=== PATIENT | female | born 1995 | race Caucasian/White ===

== ENCOUNTER 2018-06-02 07:20 | Emergency (ER) | payer MEDICAID, SELFPAY ==
[2018-06-02 07:22] VITALS: BP 124/69; PULSE 84; RESP 16; TEMP 36.5; O2SAT 98; BMI 26.4
--- NOTE | 2018-06-02 08:21 | ED.VISSUMM ---
- ER Visit Summary Date of Service: 06/02/18 Chief Complaint: Back pain History of Present Illness: The patient is a 22 F with lower back pain since yesterday. 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 Last night she began having bilateral lower back pain, keeping her from sleeping well. She did not take any medication at home for the pain. She has had similar symptoms in the past. She denies any numbness, tingling or weakness in the legs, abdominal pain, fever, bowel or bladder incontinence or retention. No other symptoms. Physical Examination: Vital signs: afebrile, hemodynamically stable, no hypoxia on room air General: well nourished, well developed, in no distress Skin: warm, dry, no rash, no pallor HEENT: normocephalic and atraumatic; PERRL, EOMI, moist mucous membranes Cardiovascular: regular rate and rhythm without murmurs, no peripheral edema, 2+ pulses all distal extremities Respiratory: No increased work of breathing, lungs are clear to auscultation bilaterally, no rales, rhonchi or wheezing Abdominal: Abdomen is soft, nontender with normoactive bowel sounds, no guarding or rebound, no masses Back: No midline thoracic or lumbar tenderness, deformities or step-offs. Tenderness to the paraspinal musculature bilaterally in the lower thoracic/upper lumbar region. Negative leg raise bilaterally. Strength, sensation and motor function and circulation are intact in the distal lower extremities, patellar reflexes 2+ and symmetric. MSK: Moves all extremities, no deformities, normal strength Neuro: Awake and alert, oriented ?4. No facial droop, sensation and motor function intact and symmetric Test Results: None indicated Emergency Department Course and Treatment: Patient's presentation is consistent with muscular strain of the lower back. Patient was given naproxen for pain. She was given a prescription for naproxen and Flexeril to use at bedtime to help her sleep. We discussed proper lifting techniques, as the trigger for her episodes of back pain today and historically have been lifting things at work. Patient has no red flag symptoms that would require further workup or imaging. Patient was discharged home. Treatment Plan: [] Disposition: [] Impression: Thoracolumbar strain with muscle spasm This note was generated with [employer] Selectation software. It may contain incorrect words, spelling, and punctuation that were not noted in review of the chart prior to signing ED Disposition - Plan for ED Patient: Disposition: Home or Assisted Living Chief Complaint: Back Instructions: ED Spasm Back No Trauma Prescriptions: Naproxen [Naprosyn] 500 mg PO BID PRN #20 tab Cyclobenzaprine [Flexeril] 5 mg PO TID PRN #20 tab PRN Reason: Muscle Spasm Referrals: Kendall Etienne MD [Primary Care Provider] - 1 Week if not improving Additional Instructions: Please make sure you are lifting properly at work, using your legs and not your back to lift heavy objects. You may use the naproxen as needed for pain. [place] the muscle relaxant for nighttime, as it will make you sleepy. If you have any worsening of your condition or any new concerning symptoms, please return immediately to the emergency department for another evaluation.
[2018-06-02] MEDS: Naproxen 500 MG Tablet PO (08:31)
[2018-06-02 08:32] VITALS: BP 122/61; PULSE 54; RESP 16; O2SAT 98
== END 2018-06-02 08:33 | disposition home or self-care (01) ==
PROVIDERS: Emergency Provider Emergency Medicine; Family Provider Family Medicine; PCP Family Medicine
DX: M62.830 Muscle spasm of back (principal); S29.012A Strain of muscle and tendon of back wall of thorax, initial encounter; S39.012A Strain of muscle, fascia and tendon of lower back, initial encounter; Z72.0 Tobacco use; X50.3XXA Overexertion from repetitive movements, initial encounter; Y93.89 Activity, other specified; Y92.89 Other specified places as the place of occurrence of the external cause; Y99.8 Other external cause status
CPT/HCPCS: 99283

== ENCOUNTER 2018-11-24 08:10 | Emergency (ER) | payer MEDICAID, SELFPAY ==
[2018-11-24 08:11] VITALS: BP 128/73; PULSE 69; RESP 16; TEMP 36.3; O2SAT 99; BMI 33.3
--- NOTE | 2018-11-24 08:22 | ED.VISSUMM ---
- ER Visit Summary Date of Service: 11/24/18 Chief Complaint: Sore throat History of Present Illness: The patient is a 23 F with a sore throat that started about a week ago. She noted some drainage in her throat as well as tonsil stones. Pain is bilateral. No trouble breathing, talking, or swallowing. She has had fevers. No cough. Physical Examination: Afebrile and vitals unremarkable. HEENT exam shows 1+ tonsils bilaterally with exudates. She has some posterior oropharynx cobblestoning. Anterior cervical lymphadenopathy. Good range of motion of her neck. No abscess. Airway intact. Skin appears normal. Test Results: None performed Emergency Department Course and Treatment: Patient has all the criteria for strep and we will treat. Prescription for Pen-Vee K. She received Decadron here. Follow-up with primary care. Return for new or worsening issues. Treatment Plan: As above Disposition: Discharge Impression: 1. Strep pharyngitis This note was generated with [employer] dictation software. It may contain incorrect words, spelling, and punctuation that were not noted in review of the chart prior to signing ED Disposition - Plan for ED Patient: Chief Complaint: Sore Throat Referrals: Kendall Etienne MD [Primary Care Provider] -
--- NOTE | 2018-11-24 08:25 | ED.DCSUM_ITS ---
- ER Visit Summary Date of Service: 11/24/18 Chief Complaint: Sore throat History of Present Illness: The patient is a 23 F with a sore throat that started about a week ago. She noted some drainage in her throat as well as tonsil stones. Pain is bilateral. No trouble breathing, talking, or swallowing. She has had fevers. No cough. Physical Examination: Afebrile and vitals unremarkable. HEENT exam shows 1+ tonsils bilaterally with exudates. She has some posterior oropharynx c obblestoning. Anterior cervical lymphadenopathy. Good range of motion of her neck. No abscess. Airway intact. Skin appears normal. Test Results: None performed Emergency Department Course and Treatment: Patient has all the criteria for strep and we will treat. Prescription for Pen-Vee K. She received Decadron here. Follow-up with primary care. Return for new or worsening issues. Treatment Plan: As above Disposition: Discharge Impression: 1. Strep pharyngitis This note was generated with [employer] dictation software. It may contain incorrect words, spelling, and punctuation that were not noted in review of the chart prior to signing ED Disposition - Plan for ED Patient: Chief Complaint: Sore Throat Referrals: Kendall Etienne MD [Primary Care Provider] -
--- NOTE | 2018-11-24 08:25 | ED.DEP ---
ED Disposition - Plan for ED Patient: Chief Complaint: Sore Throat Instructions: ED Strep Pharyngitis Poss Prescriptions: Penicillin Vk [Pen-Vee K 250MG] 500 mg PO BID 10 Days #20 tab Referrals: Kendall Etienne MD [Primary Care Provider] -
[2018-11-24] MEDS: Penicillin Vk 250 MG Tablet 500 MG PO (08:33)
[2018-11-24 08:35] VITALS: PULSE 72; O2SAT 99
== END 2018-11-24 08:37 | disposition home or self-care (01) ==
LOC: ED 08:34
PROVIDERS: Emergency Provider Emergency Medicine; Family Provider Family Medicine; PCP Family Medicine
DX: J02.0 Streptococcal pharyngitis (principal); Z79.899 Other long term (current) drug therapy
CPT/HCPCS: 99283

== ENCOUNTER 2019-12-08 07:51 | Observation (INO) | payer MEDICAID, SELFPAY ==
[2019-12-08 07:53] VITALS: BP 150/79; PULSE 70; RESP 18; TEMP 36.6; O2SAT 99; BMI 26.6
--- NOTE | 2019-12-08 08:09 | ED.VISSUMM ---
- ER Visit Summary Date of Service: 12/08/19 Chief Complaint: 5-month history of methamphetamine abuse trying to stop going through withdrawal symptoms History of Present Illness: 24-year-old female history of methamphetamine abuse since June. Primarily a daily user but recently that is accelerated in frequency. Primarily snorts the drug. She has not taken it since Friday and she started to have withdrawal symptoms such as nausea and vomiting and anxiety. She is requesting inpatient detox. She is never gone through detox before. She denies any IV drug abuse. Physical Examination: Young female no acute distress. Vital signs are stable and afebrile. H EENT exam unremarkable. Neck nontender. Lungs clear to auscultation bilaterally. Heart regular rhythm no murmur. Abdomen is soft and nontender. Normal bowel sounds no peritoneal signs. Patient moves all 4 extremities. Neurovascular intact. Calves are nontender. There is no edema. There is no track trimble in her arms. There is no cellulitis. Neurologically she is awake and alert with no focal motor deficits. Test Results: None Emergency Department Course and Treatment: Patient with a history of methamphetamine abuse for the last 5+ months. Has not used the last 36 to 48 hours is complaining of withdrawal symptoms. I have the hospitalist on page for admission. Treatment Plan: Hospitalist on page for admission Disposition: Admission Impression: Methamphetamine abuse Withdrawal requesting detox This note was generated with [employer] dictation software. It may contain incorrect words, spelling, and punctuation that were not noted in review of the chart prior to signing ED Disposition - Plan for ED Patient: Referrals: Kendall Etienne MD [Primary Care Provider] -
--- NOTE | 2019-12-08 08:28 | ED.RN ---
[place] [phone]
--- NOTE | 2019-12-08 08:33 | NURSING ---
DR JIMENEZ FOR DR BRIGGS
--- NOTE | 2019-12-08 08:38 | NURSING ---
MED SURG [facility] REQUESTING DETOX, METH ABUSE
--- NOTE | 2019-12-08 08:41 | NURSING ---
[id number] MED SURG
[2019-12-08 09:14] VITALS: BMI 27.8; BMI 27.9
[2019-12-08 09:50] LABS: Absolute Lymphocyte Count 2.86 X10^3/uL (0.83-4.51); Absolute Neutrophil Count 6.1 X10^3/uL (2.0-7.7); Basophil# 0.07 X10^3/uL; Basophil% 0.7 % (0-1); Eosinophil# 0.41 X10^3/uL; Hematocrit 39.1 % (37-47); Hemoglobin 12.9 g/dL (12.0-15.0); Lymphocyte # 2.86 X10^3/ul (4.0); Mean Corpuscular Hgb 29.5 pg (27.0-32.0); Mean Corpuscular Volume 89.5 fL (81-99); Mean Platelet Vol. 10.2 fl (6.2-12.0); Monocyte# 0.76 X10^3/uL; Monocyte% 7.5 % (0-10); NRBC Flagged by Analyzer 0 % (0-5); Neutrophil # 6.08 X10^3/uL (2.7-7.7); Neutrophil % 59.6 % (47-70); Platelet Count 212 K/mm3 (150-450); RBC Distribution Width CV 12.9 % (11.6-14.6); RBC Distribution Width SD 42.4 fl (35.1-43.9); Red Blood Count 4.37 M/mm3 (4.2-5.4); White Blood Count 10.2 K/mm3 (4.4-11.0)
[2019-12-08 10:04] LABS: ALB/GLOB Ratio 1.3 RATIO (0.9-2.4); AST(SGOT) 15 U/L (15-37); Alanine Aminotransfer ALT/SGPT 32 U/L (13-56); Albumin, Serum 3.8 g/dL (3.2-5.0); Alkaline Phosphatase 64 U/L (45-117); Anion Gap 3 (5-15); BUN 10 mg/dL (7-18); BUN/Creat Ratio 13.9 RATIO (10-20); Calcium,Total 8.9 mg/dL (8.5-10.1); Chloride 108 mmol/L (98-107); Creatinine, Serum 0.72 mg/dL (0.55-1.02); EST Glomerular Filtration Rate 103 mL/min (>60); Est Glom Filt Rate - Afr Amer 125 mL/min (>60); Estimated Creatinine Clearance 115.14 ml/min; Globulin 2.9 g/dL (2.2-4.2); Glucose 97 mg/dL (74-106); Potassium 3.9 mmol/L (3.5-5.1); Protein, Total 6.7 g/dL (6.4-8.2); Sodium Level 141 mmol/L (136-145)
[2019-12-08] MEDS: LORazepam 1 MG Tablet PO ×4 (10:09→22:17)
--- NOTE | 2019-12-08 10:10 | PCM.HP.STD ---
Problem List (1) Acute amphetamine withdrawal Status: Acute (2) Amphetamine abuse Status: Chronic (3) Anxiety Status: Chronic (4) Depression Status: Chronic History of Present Illness Date of Admission: 12/08/19 Chief Complaint: Requesting admission for amphetamine detox. The patient is a 24 year old F patient with past medical history as mentioned above presented to the emergency room requesting admission for medical stabilization for acute amphetamine withdrawal. The patient has been snorting methamphetamines every day over the last 5 months. Last use was this past Friday. Her symptoms started since yesterday with restlessness, and anxiety, not able to sleep as well as tremors, associated with weakness and intermittent nausea and without other associated symptoms. She complained of abdominal cramps as well without diarrhea. Denied fever or chills. Denied chest pain or shortness of breath. In the emergency department, her vital signs were stable, blood pressure was slight elevated. Routine blood work was unremarkable. LFT was unremarkable. Urine drug screen and serum are pending. She is being admitted for acute methamphetamine withdrawal for medical stabilization. Past Medical History Past Medical History (Chronic Problems): Chronic Problems Amphetamine abuse (Chronic) Anxiety (Chronic) Depression (Chronic) Allergies No Known Allergies Allergy (Verified 12/08/19 07:54) Home Medications: Ambulatory Orders Medication Instructions Recorded Escitalopram Oxalate [Lexapro] 10 mg PO DAILY 11/24/18 Bupropion HCl [Wellbutrin Xl] 150 mg PO DAILY 12/08/19 Etonogestrel [Nexplanon] 68 mg SQ DAILY 12/08/19 Psychiatric History: Anxiety, Depression [facility] History: No pertinent [facility] history Lives: With Family Smoking Status: Current every day smoker Tobacco Use: Cigarettes Alcohol: Occasional Drugs: - - Methamphetamines. - *Family History Maternal History Items: No pertinent history Paternal History Items: No pertinent history Review of Systems Constitutional: Reports: Weakness, Fatigue. Denies: Anorexia, Chills, Fever Eyes: Denies: Blurred vision, Double vision, Drainage, Redness HEENT: Denies: Difficulty Hearing, Ear Pain, Eye Pain, Nasal Congestion, Sore Throat Cardiovascular: Reports: Light Headedness. Denies: Chest Pain, Chest Pressure, Chest Tightness, Heaviness, Palpitations, Syncope Respiratory: Denies: Cough, Pleuritic Pain, Shortness of Breath, Sputum production, Wheezing Gastrointestinal: Reports: Nausea. Denies: Abdominal Pain, Constipation, Diarrhea, Vomiting Genitourinary: Denies: Dysuria, Frequency, Hematuria Musculoskeletal: Denies: Arm Pain, Back Pain, Foot Pain Skin: Denies: Dryness, Rash Neurological: Reports: Tremor. Denies: Balance problems, Double vision, Change in Speech, Slurred speech, Confusion, Headaches, Incoordination, Numbness, Tingling Psychiatric: Reports: Anxiety, Depression Endocrine: Denies: Change in Body Habitus, Polydipsia, Polyuria VTE Information - Inpt Only VTE Present on Admission: No VTE Mechan Device Prophylaxis: None VTE Pharm Prophylaxis ordered?: No Patient Problems: Active and Suspected Problems Acute amphetamine withdrawal (Acute) - Physical Exam Vitals/I&O's: Vital Signs Temp Pulse Resp BP Pulse Ox 97.8 F 70 18 150/79 H 99 12/08/19 07:53 12/08/19 07:53 12/08/19 07:53 12/08/19 07:53 12/08/19 07:53 Oxygen Delivery Method Room Air Weight: 178 lb Body Mass Index (BMI) 27.8 General: Alert, Oriented x3, Cooperative, No apparent distress HEENT: Atraumatic, PERRLA, EOMI, Normocephalic Oral: Moist Mucosa, No Gingival or Mucosal Lesions/ Ulcerations Neck: Supple, No JVD, Negative Carotid Bruits, Trachea Midline, Thyroid Normal Size and Texture Lungs: Clear to auscultation, Normal air movement, No rhonchi, No wheeze, No rales Cardiovascular: Regular rate, Regular Rhythm, Normal S1, Normal S2, PMI Normal Abdomen: Bowel Sounds Present, Soft, Non Tender, Non-Distended, No Hepato-splenomegaly Extremities: No clubbing, No cyanosis, No edema Skin: No rashes, No breakdown Lymphatic: No Cervical, Supraclavicular, or Inguinal Adenopathy Neurological: Cranial nerves II-XII grossly intact, Motor Exam 5/5 strength throughout Psych/Mental Status: Normal Affect, Anxious, Restless, Alert and oriented to time, place, person, mood and affect Laboratory Results 12/08/19 09:35: WBC 10.2, RBC 4.37, Hgb 12.9, Hct 39.1, MCV 89.5, MCH 29.5, MCHC 33.0, RDW Std Deviation 42.4, RDW Coeff of Victorino 12.9, Plt Count 212, MPV 10.2, Immature Gran % (Auto) 0.200, Neut % (Auto) 59.6, Lymph % (Auto) 28.0, [place] % (Auto) 7.5, Eos % (Auto) 4.0, Baso % (Auto) 0.7, Absolute Neuts (auto) 6.1, Absolute Lymphs (auto) 2.86, Nucleated RBC % 0 12/08/19 09:35: Sodium 141, Potassium 3.9, Chloride 108 H, Carbon Dioxide 30.0, Anion Gap 3 L, BUN 10, Creatinine 0.72, Estim Creat Clear Calc 115.14, Est GFR (MDRD) Af Amer 125, Est GFR (MDRD) Non-Af 103, BUN/Creatinine Ratio 13.9, Glucose 97, Calcium 8.9, Total Bilirubin 0.20, AST 15, ALT 32, Alkaline Phosphatase 64, Total Protein 6.7, Albumin 3.8, Globulin 2.9, Albumin/Globulin Ratio 1.3 12/08/19 09:35: Ethyl Alcohol Pending Current Medications Acetaminophen (Tylenol) 500 mg PO Q4H PRN PRN PRN Reason: Temp > 100.4 F Clonidine (Catapres) 0.1 mg PO Q2H PRN PRN PRN Reason: hot/cold sweats / gen. anxiety Dicyclomine HCl (Bentyl) 20 mg PO Q6H PRN PRN PRN Reason: Abdominal Discomfort Escitalopram Oxalate (Lexapro) 10 mg PO DAILY SHANELL Hydroxyzine Pamoate (Vistaril Pamoate Capsule) 50 mg PO Q6H PRN PRN PRN Reason: Mild anxiety (1-4) Loperamide HCl (Imodium) 2 - 4 mg PO UD PRN PRN Reason: LOOSE STOOLS Lorazepam (Ativan) 1 mg PO Q4H SHANELL; Taper Stop: 12/11/19 13:59 Methocarbamol (Methocarbamol) 750 mg PO Q6H PRN PRN PRN Reason: Muscle Aches Ondansetron HCl (Zofran Odt) 4 mg PO Q6H PRN PRN PRN Reason: NAUSEA Sodium Chloride () 10 - 40 ml IV UD PRN PRN Reason: SALINE FLUSH Trazodone HCl (Desyrel) 50 mg PO QHS [facility] Assessment/Plan All Active Problems Acute amphetamine withdrawal (Acute) This is a 24 years old female patient presented to the emergency room requesting admission for medical stabilization for acute methamphetamine withdrawal. #1 acute methamphetamine withdrawal: Patient has been using methamphetamine by snorting every day for the last 5 months. Last use was Friday morning. Her vital signs are stable except slightly elevated blood pressure. Routine blood work was unremarkable. LFT was unremarkable. Urine drug screen and blood alcohol level as well as test are pending. [facility], start Ativan taper, PRN Tylenol, Catapres, Bentyl, Vistaril, Imodium, methocarbamol, Zofran, trazodone nightly. #2 anxiety/depression: Continue Wellbutrin and Lexapro. #3 DVT prophylaxis: Low risk patient, no prophylaxis indicated. This note was generated with [employer] dictation software. It may contain incorrect words, spelling, and punctuation that were not noted in checking the note before signing. Code Visit Inpatient E&M: 29860 Init Hosp L2
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
[2019-12-08 11:10] LABS: Alcohol, Blood (Medical)-Serum < 3.0 mg/dL
[2019-12-08] MEDS: hydrOXYzine PAM 25 MG Capsule 50 MG PO ×2 (11:17→17:53)
[2019-12-08 13:46] LABS: Internal QC Validated? YES +Cl - CLEAR BKGD
[2019-12-08 13:47] LABS: Pregnancy, Urine Negative Negative
[2019-12-08 14:06] VITALS: BP 113/58; PULSE 65; RESP 16; TEMP 36.7; O2SAT 99
[2019-12-08 14:07] LABS: Amphetamine Urine VISTA NEGATIVE (<1000 ng/mL); Barbiturate Urine VISTA NEGATIVE (< 200 ng/mL); Benzodiazepine Urine VISTA NEGATIVE (< 200 ng/mL); Cocaine Urine VISTA NEGATIVE (< 300 ng/mL); Ecstacy Urine VISTA NEGATIVE (< 500 ng/mL); Methadone Urine VISTA NEGATIVE (< 300 ng/mL); PCP Urine VISTA NEGATIVE (< 25 ng/mL); THC Urine VISTA NEGATIVE (< 50 ng/mL); Vista UDS pH Range 6
--- NOTE | 2019-12-08 17:02 | NURSING ---
called report to charles PARKER ms3
[2019-12-08 17:47] VITALS: BP 153/93; PULSE 85; RESP 18; TEMP 37; O2SAT 100
[2019-12-08] MEDS: Methocarbamol 750 MG Tablet PO (17:54)
[2019-12-08 22:06] VITALS: BP 129/70; PULSE 67; RESP 18; TEMP 36.9; O2SAT 100
[2019-12-08] MEDS: Docusate Sodium 100 MG Capsule PO (22:17)
[2019-12-08] MEDS: traZODone 50 MG Tablet PO (22:17)
[2019-12-08] MEDS: Ondansetron ODT 4 MG Tablet PO (22:21)
[2019-12-09 02:02] VITALS: BP 119/62; PULSE 86; RESP 18; TEMP 36.8; O2SAT 97
[2019-12-09] MEDS: LORazepam 1 MG Tablet PO ×2 (02:07→06:26)
[2019-12-09 06:20] VITALS: BP 120/63; PULSE 89; RESP 18; TEMP 36.8; O2SAT 94
[2019-12-09] MEDS: Escitalopram Oxalate 10 MG Tablet PO (11:37)
[2019-12-09] MEDS: buPROPion (XL) 150 MG TABLET.XL PO (11:37)
[2019-12-09 11:40] VITALS: BP 117/63; PULSE 89; RESP 16; TEMP 37.1; O2SAT 97
--- NOTE | 2019-12-09 11:49 | PCM.DC ---
- Discharge Diagnoses Current Active Problems: Current Active and Chronic Problems Acute amphetamine withdrawal (Acute) Amphetamine abuse (Chronic) Anxiety (Chronic) Depression (Chronic) You will use the following diet at home:: No restrictions Your food should be the consistency of: Regular Your liquids should be the consistency of: Regular/Thin Discharge Activity: Return to Normal Activity Return to work on:: 12/13/19 Weight Bearing Status: Full weight bearing Allergies/Adverse Reactions: Allergies No Known Allergies Allergy (Verified 12/08/19 07:54) Medications to take at Discharge Escitalopram Oxalate [Lexapro] 10 mg PO DAILY 11/24/18 Bupropion HCl [Wellbutrin Xl] 150 mg PO DAILY 12/08/19 Etonogestrel [Nexplanon] 68 mg SQ DAILY 12/08/19 hydrOXYzine pamoate capsule [Vistaril pamoate capsule] 25 - 50 mg PO Q6H PRN PRN #20 cap 12/09/19 The following prescriptions were given: hydrOXYzine pamoate capsule [Vistaril pamoate capsule] 25 - 50 mg PO Q6H PRN PRN #20 cap PRN Reason: Mild anxiety (1-4) Transmission Status: Pending to [facility] Primary Care Physician: Kendall Etienne MD [Primary Care Provider] - Please follow up with your Primary Care Physician in: within 3 days Test Results: Test results from this visit will be discussed in further detail at your follow-up appointment, if applicable.
--- NOTE | 2019-12-12 09:24 | PCM.DC.SUM ---
Discharge Date and Diagnosis Date of Admission: 12/08/19 Date of Discharge: 12/09/19 - Primary Discharge Diagnosis #1 methamphetamine abuse #2 chronic depression #3 ADD per history - Secondary Discharge Diagnosis Chronic Problems Amphetamine abuse (Chronic) Anxiety (Chronic) Depression (Chronic) Hospital Course and Treatment Operations: None Procedures: None Summary of Care Provided: The patient is a 24 year old F was seen in the emergency room at [facility] with a chief complaint of requesting detox due to methamphetamine abuse. Patient last used methamphetamine approximately 3 days prior to being seen in the emergency room. Patient complained of nausea and vomiting and anxiety. Labs showed a normal CBC, chemistry panel was unremarkable, urine test was negative, and tox screen was negative. Patient was admitted to [place] [address], she was placed on medication protocol for opiate withdrawal, the following morning she was seen by this examiner-I notified her that there was no detox program at [facility] for methamphetamine usage. I recommended that she follow-up with 180 and had the social child and family services specialist see her concerning this, she refused assistance however. On 12/09/2019, patient was seen and examined: On examination she appeared in good health and spirits. Vital signs as documented. Skin warm and dry and without overt rashes. Neck without JVD. Lungs clear. Heart exam notable for regular rhythm, normal sounds and absence of murmurs, rubs or gallops. Abdomen unremarkable and without evidence of organomegaly, masses, or abdominal aortic enlargement. Extremities nonedematous. Neuro: Cranial nerves II through XII are grossly intact, no focal motor deficits were noted, sensation to light touch and pinprick is intact. Psych: Patient is alert and oriented x3, she does not appear anxious or depressed Patient was discharged in stable condition on 12/09/2019 - Physical Exam Vitals/I&O's: Vital Signs Temp Pulse Resp BP Pulse Ox 98.7 F 89 16 117/63 97 12/09/19 11:40 12/09/19 11:40 12/09/19 11:40 12/09/19 11:40 12/09/19 11:40 Oxygen Delivery Method Room Air Weight: 80.7 kg Body Mass Index (BMI) 27.8 Discharge Activity: Return to Normal Activity Return to work on:: 12/13/19 Weight Bearing Status: Full weight bearing Home Medications: Medications to take at Discharge Escitalopram Oxalate [Lexapro] 10 mg PO DAILY 11/24/18 Bupropion HCl [Wellbutrin Xl] 150 mg PO DAILY 12/08/19 Etonogestrel [Nexplanon] 68 mg SQ DAILY 12/08/19 hydrOXYzine pamoate capsule [Vistaril pamoate capsule] 25 - 50 mg PO Q6H PRN PRN #20 cap 12/09/19 Following Prescrptions Were Given to Patient: hydrOXYzine pamoate capsule [Vistaril pamoate capsule] 25 - 50 mg PO Q6H PRN PRN #20 cap PRN Reason: Mild anxiety (1-4) Transmission Status: Received by [facility] Primary Care Physician: Kendall Etienne MD [Primary Care Provider] - Please follow up with your Primary Care Physician in: within 3 days Disposition: Home Minutes spent on discharge:: 31 Patient Condition:: Stable Medical Necessity - Tobacco Use Smoking Status: Current every day smoker Tobacco Use: Cigarettes Meaningful Use Info Meaningful Use Diagnoses (Choose all that apply): None applicable Code Visit Inpatient E&M: 48203 Disch Hosp
== END 2019-12-09 14:57 | disposition home or self-care (01) | DRG 776 ==
LOC: ED 08:20 → ICU 08:47 → MS3 12-09 07:39 → ICU 02-24 10:27
PROVIDERS: Admitting Provider Hospitalist; Emergency Provider Emergency Medicine; Family Provider Family Medicine; PCP Family Medicine; Referring Provider Hospitalist; Visit Provider Internal Medicine
DX: F15.93 Other stimulant use, unspecified with withdrawal (principal); F17.210 Nicotine dependence, cigarettes, uncomplicated; F32.9 Major depressive disorder, single episode, unspecified; F41.9 Anxiety disorder, unspecified; F98.8 Other specified behavioral and emotional disorders with onset usually occurring in childhood and adolescence; Z79.899 Other long term (current) drug therapy
CPT/HCPCS: 80053; 80307; 80320; 81025; 85025; 99218; 99283; 99406; G0378; G0480

== ENCOUNTER 2021-07-30 13:47 | Emergency (ER) | payer MEDICAID, SELFPAY ==
[2021-07-30 13:48] VITALS: BP 142/79; PULSE 95; RESP 16; TEMP 36; BMI 34.1
--- NOTE | 2021-07-30 15:36 | US_ITS ---
STUDY: FIRST TRIMESTER OBSTETRICAL ULTRASOUND REASON FOR EXAM: Female, 25 years old. Bleeding. Left lower quadrant pain. LMP: 06/12/2021. TECHNIQUE: Transvaginal TECHNICAL QUALITY: Adequate. PRIOR ULTRASOUND: None. FINDINGS: There is visualization of a single gestational sac in a normal intrauterine position. The mean sac diameter (MSD) measures 1.2 cm, indicating an estimated gestational age (EGA) of 60 weeks, 0 days. The gestational sac shape is within normal limits. There is a visualized yolk sac. The yolk sac measures 0.35 cm. The placenta is non-visualized. There is no demonstrated embryo ( pole). The estimated gestation age (EGA) by LMP is 6 weeks, 6 days. The estimated date of delivery (ZAC) by LMP is 03/19/2022. The estimated gestation age (EGA) by US is 6 weeks, 0 days. The estimated date of delivery (ZAC) by US is 03/25/2022. The uterus measures 9.5 x 6.2 x 5.1 cm. There is no demonstrated uterine fibroid. The cervix is closed. There is a 3 mm echogenic focus in the cervix. The right ovary measures 3.3 x 1.6 x 2.0 cm. There is no right ovarian cyst. There is no visualized right adnexal mass or complex lesion. The left ovary measures 5.0 x 3.8 x 4.0 cm. There is a 3 x 3.5 x 3.5 cm cyst. There is no visualized left adnexal mass or complex lesion. There is minimal fluid in the cul de sac. US/Transvaginal w/Preg US IMPRESSION: 1. Intrauterine gestational sac with yolk sac but no pole. Mean gestational age is 6 weeks, 0 days. ZAC is 03/25/2022. 2. Left ovarian corpus luteum cyst. Electronically Signed: Neptali Garcia DO at 17:26 EDT Tel [phone], Service support ,
--- NOTE | 2021-07-30 15:37 | ED.VIS.FEGU ---
HPI HPI - Female History of Present Illness Chief Complaint: Vag Bld, Preg Informant: patient Associated Symptoms P: 2 Ab: 2 Narrative Narrative: 25-year-old female Ab2 at approximately 6 to 7 weeks gestation states that last night she began to notice some dark brown blood when she wiped after urination. This continued today. She states that she spoke with [facility] DOCUMENTATION BILLING CLERK who recommended waiting unless she developed some cramping. She then developed some cramping pain on the left side of her abdomen. PFSH PFSH no medical history Allergy/AdvReac Type Severity Reaction Status Date / Time No Known Allergies Allergy Verified 07/30/21 13:48 Social History (Updated 07/30/21 @ 15:[address] Filippo Borges, DO) Smoking Status: Current every day smoker tobacco type: cigarettes substance use type: does not use ROS ROS ED Constitutional Constitutional ED: Denies chills or weight loss Eyes Eyes: Denies change in vision or diplopia ENT ENT ED: Denies ear pain, rhinorrhea or sore throat Cardiovascular Cardiovascular: Denies chest pain, orthopnea, palpitations or racing heartbeat Respiratory/Chest Respiratory/Chest: Denies cough, dyspnea or orthopnea Gastrointestinal Gastrointestinal: Denies abdominal pain, diarrhea, nausea or vomiting Genitourinary Genitourinary ED: Reports other Details: See history of present illness ; Denies dysuria, hematuria or urinary frequency Musculoskeletal Musculoskeletal: Denies arthralgias or myalgias Integumentary Denies abscess or rash Neurologic Neurologic: Denies headache(s) or weakness Psychiatric Psychiatric: Denies anxiety, depression, suicidal ideation or suicidal thoughts Endocrine Endocrinology: Denies polydipsia, polyphagia or polyuria Allergic/Immunologic Allergic/Immunologic ED: Denies mouth swelling, tongue swelling or urticaria EXAM Physical Exam Const Vital Signs: 07/30/21 13:48 Temperature 96.8 F L Temperature Source Temporal Pulse Rate 95 Respiratory Rate 16 Blood Pressure 142/79 H Blood Pressure Mean 100 Positive well nourished and well developed General Appearance ED: well developed HEENT Reports normocephalic, head/scalp atraumatic and moist mucous membranes Eyes PERRL and EOMs intact bilaterally Neck no lymphadenopathy, supple and no JVD Resp normal respiratory effort and clear to auscultation bilaterally Cardio regular rate, regular rhythm and no murmurs GI normal to inspection, nondistended, normoactive bowel sounds and non-tender Palpation: soft Back/Spine no CVA tenderness and normal ROM Extremity normal to inspection General Extremety ED: Negative for edema General Extremity: Negative for edema Neuro oriented x3 and CN's II-XII intact bilaterally Sensorium / Orientation: alert Motor Exam: strength 5/5 throughout Psych mental status grossly normal Mood & Affect: Negative for depressed or tearful Skin no rashes or lesions noted and no wounds MDM MDM MDM Narrative Medical decision making narrative: Patient is Rh+. hCG level at 87.4. At the 24 July she was in the 900s. Hemoglobin 14.9. Obstruction ultrasound demonstrated intrauterine gestational sac with a yolk sac but no pole. Case was discussed with Dr. Fong. Patient will call the office tomorrow to arrange follow-up ultrasound. Lab Data Attestation: I reviewed the patient's lab results. Labs: Laboratory Results - last 24 hr 07/30/21 07/30/21 15:45 15:45 Hgb 14.9 Hct 44.4 HCG, Quant 8714 H Radiography Diagnostic Testing: Radiology Impression Obstetrics Ultrasound 07/30/21 15:36 IMPRESSION: 1. Intrauterine gestational sac with yolk sac but no pole. Mean gestational age is 6 weeks, 0 days. ZAC is 03/25/2022. 2. Left ovarian corpus luteum cyst. Electronically Signed: Neptali Garcia DO at 17:26 EDT Tel [phone], Service support , Discharge Plan Triage Chief Complaint: Vag Bld, Preg ED Provider: Filippo Borges Dx/Rx/DC Orders Clinical Impression: Threatened miscarriage Instructions: ED Possible Miscarriage ... Primary Care Provider: Kendall Etienne Referrals: Lexii Fong DO [STAFF PHYSICIAN] - (Call the office tomorrow discussed the follow-up ultrasound) Kendall Etienne MD [Primary Care Provider] - Disposition Disposition: Home, Self Care
[2021-07-30 15:53] LABS: Hematocrit 44.4 % (37-47); Hemoglobin 14.9 g/dL (12.0-15.0)
[2021-07-30 16:26] LABS: hCG Titer Quant., Serum 8714 mIU/mL (1-3)
== END 2021-07-30 18:01 | disposition home or self-care (01) ==
PROVIDERS: Emergency Provider Emergency Medicine; PCP Family Medicine
DX: O20.0 Threatened abortion (principal); O99.331 Smoking (tobacco) complicating pregnancy, first trimester; F17.210 Nicotine dependence, cigarettes, uncomplicated; Z3A.01 Less than 8 weeks gestation of pregnancy
CPT/HCPCS: 76817; 84702; 85014; 85018; 99283

== ENCOUNTER 2021-09-28 20:42 | Emergency (ER) | payer MEDICAID, SELFPAY ==
[2021-09-28 20:46] VITALS: BP 131/80; PULSE 113; RESP 20; TEMP 38.4; O2SAT 95; BMI 37.6
[2021-09-28 20:51] VITALS: O2SAT 96
[2021-09-28 21:21] VITALS: PULSE 101; RESP 20; O2SAT 99
--- NOTE | 2021-09-28 21:26 | EDS_ITS ---
HPI History of Present Illness Chief Complaint: Shortness of Breath Informant: patient Narrative Narrative: 26-year-old female about 14 weeks states that she tested positive at home for COVID-19. She states she got ill 2 days ago. The patient states that she has every symptom of Covid. She states that she talked to FARMWORKER MACHINE and they recommended her come to emergency surgical referral for monoclonal antibodies. Patient's been taking Tylenol last dose 2 hours ago. She notes shortness of breath. Pulse ox 99% in the room. She notes diarrhea nausea. Nonproductive cough PFSH PFS Medical History Anxiety Depression Substance abuse Home Medications PNV,calcium [id number] acid [ Vitamin Plus Low Iron] 1 tab PO DAILY 09/28/21 [History Last Taken Unknown] aspirin 81 mg PO DAILY 09/28/21 [History Last Taken Unknown] escitalopram oxalate 10 mg PO DAILY 09/28/21 [History Last Taken Unknown] Allergy/AdvReac Type Severity Reaction Status Date / Time No Known Allergies Allergy Verified 09/28/21 20:49 Social History Smoking Status: Current some day smoker tobacco type: e-cigarettes substance use type: does not use ROS ROS ED Constitutional Constitutional ED: Reports chills, fever(s) and sweats; Denies weight loss Eyes Eyes: Denies change in vision or diplopia ENT ENT ED: Reports rhinorrhea and sore throat; Denies ear pain Cardiovascular Cardiovascular: Reports chest pain; Denies orthopnea, palpitations or racing heartbeat Respiratory/Chest Respiratory/Chest: Reports cough and dyspnea on exertion; Denies dyspnea or orthopnea Gastrointestinal Gastrointestinal: Reports diarrhea, nausea and vomiting; Denies abdominal pain Genitourinary Genitourinary ED: Denies dysuria, hematuria or urinary frequency Musculoskeletal Musculoskeletal: Reports myalgias; Denies arthralgias Integumentary Denies abscess or rash Neurologic Neurologic: Reports headache(s); Denies weakness Psychiatric Psychiatric: Denies anxiety, depression, suicidal ideation or suicidal thoughts Endocrine Endocrinology: Denies polydipsia, polyphagia or polyuria Allergic/Immunologic Allergic/Immunologic ED: Denies mouth swelling, tongue swelling or urticaria EXAM Physical Exam Const Vital Signs: 09/28/21 20:46 09/28/21 20:51 09/28/21 21:21 Temperature 101.2 F H Temperature Source Temporal Pulse Rate 113 H 101 H Respiratory Rate 20 H 20 H Respiratory Effort Short of Breath Respiratory Pattern Tachypnea Blood Pressure 131/80 H Blood Pressure Mean 97 Pulse Ox 95 99 Oxygen Delivery Method Room Air Room Air Room Air Positive well nourished, well developed and obese General Appearance ED: well developed Nutritional Appearance: obese HEENT Reports normocephalic, head/scalp atraumatic, TM's clear and moist mucous membranes atraumatic Tympanic Membrane ED: Yes TM's clear Eyes PERRL and EOMs intact bilaterally Neck no lymphadenopathy, supple and no JVD Resp normal respiratory effort and clear to auscultation bilaterally Cardio regular rhythm and no murmurs Rate: tachycardic GI normal to inspection, nondistended, normoactive bowel sounds and non-tender Palpation: soft Back/Spine no CVA tenderness and normal ROM Extremity normal to inspection General Extremety ED: Negative for edema General Extremity: Negative for edema Neuro oriented x3 and CN's II-XII intact bilaterally Sensorium / Orientation: alert Motor Exam: strength 5/5 throughout Psych mental status grossly normal Mood & Affect: Negative for depressed or tearful Skin no rashes or lesions noted and no wounds MDM MDM MDM Narrative Medical decision making narrative: Patient is in no acute distress. She is eating and drinking well here in the department. CBC shows a white count of 7.4 and a hemoglobin of 13.9. Platelet count is 198. BMP showed a CO2 of 20 anion gap of 9 BUN of 9 creatinine 0.67. Glucose of 91. Patient has refused a chest x-ray citing . This after we clearly discussed getting a chest x-ray. The patient home Covid test. I am going to formally test her here should she require further treatment in her Covid course. She is inquiring about monoclonal antibodies. Lab Data Attestation: I reviewed the patient's lab results. Labs: Laboratory Results - last 24 hr 09/28/21 09/28/21 21:00 21:00 WBC 7.4 RBC 4.76 Hgb 13.9 Hct 41.2 MCV 86.6 MCH 29.2 MCHC 33.7 RDW Std Deviation 38.7 RDW Coeff of Victorino 12.3 Plt Count 198 MPV 10.1 Immature Gran % (Auto) 0.700 Neut % (Auto) 47.4 Lymph % (Auto) 31.2 Dillon % (Auto) 19.6 H Eos % (Auto) 0.7 Baso % (Auto) 0.4 Absolute Neuts (auto) 3.5 Absolute Lymphs (auto) 2.31 Nucleated RBC % 0 Sodium 137 Potassium 3.6 Chloride 108 H Carbon Dioxide 20.0 L Anion Gap 9 BUN 9 Creatinine 0.67 Estim Creat Clear Calc 121.57 Est GFR (MDRD) Af Amer 136 Est GFR (MDRD) Non-Af 112 BUN/Creatinine Ratio 13.5 Glucose 91 Calcium 8.9 Discharge Plan Triage Chief Complaint: Shortness of Breath ED Provider: Filippo Borges Dx/Rx/DC Orders Clinical Impression: COVID-19, Second trimester Instructions: Coronavirus Disease 2019 (COVID-19): Caring for Yourself or Others Prescriptions: No Action escitalopram oxalate 10 mg tablet 10 mg PO DAILY RF: 0 Vitamin Plus Low Iron 27 mg iron- 1 mg tablet 1 tab PO DAILY RF: 0 aspirin 81 mg Capsule 81 mg PO DAILY RF: 0 Other Ambulatory Orders: COVID Outpatient Monoclonal Antibody Referral (Routine) Timeframe: 1 Day Facility: [facility] - Location: [facility] Ordered By: Dr. Filippo Borges Primary Care Provider: Kendall Etienne Referrals: Kendall Etienne MD [Primary Care Provider] - As Needed Disposition Disposition: Home, Self Care
[2021-09-28 21:39] LABS: Absolute Lymphocyte Count 2.31 X10^3/uL (0.83-4.51); Absolute Neutrophil Count 3.5 X10^3/uL (2.0-7.7); Basophil# 0.03 X10^3/uL; Basophil% 0.4 % (0-1); Eosinophil# 0.05 X10^3/uL; Eosinophils% 0.7 % (0-5); Hematocrit 41.2 % (37-47); Hemoglobin 13.9 g/dL (12.0-15.0); Lymphocyte # 2.31 X10^3/ul (0.83-4.51); Lymphocyte % 31.2 % (19-41); Mean Corp Hgb Conc 33.7 g/dL (32-36); Mean Corpuscular Hgb 29.2 pg (27.0-32.0); Mean Corpuscular Volume 86.6 fL (81-99); Mean Platelet Vol. 10.1 fl (6.2-12.0); Monocyte# 1.45 X10^3/uL; Monocyte% 19.6 % (0-10); NRBC Flagged by Analyzer 0 % (0-5); Neutrophil # 3.52 X10^3/uL (2.7-7.7); Neutrophil % 47.4 % (47-70); Platelet Count 198 K/mm3 (150-450); RBC Distribution Width CV 12.3 % (11.6-14.6); RBC Distribution Width SD 38.7 fl (35.1-43.9); Red Blood Count 4.76 M/mm3 (4.2-5.4); White Blood Count 7.4 K/mm3 (4.4-11.0)
[2021-09-28 21:48] LABS: Anion Gap 9 (5-15); BUN 9 mg/dL (7-18); BUN/Creat Ratio 13.5 RATIO (10-20); Calcium,Total 8.9 mg/dL (8.5-10.1); Chloride 108 mmol/L (98-107); Creatinine, Serum 0.67 mg/dL (0.55-1.02); EST Glomerular Filtration Rate 112 mL/min (>60); Est Glom Filt Rate - Afr Amer 136 mL/min (>60); Estimated Creatinine Clearance 121.57 ml/min; Glucose 91 mg/dL (74-106); Potassium 3.6 mmol/L (3.5-5.1); Sodium Level 137 mmol/L (136-145)
[2021-09-28 22:26] VITALS: PULSE 99; RESP 22; TEMP 38.4; O2SAT 99
== END 2021-09-28 22:28 | disposition home or self-care (01) ==
PROVIDERS: Emergency Provider Emergency Medicine; PCP Family Medicine
DX: O98.512 Other viral diseases complicating pregnancy, second trimester (principal); O99.331 Smoking (tobacco) complicating pregnancy, first trimester; O99.342 Other mental disorders complicating pregnancy, second trimester; U07.1 COVID-19; F17.290 Nicotine dependence, other tobacco product, uncomplicated; F41.9 Anxiety disorder, unspecified; F32.9 Major depressive disorder, single episode, unspecified; Z3A.14 14 weeks gestation of pregnancy; Z79.82 Long term (current) use of aspirin; Z79.899 Other long term (current) drug therapy
CPT/HCPCS: 80048; 85025; 87426; 99283; J7040; A4216

== ENCOUNTER 2022-03-23 09:54 | Inpatient (IN) | payer MEDICAID, SELFPAY ==
[2022-03-23] VITALS (26 sets, daily range): BP systolic 115–146; BP diastolic 56–89; PULSE 77–113; TEMP 36.2–36.9; O2SAT 97–98; BMI 41.1
[2022-03-23] MEDS: Lactated Ringers 1,000 ML 50 ML IV (11:02)
[2022-03-23 11:13] LABS: Absolute Lymphocyte Count 2.34 X10^3/uL (0.83-4.51); Absolute Neutrophil Count 7.5 X10^3/uL (2.0-7.7); Basophil# 0.03 X10^3/uL; Basophil% 0.3 % (0-1); Eosinophil# 0.13 X10^3/uL; Eosinophils% 1.2 % (0-5); Hematocrit 38.5 % (37-47); Hemoglobin 13.2 g/dL (12.0-15.0); Lymphocyte # 2.34 X10^3/ul (0.83-4.51); Lymphocyte % 21.4 % (19-41); Mean Corp Hgb Conc 34.3 g/dL (32-36); Mean Corpuscular Hgb 29.6 pg (27.0-32.0); Mean Corpuscular Volume 86.3 fL (81-99); Mean Platelet Vol. 10.2 fl (6.2-12.0); Monocyte# 0.88 X10^3/uL; NRBC Flagged by Analyzer 0 % (0-5); Neutrophil # 7.49 X10^3/uL (2.7-7.7); Neutrophil % 68.5 % (47-70); Platelet Count 230 K/mm3 (150-450); RBC Distribution Width SD 40.3 fl (35.1-43.9); Red Blood Count 4.46 M/mm3 (4.2-5.4); White Blood Count 10.9 K/mm3 (4.4-11.0)
[2022-03-23 11:28] LABS: Amphetamine Urine VISTA NEGATIVE (<1000 ng/mL); Barbiturate Urine VISTA NEGATIVE (< 200 ng/mL); Benzodiazepine Urine VISTA NEGATIVE (< 200 ng/mL); Cocaine Urine VISTA NEGATIVE (< 300 ng/mL); Ecstacy Urine VISTA NEGATIVE (< 500 ng/mL); Methadone Urine VISTA NEGATIVE (< 300 ng/mL); PCP Urine VISTA NEGATIVE (< 25 ng/mL); THC Urine VISTA NEGATIVE (< 50 ng/mL); Vista UDS pH Range 5
[2022-03-23 12:05] LABS: Bedside Glucose 95 mg/dL (74-106)
[2022-03-23] MEDS: Oxytocin 30 units/NS 500 ml 30 UNITS/500 ML IV.SOLN IV (12:32)
[2022-03-23 13:26] LABS: Bedside Glucose 92 mg/dL (74-106)
--- NOTE | 2022-03-23 13:34 | PCM.HP.OB ---
HPI - General General Date of Admission: 03/23/22 HPI Narrative LEESA COLE, is a 26 F @ 39.1 weeks who presents for IOL due to GDMA1 and Obesity BMI >40 in . Maternal Data Information Final ZAC: 03/29/22 Final ZAC Source: US <20 weeks Gestational age: 39.1 [facility] Medical History (Updated 03/23/22 @ 13:[address] Daniela Miranda MD) Anxiety Chlamydia infection affecting Depression Gestational diabetes Gonorrhea affecting depression Substance abuse Home Medications PNV,calcium 74-[id number] acid [ Vitamin Plus Low Iron] 1 tab PO DAILY 09/28/21 [History Last Taken 03/23/22 05:15 1 tab] aspirin 81 mg PO DAILY 09/28/21 [History Last Taken 03/23/22 05:15 1 tab] Allergy/AdvReac Type Severity Reaction Status Date / Time No Known Allergies Allergy Verified 03/23/22 11:19 Surgical History (Updated 03/23/22 @ 10:35 by Roseann Ziegler) History of dilatation and curettage Social History Smoking Status: Current every day smoker tobacco type: e-cigarettes substance use type: does not use History Elective abortions Hx Para 2 Spontaneous abortions Hx # Term Pregnancies Ectopic pregnancies Hx # Pregnancies Multiple births # of living children NST FHR Rate Baby A Baseline: 140 Variability:: Moderate Accelerations:: 15 x 15 Decelerations:: None NST Reactive:: Yes FHR Category:: Category I Uterine Activity:: irregular Vital Signs Vital Signs Vital Signs: 03/23/22 10:43 03/23/22 11:11 03/23/22 11:58 Temperature 97.2 F L 97.5 F L Temperature Source Temporal Temporal Pulse Rate 104 H 103 H 95 Blood Pressure 143/79 H 136/82 H 131/79 H BP Systolic 143 136 131 BP Diastolic 79 82 79 Pulse Ox 97 03/23/22 13:16 Temperature 97.1 F L Temperature Source Temporal Pulse Rate 88 Blood Pressure 131/78 H BP Systolic 131 BP Diastolic 78 Pulse Ox 98 Weight Weight: 119.1 kg Body Mass Index (BMI) 41.1 Physical Exam Const alert and oriented x3 General Appearance: cooperative HEENT normocephalic GI GI Narrative: Gravid, non tender to palpation. OB / External & Speculum: external exam normal Extremity normal to inspection Skin no rashes or lesions noted Neuro oriented x3 and CN's II-XII intact bilaterally Psych Appearance: grossly normal Labs Labs Labs: Blood Type O POSITIVE Antibody Screen NEGATIVE Hct 38.5 % (37-47) Hgb 13.2 g/dL (12.0-15.0) Obstetrics US Rhogam given: No Assessment & Plan (1) Gestational diabetes: QUALIFIERS: Gestational diabetes mellitus control: diet-controlled Trimester: third trimester Qualified Code(s): O24.410 - Gestational diabetes mellitus in , diet controlled (2) Obesity affecting : QUALIFIERS: Trimester: third trimester Qualified Code(s): O99.213 - Obesity complicating , third trimester PLAN: Admit to L&D Montior FHR/TOCO Epidural if requested for pain Monitor VS Anticipate monitor BS AROM/PITOCIN GBS prophylaxis
[2022-03-23] MEDS: Ondansetron 4 MG/2 ML Vial IV (14:25)
[2022-03-23] MEDS: Penicillin G 3,000,000 Units 50 ML 100 UNITS IV (15:03)
[2022-03-23] MEDS: fentaNYL-bupivacaine (epidural) 100 ML BAG EPIDURAL (16:35)
[2022-03-23] MEDS: Acetaminophen 500 MG Tablet PO (17:42)
[2022-03-23] MEDS: Oxytocin 30 units/NS 500 ml 30 UNITS/500 ML IV.SOLN 334 UNITS IV (18:05)
--- NOTE | 2022-03-23 18:24 | EX.PCM.OBRPT ---
Assessment & Plan (1) Vaginal delivery: (2) Non-reassuring heart rate, delivered, current hospitalization: (3) Obesity affecting : QUALIFIERS: Trimester: third trimester Qualified Code(s): O99.213 - Obesity complicating , third trimester (4) Gestational diabetes: QUALIFIERS: Gestational diabetes mellitus control: diet-controlled Trimester: third trimester Qualified Code(s): O24.410 - Gestational diabetes mellitus in , diet controlled Maternal Data Information Final ZAC: 03/29/22 Gestational age: 39.1 Vaginal Delivery Maternal Presentation Maternal Presentation: Medically Indicated Induction Type of Induction: Pitocin and Amniotomy Medical Reason for Induction: - (GDMA1, BMI >40) Operative Information Date of Procedure: 03/23/22 Post-Operative Diagnosis: term gestation, GDMA1, BMI >40 in Surgery / Procedure Performed: Vacuum Assisted Vaginal Delivery Type of Anesthesia: Epidural Estimated Blood Loss: 200 Time of Delivery: 18:00 Findings Description of Procedure: Patient progressed to fully dilated. At this time heart rate decelerations present down into the 30s. Decision at this time for expedited delivery was to use the Kiwi vacuum. Bladder was attempted to be drained with a straight catheter however due to head position I was unable to pass the catheter. Epidural anesthesia was found to be adequate. Prior to delivery the patient with pushing was expelling urine. At this time then the Kiwi vacuum was placed on the flexion point. Pressure of 550 mmHg was obtained. With 1 pull and good maternal pushing efforts the head was delivered. The vacuum was then removed. The anterior followed by the posterior shoulder and the rest the infant's body was delivered. The was placed on the maternal chest. Terminal meconium was present. At this time upon inspection of the vagina a small first-degree vaginal laceration was appreciated. This was repaired with 2 [id number] sutures using 3-0 Rapide for hemostasis. Pitocin was started placenta was delivered without complication. The placenta was delivered intact. Presentation: Vertex Amniotic Membrane Rupture Type: Artificial Amniotic Fluid Description: Clear (at time of AROM) and Thick meconium (noted with delivery ) Placental Delivery Description: Spontaneous Placenta Disposition: [facility] Specimen(s) Removed: placenta Cord Vessel Description: 3 Vessels Cord Entanglement: None Infant A Gender: Male (1 minute): 8 (5 minute): 9 Delayed Cord Clamping: Yes Post Vaginal Delivery Medications Given After Delivery: IV Pitocin Episiotomy Description: None Laceration: Vaginal Extension/lac and 1st degree Complication Complications: None
[2022-03-23 18:31] LABS: Bedside Glucose 92 mg/dL (74-106)
[2022-03-23 18:41] LABS: Bedside Glucose 110 mg/dL (74-106)
[2022-03-23] MEDS: Ibuprofen 600 MG Tablet PO (21:36)
[2022-03-24 00:20] VITALS: BP 99/58; PULSE 85; RESP 18; TEMP 36.8
[2022-03-24] MEDS: Acetaminophen 500 MG Tablet 1000 MG PO ×3 (00:29→14:42)
[2022-03-24 03:33] VITALS: BP 141/84; PULSE 70; RESP 18; TEMP 36.9
[2022-03-24] MEDS: Ibuprofen 600 MG Tablet PO ×3 (03:37→18:19)
[2022-03-24 07:36] LABS: Bedside Glucose 90 mg/dL (74-106)
[2022-03-24 08:05] VITALS: BP 117/66; PULSE 80; RESP 18; TEMP 36.3
--- NOTE | 2022-03-24 14:07 | PCM.PROGNOTE ---
Subjective Subjective patient seen at bedside, doing well. Patient reports good pain control. lochia mild. Objective Data Objective Data Vital Signs: Vital Signs Temp Pulse Resp BP Pulse Ox 97.3 F L 80 18 117/66 98 03/24/22 08:05 03/24/22 08:05 03/24/22 08:05 03/24/22 08:05 03/23/22 13:16 Weight: 119.1 kg Body Mass Index (BMI) 41.1 Intake & Output: Intake and Output for Last 24 Hours 03/22/22 03/23/22 03/24/22 23:59 23:59 23:59 Intake Total 878.63 / 878.63 Output Total 500 / 500 Balance 378.63 / 378.63 Lab / Micro Data Result Diagrams: 03/23/22 10:50 Labs: Laboratory Results - last 24 hr 03/23/22 17:05: POC Glucose 92 03/23/22 18:32: POC Glucose 110 H 03/24/22 07:28: POC Glucose 90 Micro: Microbiology 03/23/22 10:45 Nasal Secretion SARS-CoV-2 Antigen (Rapid) - Final Physical Exam Const alert and oriented x3 General Appearance: cooperative HEENT normocephalic Neck General: normal visual inspection GI soft to palpation and non-distended GI Narrative: Fundus firm Extremity normal to inspection and no calf tenderness Skin no rashes or lesions noted Neuro oriented x3 and CN's II-XII intact bilaterally Psych mental status grossly normal Assessment & Plan Assessment/Plan (1) Vaginal delivery: PLAN: PPD#1Doing well Routine care pain mgmt ambulation dc home
--- NOTE | 2022-03-24 14:07 | PCM.DC ---
Discharge Instructions Diet Discharge Diet: No restrictions Activity May resume sexual activity in: 6-8 weeks Dressing / Incision Call your doctor if you observe: Fever of 101 or Higher, Inability to urinate, Using more than 1 pad per hour and Uncontrolled pain Follow Up Care Please Follow Up With: Daniela Miranda MD When: 1-2 weeks post and again at 6 weeks post . [phone] Test Results: Test results from this visit will be discussed in further detail at your follow-up appointment, if applicable. Discharge Plan Admission Admit Date/Time: 03/23/22 09:54 Attending Provider: Daniela Miranda Primary Care Provider: Kendall Etienne Discharge Orders/Prescriptions Prescriptions: New acetaminophen 500 mg Tablet 1,000 mg PO Q6H PRN PRN (Reason: Pain 1-10 Or Fever) Qty: 0 RF: 0 ibuprofen 600 mg Tablet 600 mg PO Q6H PRN PRN (Reason: Pain Score 1-3) Qty: 0 RF: 0 Continued Vitamin Plus Low Iron 27 mg iron- 1 mg tablet 1 tab PO DAILY RF: 0 Discontinued aspirin 81 mg Capsule 81 mg PO DAILY RF: 0 Referrals / Follow Up: Kendall Etienne MD [Primary Care Provider] - Disposition Disposition (needs filled in before D/C Order can be placed): Home, Self Care
[2022-03-24 14:20] VITALS: BP 126/67; PULSE 80; RESP 20; TEMP 36.3
--- NOTE | 2022-03-24 20:35 | NURSING ---
In caring for Owen today, I had a few areas of concerns and observations. This am, I voiced concerns with the charge nurse over the fact that this pt. had a hx. of amphetamine use , as well as a mention of suicide (but unsure of ideation or attempt). Noted that while I was in room with pt. on 03/23/22 before start of induction, I reviewed hx. that was in computer with the patient. 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 The charge nurse felt this statement was in relation to the THC she had used, and not in regards to the amphetamines. Tox. negative on admission. Pt. very impulsive for most of the shift, and very anxious. Owen has two other children, ages 7 & 9, I believe, but is very, very unsure of infant care. Circ care taught by ELENA Lopez, and she reported that the mother requested to wait for FOB to be back before looking at circ. When this nurse in room a bit later, the patient had this nurse show circ care again, and then once again opened up the diaper later to have this nurse check again to make sure A&D ointment was applied ok. Discussion later in the day went back to checking the diapers to see if wet, and the pt. reported that the strip is not turning blue, but obviously discolored. Reminded mother that the A&D can make diaper look wet, when it is just the ointment. That the yellow line should still turn blue, but that if she wasn't sure, she could pull the diaper apart a little to double-check it. This nurse in to pt's room around 1200 to check VS on mom and babe, mom was resting with eyes closed. Awakened her to ask if she had fed infant since 0645, as did not have another feed marked down. Pt. reports that she fed at nine-something. Allowed her to keep resting, and told FOB to have her call when she wakes up for VS. When back in to room, mother was sitting up at the edge of the bed, eating lunch. Has not attempted to feed at all. Discussed that infant eating at 0900 would make it 5 hours since last ate, and needs to eat q2-3 hrs. Closer to 5, I was trying to figure out when to chart the 0900 feed exactly, and pt. was unable to give a time on that feed, and was also not able to provide a time on that feed. Pt. very adamant about getting tucks into her room, but had no idea how to use them - educated on this. Owen was very concerned about her epidural site - had nursing wash her back after removing bandaid because she is very concerned about getting an infection. Reassured on this. Regarding further issues with the infant - this nurse in to complete 24 hr testing, and explained hearing screening to mother, and how I was going to do it with infant laying next to her in bed as he was sleeping peacefully and hearing screening works best when they are very asleep. I brought the screener in, and Owen asked me to move River to the crib so that she could eat. I explained again of needing to be sleeping and would move as soon as hearing screening is over. I put gel on , and went to place the beraphone on the , and Owen almost hit the nurses hand away stating You're going to hurt him! I paused to let the mother touch the beraphone and see how it worked, and that it would not hurt him. She was willing to let me proceed with the test. Owen asked a lot of questions about the tests, appropriate questions about what I was doing, what we needed with results, etc. The infant was due to eat again (4 hrs - had not attempted to feed in this time), and I discussed with patient doing [id number] and nursing while I collected the PKU and the bili. Owen was very concerned that this was not good for the infant and questioned me quite a bit on this. I told her that they loved to snuggle with mama, and that being close and getting to nurse actually helped them to control their pain better with procedures, vs. causing problems. Owen was visibly upset by this option, FOB tried to reassure her. Owen ended up doing this, and did very well at it. I offered several times over that if it was too uncomfortable for her to hold and feed, that I could do the test when he was done nursing in his crib, but that he needed to nurse again. A good bit of the time that I was collecting the PKU and the bili, Owen was very concerned over the gel in Jarocho's hair (from the hearing screen). (Concern over if it would harm him, and then that it bothered her that it was there). When I saw Owen with Jarocho, they were doing well. I did not see her do much infant care today, but she did spend some time holding him, touching him, and talking with dad about Jarocho being a mini version of him. The father was appropriate as well. She appeared caught off guard when asked about if they had changed diapers, and did not keep track of time well with feeds, but was very concerned over knowing if was getting enough to eat. Accepting of info, many, many questions. Concerns raised once again with charge nurse about pt. going home without seeing social work. Charge nurse discussed with floor SW, and Dr. Lara was involved in discussions of concern over mother and how she will do at home/with prior to follow-up, but feel is being cared for here. Dr. Lara discussed with pt. to stay to watch bili, work on feeds, and to see SW tomorrow - pt. anticipating these things.
[2022-03-24 21:00] VITALS: BP 119/58; PULSE 81; RESP 18; TEMP 36.5
[2022-03-25] MEDS: Ibuprofen 600 MG Tablet PO ×2 (00:36→07:48)
[2022-03-25 02:33] VITALS: BP 130/77; PULSE 89; RESP 18; TEMP 36.2; O2SAT 97
--- NOTE | 2022-03-25 05:23 | NURSING ---
Patient was planning on discharge home 03/24/22, but was kept overnight so that 's bili could be checked in the am, latch could be worked on, and social work could be consulted 03/25/22 before discharge. Pt has been appropriate for most of shift, but has requested that this RN do a lot of hands on care such as diaper changing and swaddling infant. During the shift, this RN was notified by [facility] RN that at the beginning of this shift, pt brought to [facility] door and was knocking on door waiting for a response. When [facility] RN answered the door, pt asked why no [facility] RN's were sitting in the well baby nursery. SCN RN explained that it is not standard for infant's to be in WBN, so nurse is not typically sitting in there - is on the floor involved in care of deliveries/care of all infants. Mom then told [facility] RN that she just needed to go outside for a few minutes, so she wanted the [facility] RN to watch . [facility] RN did watch . Pt did not attempt to reach this RN or any other [facility] staff member first. Throughout the shift, this RN reminded mom multiple times to use call chang or phone in room to get ahold of confidential secretary electrical integrator for any needs. Mom voiced understanding.
[2022-03-25 07:50] VITALS: BP 117/77; PULSE 84; RESP 16; TEMP 36.5; O2SAT 99
--- NOTE | 2022-03-25 07:50 | PCM.PN.OB ---
Subjective Subjective Patient seen at bedside. . Ambulating and voiding. Feeling like she doesn't have full control over bladder. When she stands up, she will leak urine. Denies any pain. Desires discharge home today. Objective Data Objective Data Vital Signs: Vital Signs Temp Pulse Resp BP Pulse Ox 97.7 F L 84 16 117/77 99 03/25/22 07:50 03/25/22 07:50 03/25/22 07:50 03/25/22 07:50 03/25/22 07:50 Oxygen Delivery Method Room Air Weight: 262 lb 9.129 oz Body Mass Index (BMI) 41.1 Intake & Output: Intake and Output for Last 24 Hours 03/23/22 03/24/22 03/25/22 23:59 23:59 23:59 Intake Total 878.63 / 878.63 Output Total 500 / 500 Balance 378.63 / 378.63 Lab / Micro Data Result Diagrams: 03/23/22 10:50 Micro: Microbiology 03/23/22 10:45 Nasal Secretion SARS-CoV-2 Antigen (Rapid) - Final ROS Eyes Eyes: Denies blurry vision, change in vision or spots in vision ENT HEENT: Denies dizziness or headache(s) Cardiovascular Cardiovascular: Denies abdominal pain, chest pain or dyspnea Respiratory/Chest Respiratory/Chest: Denies cough, dyspnea, shortness of breath at rest or shortness of breath with exertion Gastrointestinal Gastrointestinal: Denies abdominal pain, diarrhea or vomiting Genitourinary Genitourinary: Denies change in urinary stream, difficulty urinating or dysuria Musculoskeletal Musculoskeletal: Reports none Integumentary Integumentary: Denies rash Neurologic Neurologic: Denies dizziness, headache(s), memory loss or weakness Physical Exam Const alert and no apparent distress General Appearance: cooperative and comfortable Exam Limitations: no limitations HEENT normocephalic Eyes General Eye: normal appearance of both eyes Neck full ROM General: normal visual inspection Chest Chest: symmetrical chest wall rise Resp normal respiratory effort and normal air movement Effort and Inspection: symmetric chest movement Auscultation: clear to auscultation bilaterally Cardio regular rate and regular rhythm GI normal to inspection, nondistended, normoactive bowel sounds Back/Spine normal ROM Extremity full ROM and no calf tenderness General Extremity: normal exam except as noted Skin no rashes or lesions noted Neuro CN's II-XII intact bilaterally Psych mental status grossly normal Assessment & Plan (1) Vaginal delivery: (2) Obesity affecting : QUALIFIERS: Trimester: third trimester Qualified Code(s): O99.213 - Obesity complicating , third trimester (3) Non-reassuring heart rate, delivered, current hospitalization: PLAN: Routine care Pain control Ibuprofen 600 mg PO PRN for pain- Rx sent per patient's request D/C home with follow up in office
--- NOTE | 2022-03-25 08:05 | PCM.DC ---
Discharge Instructions Diet Discharge Diet: No restrictions Activity May resume sexual activity in: 6-8 weeks Weight Bearing Status: Weight bearing as tolerated Dressing / Incision Call your doctor if you observe: Fever of 101 or Higher, Inability to urinate, Using more than 1 pad per hour and Uncontrolled pain Follow Up Care Please Follow Up With: Daniela Miranda MD When: 2 weeks virtual visit/ 6 weeks in office Test Results: Test results from this visit will be discussed in further detail at your follow-up appointment, if applicable. Discharge Plan Admission Admit Date/Time: 03/23/22 09:54 Primary Reason for Your Visit: Labor and Delivery Attending Provider: Daniela Miranda Primary Care Provider: Kendall Etienne Instructions Patient Instructions: After a Vaginal , Depression Discharge Orders/Prescriptions Prescriptions: New acetaminophen 500 mg Tablet 1,000 mg PO Q6H PRN PRN (Reason: Pain 1-10 Or Fever) Qty: 0 RF: 0 ibuprofen 600 mg Tablet 600 mg PO Q6H PRN PRN (Reason: Pain Score 1-3) Qty: 0 RF: 0 ibuprofen 600 mg tablet 600 mg PO Q6H PRN PRN (Reason: pain) Qty: 60 RF: 1 Continued Vitamin Plus Low Iron 27 mg iron- 1 mg tablet 1 tab PO DAILY RF: 0 Discontinued aspirin 81 mg Capsule 81 mg PO DAILY RF: 0 Referrals / Follow Up: Kendall Etienne MD [Primary Care Provider] - Disposition Disposition (needs filled in before D/C Order can be placed): Home, Self Care
[2022-03-25 11:00] VITALS: RESP 16
--- NOTE | 2022-03-29 16:59 | NURSING ---
Doing well on follow up phone call. Baby nursing well and saw Xiomara and breast full.
== END 2022-03-25 11:30 | disposition home or self-care (01) | DRG 560 ==
PROVIDERS: Admitting Provider Obstetrics & Gynecology; PCP Family Medicine; Visit Provider Obstetrics & Gynecology
DX: O76 Abnormality in fetal heart rate and rhythm complicating labor and delivery (principal); Z37.0 Single live birth; E66.9 Obesity, unspecified; F17.210 Nicotine dependence, cigarettes, uncomplicated; O99.334 Smoking (tobacco) complicating childbirth; O70.0 First degree perineal laceration during delivery; O77.0 Labor and delivery complicated by meconium in amniotic fluid; O24.420 Gestational diabetes mellitus in childbirth, diet controlled; Z79.82 Long term (current) use of aspirin; Z3A.39 39 weeks gestation of pregnancy; O99.214 Obesity complicating childbirth
CPT/HCPCS: 59025; 59050; 80307; 82962; 85025; 86850; 86900; 86901; 87426; 99218; J7120; G0378; J2405

== ENCOUNTER 2022-06-13 13:27 | Day surgery (SDC) | payer MEDICAID, SELFPAY ==
[2022-06-13] VITALS (9 sets, daily range): BP systolic 106–132; BP diastolic 62–81; PULSE 56–80; RESP 16–18; TEMP 36.6–36.8; O2SAT 95–99; BMI 35.8
[2022-06-13 14:09] LABS: Internal QC Validated? YES +Cl - CLEAR BKGD; Pregnancy, Urine Negative Negative
[2022-06-13] MEDS: Lactated Ringers 1,000 ML 30 ML IV ×2 (14:29→16:06)
[2022-06-13 14:30] LABS: Hematocrit 41.1 % (37-47); Hemoglobin 13.5 g/dL (12.0-15.0); Mean Corp Hgb Conc 32.8 g/dL (32-36); Mean Corpuscular Volume 88.2 fL (81-99); Mean Platelet Vol. 10.3 fl (6.2-12.0); Platelet Count 256 K/mm3 (150-450); RBC Distribution Width CV 13.4 % (11.6-14.6); RBC Distribution Width SD 43.3 fl (35.1-43.9); Red Blood Count 4.66 M/mm3 (4.2-5.4); White Blood Count 9.3 K/mm3 (4.4-11.0)
--- NOTE | 2022-06-13 14:43 | DCINST_ITS ---
Discharge Instructions Diet Discharge Diet: No restrictions Activity Discharge Activity: May Not Drive (for 24 hours after surgery) and May Not Shower (for 24 hours after surgery) May resume sexual activity in: 1-2 weeks (May resume sexual activity once bleeding stops. No soaking in water for 1 week) Ice area for (Minutes): 15 Weight Bearing Status: Weight bearing as tolerated Lifting Restrictions: Nothing heavier than baby for 1 week Dressing / Incision Call your doctor if your incision/area has: Continuous Slow Oozing, Sudden Increased Bleeding, Increased Pain/ Swelling, Increased Redness, Foul Smelling Discharge and Swelling at the incision site Call your doctor if you observe: Fever of 101 or Higher, Coldness, Increased Pain, Numbness or Tingling, Change in Color, Inability to urinate, Inability to have a bowel movement, Using more than 1 pad per hour, Shortness of breath, Dizziness, Fainting spells, Swelling in the ankles, Chest pain, Increased palpitations (irregular heartbeat), Calf discomfort and Uncontrolled pain Remove Dressing in: leave until fall off (The glue will start to peel up. Ok to peel off or cut raised edges) Cleanse incision/area with: Soap & Water Follow Up Care Please Follow Up With: Lexii Fong DO When: 1-2 weeks Test Results: Test results from this visit will be discussed in further detail at your follow- up appointment, if applicable. Discharge Plan Admission Primary Reason for Your Visit: surgery Attending Provider: Lexii Fong Primary Care Provider: Kendall Etienne Instructions Patient Instructions: Discharge Instruction for ... Discharge Orders/Prescriptions Prescriptions: New oxycodone-acetaminophen [Percocet] 5-325 mg tablet 1 tab PO Q6H PRN (Reason: pain) 7 Days Qty: 10 0RF Continued Vitamin Plus Low Iron 27 mg iron- 1 mg tablet 1 tab PO DAILY acetaminophen 500 mg Tablet 1,000 mg PO Q6H PRN PRN (Reason: Pain 1-10 Or Fever) Qty: 0 0RF ibuprofen 600 mg tablet 600 mg PO Q6H PRN PRN (Reason: pain) Qty: 60 1RF paroxetine HCl 20 mg tablet 20 mg PO DAILY Label Comments: take 1 tablet by mouth once daily L.acid-L.rham-B.breve-S.therm 3 billion cell Tablet,Chewable 1 tab PO DAILY Discontinued levonorgestrel [Option-2] 1.5 mg tablet 1 tab PO DAILY Label Comments: take 1 tablet by mouth ONE TIME ONLY for 1 dose Referrals / Follow Up: Kendall Etienne MD [Primary Care Provider] - Disposition Disposition (needs filled in before D/C Order can be placed): Home, Self Care
--- NOTE | 2022-06-13 14:48 | PCM.OPRPT ---
Problems Associated Problem List Diagnoses (1) Sterilization: Report of Operation Date of Procedure: 06/13/22 Pre-Operative Diagnosis: Desires sterilization Post-Operative Diagnosis: Desires sterilization Surgery/Procedure Performed:: Laparoscopy bilateral salpingectomy Description of Surgical Findings:: Normal appearing pelvis. Normal appearing uterus, bilateral fallopian tubes, and bilateral ovaries Surgeon: Lexii Fong supervisor core drilling: Radha SWANSON Type of Anesthesia: General Special Medications: None Specimen's removed: Bilateral fallopian tubes Drains: None Estimated Blood Loss (mL): < 20 cc Fluids Replaced: 1000 mL Description of Procedure: The patient was taken to the operating room where general anesthesia was induced. She was prepped and draped in the dorsal lithotomy position using yellowfin stirrups. From below a weighted speculum was placed in the vagina to expose the cervix. The anterior lip of the cervix was grasped with a single-tooth tenaculum. A uterine manipulator was placed. The weighted speculum was removed. Gloves were changed and attention was turned to the abdominal portion of the procedure. Local was infiltrated at all port sites. An incision was made infraumbilically to accommodate a 5 mm port. This 5 mm port was placed under direct visualization with the laparoscope. Once confirmed intraperitoneal, CO2 insufflation was initiated. The patient was placed in Trendelenburg position. A left lateral 5 mm port was placed. A right lateral 5 mm port was placed. The pelvis was normal-appearing. Findings as noted above. The right fallopian tube was followed out to the fimbriated end. Using the LigaSure device the mesosalpinx was serially clamped, cauterized, and transected until reaching level of the cornua. Once at the level of the cornua the right fallopian tube was transected. The right fallopian tube was removed and sent to pathology for review. The left fallopian tube was elevated and followed to the fimbriated end. Using the LigaSure device the mesosalpinx was again serially clamped, cauterized, and transected until reaching the level of the cornua at which point the fallopian tube was transected. The left fallopian tube was removed and sent to pathology for review. Hemostasis was noted. The abdomen was exsufflated. The ports were removed. The skin was closed in a subcuticular fashion using 4 Monocryl. Skin glue was placed over the incisions. From below, all instruments were removed from the vagina. Hemostasis was noted. A vaginal sweep was performed. Instrument, sponge, sharp counts were correct and the patient was taken to the recovery room in stable condition. The product development assistant was present for entire case: prepping patient, removal of fallopian tubes, and closure. Grafts/Implants Used: None Procedure Start Time: 15:30 Procedure Stop Time: 15:43 Complications None Admit VTE Documentation VTE Present on Admission: No VTE Mechan Device Prophylaxis: SCD's
--- NOTE | 2022-06-13 14:55 | FALS_PTH ---
PATIENT: LEESA COLE LOC: [facility] [place] U#:[id number] AGE/SX: 26/F ROOM: RE06/13/[address]: Dr. Lexii oFng DO : 1995 BED: DIS: 06/13/2022 SPEC #: [id number] RECD: 06/14/22 08:12 STATUS: RONDA REToby #: [id number] JOAQUÍN: 06/13/22 14:[address]: Lexii Fong DEPT: SURGICAL PATHOLOGY RECD BY: Jaqueline Nelson ENTERED: 06/14/22 10:02 SP TYPE: FALL TUBES OTHR DR: Dr. Kendall Etienne MD Tissues: Fallopian tube Procedures: Surgery Specimen Level II HEADER OPERATION: Laparoscopic salpingectomy PRE-OP DIAGNOSIS: Sterilization TISSUE SUBMITTED: Bilateral fallopian tubes MICROSCOPIC DIAGNOSIS Bilateral fallopian tubes, salpingectomy: Bilateral fallopian tubes, no pathologic diagnosis. TEO:yu 06/17/2022 MICROSCOPIC DESCRIPTION Slides are reviewed. GROSS DESCRIPTION Received in fixative is one container labeled with the patient's name and designated bilateral fallopian tubes. The specimen consists of two fallopian tubes with an average length of 4 cm and has an average diameter of 0.4 cm. Both fallopian tubes have normal fimbriated ends. No mass lesions are identified. Certified Midwife sections are submitted in two cassettes as follows: 1 - one fallopian tube, 2 - the other fallopian tube. / AM:yu 06/14/2022 TC:4 CPT: 74685 x2
[2022-06-13] MEDS: Bupivacaine 0.25% 30 ML Vial (15:40)
== END 2022-06-13 17:39 | disposition home or self-care (01) ==
LOC: SDC 13:28 → AC 13:30
PROVIDERS: Anesthesiology; PCP Family Medicine; Referring Provider Obstetrics & Gynecology; Visit Provider Obstetrics & Gynecology
PROC: (CPT 58661; principal; 2022-06-13 14:40)
DX: Z30.2 Encounter for sterilization (principal); F12.90 Cannabis use, unspecified, uncomplicated; F41.9 Anxiety disorder, unspecified; F32.A Depression, unspecified; Z87.891 Personal history of nicotine dependence; Z79.899 Other long term (current) drug therapy
CPT/HCPCS: 58661; 00840; 81025; 85027; 86850; 86900; 86901; 88302; J7120; J2405

== ENCOUNTER 2022-10-31 10:31 | Emergency (ER) | payer MEDICAID, SELFPAY ==
[2022-10-31 10:32] VITALS: BP 104/75; PULSE 98; RESP 18; TEMP 36.3; O2SAT 95; BMI 31.3
--- NOTE | 2022-10-31 12:11 | EX.ED.DYSGE1 ---
HPI History of Present Illness Chief Complaint: General Illness Narrative Narrative: 27-year-old female presenting with cough, congestion, body aches, fevers, chills. She has one child that has tested positive for influenza A and she has another child who tested positive for RSV. Patient states that she is not sure which one she has. She states that she has a little bit of nausea but is able to eat and drink normally. She making normal urine and stool. No chest pain or shortness of breath. PFSH PFSH Medical History Acute amphetamine withdrawal Alcohol use Anxiety Chlamydia infection affecting Depression Gastric reflux Gestational diabetes Gonorrhea affecting Hx of vaginal delivery depression Restless legs Smoker Substance abuse Wears glasses Home Medications vitamin with calcium no.72-iron 27 mg-folic acid 1 mg tablet ( Vitamins Plus Low Iron) 1 tab PO DAILY 09/28/21 [History Last Taken 03/23/22 05:15 1 tab] acetaminophen 500 mg tablet 1,000 mg PO Q6H PRN PRN Pain 1-10 Or Fever #0 tabs 03/24/22 [Rx Last Taken Unknown] ibuprofen 600 mg tablet 600 mg PO Q6H PRN PRN pain #60 TABLETS 03/25/22 [Rx Last Taken Unknown] L.acidophilus,rhamnosus-B.breve-S.thermophilus 3 billion cell chew tab 1 tab PO DAILY 06/06/22 [History Last Taken Unknown] paroxetine HCl 20 mg tablet 20 mg PO DAILY 06/06/22 [History Last Taken Unknown] oxycodone-acetaminophen 5 mg-325 mg tablet (Percocet) 1 tab PO Q6H PRN pain 7 days #10 tabs 06/13/22 [Rx Last Taken Unknown] Allergy/AdvReac Type Severity Reaction Status Date / Time No Known Allergies Allergy Verified 10/31/22 10:33 Surgical History History of dilatation and curettage Social History Smoking Status: Current every day smoker tobacco type: e-cigarettes substance use type: does not use ROS ROS ED Constitutional Constitutional ED: Reports chills and fever(s) Eyes Eyes: Denies change in vision or diplopia ENT ENT ED: Reports rhinorrhea Cardiovascular Cardiovascular: Denies chest pain or palpitations Respiratory/Chest Respiratory/Chest: Reports cough Gastrointestinal Gastrointestinal: Reports nausea; Denies abdominal pain or vomiting Genitourinary Genitourinary ED: Denies dysuria or hematuria Musculoskeletal Musculoskeletal: Reports myalgias Integumentary Denies abscess or Abrasions Neurologic Neurologic: Denies headache(s) or paresthesias Psychiatric Psychiatric: Denies anxiety or depression EXAM Physical Exam Const Vital Signs: 10/31/22 10:32 10/31/22 11:01 Temperature 97.4 F L Temperature Source Temporal Pulse Rate 98 Respiratory Rate 18 Respiratory Effort Normal Non-Labored Respiratory Pattern Normal Blood Pressure 104/75 Blood Pressure Mean 84 Pulse Ox 95 Oxygen Delivery Method Room Air Positive well nourished General Appearance ED: NAD; Negative for pallor HEENT Reports moist mucous membranes HEENT Narrative: Nasal congestion Eyes PERRL and EOMs intact bilaterally Resp normal respiratory effort Cardio regular rate and regular rhythm Neuro oriented x3 and CN's II-XII intact bilaterally Sensorium / Orientation: alert Psych mental status grossly normal Skin no rashes or lesions noted General Skin Exam: Negative for jaundice or pallor MDM MDM MDM Narrative Medical decision making narrative: 27-year-old female presenting for fevers, chills, body aches. She has 2 sick contacts in her home. One has RSV and 1 has influenza. She was tested for COVID and influenza today and was negative. Patient is not ill-appearing and she has normal vital signs. She request some Zofran for home. She states since her symptoms started 2 days ago she would like some Tamiflu. This will be provided for her. Impression: 1. Influenza A Lab Data Attestation: I reviewed the patient's lab results. Discharge Plan Triage Chief Complaint: General Illness ED Provider: Nicolas German Dx/Rx/DC Orders Prescriptions: No Action Vitamin Plus Low Iron 27 mg iron- 1 mg tablet 1 tab PO DAILY acetaminophen 500 mg Tablet 1,000 mg PO Q6H PRN PRN (Reason: Pain 1-10 Or Fever) Qty: 0 0RF ibuprofen 600 mg tablet 600 mg PO Q6H PRN PRN (Reason: pain) Qty: 60 1RF paroxetine HCl 20 mg tablet 20 mg PO DAILY Label Comments: take 1 tablet by mouth once daily L.acid-L.rham-B.breve-S.therm 3 billion cell Tablet,Chewable 1 tab PO DAILY oxycodone-acetaminophen [Percocet] 5-325 mg tablet 1 tab PO Q6H PRN (Reason: pain) 7 Days Qty: 10 0RF Primary Care Provider: Kendall Etienne Referrals: Kendall Etienne MD [Primary Care Provider] -
== END 2022-10-31 12:23 | disposition home or self-care (01) ==
PROVIDERS: Emergency Provider Student in an Organized Health Care Education/Training Program; PCP Family Medicine; Visit Provider Student in an Organized Health Care Education/Training Program
DX: J10.1 Influenza due to other identified influenza virus with other respiratory manifestations (principal); F17.290 Nicotine dependence, other tobacco product, uncomplicated; Z20.822 Contact with and (suspected) exposure to COVID-19
CPT/HCPCS: 87428; 99282

== ENCOUNTER 2023-02-26 08:25 | Emergency (ER) | payer MEDICAID, SELFPAY ==
[2023-02-26 08:25] VITALS: RESP 16
[2023-02-26 08:26] VITALS: BP 119/84; PULSE 130; RESP 18; TEMP 35.5; O2SAT 95; BMI 38.7
--- NOTE | 2023-02-26 08:46 | EX.ED.VIS.UR ---
HPI HPI - URI History of Present Illness Chief Complaint: Sore Throat Informant: patient Narrative Narrative: Patient started with URI symptoms last evening. She states she has felt warm but never had a fever. She has mostly a sore throat. She has a occasional cough but is not short of breath and or having sputum production. No earache. No nausea or vomiting. No muscle aches. She has not been eating and drinking much just because her throat is sore but she is able to swallow without difficulty. Her 1-year-old has essentially the same symptoms and started about the same time. She has no chronic medical conditions other than depression Meds include paroxetine No known drug allergies No recent surgeries ROS ROS ED Constitutional Constitutional ED: Reports subjective Eyes Eyes: Denies change in vision ENT ENT ED: Reports sore throat; Denies ear pain or rhinorrhea Cardiovascular Cardiovascular: Denies chest pain, palpitations or paroxysmal nocturnal dyspnea Respiratory/Chest Respiratory/Chest: Reports cough; Denies dyspnea, paroxysmal nocturnal dyspnea or sputum Gastrointestinal Gastrointestinal: Denies nausea or vomiting Genitourinary Genitourinary ED: Denies dysuria Musculoskeletal Musculoskeletal: Denies myalgias Integumentary Denies rash Neurologic Neurologic: Denies headache(s) Psychiatric Psychiatric: Reports depression Endocrine Endocrinology: Denies polydipsia or polyuria Hematologic/Lymphatic Hematologic/Lymphatic: Denies lymphadenopathy PFSH PFSH Medical History Acute amphetamine withdrawal Alcohol use Anxiety Chlamydia infection affecting Depression Gastric reflux Gestational diabetes Gonorrhea affecting Hx of vaginal delivery depression Restless legs Smoker Substance abuse Wears glasses Home Medications paroxetine HCl 20 mg tablet 20 mg PO DAILY 06/06/22 [History Last Taken Unknown] penicillin V potassium 250 mg tablet 500 mg PO 4X/DAY #40 tabs 02/26/23 [Rx Last Taken Unknown] Allergy/AdvReac Type Severity Reaction Status Date / Time No Known Allergies Allergy Verified 02/26/23 08:28 Surgical History History of dilatation and curettage Social History Smoking Status: Current every day smoker tobacco type: e-cigarettes substance use type: does not use EXAM Physical Exam Narrative Exam Narrative: Patient is awake alert and no acute distress. Nontoxic in appearance. HEENT shows no external swelling. Mildly dry mucous membranes. She does have erythematous throat. There is almost a hint of exudate more on the left but no asymmetry of size. Tonsils are not notably swollen. Eyes show no icterus Neck does show some shotty lymphadenopathy on both sides. No stridor. Lungs are clear bilaterally. Heart is regular. She has a rate of about 100 at this time. May be from some mild dehydration. Abdomen is soft completely nontender. shows no CVA tenderness Extremities show no rash or tenderness or swelling. Const Vital Signs: 02/26/23 08:26 02/26/23 08:25 02/26/23 09:00 Temperature 96 F L Temperature Source Temporal Pulse Rate 130 H Respiratory Rate 18 16 Respiratory Pattern Normal Blood Pressure 119/84 H Blood Pressure Mean 95 Pulse Ox 95 Oxygen Delivery Method Room Air MDM MDM MDM Narrative Medical decision making narrative: Patient does have fever history, erythematous tonsils, slight exudate, 6 lymph nodes and positive strep. We will treat her for this. COVID and flu are negative. We discussed reasons to return. Discharge Plan Triage Chief Complaint: Sore Throat ED Provider: José Luis Goldsmith Dx/Rx/DC Orders Clinical Impression: Strep pharyngitis Instructions: ED Pharyngitis, Strep (Confirmed) Prescriptions: New penicillin V potassium 250 mg tablet 500 mg PO 4X/DAY Qty: 40 0RF No Action paroxetine HCl 20 mg tablet 20 mg PO DAILY Label Comments: take 1 tablet by mouth once daily Stand Alone Forms: ED Work / School Excuse Primary Care Provider: Kendall Etienne Referrals: Kendall Etienne MD [Primary Care Provider] - 3-5 Days if not improving Disposition Disposition: Home, Self Care
[2023-02-26] MEDS: dexAMETHasone 4 MG Tablet 10 MG PO (09:53)
[2023-02-26 09:55] VITALS: RESP 16
== END 2023-02-26 09:56 | disposition home or self-care (01) ==
PROVIDERS: Emergency Provider Emergency Medicine; PCP Family Medicine; Visit Provider Emergency Medicine
DX: J02.0 Streptococcal pharyngitis (principal); F17.290 Nicotine dependence, other tobacco product, uncomplicated; Z79.899 Other long term (current) drug therapy
CPT/HCPCS: 87428; 87880; 99283

== ENCOUNTER 2023-04-22 17:02 | Emergency (ER) | payer MEDICAID, SELFPAY ==
[2023-04-22 17:02] VITALS: BP 107/71; PULSE 116; RESP 18; TEMP 37.1; O2SAT 95; BMI 34.4
== END 2023-04-22 18:51 | disposition left against medical advice (07) ==
PROVIDERS: Emergency Provider Student in an Organized Health Care Education/Training Program; PCP Family Medicine; Visit Provider Student in an Organized Health Care Education/Training Program
DX: R53.1 Weakness (principal)
CPT/HCPCS: 87811; 87880; 99281

== ENCOUNTER 2025-07-31 07:18 | Emergency (ER) | payer MEDICAID, SELFPAY ==
[2025-07-31 07:18] VITALS: BP 136/87; PULSE 89; RESP 18; TEMP 37; O2SAT 98; BMI 31.4
--- NOTE | 2025-07-31 07:44 | EX.ED.DYSGE1 ---
HPI History of Present Illness Chief Complaint: Cold Sx Informant: patient Narrative Narrative: 30-year-old female presenting with URI symptoms and cough. She has a coworker there is a bronchitis but denies any other sick contacts. States 2 days ago she developed nasal congestion and sinus pressure. Started having postnasal drip and cough. Symptoms have worsened. She went to [employer] yesterday and bought Sudafed (the behind the counter, and) did not have a lot of relief. She states it feels like it is more in her chest. She does have associated cough with some sputum production. Notes that she is blowing her nose a lot. Denies any ear pain, fevers, vomiting, abdominal pain or diarrhea. Has had some mild upset stomach but not so bad that she feels that she is going to throw up. Notes decreased taste. Used her boyfriend's nasal spray this morning but is not sure which one. Came in for further evaluation. [facility] Medical History Wears glasses Alcohol use Restless legs Gastric reflux Smoker Hx of vaginal delivery Gonorrhea affecting Chlamydia infection affecting depression Gestational diabetes Substance abuse Depression Anxiety Acute amphetamine withdrawal Home Medications ?Medication ?Instructions ?Recorded ?Last Taken ?Type paroxetine HCl 20 mg tablet 20 mg PO DAILY 06/06/22 Unknown History penicillin V potassium 250 mg 500 mg (2 x 250 mg) PO 4X/DAY #40 02/26/23 Unknown Rx tablet tabs albuterol sulfate 90 mcg/actuation 1 - 2 puff inhalation Q4H PRN PRN 07/31/25 Unknown Rx aerosol inhaler (Ventolin HFA) Wheezing #1 inh pseudoephedrine-guaifenesin ER 60 1 tab PO BID PRN cold symptoms #20 07/31/25 Unknown Rx mg-600 mg tablet,extend release tabs 12hr (Mucus D) Allergy/AdvReac Type Severity Reaction Status Date / Time No Known Allergies Allergy Verified 07/31/25 07:18 Surgical History History of dilatation and curettage Social History housing: house Smoking Status: Current every day smoker tobacco type: e-cigarettes substance use type: does not use ROS ROS ED Constitutional Constitutional ED: Denies chills or fever(s) ENT ENT ED: Reports sore throat and other Details: nasal congestion ; Denies ear pain Cardiovascular Cardiovascular: Denies chest pain or palpitations Respiratory/Chest Respiratory/Chest: Reports cough and sputum; Denies dyspnea Gastrointestinal Gastrointestinal: Reports nausea; Denies abdominal pain, diarrhea or vomiting Musculoskeletal Musculoskeletal: Denies arthralgias or myalgias Neurologic Neurologic: Denies paresthesias or weakness EXAM Physical Exam Const Vital Signs: 07/31/25 07:18 Temperature 98.6 F Temperature Source Oral Pulse Rate 89 Respiratory Rate 18 Blood Pressure 136/87 H Blood Pressure Mean 103 Pulse Ox 98 Oxygen Delivery Method Room Air Positive well nourished and well developed General Appearance ED: well developed and NAD HEENT Reports TM's clear and moist mucous membranes HEENT Narrative: Mild nasal congestion present. Normal oropharynx Negative for trauma Tympanic Membrane ED: Yes TM's clear Neck supple Neck Narrative: No lymphadenopathy Chest Wall inspection of chest normal and palpation of chest normal Resp normal respiratory effort Resp Narrative: Mildly coarse breath sounds. No wheezing appreciated. No increased work of breathing Auscultation: Negative for rales, rhonchi, wheezes or diminished lung sounds Cardio regular rate and regular rhythm GI non-distended Extremity normal to inspection Neuro oriented x3 Sensorium / Orientation: alert Motor Exam: Negative for general weakness Psych mental status grossly normal Skin no rashes or lesions noted MDM MDM MDM Narrative Medical decision making narrative: Patient evaluated with URI symptoms and cough. Differential includes viral syndrome, sinusitis, bronchitis, otitis media and pneumonia. She overall is well-appearing. She has equal breath sounds are mildly coarse. She is afebrile and has only had symptoms for 2 days so low suspicion of pneumonia. I do not think she requires a chest x-ray at this time. Will be treated symptomatically. Suspect this is viral and I do not think she requires antibiotics. Physical exam not consistent with bacterial infection. Given return precautions. Discharged home in stable condition. Is given a prescription for albuterol as she is a smoker reporting cough and does have some coarse breath sounds. Does Mei prescription for Mucinex D and given first dose in the emergency room. Discharge Plan Triage Chief Complaint: Cold Sx ED Provider: Godman,Pamella Dx/Rx/DC Orders Clinical Impression: URI, acute, Cough Instructions: ED URI, Viral, No Abx (Adult) Prescriptions: New pseudoephedrine-guaifenesin [Mucus D] 60-600 mg tablet extended release 12 hr 1 tab PO BID PRN (Reason: cold symptoms) Qty: 20 0RF albuterol sulfate [Ventolin HFA] 90 mcg/actuation HFA aerosol inhaler 1 - 2 puff inhalation Q4H PRN PRN (Reason: Wheezing) Qty: 1 0RF Rx Instructions: Dispense with spacer No Action paroxetine HCl 20 mg tablet 20 mg PO DAILY Patient Comments: take 1 tablet by mouth once daily penicillin V potassium 250 mg tablet 500 mg PO 4X/DAY Qty: 40 0RF Primary Care Provider: THOMAS LUCIO Referrals: THOMAS LUCIO NP-C [Primary Care Provider] - Activity Restrictions/Additional Instructions: Make sure drinking plenty of fluids. You have a suspected viral syndrome. This could progress into bronchitis. You may also alternate ibuprofen and Tylenol for discomfort. If you have worsening symptoms or further concerns please return the emergency room. Print Language: Danish Disposition Disposition: Home, Self Care
--- OUTSIDE RECORDS SUMMARY | 2025-07-31 07:45 | XMS RPT_ITS | CCD ---
Author Organization [facility] Care Team Providers Care Medicaid Eligibility Specialist Name Role Phone Kendall Oakley Unavailable Unavailable ALEX AGUILERA Unavailable Unavailable Kendall Oakley MD Primary Care Provider Dr. Kendall Oakley Primary Care Provider Dr. Kendall Oakley Referring Provider [phone] Min PUBLIC HEALTH ENGINEER, SOLOMON Solano Attending Provider Kendall Oakley MD Primary Care Provider Kendall Oakley MD Primary Care Provider KENDALL OAKLEY Primary Care Unavailable José Luis Goldsmith Attending Unavailable Kendall Oakley Primary Care Unavailable Kendall Oakley Primary Care Unavailable Nicolas German Attending Unavailable Kendall Oakley Primary Care Unavailable Nicolas German Attending Unavailable Lexii Fong Attending Unavailable Kendall Oakley Primary Care Unavailable Lexii Fong Referring Unavailable Kendall Oakley MD Primary Care Provider THOMAS LUCIO Attending Unavailable THOMAS LUCIO Primary Care Unavailable Haedson SAFETY CONSULTANT.Ana Laura MALDONADO Unavailable Sanchez SAFETY CONSULTANT.Gina MALDONADO A Unavailable KENDALL OAKLEY Primary Care Unavailable ROSEANN PAUL Referring Unavailable KENDALL OAKLEY Primary Care Unavailable KENDALL OAKLEY Primary Care Unavailable GINA AGUILAR Attending Unavailable KENDALL OAKLEY Primary Care Unavailable GINA AGUILAR A Attending Unavailable KENDALL OAKLEY Primary Care Unavailable DANIELA ARORA Attending Unavail able KENDALL OAKLEY Primary Care Unavailable GINA AGUILAR Attending Unavailable KENDALL OAKLEY Primary Care Unavailable Medications Current Medications Medication Drug Class(es) Dates Sig (Normalized) Sig (Original) acetaminophen 500 mg oral tablet (3 sources) Start: 03-24-2022 take 1000 mg by mouth every six hours as needed Acetaminophen Active 1000 MG PO EVERY 6 HOURS NEEDED March 23, 2022 11:00pm acetaminophen 325 mg / oxyCODONE hydrochloride 5 mg oral tablet (2 sources) Opioid Agonist Start: 06-13-2022 take 1 tablet by mouth every six hours Oxycodone-Acetami nophen (Percocet) 5-325 mg tablet Active 1 TABLET PO EVERY 6 HOURS 10 June 13, 2022 24 hr amphetamine aspartate 5 mg / amphetamine sulfate 5 mg / dextroamphetamine saccharate 5 mg / dextroamphetamine sulfate 5 mg extended release oral capsule (3 sources) Central Nervous System Stimulant Start: 07-30-2024 amphetamine-dextr oamphetamine XR (ADDERALL XR) 20 mg capsule 07/30/2024 Active betamethasone 0.5 mg/ml / clotrimazole 10 mg/ml topical cream (9 sources) Azole Antifungal, Corticosteroid Start: 10-09-2023 clotrimazole-beta methasone (LOTRISONE) cream Indications: Vulvar itching Apply 1 application to affected area two times a day. 15 g 2 10/09/2023 Active Comment on above: Apply 1 application to affected area two times a day. 24 hr buPROPion hydrochloride 300 mg extended release oral tablet (14 sources) Aminoketone Start: 02-24-2024 End: 08-15-2024 take 1 tablet by mouth once daily buPROPion XL (WELLBUTRIN XL) 300 mg 24 hr tablet Indications: Anxiety , Depression, unspecified depression type Take 1 tablet by mouth once daily. 30 tablet 05/17/2024 Active Start: 09-26-2023 End: 02-24-2024 take 1 tablet by mouth once daily buPROPion XL (WELLBUTRIN XL) 150 mg 24 hr tablet Indications: Anxiety , Depression, unspecified depression type Take 1 tablet by mouth once daily. 30 tablet 5 09/26/2023 02/24/2024 Discontinued (Clinical Decision) Comment on above: Take 1 tablet by marilyn th once daily. escitalopram 20 mg oral tablet (20 sources) Serotonin Reuptake Inhibitor Start: End: take 1 tablet by mouth once daily escitalopram oxalate (LEXAPRO) 20 mg tablet Indications: Anxiety Take 1 tablet by mouth once daily. 30 tablet 5 02/03/2024 Active Start: 02-13-2023 End: 07-20-2024 take 1 tablet by mouth once daily escitalopram oxalate (LEXAPRO) 10 mg tablet Indications: Anxiety Take 1 tablet by mouth once daily. 30 tablet 11 07/21/2023 02/03/2024 Discontinued (Dosage adjustment) Comment on above: Take 1 tablet by marilyn th once daily. gabapentin 600 mg oral tablet (1 source) Anti-epileptic Agent Start: take 1 tablet by mouth once daily at bedtime gabapentin (NEURONTIN) 600 mg tablet Take 600 mg by mouth daily at bedtime. 12/20/2024 Active ibuprofen 600 mg oral tablet (4 sources) Nonsteroidal Anti-inflammatory Drug Start: 2 take 600 mg by mouth every six hours as needed Ibuprofen Active 600 MG PO EVERY 6 HOURS NEEDED 60 March 24, 2022 11:00pm L.Acid-L.Rham-B.Brev e-S.Therm (2 sources) Start: 2 take 1 tablet by mouth once daily L.Acid-L.Rham-B.Yoanna ve-S.Therm Active 1 TABLET PO DAILY June 05, 2022 11:00pm Start: 06-06-2022 take 1 tablet by marilyn th once daily L.Acid-L.Rham-B.Breve-S.Therm Active 1 T ABLET PO DAILY June 06, 2022 12:00am nirmatrelvir tablet 300 mg ( 150 mg x 2) and ritonavir tablet 100 mg in a dose pack (PAXLOVID) (3 sources) Start: 08-04-2024 End: 08-09-2024 nirmatrelvir tablet 300 mg ( 150 mg x 2) and ritonavir tablet 100 mg in a dose pack (PAXLOVID) Administer TWO pink nirmatrelvir 150 mg tablets and ONE white ritonavir 100 mg tablet for a total of three tablets twice daily. 30 tablet 08/04/2024 08/09/2024 Active Start: 07-26-2022 End: 2022 nirmatrelvir tablet 300 mg ( 150 mg x 2) and ritonavir tablet 100 mg in a dose pack (PAXLOVID) Administer TWO pink nirmatrelvir 150 mg tablets and ONE white ritonavir 100 mg tablet for a total of three tablets twice daily. 30 tablet 0 07/26/2022 2022 Active Comment on above: Administer TWO pink nirmatrelvir 150 mg tablets and ONE white ritonavir 100 mg tablet for a total of three tablets twice daily. ondansetron 4 mg disintegrating oral tablet (15 sources) Serotonin-3 Receptor Antagonist Start: take 4 mg by mouth every eight hours Ondansetron Active 4 MG PO Q8H October 31, 2022 12:00am Start: 10-08-2021 take 1 tablet by marilyn th every eight hours as needed for nausea ondansetron orally disintegrating (ZOFRAN ODT) 4 mg disintegrating tablet Indications: Nausea and vomiting in Take 1 tablet by mouth every 8 hours as needed for nausea/vomiting. DISSOLVE ON TONGUE 30 tablet 0 10/08/2021 Active Comment on above: Take 1 tablet by marilyn th every 8 hours as needed for nausea/vomiting. DISSOLVE ON TONGUE orlistat 120 mg oral capsule (3 sources) Intestinal Lipase Inhibitor Start: End: take 39-39.9 capsules by mouth three times daily at mealtime orlistat (XENICAL) 120 mg capsule Indications: Class 2 severe obesity due to excess calories with serious comorbidity and body mass index (BMI) of 39.0 to 39.9 in adult (HCC) Take 1 capsule by mouth three times a day with meals. 90 capsule 2 05/24/2024 08/04/2024 Discontinued (Course of therapy completed) oseltamivir 75 mg oral capsule (1 source) Neuraminidase Inhibitor Start: take 1 capsule by mouth twice daily Oseltamivir (Tamiflu) 75 mg capsule Active 75 MG PO TWICE A DAY 08 28October 31, 2022 12:00am PARoxetine hydrochloride 20 mg oral tablet (16 sources) Serotonin Reuptake Inhibitor Start: End: take 20 mg by mouth once daily Paroxetine Hcl Active 20 MG PO DAILY June 06, 2022 12:00am Comment on above: Take 1 tablet by marilyn th once daily. penicillin v potassium 250 mg oral tablet (7 sources) Start: 023 take 500 mg by mouth four times daily Penicillin V Potassium Active 500 MG PO 4 TIMES DAILY February 26, 2023 12:00am Start: 11-24-2018 End: 12-04-2018 take 500 mg by mouth twice daily Penicillin V Potassium Discontinued 500 MG PO TWICE A DAY 12 09November 24, 2018 1:00am December 04, 2018 1:11am Pnv,Calcium 87-Bkef-Htqbj Acid ( Vitamin Plus Low Iron) 27 mg iron- 1 mg tablet (3 sources) Start: 09-28-2021 take 1 tablet by mouth once daily Pnv,Calcium 59-Jpbt-Abfrw Acid ( Vitamin Plus Low Iron) 27 mg iron- 1 mg tablet Active 1 TABLET PO DAILY September 28, 2021 8:50pm Start: 09-28-2021 take 1 tablet by marilyn th once daily Pnv,Calcium 52-Llou-Vvedg Acid ( Vitamin Plus Low Iron) 27 mg iron- 1 mg tablet Active 1 TABLET PO DAILY September 27, 2021 11:00pm Start: 09-28-2021 take 1 tablet by marilyn th once daily Pnv,Calcium 37-Ktpn-Qwgxb Acid ( Vitamin Plus Low Iron) 27 mg iron- 1 mg tablet Active 1 TABLET PO DAILY September 28, 2021 12:00am polymyxin b [id number] unt/ml / trimethoprim 1 mg/ml ophthalmic solution (1 source) Dihydrofolate Reductase Inhibitor Antibacterial, Polymyxin-class Antibacterial Start: 01-07-2025 End: 01-14-2025 take 1 drop(s) into the eye(s) every four hours polymyxin B-trimethoprim (POLYTRIM) 10,000 unit- 1 mg/mL ophthalmic solution Indications: Bacterial conjunctivitis Use 1 Drop in both eyes every 4 hours for 7 days. 10 mL 01/07/2025 01/14/2025 Active 0.25 mg, 0.5 mg dose 1.5 ml semaglutide 1.34 mg/ml pen injector (3 sources) Start: 06-01-2024 semaglutide (OZEMPIC) 0.25 mg or 0.5 mg(2 mg/1.5 mL) pen INJECT 20 UNITS SUBCUTANEOUSLY ONCE WEEKLY 06/01/2024 Active sulfamethoxazole 800 mg / trimethoprim 160 mg oral tablet (1 source) Dihydrofolate Reductase Inhibitor Antibacterial, Sulfonamide Antimicrobial Start: 01-29-2024 End: 02-01-2024 sulfamethoxazole-t rimethoprim (BACTRIM DS) 800-160 mg per tablet Indications: Dysuria Take 1 tablet by mouth two times a day for 3 days. FOR 3 DAYS. 6 tablet 0 01/29/2024 02/01/2024 Active Comment on above: Take 1 tablet by marilyn th two times a day for 3 days. FOR 3 DAYS. traZODone hydrochloride 50 mg oral tablet (4 sources) Serotonin Reuptake Inhibitor Start: 09-16-2024 take 1 tablet by mouth once daily at bedtime traZODone (DESYREL) 50 mg tablet Take 50 mg by mouth daily at bedtime. 09/16/2024 Active Start: 05-24-2024 End: 08-22-2024 take 1 tablet by mouth at bedtime as needed traZODone (DESYREL) 50 mg tablet Indications: Chronic insomnia Take 1 tablet by mouth at bedtime as needed. 30 tablet 2 05/24/2024 08/22/2024 Active Completed/Discontinued Medications Medication Drug Class(es) Dates Sig (Normalized) Sig (Original) Ascorbic Acid (14 sources) Vitamin C ascorbic acid (VITAMIN C ORAL) Take by mouth. 0 Active Comment on above: Take by mouth. aspirin 81 mg oral tablet (19 sources) Platelet Aggregation Inhibitor, Nonsteroidal Anti-inflammatory Drug Start: 09-28-2021 End: 03-24-2022 take 81 mg by mouth once daily Aspirin Discontinued 81 MG PO DAILY September 28, 2021 12:00am March 24, 2022 2:08pm take 1 tablet by mouth once axel y aspirin, enteric coated (ASPIRIN LOW DOSE) 81 mg EC tablet Take 81 mg by mouth once daily. 0 Active Comment on above: Take 81 mg by mouth once daily. biotin 1 mg oral tablet (14 sources) Start: 01-16-2022 Biotin 1 mg tab Take 1 tablet by mouth. 0 01/16/2022 Active Comment on above: Take 1 tablet by marilyn th. drospirenone, contraceptive, (SLYND) 4 mg (28) tabet (5 sources) Start: 05-06-2022 End: 07-26-2022 take 1 tablet by mouth once daily drospirenone, contraceptive, (SLYND) 4 mg (28) tabet Take 1 tablet by mouth once daily. 30 tablet 3 05/06/2022 07/26/2022 Discontinued Start: 05-06-2022 take 1 tablet by marilyn th once daily drospirenone, contraceptive, (SLYND) 4 mg (28) tabet Take 1 tablet by mouth once daily. 30 tablet 3 05/06/2022 Active Comment on above: Take 1 tablet by marilyn th once daily. ergocalciferol, vitamin D2, (VITAMIN D2 ORAL) (14 sources) ergocalciferol, vitamin D2, (VITAMIN D2 ORAL) Take by mouth. 0 Active Comment on above: Take by mouth. L. gasseri-B. bifidum-B longum (PROBIOTIC COLON SUPPORT) 1.5 billion cell cap (14 sources) Start: 01-16-2022 L. gasseri-B. bifidum-B longum (PROBIOTIC COLON SUPPORT) 1.5 billion cell cap Take by mouth. 0 01/16/2022 Active Comment on above: Take by mouth. levonorgestrel 1.5 mg oral tablet (6 sources) Progestin, Progestin-containing Intrauterine Device Start: 06-06-2022 End: 06-13-2022 Levonorgestrel (Option-2) 1.5 mg tablet Discontinued 1 TABLET PO DAILY June 06, 2022 12:00am June 13, 2022 2:41pm Start: 04-08-2022 End: 05-06-2022 take 1 tablet by mouth once levonorgestrel (PLAN B ONE -STEP) 1.5 mg tab Take 1 tablet by mouth one time only for 1 dose. 1 tablet 0 04/08/2022 05/06/2022 Discontinued (Course of therapy completed) Comment on above: Take 1 tablet by marilyn th one time only for 1 dose. lidocaine 0.04 mg/mg medicated patch (7 sources) Antiarrhythmic, Amide Local Anesthetic Start: 3 End: 3 apply 1 dose transdermal route once daily lidocaine (SALONPAS) 4 % patch Indications: Acute midline low back pain without sciatica Apply 1 Patch as directed once daily. 5 Patch 0 06/18/2023 09/26/2023 Discontinued Start: 06-10-2022 End: 07-26-2022 apply 1 dose transdermal route once daily lidocaine (SALONPAS) 4 % patch Indications: Bilateral low back pain without sciatica, unspecified chronicity Apply 1 Patch as directed once daily. 5 Patch 0 06/10/2022 07/26/2022 Discontinued Comment on above: Apply 1 Patch as dir ected once daily. Jzrvmkqe-Sr-Kuk-Fe- FA tab (20 sources) Start: 12-03-2021 take 1 tablet by mouth once daily Hmsbciht-Uo-Wne-Fe- FA tab Take 1 tablet by mouth once daily. With folic acid and dha as covered by insurance 30 tablet 11 12/03/2021 Active Comment on above: Take 1 tablet by marilyn th once daily. With folic acid and dha as covered by insurance Zinc (4 sources) take 1 tablet by mouth once daily Zinc 50 mg tab Take 50 mg by mouth once daily. 0 Active Comment on above: Take 50 mg by mouth once daily. Problems Active Problems Problem Classification Problem Date Documented Date Episodic/Chronic Anxiety disorders (14 sources) Anxiety disorder, unspecified; Translations: [Anxiety] Onset: 03-28-2018 Chronic Cardiac dysrhythmias (1 source) Tachycardia; Translations: [Tachycardia, unspecified] Episodic Genitourinary symptoms and ill-defined conditions (2 sources) Increased frequency of urination; Translations: [Frequency of micturition] 10-08-2023 Episodic Inflammation; infection of eye (except that caused by tuberculosis or sexually transmitteddisease) (1 source) Bacterial conjunctivitis; Translations: [Unspecified conjunctivitis] 01-07-2025 Episodic Malaise and fatigue (1 source) Weakness; Translations: [Weakness] Onset: 05-12-2023 Episodic Menstrual disorders (20 sources) Irregular periods; Translations: [Irregular menstruation, unspecified] Onset: 08-06-2021 08-06-2021 Chronic Miscellaneous mental health disorders (2 sources) Chronic insomnia; Translations: [Psychophysiologic insomnia] Onset: 05-24-2024 05-24-2024 Chronic Miscellaneous mental health disorders (2 sources) depression; Translations: [ depression] Episodic Mood disorders (20 sources) Depressive disorder; Translations: [Depression] Onset: 09-26-2023 Chronic Other complications of ; puerperium affecting management of mother (5 sources) Finding of heart rate; Translations: [Abnormality in heart rate and rhythm complicating labor and delivery] 04-02-2022 Episodic Other complications of ; puerperium affecting management of mother (2 sources) Abnormality in heart rate and rhythm complicating labor and delivery; Translations: [Abnormality in heart rate or rhythm, delivered, with or without mention of antepartum condition] Episodic Other complications of ; puerperium affecting management of mother (1 source) Other disorders of ; Translations: [Engorgement of breasts associated with childbirth, condition or complication] Episodic Other complications of (2 sources) Obesity complicating , unspecified trimester; Translations: [Obesity complicating , childbirth, or the puerperium, unspecified as to episode of care or not applicable] Chronic Other female genital disorders (1 source) Vaginal odor; Translations: [Other specified noninflammatory disorders of vagina] 10-08-2023 Episodic Other female genital disorders (1 source) Vaginal discharge; Translations: [Other specified noninflammatory disorders of vagina] 01-29-2024 Episodic Other inflammatory condition of skin (1 source) Pruritus of vulva; Translations: [Pruritus vulvae] 10-08-2023 Episodic Other nervous system disorders (4 sources) Postoperative pain ; Translations: [Other acute postprocedural pain] 06-13-2022 Episodic Other nutritional; endocrine; and metabolic disorders (2 sources) Severe obesity; Translations: [Morbid (severe) obesity due to excess calories] 05-24-2024 Chronic Other nutritional; endocrine; and metabolic disorders (1 source) Morbid (severe) obesity due to excess calories; Translations: [Class 2 severe obesity due to excess calories with serious comorbidity and body mass index (BMI) of 39.0 to 39.9 in adult ([facility])] Onset: 05-24-2024 Chronic Other nutritional; endocrine; and metabolic disorders (1 source) Body mass index (BMI) 39.0-39.9, adult; Translations: [Class 2 severe obesity due to excess calories with serious comorbidity and body mass index (BMI) of 39.0 to 39.9 in adult ([facility])] Onset: 05-24-2024 Chronic Residual codes; unclassified (1 source) Gestation period, 34 weeks; Translations: [34 weeks gestation of ] Episodic Residual codes; unclassified (2 sources) Gestation period, 35 weeks; Translations: [35 weeks gestation of ] Episodic Residual codes; unclassified (1 source) Gestation period, 36 weeks; Translations: [36 weeks gestation of ] Episodic Residual codes; unclassified (1 source) Gestation period, 37 weeks; Translations: [37 weeks gestation of ] Episodic Residual codes; unclassified (2 sources) Gestation period, 38 weeks; Translations: [38 weeks gestation of ] Episodic Residual codes; unclassified (1 source) Unprotected sexual intercourse; Translations: [High risk heterosexual behavior] Episodic Spondylosis; intervertebral disc disorders; other back problems (1 source) Acute low back pain; Translations: [Acute midline low back pain without sciatica] 06-18-2023 Episodic Substance-related disorders (20 sources) Amphetamine abuse; Translations: [Other stimulant abuse, uncomplicated] Onset: 12-09-2019 Resolved: 02-28-2021 12-31-2021 Chronic Superficial injury; contusion (1 source) Abrasion, vulva; Translations: [Abrasion of vagina and vulva, initial encounter] 01-29-2024 Episodic Unclassified (1 source) Unknown / UNK(Unknown) Onset: 03-28-2018 Unclassified (1 source) NO SHOW Past or Other Problems Problem Classification Problem Date Documented Date Episodic/Chronic Bacterial infection; unspecified site (15 sources) Bacteria present; Translations: [Streptococcus, group B, as the cause of diseases classified elsewhere] Onset: 02-28-2022 Resolved: 05-13-2022 02-28-2022 Episodic Contraceptive and procreative management (7 sources) Patient encounter status; Translations: [Encounter for initial prescription of contraceptive pills] Onset: 06-18-2022 Episodic Diabetes or abnormal glucose tolerance complicating ; childbirth; or the puerperium (20 sources) Gestational diabetes mellitus, class A>1<; Translations: [Gestational diabetes mellitus in , diet controlled] Onset: 01-01-2022 Resolved: 05-13-2022 Episodic Hemorrhage during ; abruptio placenta; placenta previa (20 sources) Threatened miscarriage; Translations: [Threatened ] Onset: 08-03-2013 Resolved: 09-01-2013 07-30-2021 Episodic Immunizations and screening for infectious disease (9 sources) Disorder excluded; Translations: [Encounter for observation for suspected exposure to other biological agents ruled out] Onset: 10-01-2024 Episodic Influenza (1 source) Influenza due to other identified influenza virus with other respiratory manifestations; Translations: [Influenza due to other identified influenza virus with other respiratory manifestations] Onset: 11-13-2022 Episodic Other circulatory disease (20 sources) Elevated blood-pressure reading without diagnosis of hypertension; Translations: [Elevated blood-pressure reading, without diagnosis of hypertension] Onset: 08-06-2021 08-06-2021 Episodic Other complications of ; puerperium affecting management of mother (12 sources) dysrhythmia; Translations: [Abnormality in heart rate and rhythm complicating labor and delivery] Onset: 03-25-2022 09-26-2023 Episodic Other complications of ; puerperium affecting management of mother (12 sources) Engorgement of breasts associated with childbirth; Translations: [Other disorders of ] Onset: 09-26-2023 09-26-2023 Episodic Other complications of (20 sources) Maternal obesity complicating , childbirth and the puerperium, antepartum; Translations: [Obesity complicating , third trimester] Onset: 08-06-2021 Resolved: 05-13-2022 01-28-2022 Chronic Other complications of (20 sources) Patient noncompliance - general; Translations: [Supervision of other high risk pregnancies, third trimester] Onset: 02-12-2022 Resolved: 05-13-2022 Episodic Other complications of (18 sources) Spotting per vagina in ; Translations: [Spotting complicating , unspecified trimester] Onset: 08-02-2021 Resolved: 05-13-2022 08-02-2021 Episodic Other complications of (20 sources) High risk ; Translations: [Supervision of high risk due to social problems, first trimester] Onset: 08-06-2021 Resolved: 05-13-2022 08-06-2021 Episodic Other complications of (18 sources) Uterine size for dates discrepancy; Translations: [Uterine size-date discrepancy, first trimester] Onset: 08-13-2021 Resolved: 05-13-2022 08-13-2021 Episodic Other complications of (15 sources) Nausea and vomiting; Translations: [Vomiting of , unspecified] Onset: 08-13-2021 Resolved: 05-13-2022 08-13-2021 Episodic Other complications of (6 sources) Tobacco smoking in mother complicating ; Translations: [Smoking (tobacco) complicating , unspecified trimester] Onset: 03-04-2012 Resolved: 06-02-2014 11-19-2021 Episodic Other complications of (6 sources) Supervision of other high risk pregnancies, unspecified trimester; Translations: [Supervision of other high-risk ] Onset: 09-01-2013 Resolved: 06-02-2014 11-19-2021 Episodic Other complications of (3 sources) Vomiting of , unspecified; Translations: [Unspecified vomiting of , unspecified as to episode of care or not applicable] Onset: 08-13-2021 Resolved: 05-13-2022 05-13-2022 Episodic Other and delivery including normal (20 sources) Vaginal delivery; Translations: [Encounter for full-term uncomplicated delivery] Onset: 03-04-2012 Resolved: 06-19-2012 Episodic Other upper respiratory infections (15 sources) Streptococcal sore throat; Translations: [Streptococcal pharyngitis] Onset: 03-05-2023 02-26-2023 Episodic Polyhydramnios and other problems of amniotic cavity (18 sources) Subchorionic hematoma; Translations: [Other specified disorders of amniotic fluid and membranes, first trimester, not applicable or unspecified] Onset: 08-13-2021 Resolved: 05-13-2022 08-13-2021 Episodic Residual codes; unclassified (20 sources) Other problems related to lifestyle; Translations: [Other problems related to lifestyle] Onset: 08-02-2021 08-06-2021 Episodic Residual codes; unclassified (18 sources) History of drug abuse; Translations: [Personal history of other specified conditions] Onset: 08-02-2021 12-31-2021 Episodic Residual codes; unclassified (20 sources) Family history of neurofibromatosis; Translations: [Family history of other congenital malformations, deformations and chromosomal abnormalities] Onset: 08-02-2021 08-02-2021 Episodic Residual codes; unclassified (20 sources) H/O: previous delivery by vacuum extraction; Translations: [Personal history of other complications of , childbirth and the puerperium] Onset: 08-06-2021 08-06-2021 Episodic Residual codes; unclassified (18 sources) Gestation period, 33 weeks; Translations: [33 weeks gestation of ] Onset: 02-12-2022 Resolved: 05-13-2022 02-12-2022 Episodic Residual codes; unclassified (6 sources) Family history of intellectual disability; Translations: [Family history of intellectual disabilities] Onset: 08-03-2013 Resolved: 01-02-2017 12-04-2021 Episodic Screening and history of mental health and substance abuse codes (20 sources) H/O: depression; Translations: [Personal history of other mental and behavioral disorders] Onset: 08-03-2013 08-06-2021 Episodic Skin and subcutaneous tissue infections (6 sources) Disorder of nail; Translations: [Cellulitis of unspecified toe] Onset: 04-28-2006 Resolved: 03-04-2012 03-04-2012 Episodic Unclassified (5 sources) Acute amphetamine withdrawal 08-30-2022 Viral infection (20 sources) COVID-19; Translations: [Other specified viral infection] Onset: 09-27-2021 09-27-2021 Episodic Results Test Name Value Interpretation Reference Range Facil niko Mejias 01-07-2025 CNOV Office Visit (WSTR ) -------- MOBLEYDUANE ABDULIDALIA Gomez ([id number]) 1995 F T Date Time Provider Department 01/07/25 7:30 AM MOISÉS BOURNE [facility] During your visit today, we recorded the following information about you: Temperature Pulse Respiration Blood pressure 97.5 degrees 85/minute 18/minute 112/77 Weight 96.6 kg Moisés Bourne APRN.CNP 01/07/2025 7:58 AM Signed This note was created using NoteWriter. Subjective Leesa Mobley is a 29 year old female. HPI Pt wears eye glue on eye lash extensions. Yesterday she noticed some irritation to her eye and she took the eyelashes off. She once again applied them and then she noticed worsening irritation of the eye with redness and drainage. She denies any trauma to the eye. She denies any vision changes other than some mild blurring with the matting. Does not wear contacts. Review of Systems As above Objective BP 112/77 Pulse 85 Temp 36.4 ?C (97.5 ?F) Resp 18 Wt 96.6 kg (212 lb 15.4 oz) LMP 01/03/2024 SpO2 100% BMI 33.35 kg/m? Physical Exam Vitals and nursing note reviewed. Constitutional: General: She is not in acute distress. Appearance: Normal appearance. She is not ill-appearing. HENT: Head: Normocephalic. Mouth/Throat: Mouth: Mucous membranes are moist. Eyes: Comments: Mild injection of the bilateral conjunctiva. Cardiovascular: Rate and Rhythm: Normal rate and regular rhythm. Pulmonary: Effort: Pulmonary effort is normal. Breath sounds: Normal breath sounds. Musculoskeletal: General: Normal range of motion. Cervical back: Normal range of motion. Skin: General: Skin is warm and dry. Neurological: General: No focal deficit present. Mental Status: She is alert. Psychiatric: Mood and Affect: Mood normal. Behavior: Behavior normal. Assessment and Plan ASSESSMENT/PLAN: 1. Bacterial conjunctivitis - ICD9: 372.39, 041.9, ICD10: H10.9 - see medication orders - course and contagiousness issues discussed, including hand washing. - Instructed to call if high fever, development of periorbital redness or swelling, eye pain, visual changes, concerns or if symptoms persist. 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 - POLYMYXIN B SULFATE 10,000 UNIT-TRIMETHOPRIM 1 MG/ML EYE DROPS Moisés Bourne APRN.CNP Allergies As of Date: 01/07/2025 (No Known Allergies) Date Reviewed: 01/07/2025 Reviewed by: Moisés Bourne APRN.CNP - Fully Assessed Reason for Visit: Conjunctivitis [24] Cmt: Bilateral x1 day Primary Visit Diagnosis:Bacterial conjunctivitis [H10.9] Order(s):polymyxin B-trimethoprim (POLYTRIM) 10,000 unit- 1 mg/mL ophthalmic solutionUse 1 Drop in both eyes every 4 hours for 7 days.Disp: 10 mLRfl: 0 Prescriptions as of 01/07/2025 - gabapentin (NEURONTIN) 600 mg tablet Take 600 mg by mouth daily at bedtime. - traZODone (DESYREL) 50 mg tablet Take 50 mg by mouth daily at bedtime. - polymyxin B-trimethoprim (POLYTRIM) 10,000 unit- 1 mg/mL ophthalmic solution Use 1 Drop in both eyes every 4 hours for 7 days. - semaglutide (OZEMPIC) 0.25 mg or 0.5 mg(2 mg/1.5 mL) pen INJECT 20 UNITS SUBCUTANEOUSLY ONCE WEEKLY - amphetamine-dextroamphet amine XR (ADDERALL XR) 20 mg capsule - buPROPion XL (WELLBUTRIN XL) 300 mg 24 hr tablet Take 1 tablet by mouth once daily. - escitalopram oxalate (LEXAPRO) 20 mg tablet Take 1 tablet by mouth once daily. - clotrimazole-betamethaso ne (LOTRISONE) cream Apply 1 application to affected area two times a day. Problem List As Of Date 01/07/2025 Noted Resolved Onychia and paronychia of toe [L03.039] 04/28/2006 03/04/2012 Supervision of other normal [Z34.80] 03/04/2012 06/19/2012 Tobacco smoking complicating [O99.330]03/04/2012 06/02/2014 First trimester bleeding [O20.9] 08/03/2013 09/01/2013 History of depression [Z86.59] 08/03/2013 Patient request for diagnostic testing [Z01.89] 08/03/2013 05/13/2022 Family history of mental retardation [Z81.0] 08/03/2013 01/02/2017 Supervision of other high-risk (V23.89* 013 06/02/2014 Substance abuse (HCC) [F19.10] 12/09/2019 02/28/2021 Spotting in [O26.859] 08/02/2021 05/13/2022 Engages in vaping [Z72.89] 08/02/2021 History of drug use [F19.91] 08/02/2021 Family history of neurofibromatosis [Z82.79] 08/02/2021 Elevated BP without diagnosis of hypertension [*08/06/2021 History of vacuum extraction assisted delivery *08/06/2021 Obesity complicating , third trimester*08/06/2021 05/13/2022 Supervision of high risk due to socia*08/06/2021 05/13/2022 Irregular menses [N92.6] 08/06/2021 Uterine size-date discrepancy, first trimester *08/13/2021 05/13/2022 Nausea and vomiting in [O21.9] 08/13/2021 05/13/2022 Subchorionic hemorrhage of placenta in first tr*08/13/2021 05/13/2022 Lab test positive for detection of COVID-19 vir*09/27/2021 Abnor (more content not included)... Normal [facility] HBV surface Ag Ser Qlon HBV surface Ag Ql (S) Negative Normal Negative [facility] Comment on above: Order Comment: Speci men Type: BLOOD SPECIMENOrdering Facility: [facility] Address: [address] [place] [address] Performed By: #### 7 3752-8, 5195-3, 04289-6 ####[facility] LABIA [id number] [place] [address] [place] HCV Ab Ser Qlon 10-01-2024 HCV Ab Ql (S) Negative Normal Negative [facility] Comment on above: Order Comment: Speci men Type: BLOOD SPECIMENOrdering Facility: [facility] Address: [address] [place] [address] Result Comment: The result suggests no evidence of active infection with Hepatitis C virus. Should recent infection be suspected, repeat testing may be considered 4-6 weeks after this draw. Performed By: #### 1 6128-1 ####[facility] [id number] [place] [address] [place] HIV 1+2 Ab IA Qlon HIV 1 and 2 Ab IA.rapid Nom (S/P/Bld) Normal [facility] Comment on above: Order Comment: Speci men Type: BLOOD SPECIMENOrdering Facility: [facility] Address: [address] [place] [address] Result Comment: Test not indicated. Performed By: #### 7 3752-8, 5195-3, ####[facility] [id number] [place] [address] [place] HIV 1+2 Ab+HIV1 p24 Ag IA Ql Non-Reactive Normal Nonreactive [facility] Comment on above: Order Comment: Speci men Type: BLOOD SPECIMENOrdering Facility: [facility] Address: [address] [place] [address] Performed By: #### 7 3752-8, 5195-3, ####[facility] [id number] [place] [address] [place] HIV immunoassay testing algorithm interpretation (S/P/Bld) [Interp] Normal [facility] Comment on above: Order Comment: Speci men Type: BLOOD SPECIMENOrdering Facility: [facility] Address: [address] [place] [address] Result Comment: No e vidence of HIV-1 or HIV-2 infection. Should recent infection be suspected, repeat testing may be considered 2-3 weeks after this draw. [place] Rev. Code 3701.243(E): This information has been disclosed to you from confidential records protected from disclosure by state law. ???You shall make no further disclosure of this information without the specific, written, and informed release of the individual to whom it pertains or as otherwise permitted by state law. A general authorization for the release of medical or other information is not sufficient for the purpose of the release of HIV test results or diagnoses. Performed By: #### 7 3752-8, 5195-3, ####[facility] [id number] [place] [address] [place] Reagin and Treponema pallidu m IgG and IgM [Interp]on 10-01-2024 T. pallidum IgG+IgM IA Ql (S) Non-Reactive Normal Nonreactive [facility] Comment on above: Order Comment: Speci men Type: BLOOD SPECIMENOrdering Facility: [facility] Address: [address] [place] [address] [place] [address] Performed By: #### 7 3752-8, 5195-3, 56723-1 ####[facility] LABCLIA [id number] [place] [address] [place] Reagin+T pallidum IgG+IgM Se rPl-Impon 10-01-2024 Reagin and Treponema pallidum IgG and IgM [Interp] Cannot exclude recent Treponemal infection if specimen collected within 7-10 days after appearance of suspect lesions or 2-3 weeks after an exposure. Clinical correlation is required. Normal [facility] Comment on above: Order Comment: Speci men Type: BLOOD SPECIMENOrdering Facility: [facility] Address: [address] [place] [address] [place] [address] Performed By: #### 7 3752-8, 5195-3, 84609-1 ####[facility] LABCLIA [id number] [place] [id number] [place] CNOVon 08-04-2024 CNOV Office Visit (WSTR ) -------- LEESA MOBLEY ([id number]) 1995 F T Date Time Provider Department 08/04/24 7:45 AM CHEYENNE MANNING [facility] During your visit today, we recorded the following information about you: Temperature Pulse Respiration Blood pressure 98.4 degrees 100/minute 18/minute 128/78 Weight 108.3 kg Cheyenne Manning, SAFETY CONSULTANT.PAVER LAYER 08/04/2024 8:00 AM Signed CARE ADVICE FOR COUGH: Drink warm fluids. Inhale warm mist. (Reason: both relax the airway and loosen up the phlegm) Suck on cough drops or hard candy to coat the irritated throat. OTC COUGH DROPS: Cough drops can help a lot, especially for mild coughs. They reduce coughing by soothing your irritated throat and removing that tickle sensation in the back of the throat. Cough drops also have the advantage of portability - you can carry them with you. HOME REMEDY - HARD CANDY: Hard candy works just as well as medicine-flavored OTC cough drops. People who have diabetes should use sugar-free candy. HOME REMEDY - HONEY: This old home remedy has been shown to help decrease coughing at night. The adult dosage is 2 teaspoons (10 ml) at bedtime. Honey should not be given to infants under one year of age. HUMIDIFIER: If the air is dry, use a humidifier in the bedroom. (Reason: dry air makes coughs worse) AVOID TOBACCO SMOKE: Smoking or being exposed to smoke makes coughs much worse. SORE THROAT For relief of sore throat: Sip warm chicken broth or apple juice Suck on hard candy or a throat lozenge (OTC) Gargle with warm salt water four times a day To make salt water, put 1/2 teaspoon of salt in 8 oz (240 ml) of warm water. Avoid cigarette smoke CALL BACK IF: Difficulty breathing occurs You develop any new or worsening symptoms You have any questions or concerns Cheyenne Manning APRN.PAVER LAYER 08/04/2024 8:04 AM Signed Patient presents with: Nasal Congestion: drainage, sore throat x last night SUBJECTIVE: Leesa Mobley is a 29 year old year old female who presents for the past 1 day with symptoms that are:gradually worsening. ST, congestion, GLOVER x 1-2 days Home covid test + - brought with her Requesting paxlovid, has taken previously and tolerated well Risk factors: none Social History Tobacco Use Smoking status: Former Current packs/day: 0.00 Average packs/day: 0.5 packs/day for 4.0 years (2.0 ttl pk-yrs) Types: Cigarettes Start date: 12/24/2015 Quit date: 12/24/2019 Years since quittin.6 Smokeless tobacco: Former Quit date: 08/01/2016 Vaping Use Vaping status: Some Days Substances: Nicotine, CBD, Flavoring Devices: Refillable tank Substance Use Topics Alcohol use: Not Currently Comment: Occasionally Drug use: Yes Types: Marijuana, Amphetamines Comment: denies any amphetamine use since 2019. Still using Marijuana PAST MEDICAL HISTORY No date: Abnormal Pap smear of cervix Comment: AGE 13 No date: Asthma Comment: NO MEDICATIONS SINCE AGE 1 2004: Attention deficit disorder with hyperactivity(314.01) No date: Chlamydia No date: Dysthymic disorder Comment: Depression (non-psychotic) 09/26/2023: Engorgement of breasts associated with childbirth, delivered 02/06/2022: Gestational diabetes mellitus, class A1 No date: Gonorrhea 06/19/2011: HPV in female September 2010: Miscarriage No date: depression 08/04/24 0750 BP: 128/78 Pulse: 100 Resp: 18 Temp: 36.9 ?C (98.4 ?F) SpO2: 96% Weight: 108.3 kg (238 lb 12.1 oz) ALLERGIES No Known Allergies Medications: semaglutide (OZEMPIC) 0.25 mg or 0.5 mg(2 mg/1.5 mL) pen INJECT 20 UNITS SUBCUTANEOUSLY ONCE WEEKLY amphetamine-dextroamphet amine XR (ADDERALL XR) 20 mg capsule traZODone (DESYREL) 50 mg tablet Take 1 tablet by mouth at bedtime as needed. buPROPion XL (WELLBUTRIN XL) 300 mg 24 hr tablet Take 1 tablet by mouth once daily. escitalopram oxalate (LEXAPRO) 20 mg tablet Take 1 tablet by mouth once daily. nirmatrelvir tablet 300 mg (150 mg x 2) and ritonavir tablet 100 mg in a dose pack (PAXLOVID) Administer TWO pink nirmatrelvir 150 mg tablets and ONE white ritonavir 100 mg tablet for a total of three tablets twice daily. clotrimazole-betamethaso ne (LOTRISONE) cream Apply 1 application to affected area two times a day. (Patient not taking: Reported on 08/04/2024) Review of Systems Constitutional: Positive for malaise/fatigue. Negative for chills, diaphoresis and fever. HENT: Positive for congestion and sore throat. Negative for sinus pain. Eyes: Negative for discharge and redness. Respiratory: Positive for cough. Negative for sputum production, shortness of breath, wheezing and stridor. Gastrointestinal: Negative for diarrhea, nausea and vomiting. Musculoskeletal: Positive for myalgias. Neurological: Positive for headaches. Negative for dizziness. Physical Exam Constitutional: General: She is not in acute distress. (more content not included)... Normal [facility] COVID AND INFLUENZA A/B AND RSV PCR, ROUTINEon 08-04-2024 SARS-CoV-2 (COVID-19) RNA DAMIEN+probe Ql (Unsp spec) SARS-COV-2 (AGENT OF COVID-19) RNA: Detected INFLUENZA A RNA: Not detected INFLUENZA B RNA: Not detected RESPIRATORY SYNCYTIAL VIRUS (RSV) RNA: Not detected Abnormal [facility] Comment on above: Performed By: #### C VFLRS ####[facility] LABCL[facility] [id number] [place] [address] [place] .GFRon 06-24-2024 GFR 89 ml/min/1.73sqm Normal [facility] [place] Comment on above: Result Comment: GFR Population mean for , Non- Americans Ages 20-29 = 116 mL/min/1.73 sq.m. Ages 30-39 = 107 mL/min/1.73 sq.m. Ages 40-49 = 99 mL/min/1.73 sq.m. Ages 50-59 = 93 mL/min/1.73 sq.m. Ages 60-69 = 85 mL/min/1.73 sq.m. Ages 70+ = 75 mL/min/1.73 sq.m. Chronic Kidney Disease: Less than 60 mL/min/1.73 square meters End Stage Renal Disease: Less than 15 mL/min/1.73 square meters Performed By: #### C MP, TSHR, GFR, LIPID #### [address] [address] GFR Non- 74 ml/min/1.73sqm Normal [facility] ([place]) Comment on above: Result Comment: GFR Population mean for , Non- Americans Ages 20-29 = 116 mL/min/1.73 sq.m. Ages 30-39 = 107 mL/min/1.73 sq.m. Ages 40-49 = 99 mL/min/1.73 sq.m. Ages 50-59 = 93 mL/min/1.73 sq.m. Ages 60-69 = 85 mL/min/1.73 sq.m. Ages 70+ = 75 mL/min/1.73 sq.m. Chronic Kidney Disease: Less than 60 mL/min/1.73 square meters End Stage Renal Disease: Less than 15 mL/min/1.73 square meters Performed By: #### C MP, TSHR, GFR, LIPID #### [address] [address] CMPon 06-24-2024 Albumin Level 4.0 G/dL Normal 3.5-5.0 [facility] [place] Comment on above: Performed By: #### C MP, TSHR, GFR, LIPID #### [address] [address] Albumin/Globulin [Mass ratio] 1.3 {ratio} Normal 1.1-2.5 [facility] [place] Comment on above: Performed By: #### C MP, TSHR, GFR, LIPID #### [address] [address] ALP [Catalytic activity/Vol] 92 U/L Normal 40-135 [facility] ([place] Comment on above: Performed By: #### C MP, TSHR, GFR, LIPID #### [address] [address] ALT [Catalytic activity/Vol] 26 U/L Normal 14-59 [facility] [place] Comment on above: Performed By: #### C MP, TSHR, GFR, LIPID #### [address] [address] AST [Catalytic activity/Vol] 12 U/L Normal 10-40 [facility] ([place] Comment on above: Performed By: #### C MP, TSHR, GFR, LIPID #### [address] [address] Bili Total 0.4 mg/dL Normal 0.2-1.0 [facility] ([place] Comment on above: Result Comment: Use of this assay is not recommended for patients undergoing treatment with eltrombopag due to the potential for falsely elevated results. Performed By: #### C MP, TSHR, GFR, LIPID #### [place] [id number] BUN/Creatinine Ratio 11 ratio Normal 7-27 [facility] ([place] Comment on above: Performed By: #### C MP, TSHR, GFR, LIPID #### [place] [id number] Calcium [Mass/Vol] 9.2 mg/dL Normal 8.4-10.2 [facility] ([place]) Comment on above: Performed By: #### C MP, TSHR, GFR, LIPID #### [place] [id number] Chloride [Moles/Vol] 106 mmol/L Normal 98-107 [facility] ([place] Comment on above: Performed By: #### C MP, TSHR, GFR, LIPID #### [place] [address] CO2 [Moles/Vol] 27 mmol/L Normal 22-29 [facility] ([place] Comment on above: Performed By: #### C MP, TSHR, GFR, LIPID #### [place] [id number] Creatinine [Mass/Vol] 0.90 mg/dL Normal 0.55-1.02 [facility] ([place] Comment on above: Performed By: #### C MP, TSHR, GFR, LIPID #### [place] [id number] Electrolyte Balance 10.0 mEq/L Normal 4.0-15.0 [facility] ([place] Comment on above: Performed By: #### C MP, TSHR, GFR, LIPID #### [place] [id number] Globulin 3.1 G/dL Normal [facility] ([place] Comment on above: Performed By: #### C MP, TSHR, GFR, LIPID #### [place] [id number] Glucose [Mass/Vol] 90 mg/dL Normal 70-105 [facility] [place] Comment on above: Performed By: #### C MP, TSHR, GFR, LIPID #### [address] [address] Potassium [Moles/Vol] 4.2 mmol/L Normal 3.5-5.1 [facility] [place] Comment on above: Performed By: #### C MP, TSHR, GFR, LIPID #### [address] [address] Sodium [Moles/Vol] 143 mmol/L Normal 136-145 [facility] ([place] Comment on above: Performed By: #### C MP, TSHR, GFR, LIPID #### [address] [address] Total Protein 7.1 G/dL Normal 6.4-8.2 [facility] ([place] Comment on above: Performed By: #### C MP, TSHR, GFR, LIPID #### [address] [address] Urea nitrogen [Mass/Vol] 10 mg/dL Normal 7-18 [facility] ([place] Comment on above: Performed By: #### C MP, TSHR, GFR, LIPID #### [address] [address] LIPIDon 06-24-2024 Cholesterol [Mass/Vol] 128 mg/dL Normal 0-200 [facility] [place] Comment on above: Result Comment: Chol esterol Reference Interval: Less than 200 Desirable 200-239 Borderline high risk 240 and above High risk Performed By: #### C MP, TSHR, GFR, LIPID #### [address] [address] Cholesterol in HDL [Mass/Vol] 38 mg/dL Low 40-60 [facility] ([place] Comment on above: Performed By: #### C MP, TSHR, GFR, LIPID #### [address] [address] Cholesterol in LDL [Mass/Vol] 76 mg/dL Normal 0-130 [facility] ([place] Comment on above: Performed By: #### C MP, TSHR, GFR, LIPID #### [place] [address] [place], [place] [address] Triglyceride [Mass/Vol] 71 mg/dL Normal 0-150 [facility] [place] Comment on above: Result Comment: Trig lyceride Reference Interval: Less than 150 Normal 150-199 Borderline high risk 200-499 High risk 500 or higher Very high risk Performed By: #### C MP, TSHR, GFR, LIPID #### [place] [address] [place], [place] [address] TSHRon 06-24-2024 TSH Qn 0.68 m[IU]/L Normal 0.36-3.74 [facility] ([place]) Comment on above: Performed By: #### C MP, TSHR, GFR, LIPID #### [place] [address] [place], [place] [address] [facility]Non [facility] LEESA MOBLEY ([id number]) 1995 F [facility] Date Time Provider Department 05/25/24 KENDALL OAKLEY [facility] During your visit today, we recorded the following information about you: Tere Chi MA 05/25/2024 9:31 AM Signed [place] [facility] [place] and did PA stating [facility] number not covered. Weight loss medication is not covered by medicaid plan MAVIS Luque Krystle, ELENA 05/25/2024 10:07 AM Signed Patient calls to report that she spoke with pharmacist at and the Orlistat out of pocket was going to cost over $700 a month. Pharmacist recommended patient request a prescription for Adipex (phentermine) that would cost between $14-$15. Patient asking if provider would please consider sending a prescription to [facility] for this. ELENA Jalloh Jacqueline A, APRN.BUSTER 05/25/2024 10:43 AM Signed As we discussed. Adipex is a stimulant. It invokes anxiety and insomnia. We discussed this yesterday. Dr. Oakley does not feel that it is safe. I cannot prescribe it to you in light of this. I will refer you to our valver. Gina Aguilar APRN.BUSTER 05/25/2024 10:43 AM Signed Addended by: GINA AGUILAR on: 05/25/2024 10:43 AM Modules accepted: Rhea Saavedra MA 05/25/2024 11:34 AM Signed Left message for patient to return call. Mavis Cazares Lori, LPN 05/25/2024 12:26 PM Signed Pt given message from Eddie Aguilar, she didn't realize that was the same medication that was discussed yesterday. She was not interested in superannuation clerk appt. Kai Driver LPN Allergies As of Date: 05/25/2024 (No Known Allergies) Date Reviewed: 05/24/2024 Reviewed by: Gina Aguilar APRN.BUSTER - Fully Assessed Reason for Visit: Insurance Authorization [[id number]] Cmt: Orlistat Primary Visit Diagnosis:Class 2 severe obesity due to excess calories with serious comorbidity and body mass index (BMI) of 39.0 to 39.9 in adult ([facility]) [E66.01, Z68.39] Order(s):CONSULT TO NUTRITION THERAPY [2466] Order #: [id number]: 4 FUTURE Prescriptions as of 05/25/2024 - traZODone (DESYREL) 50 mg tablet Take 1 tablet by mouth at bedtime as needed. - orlistat (XENICAL) 120 mg capsule Take 1 capsule by mouth three times a day with meals. - buPROPion XL (WELLBUTRIN XL) 300 mg 24 hr tablet Take 1 tablet by mouth once daily. - escitalopram oxalate (LEXAPRO) 20 mg tablet Take 1 tablet by mouth once daily. - clotrimazole-betamethaso ne (LOTRISONE) cream Apply 1 application to affected area two times a day. Problem List As Of Date 05/25/2024 Noted Resolved Onychia and paronychia of toe [L03.039] 04/28/2006 03/04/2012 Supervision of other normal [Z34.80] 03/04/2012 06/19/2012 Tobacco smoking complicating [O99.330]03/04/2012 06/02/2014 First trimester bleeding [O20.9] 08/03/2013 09/01/2013 History of depression [Z86.59] 08/03/2013 Patient request for diagnostic testing [Z01.89] 08/03/2013 05/13/2022 Family history of mental retardation [Z81.0] 08/03/2013 01/02/2017 Supervision of other high-risk (V23.89* 013 06/02/2014 Substance abuse (HCC) [F19.10] 12/09/2019 02/28/2021 Spotting in [O26.859] 08/02/2021 05/13/2022 Engages in vaping [Z72.89] 08/02/2021 History of drug use [F19.91] 08/02/2021 Family history of neurofibromatosis [Z82.79] 08/02/2021 Elevated BP without diagnosis of hypertension [*08/06/2021 History of vacuum extraction assisted delivery *08/06/2021 Obesity complicating , third trimester*08/06/2021 05/13/2022 Supervision of high risk due to socia*08/06/2021 05/13/2022 Irregular menses [N92.6] 08/06/2021 Uterine size-date discrepancy, first trimester *08/13/2021 05/13/2022 Nausea and vomiting in [O21.9] 08/13/2021 05/13/2022 Subchorionic hemorrhage of placenta in first tr*08/13/2021 05/13/2022 Lab test positive for detection of COVID-19 vir*09/27/2021 Abnormal glucose complicating [O99.81*01/01/2022 05/13/2022 Gestational diabetes mellitus, class A1 [O24.41*02/06/2022 05/13/2022 Noncompliant patient in third trimeste*02/12/2022 05/13/2022 33 weeks gestation of [Z3A.33] 02/12/2022 05/13/2022 Positive GBS test [B95.1] 02/28/2022 05/13/2022 History of gestational diabetes mellitus (GDM) *05/13/2022 Abnormality in heart rate and rhythm comp*03/25/2022 Depressive disorder [F32.A] 09/26/2023 Engorgement of breasts associated with childbir*09/26/2023 Pharyngitis due to Streptococcus species [J02.0]03/05/2023 Threatened [O20.0] 09/26/2023 Vaginal delivery [O80] 03/25/2022 Encounter Status:Closed by TERE CHI on 05/25/24 [facility] CNOVon 05-24-2024 [facility] -------- MOBLEYDUANE ABDULIDALIA Gomez ([id number]) 1995 F [facility] Date Time Provider Department 05/24/24 12:40 PM GINA AGUILAR [facility] During your visit today, we recorded the following information about you: Pulse Respiration Blood pressure Weight 104/minute 16/minute 120/76 115.2 kg Gina Aguilar APRN.GROUP MANAGING DIRECTOR 05/24/2024 1:08 PM Signed This is a 28 year old female who presents today with: Patient presents with: Follow Up: Anxiety/Depression follow up, medication change HISTORY OF PRESENT ILLNESS: Leesa Mobley is a 28 year old female. Patient presents with: Follow Up: Anxiety/Depression follow up, medication change Stress level is doing better. Having trouble sleeping. Trouble falling asleep more than staying asleep. Tosses and turns. Usual night 6 hours or less. PAST MEDICAL HISTORY: PAST MEDICAL HISTORY Diagnosis Date Abnormal Pap smear of cervix AGE 13 Asthma NO MEDICATIONS SINCE AGE 1 Attention deficit disorder with hyperactivity(314.01) 2004 Chlamydia Dysthymic disorder Depression (non-psychotic) Engorgement of breasts associated with childbirth, delivered 09/26/2023 Gestational diabetes mellitus, class A1 02/06/2022 Gonorrhea 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 Miscarriage September 2010 depression PAST SURGICAL HISTORY Procedure Laterality Date DILATION AND CURETTAGE DXAND/THER NONOBSTETRIC 09/24/2010 SALPINGECTOMY Bilateral 06/13/2022 ALLERGIES Patient has no known allergies. MEDICATIONS Current Outpatient Medications Medication Sig buPROPion XL (WELLBUTRIN XL) 300 mg 24 hr tablet Take 1 tablet by mouth once daily. escitalopram oxalate (LEXAPRO) 20 mg tablet Take 1 tablet by mouth once daily. clotrimazole-betamethaso ne (LOTRISONE) cream Apply 1 application to affected area two times a day. No current facility-administered medications for this visit. FAMILY HISTORY Problem Relation Age of Onset Heart Mother Asthma Mother Mom's side of family other (tumors) Mother neurofibromytosis Heart Father Neurofibromatosis Sister Neurofibromatosis Sister Neurofibromatosis Brother Heart Maternal Grandmother No Known Problems Maternal Grandfather No Known Problems Paternal Grandmother No Known Problems Paternal Grandfather No Known Problems Son No Known Problems Daughter Social History Tobacco Use Smoking status: Former Packs/day: 0.50 Years: 4.00 Additional pack years: 0.00 Total pack years: 2.00 Types: Cigarettes Quit date: 12/24/2019 Years since quittin.4 Smokeless tobacco: Former Quit date: 08/01/2016 Vaping Use Vaping Use: Some days Substances: Nicotine, CBD, Flavoring Devices: Phonetime tank Substance Use Topics Alcohol use: Not Currently Comment: Occasionally Drug use: Yes Types: Marijuana, Amphetamines Comment: denies any amphetamine use since 2019. Still using Marijuana REVIEW OF SYSTEMS GENERAL: No weight loss- worried about obesity, no malaise, no fevers/chills HEENT: Negative for frequent or significant headaches except with menses, No changes in hearing or vision. NECK: Negative for lumps, goiter, pain and significant neck swelling RESPIRATORY: Negative for cough, hemoptysis, wheezing, dyspnea or shortness of breath CARDIOVASCULAR: Negative for chest pain, leg swelling, orthopnea, or palpitations GI: No nausea, vomiting, or diarrhea/constipation. No hematochezia/melena. No heartburn or reflux symptoms. : No history of dysuria, frequency or incontinence MUSCULOSKELETAL: Negative for joint pain or swelling. SKIN: Negative for lesions, rash, and itching ENDOCRINE: Negative for cold or heat intolerance, polyuria, polydipsia and goiter NEURO: No history of headaches, syncope, paralysis, seizures or tremors MOOD: Negative for depression, anxiety, or suicidal ideation. EXAM: BP 120/76 Pulse 104 Resp 16 Wt 115.2 kg (254 lb) LMP 01/03/2024 SpO2 97% BMI 39.78 kg/m? PHYSICAL EXAM: Physical Exam Vitals reviewed. Constitutional: Appearance: Normal appearance. HENT: Head: Normocephalic. Cardiovascular: Rate and Rhythm: Normal rate and regular rhythm. Heart sounds: Normal heart sounds. Pulmonary: Effort: Pulmonary effort is normal. Breath sounds: Normal breath sounds. Abdominal: Palpations: Abdomen is soft. Musculoskeletal: General: Normal range of motion. Cervical back: Normal range of motion. Skin: General: Skin is warm and dry. Neurological: Mental Status: She is alert. Psychiatric: Mood and Affect: Mood normal. Behavior: Behavior normal. LABS: pending ASSESSMENT/PLAN: 1. Chronic insomnia - ICD9: 780.52, ICD10: F51.04 (primary diagnosis) Ongoing - TRAZODONE 50 MG TABLET qhs prn 2. Class 2 severe obesity due to excess calories with serious comorbidity and body mass index (BMI) of 39.0 to 39.9 in adult (HCC) - ICD9: 278.01, V85.39, ICD10: E6 (more content not included)... Normal [facility] BACTERIAL VAGINOSIS NAATon 0 01-29-2024 Lactobacillus crispatus+gasseri+ jensenii + Gardnerella vaginalis + Atopobium vaginae rRNA DAMIEN+probe Ql (Vag fld) Negative Normal Negative for bacterial vaginosis [facility] Comment on above: Order Comment: Speci men Type: SWABOrdering Facility: [facility] Address: [address] [place] [address] Performed By: #### 3 6902-5, BVAMP ####[facility] [id number] [place] [address] [place] Bacteria Ur Culton Bacteria identified Cx Nom (U) ORGANISM ID: 1 >=100,000 CFU/ml Normal urogenital araceli Normal [facility] Comment on above: Performed By: #### 6 30-4 ####[facility] [id number] [place] [address] [place] C. trachomatis+N. gonorrhoea e DNA DAMIEN+probe Ql (Unsp spec)on 01-29-2024 C. trachomatis rRNA DAMIEN+probe Ql (Unsp spec) Negative Normal Negative for Chlamydia trachomatis by amplificaton [facility] Comment on above: Order Comment: Speci men Type: SWABOrdering Facility: [facility] Address: [address] [place] [address] Performed By: #### 3 6902-5, BVAMP ####[facility] [id number] [address] N. gonorrhoeae rRNA DAMIEN+probe Ql (Unsp spec) Negative Normal Negative for Neisseria gonorrhoeae by amplification [facility] Comment on above: Order Comment: Speci men Type: SWABOrdering Facility: [facility] Address: [address] [place] [address] Performed By: #### 3 6902-5, BVAMP ####[facility] [id number] [place] [address] [place] BOB/TRICHOMONAS NAATon 0 01-29-2024 C. glabrata RNA DAMIEN+probe Ql (Vag fld) Negative Normal Negative for Bob glabrata [facility] Comment on above: Order Comment: Speci men Type: SWAB [facility] Address: [address] [place] [address] Performed By: #### C VTV #### [facility] CLIA [id number] [address] [place] [address] [place] Bob sp DNA DAMIEN+probe Ql (Vag fld) Positive Abnormal Negative for Bob species [facility] Comment on above: Order Comment: Speci men Type: SWAB [facility] Address: [address] [place] [address] Performed By: #### C VTV #### [facility] CLIA [id number] [address] [place] [address] [place] T. vaginalis DNA DAMIEN+probe Ql (Unsp spec) Negative Normal Negative for Trichomonas vaginalis by amplification [facility] Comment on above: Order Comment: Speci men Type: SWAB [facility] Address: [address] [place] [address] Performed By: #### C VTV #### [facility] CLIA [id number] [address] [place] [address] [place] CNOVon 01-29-2024 CNOV Office Visit (OBGYWM ) -------- LEESA MOBLEY ([id number]) 1995 F T Date Time Provider Department 01/29/24 9:00 AM DANIELA ARORA OBGYWM During your visit today, we recorded the following information about you: Blood pressure Weight Last Period 116/68 107 kg 01/03/24 Daniela Arora MD 01/29/2024 9:30 AM Signed Flight Attendant Ramp offered: Patient declines. Leesa Mobley is a 28 year old female who presents for STD screening and complaints of Dysuria. Pt reports BF cheated. Pt reports no urinary frequency, pt reports no pelvic pressure but has some cramping sensation. Pt reports uses slapingectomy for BC. Pt states no vaginal odor or discharge that is significant. Has h/o chlamydia in past. Has not noticed blood in urine. Is more sensitive in clitoris area. Pt reports was masturbating a lot the last few days and wonders if that is impacting how she is feeling. Pt reports no fevers. No other concerns today. OB History T3 L3 SAB2 IAB0 Ectopic0 Multiple0 Live Births3 Project Inspector History LMP: 09/26/2023, Unknown Age at Menarche: Age at First : Age at Menopause: Project Inspector History Comments: Sexual Activity: Yes; Male Contraception: Implant PAST MEDICAL HISTORY Diagnosis Date Abnormal Pap smear of cervix AGE 13 Asthma NO MEDICATIONS SINCE AGE 1 Attention deficit disorder with hyperactivity(314.01) 2004 Chlamydia Dysthymic disorder Depression (non-psychotic) Engorgement of breasts associated with childbirth, delivered 09/26/2023 Gestational diabetes mellitus, class A1 02/06/2022 Gonorrhea 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 Miscarriage September 2010 depression PAST SURGICAL HISTORY Procedure Laterality Date DILATION AND CURETTAGE DXAND/THER NONOBSTETRIC 09/24/2010 SALPINGECTOMY Bilateral 06/13/2022 FAMILY HISTORY Problem Relation Age of Onset Heart Mother Asthma Mother Mom's side of family other (tumors) Mother neurofibromytosis Heart Father Neurofibromatosis Sister Neurofibromatosis Sister Neurofibromatosis Brother Heart Maternal Grandmother No Known Problems Maternal Grandfather No Known Problems Paternal Grandmother No Known Problems Paternal Grandfather No Known Problems Son No Known Problems Daughter Social History Tobacco Use Smoking status: Former Packs/day: 0.50 Years: 4.00 Additional pack years: 0.00 Total pack years: 2.00 Types: Cigarettes Quit date: 12/24/2019 Years since quittin.1 Smokeless tobacco: Former Quit date: 08/01/2016 Vaping Use Vaping Use: Some days Substances: Nicotine, CBD, Flavoring Devices: Phonetime tank Substance Use Topics Alcohol use: Not Currently Comment: Occasionally Drug use: Yes Types: Marijuana, Amphetamines Comment: denies any amphetamine use since 2019. Still using Marijuana Current Outpatient Medications Medication Sig clotrimazole-betamethaso ne (LOTRISONE) cream Apply 1 application to affected area two times a day. buPROPion XL (WELLBUTRIN XL) 150 mg 24 hr tablet Take 1 tablet by mouth once daily. escitalopram oxalate (LEXAPRO) 10 mg tablet Take 1 tablet by mouth once daily. No current facility-administered medications for this visit. Allergies As of Date: 01/29/2024 (No Known Allergies) Fully Assessed 10/08/2023 REVIEW OF SYSTEMS Abdomen: cramping. Bladder: dysuria but no frequency.. Expanded ROS: GENERAL: Negative for fever Allergies and current medication updated:Yes EXAM: BP 116/68 Wt 236 lb (107.0kg) LMP 01/03/2024 GENERAL: pleasant, female in no apparent distress HEENT: Normocephalic and atraumatic NECK: full range of motion DERMATOLOGY: Normal, without lesions, non-icteric, and non-hirsute PELVIC: external genitalia normal, normal Bartholin's glands, urethra, Aspen's glands, no vulvar lesions, no cervical lesions, good vaginal support, normal appearing perineal body and perianal region, moderate amount of clear discharge - tiny abrasion near clitoral cruz NEURO: alert and oriented x3,exam grossly non-focal EXTREMITIES: normal ASSESSMENT AND PLAN: Encounter Diagnosis ICD-10-CM 1. Dysuria R30.0 URINE CULTURE sulfamethoxazole-trimeth oprim (BACTRIM DS) 800-160 mg per tablet 2. Vaginal discharge N89.8 BACTERIAL VAGINOSIS NAAT 3. Abrasion of vulva, initial encounter S30.814A 4. Screen for STD (sexually transmitted disease) Z11.3 BOB/TRICHOMONAS NAAT GONORRHEA/CHLAMYDIA NAAT 5. Bactrim given for possible UTI based on symptoms and blood on urine dip with LE. 6. Reviewed findings of small abrasion near clitoris- likely from masturbation- reviewed topical steroid for healing. Medical Decision Making: Problems: Low: Acute, uncomplicated illness or injury Data: Unique test(s) ordered: 3+ Risk: Moderate: Drug management Medical Decision Making Level: 4 - Moderate Daniela Miranda MD Allergies As o (more content not included)... Normal [facility] UA DIP, URINE (POC)on 2023 BILIRUBIN UA (POCT) Negative Negative [facility] CLARITY UA (POCT) Clear [facility] COLOR UA (POCT) Yellow [facility] GLUCOSE UA (POCT) Negative Negative mg/dL [facility] Hemoglobin Ql (U) Small Abnormal Negative [facility] KETONE UA (POCT) Negative Negative mg/dL [facility] LEUKOCYTES UA (POCT) Trace Abnormal Negative [facility] NITRITE UA (POCT) Negative Negative [facility] PH UA (POCT) 6.5 4.5 - 8.0 [facility] Protein Ql (U) Negative Negative mg/dL [facility] SPECIFIC GRAVITY UA (POCT) 1.025 1.005 - 1.030 [facility] UROBILINOGEN UA (POCT) 0.2 E.U./dL Normal E.U./dL [facility] UA DIP, URINE (POC)on 2022 BILIRUBIN UA (POCT) Negative Negative [facility] CLARITY UA (POCT) Clear [facility] COLOR UA (POCT) Yellow [facility] GLUCOSE UA (POCT) Negative Negative mg/dL [facility] Hemoglobin Ql (U) Small Abnormal Negative [facility] KETONE UA (POCT) Negative Negative mg/dL [facility] LEUKOCYTES UA (POCT) Negative Negative [facility] NITRITE UA (POCT) Negative Negative [facility] PH UA (POCT) 5.5 4.5 - 8.0 [facility] Protein Ql (U) Negative Negative mg/dL [facility] SPECIFIC GRAVITY UA (POCT) >=1.030 1.005 - 1.030 [facility] UROBILINOGEN UA (POCT) 0.2 E.U./dL Normal E.U./dL [facility] MUMPS IGG ABon 09-26-2023 MuV IgG Ql (S) Positive Positive [facility] RUBELLA IGG ABon 09-26-2023 Rubella IgG, Qual Positive Positive [facility] RUBEOLA (MEASLES)IGGon 09-26 Measles Antibody, IGG Qualitative Positive Positive [facility] Strep A (Throat Rapid ZENAIDA)on 04-25-2023 S. pyogenes Ag IA Ql (Unsp spec) A Disk (Conf. Cult) Negative for Strep Group A Rapid Strep A Screen NEGATIVE Normal [facility] Comment on above: Performed By: #### M 100.676 #### [facility] [address] [place], [place], [id number] ED NOTEon 04-23-2023 ED NOTE HNO ID: [id number] Author: Caty Flores RN Service: Emergency Medicine Author Type: Registered Nurse Type: ED Notes Filed: 04/24/2023 12:51 PM Note Text: Patient Call Back Information How are you doing ? better Did we appropriately manage your pain? Yes Did you understand your discharge instructions? Yes Did you get your prescriptions filled? Were you able to make a follow-up appointment with your physician? No Were you comfortable during your stay here? Yes Did a member of the ER nursing team round on you during your visit? Yes You will receive a patient satisfaction survey in the mail in the nest 2 weeks, please take the time to fill out the survey as your input from your ER visit is very important to us. Yes Can we do anything else to help you? No Normal [facility] ED NOTE HNO ID: [id number] Author: Bonifacio Dennis RN Service: Emergency Medicine Author Type: Registered Nurse Type: ED Notes Filed: 04/23/2023 5:33 PM Note Text: Pt c/o sore throat with enlarged tonsils for about week. Notes generalized weakness/fatigue. [place], warm, dry. No apparent distress. Alert and oriented. Normal [facility] ED PROV NOTEon 04-23-2023 ED PROV NOTE HNO ID: [id number] Author: Florencio Tejeda MD Service: Emergency Medicine Author Type: Physician Type: ED Provider Notes Filed: 04/23/2023 11:58 PM Note Text: ED Provider Note Patient Name: Leesa Mobley : 1995 SERVICE DATE: 04/23/23 History Patient presents with: Sore Throat 27-year-old female presenting with sore throat. She states her symptoms started this past Friday with generalized fatigue, sore throat, cough, subjective fevers and chills, headache and diarrhea. She states that most of the symptoms have improved but the sore throat has persisted and she noticed white exudates on her tonsils and so she thought she had strep throat. She said some children have had school exposures of strep throat. She states that yesterday she went to [facility] and waited for hours in the waiting room, she says that they took strep COVID and flu testing but she left prior to seeing a physician and so was unsure of the results. She states she tried to call and get them over the phone but was told originally that she could not get the results over the phone. She states that when she complained and was transferred to a patient advocate someone told her that her strep and COVID tests were negative but I do not know if they were just telling me that to get me off the phone. She also notes that she has had slight increase in vaginal discharge but is unsure if this is related. No recent antibiotics. She denies dysuria dyspareunia or pelvic pain. Unknown LMP, patient states that she has had her tubes removed and so she cannot get and does not keep track of her periods any longer. But she thinks she has had a period within the last month or so. No rash. No vomiting or diarrhea. No shortness of breath. PAST MEDICAL HISTORY Diagnosis Date Abnormal Pap smear of cervix AGE 13 Asthma NO MEDICATIONS SINCE AGE 1 Attention deficit disorder with hyperactivity(314.01) 2004 Chlamydia Dysthymic disorder Depression (non-psychotic) Gestational diabetes mellitus, class A1 02/06/2022 Gonorrhea 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 Miscarriage September 2010 depression PAST SURGICAL HISTORY Procedure Laterality Date DILATION AND CURETTAGE DXAND/THER NONOBSTETRIC 09/24/2010 SALPINGECTOMY Bilateral 06/13/2022 FAMILY HISTORY Problem Relation Age of Onset Heart Mother Asthma Mother Mom's side of family other (tumors) Mother neurofibromytosis Heart Father Neurofibromatosis Sister Neurofibromatosis Sister Neurofibromatosis Brother Heart Maternal Grandmother No Known Problems Maternal Grandfather No Known Problems Paternal Grandmother No Known Problems Paternal Grandfather No Known Problems Son No Known Problems Daughter Social History Tobacco Use Smoking status: Former Packs/day: 0.50 Years: 4.00 Pack years: 2.00 Types: Cigarettes Quit date: 12/24/2019 Years since quittin.3 Smokeless tobacco: Former Quit date: 08/01/2016 Vaping Use Vaping Use: Some days Substances: Nicotine, CBD, Flavoring Devices: Refillable tank Substance and Sexual Activity Alcohol use: Not Currently Comment: Occasionally Drug use: Yes Types: Marijuana, Amphetamines Comment: denies any amphetamine use since 2019. Still using Marijuana Sexual activity: Yes Partners: Male control/protection: Implant ALLERGIES No Known Allergies Review of Systems All other systems reviewed and are negative. Physical Exam Vitals [04/23/23 1730] BP Pulse Temp Temp src Resp SpO2 Weight Height 115/98 (!) 114 36.9 ?C (98.5 ?F) Temporal 16 96 % 99.8 kg (220 lb) 1.702 m (5' 7) Physical Exam Vitals and nursing note reviewed. Constitutional: Appearance: She is well-developed. She is not toxic-appearing or diaphoretic. HENT: Head: Normocephalic and atraumatic. Right Ear: Tympanic membrane, ear canal and external ear normal. Left Ear: Tympanic membrane, ear canal and external ear normal. Mouth/Throat: Mouth: Mucous membranes are moist. Mucous membranes are not dry. No oral lesions. Pharynx: Uvula midline. No pharyngeal swelling, oropharyngeal exudate, posterior oropharyngeal erythema or uvula swelling. Tonsils: Tonsillar exudate present. 2+ on the right. 2+ on the left. Eyes: General: No scleral icterus. Extraocular Movements: Extraocular movements intact. Conjunctiva/sclera: Conjunctivae normal. Right eye: Right conjunctiva is not injected. Left eye: Left conjunctiva is not injected. Pupils: Pupils are equal, round, and reactive to light. Neck: Vascular: No JVD. Cardiovascular: Rate and Rhythm: Normal rate and regular rhythm. Pulses: Normal pulses. Heart sounds: Normal heart sounds. No murmur heard. No friction rub. No gallop. Pulmonary: Effort: Pulmonary effort is normal. No respiratory distress. Breath sounds: Normal breath sounds. No stridor. No wheezing, rhonchi or rales. Abdominal: General: B (more content not included)... Normal [facility] S pyo DNA Throat Ql DAMIEN+prob jeni 04-23-2023 S. pyogenes DNA DAMIEN+probe Ql (Throat) Not detected Normal Not detected [facility] Comment on above: Order Comment: Speci men Type: SWAB [facility] Address: [address] [place] [id number] Performed By: #### 6 0489-2 #### [facility] CLIA [id number] [address] [place] [id number] [place] COVID 19 AG RAPID (ELENA Hall)on 04-22-2023 SARS-CoV-2 (COVID-19) RNA DAMIEN+probe Ql (Unsp spec) *Negative results from patients with symptom onset beyond five days should be treated as presumptive and confirmed by a molecular assay if clinically necessary. Negative results should not be used as the sole basis for treatment or for patient management. SARS-CoV-2 Ag Resp Ql IA.rapid *Positive results do not differentiate between SARS-CoV and SARS-CoV-2. If differentiation of the specific SARS virus is desired an additional sample and an additional order is required. SARS-CoV-2 Ag Resp Ql IA.rapid * This test has not been FDA cleared or approved; the test has been authorized by FDA under an Emergency Use Authorization (EAU) for use by laboratories certified under CLIA that meet the requirements to perform moderate, high, or waived complexity tests. SARS-CoV-2 Ag Resp Ql IA.rapid Normal Reference Range: Negative SARS-CoV-2 (COVID 19) Negative RAPID METHOD [employer] COVID19 Ag Card Normal [facility] Comment on above: Performed By: #### M 100.505 #### [facility] [address] [facility] [place], [address] COVID-19 virus antigen assay Ordered By: Dr. German on 04-22-2023 SARS-CoV-2 (COVID-19) Ag IA.rapid Ql (Resp) [facility] Emergency Department Summary on 02-26-2023 Emergency Department Summary [facility] Medical Records Department [address] [place] [address] Emergency Department Summary 02/26/23 MR#: [id number] Acct: [id number] Name: LEESA MOBLEY Rep #: [id number] : 1995 27 From: José Luis Goldsmith MD PCP: Dr. Kendall Oakley MD Status:REG ER Location: ED HPI HPI - URI History of Present Illness Chief Complaint: Sore Throat Informant: patient Narrative Narrative: Patient started with URI symptoms last evening. She states she has felt warm but never had a fever. She has mostly a sore throat. She has a occasional cough but is not short of breath and or having sputum production. No earache. No nausea or vomiting. No muscle aches. She has not been eating and drinking much just because her throat is sore but she is able to swallow without difficulty. Her 1-year-old has essentially the same symptoms and started about the same time. She has no chronic medical conditions other than depression Meds include paroxetine No known drug allergies No recent surgeries ROS ROS ED Constitutional Constitutional ED: Reports subjective Eyes Eyes: Denies change in vision ENT ENT ED: Reports sore throat; Denies ear pain or rhinorrhea Cardiovascular Cardiovascular: Denies chest pain, palpitations or paroxysmal nocturnal dyspnea Respiratory/Chest Respiratory/Chest: Reports cough; Denies dyspnea, paroxysmal nocturnal dyspnea or sputum Gastrointestinal Gastrointestinal: Denies nausea or vomiting Genitourinary Genitourinary ED: Denies dysuria Musculoskeletal Musculoskeletal: Denies myalgias Integumentary Denies rash Neurologic Neurologic: Denies headache(s) Psychiatric Psychiatric: Reports depression Endocrine Endocrinology: Denies polydipsia or polyuria Hematologic/Lymphatic Hematologic/Lymphatic: Denies lymphadenopathy PFSH PFSH Medical History Acute amphetamine withdrawal Alcohol use Anxiety Chlamydia infection affecting Depression Gastric reflux Gestational diabetes Gonorrhea affecting Hx of vaginal delivery depression Restless legs Smoker Substance abuse Wears glasses Home Medications paroxetine HCl 20 mg tablet 20 mg PO DAILY 06/06/22 [History Last Taken Unknown] penicillin V potassium 250 mg tablet 500 mg PO 4X/DAY #40 tabs 02/26/23 [Rx Last Taken Unknown] Allergy/AdvReac Type Severity Reaction Status Date / Time No Known Allergies Allergy Verified 02/26/23 08:28 Surgical History History of dilatation and curettage Social History Smoking Status: Current every day smoker tobacco type: e-cigarettes substance use type: does not use EXAM Physical Exam Narrative Exam Narrative: Patient is awake alert and no acute distress. Nontoxic in appearance. HEENT shows no external swelling. Mildly dry mucous membranes. She does have erythematous throat. There is almost a hint of exudate more on the left but no asymmetry of size. Tonsils are not notably swollen. Eyes show no icterus Neck does show some shotty lymphadenopathy on both sides. No stridor. Lungs are clear bilaterally. Heart is regular. She has a rate of about 100 at this time. May be from some mild dehydration. Abdomen is soft completely nontender. shows no CVA tenderness Extremities show no rash or tenderness or swelling. Const Vital Signs: 02/26/23 08:26 02/26/23 08:25 02/26/23 09:00 Temperature 96 F L Temperature Source Temporal Pulse Rate 130 H Respiratory Rate 18 16 Respiratory Pattern Normal Blood Pressure 119/84 H Blood Pressure Mean 95 Pulse Ox 95 Oxygen Delivery Method Room Air MDM MDM MDM Narrative Medical decision making narrative: Patient does have fever history, erythematous tonsils, slight exudate, 6 lymph nodes and positive strep. We will treat her for this. COVID and flu are negative. We discussed reasons to return. Discharge Plan Triage Chief Complaint: Sore Throat ED Provider: José Luis Goldsmith Dx/Rx/DC Orders Clinical Impression: Strep pharyngitis Instructions: ED Pharyngitis, Strep (Confirmed) Prescriptions: New penicillin V potassium 250 mg tablet 500 mg PO 4X/DAY Qty: 40 0RF No Action paroxetine HCl 20 mg tablet 20 mg PO DAILY Label Comments: take 1 tablet by mouth once daily Stand Alone Forms: ED Work / School Excuse Primary Care Provider: Kendall Oakley Referrals: Kendall Oakley MD [Primary Care Provider] - 3-5 Days if not improving Disposition Disposition: Home, Self Care What to do if you have Problems For any increased pain, shortness of breath, bleeding, nausea or vomiting, chest pain, or any unexpected pr (more content not included)... Normal [facility] Influenza virus A and B and SARS-CoV-2 (COVID-19) Ag panel - Upper respiratory specimOrdered By: Dr. Goldsmith on 02-26-2023 SARS-CoV-2 (COVID-19) RNA DAMIEN+probe Ql (Resp) [facility] M101.0111on 02-26-2023 M101.0111 *Negative results fr om patients with symptom onset beyond five days should be treated as presumptive and confirmed by a molecular assay if clinically necessary. Negative results should not be used as the sole basis for treatment or for patient management. FLUABV+SARS-CoV2 Ag Pnl Up resp IA.rapid *Positive results do not differentiate between SARS-CoV and SARS-CoV-2. FLUABV+SARS-CoV2 Ag Pnl Up resp IA.rapid Negative Influenza results should be confirmed with FLU PANEL MOLECULAR if indicated. FLUABV+SARS-CoV2 Ag Pnl Up resp IA.rapid * This test has not been FDA cleared or approved; the test has been authorized by FDA under an Emergency Use Authorization (EAU) for use by laboratories certified under CLIA that meet the requirements to perform moderate, high, or waived complexity tests. FLUABV+SARS-CoV2 Ag Pnl Up resp IA.rapid Normal Reference Range: Negative Kiana, ZENAIDA method SARS-CoV-2 (COVID 19) Negative Influenza Ag, Direct Presumptive NEGATIVE for Influenza A/B Antigen (See Note) Normal [facility] Comment on above: Performed By: #### M 101.0111 #### [facility] [address] [place], [place], [id number] S. pyogenes Ag IF Ql (Throat )Ordered By: Dr. Goldsmith on 02-26-2023 S. pyogenes Ag IA Ql (Unsp spec) Streptococcus Group A [facility] Strep A (Throat Rapid ZENAIDA)on 02-26-2023 S. pyogenes Ag IA Ql (Unsp spec) A Disk (Conf. Cult) Test Not Required Rapid Strep A Screen A POSITIVE A Streptococcus Group A Normal [facility] Comment on above: Performed By: #### M 100.676 #### [facility] [address] [place], [place], [address] Emergency Department Summary on 10-31-2022 Emergency Department Summary [facility] Medical Records Department [address] [place] [id number] Emergency Department Summary 10/31/22 MR#: [id number] Acct: [id number] Name: LEESA MOBLEY Rep #: [id number] : 1995 27 From: Nicolas German DO PCP: Dr. Kendall Oakley MD Status:REG ER Location: ED HPI History of Present Illness Chief Complaint: General Illness Narrative Narrative: 27-year-old female presenting with cough, congestion, body aches, fevers, chills. She has one child that has tested positive for influenza A and she has another child who tested positive for RSV. Patient states that she is not sure which one she has. She states that she has a little bit of nausea but is able to eat and drink normally. She making normal urine and stool. No chest pain or shortness of breath. [facility] Medical History Acute amphetamine withdrawal Alcohol use Anxiety Chlamydia infection affecting Depression Gastric reflux Gestational diabetes Gonorrhea affecting Hx of vaginal delivery depression Restless legs Smoker Substance abuse Wears glasses Home Medications vitamin with calcium no.72-iron 27 mg-folic acid 1 mg tablet ( Vitamins Plus Low Iron) 1 tab PO DAILY 09/28/21 [History Last Taken 03/23/22 05:15 1 tab] acetaminophen 500 mg tablet 1,000 mg PO Q6H PRN PRN Pain 1-10 Or Fever #0 tabs 03/24/22 [Rx Last Taken Unknown] ibuprofen 600 mg tablet 600 mg PO Q6H PRN PRN pain #60 TABLETS 03/25/22 [Rx Last Taken Unknown] L.acidophilus,rhamnosus- B.breve-S.thermophilus 3 billion cell chew tab 1 tab PO DAILY 06/06/22 [History Last Taken Unknown] paroxetine HCl 20 mg tablet 20 mg PO DAILY 06/06/22 [History Last Taken Unknown] oxycodone-acetaminophen 5 mg-325 mg tablet (Percocet) 1 tab PO Q6H PRN pain 7 days #10 tabs 06/13/22 [Rx Last Taken Unknown] Allergy/AdvReac Type Severity Reaction Status Date / Time No Known Allergies Allergy Verified 10/31/22 10:33 Surgical History History of dilatation and curettage Social History Smoking Status: Current every day smoker tobacco type: e-cigarettes substance use type: does not use ROS ROS ED Constitutional Constitutional ED: Reports chills and fever(s) Eyes Eyes: Denies change in vision or diplopia ENT ENT ED: Reports rhinorrhea Cardiovascular Cardiovascular: Denies chest pain or palpitations Respiratory/Chest Respiratory/Chest: Reports cough Gastrointestinal Gastrointestinal: Reports nausea; Denies abdominal pain or vomiting Genitourinary Genitourinary ED: Denies dysuria or hematuria Musculoskeletal Musculoskeletal: Reports myalgias Integumentary Denies abscess or Abrasions Neurologic Neurologic: Denies headache(s) or paresthesias Psychiatric Psychiatric: Denies anxiety or depression EXAM Physical Exam Const Vital Signs: 10/31/22 10:32 10/31/22 11:01 Temperature 97.4 F L Temperature Source Temporal Pulse Rate 98 Respiratory Rate 18 Respiratory Effort Normal Non-Labored Respiratory Pattern Normal Blood Pressure 104/75 Blood Pressure Mean 84 Pulse Ox 95 Oxygen Delivery Method Room Air Positive well nourished General Appearance ED: NAD; Negative for pallor HEENT Reports moist mucous membranes HEENT Narrative: Nasal congestion Eyes PERRL and EOMs intact bilaterally Resp normal respiratory effort Cardio regular rate and regular rhythm Neuro oriented x3 and CN's II-XII intact bilaterally Sensorium / Orientation: alert Psych mental status grossly normal Skin no rashes or lesions noted General Skin Exam: Negative for jaundice or pallor MDM MDM MDM Narrative Medical decision making narrative: 27-year-old female presenting for fevers, chills, body aches. She has 2 sick contacts in her home. One has RSV and 1 has influenza. She was tested for COVID and influenza today and was negative. Patient is not ill-appearing and she has normal vital signs. She request some Zofran for home. She states since her symptoms started 2 days ago she would like some Tamiflu. This will be provided for her. Impression: 1. Influenza A Lab Data Attestation: I reviewed the patient's lab results. Discharge Plan Triage Chief Complaint: General Illness ED Provider: Nicolas German Dx/Rx/DC Orders Prescriptions: No Action Vitamin Plus Low Iron 27 mg iron- 1 mg tablet 1 tab PO DAILY acetaminophen 500 mg Tablet 1,000 mg PO Q6H PRN PRN (Reason: Pain 1-10 Or Fever) Qty: 0 0RF ibuprofen 600 mg tablet 600 mg PO Q6H PRN PRN (Reason: pain) Qty: 60 1RF paroxetine HCl 20 mg tablet 20 mg PO DAILY Label Comments: (more content not included)... Normal [facility] Influenza virus A and B and SARS-CoV-2 (COVID-19) Ag panel - Upper respiratory specimOrdered By: Dr. German on 10-31-2022 SARS-CoV-2 (COVID-19) RNA DAMIEN+probe Ql (Resp) [facility] M101.0111on 10-31-2022 M101.0111 *Negative results fr om patients with symptom onset beyond five days should be treated as presumptive and confirmed by a molecular assay if clinically necessary. Negative results should not be used as the sole basis for treatment or for patient management. FLUABV+SARS-CoV2 Ag Pnl Up resp IA.rapid *Positive results do not differentiate between SARS-CoV and SARS-CoV-2. FLUABV+SARS-CoV2 Ag Pnl Up resp IA.rapid Negative Influenza results should be confirmed with FLU PANEL MOLECULAR if indicated. FLUABV+SARS-CoV2 Ag Pnl Up resp IA.rapid * This test has not been FDA cleared or approved; the test has been authorized by FDA under an Emergency Use Authorization (EAU) for use by laboratories certified under CLIA that meet the requirements to perform moderate, high, or waived complexity tests. FLUABV+SARS-CoV2 Ag Pnl Up resp IA.rapid Normal Reference Range: Negative Kiana, ZENAIDA method SARS-CoV-2 (COVID 19) Negative Influenza Ag, Direct Presumptive NEGATIVE for Influenza A/B Antigen (See Note) Normal [facility] Comment on above: Performed By: #### M 101.0111 #### [facility] [address] [place], [place], [id number] Basophil percentageon 2021 WBC (Bld) [#/Vol] 9.3 10*3/uL 4.4-11.0 [facility] Work Phone: Blood erythrocytes count (nu mber/volume)on 06-13-2022 RBC (Bld) [#/Vol] 4.66 10*6/uL 4.2-5.4 [facility] Work Phone: Blood hemoglobin measurement (mass/volume)on 06-13-2022 Hemoglobin (Bld) [Mass/Vol] 13.5 g/dL 12.0-15.0 [facility] Work Phone: Blood platelet mean volumeon 06-13-2022 Platelet mean volume (Bld) [Entitic vol] 10.3 fL 6.2-12.0 [facility] Work Phone: CBC-Complete Blood Cnt No Di ffon 06-13-2022 Erythrocyte distribution width (RBC) [Ratio] 13.4 % Normal 11.6-14.6 [facility] Comment on above: Performed By: #### B TSPAT, L100.0500 #### [facility] [address] [place], [address] Hematocrit (Bld) [Volume fraction] 41.1 % Normal 37-47 [facility] Comment on above: Performed By: #### B TSPAT, L100.0500 #### [facility] [address] [place], [address] Hemoglobin (Bld) [Mass/Vol] 13.5 g/dL Normal 12.0-15.0 [facility] Comment on above: Performed By: #### Franchesca TSPAT, L100.0500 #### [facility] [address] [place], [address] MCH (RBC) [Entitic mass] 29.0 pg Normal 27.0-32.0 [facility] Comment on above: Performed By: #### Franchesca TSPAT, L100.0500 #### [facility] [address] [place], [address] MCHC (RBC) [Mass/Vol] 32.8 g/dL Normal 32-36 [facility] Comment on above: Performed By: #### B TSPAT, L100.0500 #### [facility] [address] [place], [address] MCV (RBC) [Entitic vol] 88.2 fL Normal 81-99 [facility] Comment on above: Performed By: #### B TSPAT, L100.0500 #### [facility] [address] [place], [address] Platelet mean volume (Bld) [Entitic vol] 10.3 fL Normal 6.2-12.0 [facility] Comment on above: Performed By: #### B TSPAT, L100.0500 #### [facility] [address] [place], [address] Platelets (Bld) [#/Vol] 256 10*3/uL Normal 150-450 [facility] Comment on above: Performed By: #### B TSPAT, L100.0500 #### [facility] [address] [place], [address] RBC (Bld) [#/Vol] 4.66 10*6/uL Normal 4.2-5.4 [facility] Comment on above: Performed By: #### B TSPAT, L100.0500 #### [facility] [address] [place], [address] RDW SD 43.3 fl Normal 35.1-43.9 [facility] Comment on above: Performed By: #### B TSPAT, L100.0500 #### [facility] [address] [place], [address] WBC (Bld) [#/Vol] 9.3 10*3/uL Normal 4.4-11.0 [facility] Comment on above: Performed By: #### B TSPAT, L100.0500 #### [facility] [address] [place], [address] Determination of erythrocyte mean corpuscular volume (MCV)on 06-13-2022 MCV (RBC) [Entitic vol] 88.2 fL 81-99 [facility] Work Phone: Discharge Instructionon 05-25 Discharge Instruction [facility] Medical Records Department [address] [place] [address] Instructions for Home/Discharge Instructions 06/13/22 1443 MR#: [id number] Acct: [id number] Name: LEESA MOBLEY Rep #: [id number] : 1995 26 From: Lexii Fong DO PCP: Dr. Kendall Oakley MD Status:REG [facility] Discharge Instructions Diet Discharge Diet: No restrictions Activity Discharge Activity: May Not Drive (for 24 hours after surgery) and May Not Shower (for 24 hours after surgery) May resume sexual activity in: 1-2 weeks (May resume sexual activity once bleeding stops. No soaking in water for 1 week) Ice area for (Minutes): 15 Weight Bearing Status: Weight bearing as tolerated Lifting Restrictions: Nothing heavier than baby for 1 week Dressing / Incision Call your doctor if your incision/area has: Continuous Slow Oozing, Sudden Increased Bleeding, Increased Pain/ Swelling, Increased Redness, Foul Smelling Discharge and Swelling at the incision site Call your doctor if you observe: Fever of 101 or Higher, Coldness, Increased Pain, Numbness or Tingling, Change in Color, Inability to urinate, Inability to have a bowel movement, Using more than 1 pad per hour, Shortness of breath, Dizziness, Fainting spells, Swelling in the ankles, Chest pain, Increased palpitations (irregular heartbeat), Calf discomfort and Uncontrolled pain Remove Dressing in: leave until fall off (The glue will start to peel up. Ok to peel off or cut raised edges) Cleanse incision/area with: Soap Water Follow Up Care Please Follow Up With: Lexii Fong DO When: 1-2 weeks Test Results: Test results from this visit will be discussed in further detail at your follow-up appointment, if applicable. Discharge Plan Admission Primary Reason for Your Visit: surgery Attending Provider: Lexii Fong Primary Care Provider: Kendall Oakley Instructions Patient Instructions: Discharge Instruction for ... Discharge Orders/Prescriptions Prescriptions: New oxycodone-acetaminophen [Percocet] 5-325 mg tablet 1 tab PO Q6H PRN (Reason: pain) 7 Days Qty: 10 0RF Continued Vitamin Plus Low Iron 27 mg iron- 1 mg tablet 1 tab PO DAILY acetaminophen 500 mg Tablet 1,000 mg PO Q6H PRN PRN (Reason: Pain 1-10 Or Fever) Qty: 0 0RF ibuprofen 600 mg tablet 600 mg PO Q6H PRN PRN (Reason: pain) Qty: 60 1RF paroxetine HCl 20 mg tablet 20 mg PO DAILY Label Comments: take 1 tablet by mouth once daily L.acid-L.rham-B.breve-S. therm 3 billion cell Tablet,Chewable 1 tab PO DAILY Discontinued levonorgestrel [Option-2] 1.5 mg tablet 1 tab PO DAILY Label Comments: take 1 tablet by mouth ONE TIME ONLY for 1 dose Referrals / Follow Up: Kendall Oakley MD [Primary Care Provider] - Disposition Disposition (needs filled in before D/C Order can be placed): Home, Self Care 06/13/22 1445 Lexii Ajit [place] CC: Dr. Kendall Oakley MD Signed Normal [facility] Hematocrit Auto (Bld) [Volum e fraction]on 06-13-2022 Hematocrit (Bld) [Volume fraction] 41.1 % 37-47 [facility] Work Phone: Laboratory - Chemistry and C hemistry - challengeon 06-13-2022 HCG ( test) Ql (U) Negative [facility] Work Phone: Comment on above: Very dilute urine sp ecimens, as indicated by a low specificgravity, may not contain career representative levels of hCG. If is still suspected, a first morning urinespecimen should be collected 48 hours later and tested. Laboratory - Hematology and Cell countson 06-13-2022 Erythrocyte distribution width (RBC) [Entitic vol] 43.3 fL 35.1-43.9 [facility] Work Phone: Erythrocyte distribution width (RBC) [Ratio] 13.4 % 11.6-14.6 [facility] Work Phone: MCH (RBC) [Entitic mass] 29.0 pg 27.0-32.0 [facility] Work Phone: MCHC Auto (RBC) [Mass/Vol]on 06-13-2022 MCHC (RBC) [Mass/Vol] 32.8 g/dL 32-36 [facility] Work Phone: Operative Reporton 2 Operative Report [facility] Medical Records Department [address] [place] [address] Operative Report 06/13/22 1448 MR#: [id number] Acct: [id number] Name: LEESA MOBLEY Rep #: [id number] : 1995 26 From: Lexii Fong DO PCP: Dr. Kendall Oakley MD Status:[facility] Location: [place] [address] Problems Associated Problem List Diagnoses (1) Sterilization: Report of Operation Date of Procedure: 06/13/22 Pre-Operative Diagnosis: Desires sterilization Post-Operative Diagnosis: Desires sterilization Surgery/Procedure Performed:: Laparoscopy bilateral salpingectomy Description of Surgical Findings:: Normal appearing pelvis. Normal appearing uterus, bilateral fallopian tubes, and bilateral ovaries Surgeon: Lexii Fong miller first: Radha SWANSON Type of Anesthesia: General Special Medications: None Specimen's removed: Bilateral fallopian tubes Drains: None Estimated Blood Loss (mL): < 20 cc Fluids Replaced: 1000 mL Description of Procedure: The patient was taken to the operating room where general anesthesia was induced. She was prepped and draped in the dorsal lithotomy position using yellowfin stirrups. From below a weighted specul um was placed in the vagina to expose the cervix. The anterior lip of the cervix was grasped with a single-tooth tenaculum. A uterine manipulator was placed. The weighted speculum was removed. Gloves were changed and attention was turned to the abdominal portion of the procedure. Local was infiltrated at all port sites. An incision was made infraumbilically to accommodate a 5 mm port. This 5 mm port was placed under direct visualization with the laparoscope. Once confirmed intraperitoneal, CO2 insufflation was initiated. The patient was placed in Trendelenburg position. A left lateral 5 mm port was placed. A right lateral 5 mm port was placed. The pelvis was normal- appearing. Findings as noted above. The right fallopian tube was followed out to the fimbriated end. Using the LigaSure device the mesosalpinx was serially clamped, cauterized, and transected until reaching level of the cornua. Once at the level of the cornua the right fallopian tube was transected. The right fallopian tube was removed and sent to pathology for review. The left fallopian tube was elevated and followed to the fimbriated end. Using the LigaSure device the mesosalpinx was again serially clamped, cauterized, and transected until reaching the level of the cornua at which point the fallopian tube was transected. The left fallopian tube was removed and sent to pathology for review. Hemostasis was noted. The abdomen was exsufflated. The ports were removed. The skin was closed in a subcuticular fashion using 4 Monocryl. Skin glue was placed over the incisions. From below, all instruments were removed from the vagina. Hemostasis was noted. A vaginal sweep was performed. Instrument, sponge, sharp counts were correct and the patient was taken to the recovery room in stable condition. The assistant real estate manager was present for entire case: prepping patient, removal of fallopian tubes, and closure. Grafts/Implants Used: None Procedure Start Time: 15:30 Procedure Stop Time: 15:43 Complications None Admit VTE Documentation VTE Present on Admission: No VTE Mechan Device Prophylaxis: SCD's 06/13/22 1545 Cosigner Signature (if applicable): CC: Dr. Lexii Fong, DO; Dr. Kendall Oakley MD Signed Normal [facility] Platelets bldon 06-13-2022 Platelets (Bld) [#/Vol] 256 10*3/uL 150-450 [facility] Work Phone: ,Urineon 06-13-2022 Beta HCG ( test) Ql (U) Negative Normal [facility] Comment on above: Result Comment: Very dilute urine specimens, as indicated by a low specific gravity, may not contain career representative levels of hCG. If is still suspected, a first morning urine specimen should be collected 48 hours later and tested. Performed By: #### L 400.7600 #### [facility] [address] [place], [place], [id number] Surgery Specimen Level IIon 06-13-2022 Surgery Specimen Level II OPERATION: Laparoscopic salpingectomy PRE-OP DIAGNOSIS: Sterilization TISSUE SUBMITTED: Bilateral fallopian tubes Bilateral fallopian tubes, salpingectomy: Bilateral fallopian tubes, no pathologic diagnosis. SJ:yu 06/17/2022 Slides are reviewed. Received in fixative is one container labeled with the patient's name and designated bilateral fallopian tubes. The specimen consists of two fallopian tubes with an average length of 4 cm and has an average diameter of 0.4 cm. Both fallopian tubes have normal fimbriated ends. No mass lesions are identified. Ruffling Machine Operator sections are submitted in two cassettes as follows: 1 - one fallopian tube, 2 - the other fallopian tube. / AM:yu 06/14/2022 TC:4 CPT: 43696 x2 Signed (signature on file) Dr. Cezar Pro MD 06/17/22 1214 Normal [facility] Comment on above: Performed By: #### P SUII ####[facility] [id number] [facility]. [place], [place], [id number] Type AND Screen - PAT ONLYon 06-13-2022 Ab SCREEN GEL Negative Normal [facility] Comment on above: Order Comment: Surge ry Date: 06/13/22 Reason for Laboratory Test PREOP 20220613 No N N S LAP SALPINGECTOMY Performed By: #### B TSPAT, L100.0500 #### [facility] [address] [facility]. [place], [place], [address] ABO and Rh group Nom (Bld) Blood group O Rh(D) positive Normal [facility] Comment on above: Order Comment: Surge ry Date: 06/13/22 Reason for Laboratory Test PREOP 20220613 No N N S LAP SALPINGECTOMY Performed By: #### B TSPAT, L100.0500 #### [facility] [address] [place], [address] HCG QUAL UR B/Oon 05-06-2022 status Negative neg - pos [facility] Quality Check Yes [facility] Glucose Glucometer (dC) [M ass/Vol]on 03-24-2022 Glucose [Mass/Vol] 90 mg/dL 74-106 [facility] Work Phone: Comment on above: MANAGEMENT OF PATIEN T CARE PER NURSING PROTOCOL Absolute lymphocyte counton 03-23-2022 Lymphocytes Auto (Unsp spec) [#/Vol] 2.34 10*3/uL 0.83-4.51 [facility] Work Phone: Basophil percentageon 2021 Basophils/100 WBC (Bld) 0.3 % 0-1 [facility] Work Phone: Eosinophils/100 WBC (Bld) 1.2 % 0-5 [facility] Work Phone: Neutrophils (Bld) [#/Vol] 7.5 10*3/uL 2.0-7.7 [facility] Work Phone: Neutrophils/100 WBC (Bld) 68.5 % 47-70 [facility] Work Phone: WBC (Bld) [#/Vol] 10.9 10*3/uL 4.4-11.0 [facility] Work Phone: Blood erythrocytes count (nu mber/volume)on 03-23-2022 RBC (Bld) [#/Vol] 4.46 10*6/uL 4.2-5.4 [facility] Work Phone: Blood hemoglobin measurement (mass/volume)on 03-23-2022 Hemoglobin (Bld) [Mass/Vol] 13.2 g/dL 12.0-15.0 [facility] Work Phone: Blood lymphocytes/100 leukoc yteson 03-23-2022 Lymphocytes/100 WBC (Bld) 21.4 % 19-41 [facility] Work Phone: [phone] Blood monocytes/100 leukocyt eson 03-23-2022 Monocytes/100 WBC (Bld) 8.0 % 0-10 [facility] Work Phone: [phone] Blood platelet mean volumeon 03-23-2022 Platelet mean volume (Bld) [Entitic vol] 10.2 fL 6.2-12.0 [facility] Work Phone: [phone] Determination of erythrocyte mean corpuscular volume (MCV)on 03-23-2022 MCV (RBC) [Entitic vol] 86.3 fL 81-99 [facility] Work Phone: [phone] Hematocrit Auto (Bld) [Volum e fraction]on 03-23-2022 Hematocrit (Bld) [Volume fraction] 38.5 % 37-47 [facility] Work Phone: [phone] Laboratory - Drug toxicology on 03-23-2022 Benzodiazepines Ql (U) Negative < 200 ng/mL [facility] Work Phone: [phone] Cannabinoids Screen Ql (U) Negative < 50 ng/mL [facility] Work Phone: [phone] Cocaine Ql (U) Negative < 300 ng/mL [facility] Work Phone: [phone] Opiates Ql (U) Negative < 300 ng/mL [facility] Work Phone: [phone] Laboratory - Hematology and Cell countson 03-23-2022 Erythrocyte distribution width (RBC) [Entitic vol] 40.3 fL 35.1-43.9 [facility] Work Phone: [phone] Erythrocyte distribution width (RBC) [Ratio] 13.0 % 11.6-14.6 [facility] Work Phone: [phone] Immature granulocytes/100 WBC (Bld) 0.600 % 0.0-0.9 [facility] Work Phone: Comment on above: IG% - Immature Granu locytes (promyelocytes, myelocytes and metamyelocytes) > 1% indicates that a LEFT SHIFT is Present. MCH (RBC) [Entitic mass] 29.6 pg 27.0-32.0 [facility] Work Phone: [phone] Nucleated RBC/100 WBC (Bld) [Ratio] 0 % 0-5 [facility] Work Phone: [phone] MCHC Auto (RBC) [Mass/Vol]on 03-23-2022 MCHC (RBC) [Mass/Vol] 34.3 g/dL 32-36 [facility] Work Phone: [phone] No Panel Informationon 03-23 MDMA (Ecstasy) Screen Negative < 500 ng/mL [facility] Work Phone: [phone] Urine Barbiturates Screen Negative < 200 ng/mL [facility] Work Phone: [phone] Urine Drug Screen Comment [facility] Work Phone: [phone] Comment on above: CONFIRMATORY TESTING FOR ALL POSITIVE URINE DRUG SCREENRESULTS WILL ONLY BE SENT OUT UPON PHYSICIAN ORDER. VISTA Urine Drug Screen methods provide only preliminaryanalytical test results. A more specific alternate chemicalmethod must be used in order to obtain a confirmedanalytical result. Gas chromatography/mass spectrometery(GC/MS) is the preferred confirmatory method. Clinicalconsideration and professional judgement should be appliedto any drug of abuse test result, particularly whenpreliminary positive results are used. URINE TCA TESTING MUST BE ORDERED SEPARATELY. USE TESTMNEMONIC: [facility] Urine Methadone Screen Negative < 300 ng/mL [facility] Work Phone: [phone] Platelets bldon 03-23-2022 Platelets (Bld) [#/Vol] 230 10*3/uL 150-450 [facility] Work Phone: [phone] Urine amphetamine measuremen t (moles/volume)on 03-23-2022 Amphetamine (U) [Moles/Vol] Negative <1000 ng/mL [facility] Work Phone: Urine phencyclidine (PCP) de tectionon 03-23-2022 Phencyclidine Ql (U) Negative < 25 ng/mL [facility] Work Phone: OBSTETRIC ULTRASOUND WHIon 0 03-18-2022 [facility] URINE OB DIP B/Oon 2 Glucose Ql (U) Negative Neg mg/dL [facility] Protein.monoclonal (U) [Mass/Vol] Negative Neg mg/dL [facility] URINE OB DIP B/Oon 2 Glucose Ql (U) Negative Neg mg/dL [facility] Protein.monoclonal (U) [Mass/Vol] Negative Neg mg/dL [facility] URINE OB DIP B/Oon 2 Glucose Ql (U) Negative Neg mg/dL [facility] Protein.monoclonal (U) [Mass/Vol] Negative Neg mg/dL [facility] URINE OB DIP B/Oon 2 Glucose Ql (U) Negative Neg mg/dL [facility] Protein.monoclonal (U) [Mass/Vol] Negative Neg mg/dL [facility] URINE OB DIP B/Oon 2 Glucose Ql (U) Negative Neg mg/dL [facility] Protein.monoclonal (U) [Mass/Vol] Negative Neg mg/dL [facility] Urinalysis Routineon 018 Ep Cells Urine 1.8 /hpf Normal 0.0-5.0 [facility] Comment on above: Performed By: #### U RIN2 ####[address] [address] Hyaline Cast 0.8 /lpf Normal 0.0-1.0 [facility] Comment on above: Performed By: #### U RIN2 ####[facility] [place], [place] [address] Urine, bacteria in sediment NONE Normal None [facility] Comment on above: Performed By: #### U RIN2 ####[facility] [place], [place] [address] Urine, erythrocytes in sediment by area 7.4 /[HPF] High 0.0-5.0 [facility] Comment on above: Performed By: #### U RIN2 ####[address] [place], [place] [address] Urine, leukocytes in sedmiment 0.5 /[HPF] Normal 0.0-5.0 [facility] Comment on above: Performed By: #### U RIN2 ####[facility] [place], [place] [address] Bilirubin Urine Negative Normal Negative [facility] Comment on above: Performed By: #### U RIN2 ####[address] [address] Hemoglobin,Urine Negative Normal Negative [facility] Comment on above: Performed By: #### U RIN2 ####[address] [address] Ketone Urine Negative Normal Negative [facility] Comment on above: Performed By: #### U RIN2 ####[address] [address] Nitrites Urine Negative Normal Negative [facility] Comment on above: Performed By: #### U RIN2 ####[address] [address] Protein Urine Negative Normal Negative [facility] Comment on above: Performed By: #### U RIN2 ####[address] [address] Specific [place], Ur 1.021 Normal 1.005-1.030 [facility] Comment on above: Performed By: #### U RIN2 ####[address] [address] Urine, appearance CLOUDY Normal [facility] Comment on above: Performed By: #### U RIN2 ####[address] [address] Urine, color YELLOW Normal [facility] Comment on above: Performed By: #### U RIN2 ####[address] [address] Urine, glucose presence Negative Normal Negative [facility] Comment on above: Performed By: #### U RIN2 ####[address] [address] Urine, pH 7.0 [pH] Normal 5.0-8.0 [facility] Comment on above: Performed By: #### U RIN2 ####[address] [address] Urobilinogen,Ur 1.0 EU/dL Normal 0.0-1.0 [facility] Comment on above: Performed By: #### U RIN2 ####[place] [address] WBC (Leukocytes) Negative Normal Negative [facility] Comment on above: Performed By: #### U RIN2 ####[place] [address] Urine Drug Screenon 03-28-20 18 Urine Amphetamine see below Normal Non-Detected [facility] Comment on above: Result Comment: Dete cted (unconfirmed) Performed By: #### U DRG2 ####[place] [address] Urine Barbiturates Non-detected Normal Non-Detected [facility] Comment on above: Performed By: #### U DRG2 ####[place] [address] Urine Benzodiazepine Non-detected Normal Non-Detected [facility] Comment on above: Performed By: #### U DRG2 ####[place] [address] Urine Cocaine Metab Non-detected Normal Non-Detected [facility] Comment on above: Performed By: #### U DRG2 ####[place] [address] Urine Opiate Non-detected Normal Non-Detected [facility] Comment on above: Performed By: #### U DRG2 ####[address] [address] Urine PCP Non-detected Normal Non-Detected [facility] Comment on above: Performed By: #### U DRG2 ####[place] [address] Urine THC Non-detected Normal Non-Detected [facility] Comment on above: Result Comment: Urin e Drug Cutoff LevelsUrine Amphetamine 500 ng/mLUrine Barbiturate 200 ng/mLUrine Benzodiazepines 200 ng/mLUrine Cocaine 150 ng/mLUrine Phencyclidine (PCP) 25 ng/mLUrine Opiates 300 ng/mLUrine THC 50 ng/mLThe results of these analytes are unconfirmed and reportedqualitatively as detected or non-detected relative to the cutoffvalue. Detected results indicate the sample is likely to containthe analyte. Non-detected results indicate that either the sampledoes not contain the analyte or it is present in concentrations belowthe cutoff level. This drug screen should be used for medical diagnosticpurposes only. Performed By: #### U DRG2 ####[address] [address] Urine HCG, Qual.on 8 HCG.beta subunit ( test) Ql (U) Negative Normal Negative [facility] Comment on above: Performed By: #### H CGUR ####[address] [address] Specific [place], Ur 1.021 Normal 1.005-1.030 [facility] Comment on above: Performed By: #### H CGUR ####[address] [address] Influenza virus A and B and SARS-CoV-2 (COVID-19) Ag panel - Upper respiratory specim SARS-CoV-2 (COVID-19) RNA DAMIEN+probe Ql (Resp) [facility] Work Phone: Vital Signs Date Time Vital Sign Value Performing Clinician Stevan armando 01-07-2025 07:48-0500 Body mass index (BMI) [Ratio] 33.35 kg/m2 Moisés Sonia CUMMINGSN.[employer]ER Work Phone: [facility] 01-07-2025 07:48-0500 Body temperature 97.5 [degF] Moisés Sonia SAFETY CONSULTANT.[employer] Work Phone: [facility] 01-07-2025 07:48-0500 Body weight 96.6 kg Moisés Sonia CUMMINGSN.[employer] Work Phone: [facility] 01-07-2025 07:48-0500 Diastolic blood pressure 77 mm[Hg] Moisés Sonia SAFETY CONSULTANT.[employer] Work Phone: [facility] 01-07-2025 07:48-0500 Heart rate 85 /min Moisés Moomaw SAFETY CONSULTANT.[employer] Work Phone: [facility] 01-07-2025 07:48-0500 Respiratory rate 18 /min Moisés Moomaw SAFETY CONSULTANT.[employer] Work Phone: [facility] 01-07-2025 07:48-0500 SaO2% (BldA) [Mass fraction] 100 % Moisés Moomaw SAFETY CONSULTANT.[employer] Work Phone: [facility] 01-07-2025 07:48-0500 Systolic blood pressure 112 mm[Hg] Moisés Moomaw SAFETY CONSULTANT.[employer] Work Phone: [facility] 08-04-2024 07:50-0400 Body mass index (BMI) [Ratio] 37.39 kg/m2 Cheyenne Indorf SAFETY CONSULTANT.[employer] Work Phone: [facility] 08-04-2024 07:50-0400 Body temperature 98.4 [degF] Cheyenne Indorf SAFETY CONSULTANT.[employer] Work Phone: [facility] 08-04-2024 07:50-0400 Body weight 108.3 kg Cheyenne Indorf SAFETY CONSULTANT.[employer] Work Phone: [facility] 08-04-2024 07:50-0400 Diastolic blood pressure 78 mm[Hg] Cheyenne Indorf SAFETY CONSULTANT.[employer] Work Phone: [facility] 08-04-2024 07:50-0400 Heart rate 100 /min Cheyenne Indorf SAFETY CONSULTANT.[employer] Work Phone: [facility] 08-04-2024 07:50-0400 Respiratory rate 18 /min Cheyenne Indorf SAFETY CONSULTANT.[employer] Work Phone: [facility] 08-04-2024 07:50-0400 SaO2% (BldA) [Mass fraction] 96 % Cheyenne Indorf SAFETY CONSULTANT.[employer] Work Phone: [facility] 08-04-2024 07:50-0400 Systolic blood pressure 128 mm[Hg] Cheyenne Indorf SAFETY CONSULTANT.[employer] Work Phone: [facility] 05-24-2024 12:38-0400 Body mass index (BMI) [Ratio] 39.78 kg/m2 Gina Suppan SAFETY CONSULTANT.GROUP MANAGING DIRECTOR Work Phone: [facility] 05-24-2024 12:38-0400 Body weight 115.21 kg Gina Suppan SAFETY CONSULTANT.GROUP MANAGING DIRECTOR Work Phone: [facility] 05-24-2024 12:38-0400 Diastolic blood pressure 76 mm[Hg] Gina Suppan SAFETY CONSULTANT.GROUP MANAGING DIRECTOR Work Phone: [facility] 05-24-2024 12:38-0400 Heart rate 104 /min Gina Suppan SAFETY CONSULTANT.GROUP MANAGING DIRECTOR Work Phone: [facility] 05-24-2024 12:38-0400 Respiratory rate 16 /min Gina Suppan SAFETY CONSULTANT.GROUP MANAGING DIRECTOR Work Phone: [facility] 05-24-2024 12:38-0400 SaO2% (BldA) [Mass fraction] 97 % Gina Suppan SAFETY CONSULTANT.GROUP MANAGING DIRECTOR Work Phone: [facility] 05-24-2024 12:38-0400 Systolic blood pressure 120 mm[Hg] Gina Suppan SAFETY CONSULTANT.GROUP MANAGING DIRECTOR Work Phone: [facility] 01-29-2024 09:04-0500 Body weight 107.05 kg Daniela Alicea MD Work Phone: [facility] 01-29-2024 09:04-0500 Diastolic blood pressure 68 mm[Hg] Daniela Alicea MD Work Phone: [facility] 01-29-2024 09:04-0500 Systolic blood pressure 116 mm[Hg] Daniela Alicea MD Work Phone: [facility] 10-08-2023 12:56-0500 Body weight 115.67 kg Silvia Austin SAFETY CONSULTANT.[employer] Work Phone: [facility] 10-08-2023 12:56-0500 Diastolic blood pressure 76 mm[Hg] Silvia Austin APRN.[employer] Work Phone: [facility] 10-08-2023 12:56-0500 Systolic blood pressure 122 mm[Hg] Silvia Austin APRN.[employer] Work Phone: [facility] 09-26-2023 14:20-0400 Body height 170.2 cm Kendall Oakley MD Work Phone: [facility] 09-26-2023 14:20-0400 Body weight 116.03 kg Kendall Oakley MD Work Phone: [facility] 09-26-2023 14:20-0400 Diastolic blood pressure 72 mm[Hg] Kendall Oakley MD Work Phone: [facility] 09-26-2023 14:20-0400 Heart rate 81 /min Kendall Oakley MD Work Phone: [facility] 09-26-2023 14:20-0400 Systolic blood pressure 110 mm[Hg] Kendall Oakley MD Work Phone: [facility] 06-18-2023 13:22-0400 Body temperature 97.5 [degF] Chaim Dial MD Work Phone: [facility] 06-18-2023 13:22-0400 Body weight 110.68 kg Chaim Dial MD Work Phone: [facility] 06-18-2023 13:22-0400 Diastolic blood pressure 70 mm[Hg] Chaim Dial MD Work Phone: [facility] 06-18-2023 13:22-0400 Heart rate 86 /min Chaim Dial MD Work Phone: [facility] 06-18-2023 13:22-0400 Respiratory rate 16 /min Chaim Dial MD Work Phone: [facility] 06-18-2023 13:22-0400 SaO2% (BldA) [Mass fraction] 98 % Chaim Dial MD Work Phone: [facility] 06-18-2023 13:22-0400 Systolic blood pressure 122 mm[Hg] Chaim Dial MD Work Phone: [facility] 04-22-2023 17:02-0400 Body height 170.18 cm [facility] 04-22-2023 17:02-0400 Body mass index (BMI) [Ratio] 34.4 kg/m2 [facility] 04-22-2023 17:02-0400 Body temperature 98.8 [degF] [facility] 04-22-2023 17:02-0400 Body weight 99.79 kg [facility] 04-22-2023 17:02-0400 Diastolic blood pressure 71 mm[Hg] [facility] 04-22-2023 17:02-0400 Heart rate 116 /min [facility] 04-22-2023 17:02-0400 Respiratory rate 18 /min [facility] 04-22-2023 17:02-0400 SaO2% (BldA) [Mass fraction] 95 % [facility] 04-22-2023 17:02-0400 Systolic blood pressure 107 mm[Hg] [facility] 02-26-2023 09:55-0400 Respiratory rate 16 /min [facility] 02-26-2023 08:26-0400 Body height 170.18 cm [facility] 02-26-2023 08:26-0400 Body mass index (BMI) [Ratio] 38.7 kg/m2 [facility] 02-26-2023 08:26-0400 Body temperature 96 [degF] [facility] 02-26-2023 08:26-0400 Body weight 112.03 kg [facility] 02-26-2023 08:26-0400 Diastolic blood pressure 84 mm[Hg] [facility] 02-26-2023 08:26-0400 Heart rate 130 /min [facility] 02-26-2023 08:26-0400 SaO2% (BldA) [Mass fraction] 95 % [facility] 02-26-2023 08:26-0400 Systolic blood pressure 119 mm[Hg] [facility] 10-31-2022 10:32-0500 Body height 170.18 cm [facility] Work Phone: 10-31-2022 10:32-0500 Body mass index (BMI) [Ratio] 31.3 kg/m2 [facility] 10-31-2022 10:32-0500 Body temperature 97.4 [degF] [facility] 10-31-2022 10:32-0500 Body weight 90.71 kg [facility] 10-31-2022 10:32-0500 Diastolic blood pressure 75 mm[Hg] [facility] 10-31-2022 10:32-0500 Heart rate 98 /min [facility] 10-31-2022 10:32-0500 Respiratory rate 18 /min [facility] 10-31-2022 10:32-0500 SaO2% (BldA) [Mass fraction] 95 % [facility] 10-31-2022 10:32-0500 Systolic blood pressure 104 mm[Hg] [facility] 07-25-2022 12:11-0400 Body temperature 98.4 [degF] Ge Pendlebury SAFETY CONSULTANT.[employer]ER Work Phone: [facility] 07-25-2022 12:11-0400 Diastolic blood pressure 80 mm[Hg] Ge Pendlebury SAFETY CONSULTANT.[employer] Work Phone: [facility] 07-25-2022 12:11-0400 Heart rate 151 /min Ge Pendlebury SAFETY CONSULTANT.PAVER L[employer]ER Work Phone: [facility] 07-25-2022 12:11-0400 Respiratory rate 20 /min Ge Pendlebury SAFETY CONSULTANT.[employer]ER Work Phone: [facility] 07-25-2022 12:11-0400 SaO2% (BldA) [Mass fraction] 97 % Ge Pendlebury SAFETY CONSULTANT.[employer]ER Work Phone: [facility] 07-25-2022 12:11-0400 Systolic blood pressure 128 mm[Hg] Ge Pendlebury SAFETY CONSULTANT.PAVER L[employer]ER Work Phone: [facility] 06-13-2022 17:37-0400 Body temperature 98.3 [degF] Dr. Kendall Oakley Work Phone: [facility] Work Phone: 06-13-2022 17:37-0400 Diastolic blood pressure 76 mm[Hg] Dr. Kendall Oakley Work Phone: [facility] Work Phone: 06-13-2022 17:37-0400 Heart rate 60 /min Dr. Kendall Oakley Work Phone: [facility] Work Phone: 06-13-2022 17:37-0400 Respiratory rate 16 /min Dr. Kendall Oakley Work Phone: [facility] Work Phone: 06-13-2022 17:37-0400 SaO2% (BldA) [Mass fraction] 96 % Dr. Kendall Oakley Work Phone: [facility] Work Phone: 06-13-2022 17:37-0400 Systolic blood pressure 108 mm[Hg] Dr. Kendall Oakley Work Phone: [facility] Work Phone: 06-13-2022 14:05-0400 Body height 170.[address] Kendall Oakley Work Phone: [facility] Work Phone: 06-13-2022 14:05-0400 Body mass index (BMI) [Ratio] 35.8 kg/m2 Dr. Kendall Oakley Work Phone: [facility] Work Phone: 06-13-2022 14:05-0400 Body weight 103.[address] Kendall Oakley Work Phone: [facility] Work Phone: 05-06-2022 13:39-0400 Body weight 103.42 kg Roseann Paul APRN.CN Work Phone: [facility] 05-06-2022 13:39-0400 Diastolic blood pressure 72 mm[Hg] Roseann Paul SAFETY CONSULTANT.CNM Work Phone: [facility] 05-06-2022 13:39-0400 Systolic blood pressure 120 mm[Hg] Roseann Paul SAFETY CONSULTANT.CNM Work Phone: [facility] 04-08-2022 15:40-0400 Body weight 105.23 kg Roseann Paul SAFETY CONSULTANT.CNM Work Phone: [facility] 04-08-2022 15:40-0400 Diastolic blood pressure 70 mm[Hg] Roseann Paul SAFETY CONSULTANT.CNM Work Phone: [facility] 04-08-2022 15:40-0400 Systolic blood pressure 102 mm[Hg] Roseann Paul SAFETY CONSULTANT.CNM Work Phone: [facility] 04-01-2022 18:02-0400 Body weight 107.96 kg Kendall Oakley MD Work Phone: [facility] 04-01-2022 18:02-0400 Diastolic blood pressure 72 mm[Hg] Kendall Oakley MD Work Phone: [facility] 04-01-2022 18:02-0400 Heart rate 96 /min Kendall Oakley MD Work Phone: [facility] 04-01-2022 18:02-0400 Systolic blood pressure 110 mm[Hg] Kendall Oakley MD Work Phone: [facility] 03-25-2022 11:00-0400 Respiratory rate 16 /min [facility] Work Phone: 03-25-2022 07:50-0400 Body temperature 97.7 [degF] [facility] Work Phone: 03-25-2022 07:50-0400 Diastolic blood pressure 77 mm[Hg] [facility] Work Phone: 03-25-2022 07:50-0400 Heart rate 84 /min [facility] Work Phone: 03-25-2022 07:50-0400 SaO2% (BldA) [Mass fraction] 99 % [facility] Work Phone: 03-25-2022 07:50-0400 Systolic blood pressure 117 mm[Hg] [facility] Work Phone: 03-23-2022 10:30-0400 Body height 170.18 cm [facility] Work Phone: 03-23-2022 10:30-0400 Body mass index (BMI) [Ratio] 41.1 kg/m2 [facility] Work Phone: 03-23-2022 10:30-0400 Body weight 119.1 kg [facility] Work Phone: 03-18-2022 09:12-0400 Body weight 118.39 kg Lexii Fong MD Work Phone: [facility] 03-18-2022 09:12-0400 Diastolic blood pressure 70 mm[Hg] Lexii Fong MD Work Phone: [facility] 03-18-2022 09:12-0400 Systolic blood pressure 120 mm[Hg] Lexii Fong MD Work Phone: [facility] 03-11-2022 09:06-0400 Body weight 118.75 kg Roseann Paul APRN.CNM Work Phone: [facility] 03-11-2022 09:06-0400 Diastolic blood pressure 72 mm[Hg] Roseann Paul APRN.CNM Work Phone: [facility] 03-11-2022 09:06-0400 Systolic blood pressure 128 mm[Hg] Roseann Paul APRN.CNM Work Phone: [facility] 03-04-2022 10:39-0400 Body weight 117.21 kg Lexii Fong MD Work Phone: [facility] 03-04-2022 10:39-0400 Diastolic blood pressure 76 mm[Hg] Lexii Fong MD Work Phone: [facility] 03-04-2022 10:39-0400 Systolic blood pressure 110 mm[Hg] Lexii Fong MD Work Phone: [facility] 02-28-2022 14:33-0400 Body weight 117.48 kg Daniela Alicea MD Work Phone: [facility] 02-28-2022 14:33-0400 Diastolic blood pressure 80 mm[Hg] Daniela Alicea MD Work Phone: [facility] 02-28-2022 14:33-0400 Systolic blood pressure 138 mm[Hg] Daniela Alicea MD Work Phone: [facility] 02-25-2022 09:04-0400 Body weight 117.03 kg Jackie Ary SAFETY CONSULTANT.[employer] Work Phone: [facility] 02-25-2022 09:04-0400 Diastolic blood pressure 72 mm[Hg] Jackie Ary SAFETY CONSULTANT.[employer]ER Work Phone: [facility] 02-25-2022 09:04-0400 Systolic blood pressure 118 mm[Hg] Jackie [place] SAFETY CONSULTANT.[employer] L[employer]ER Work Phone: [facility] 02-20-2022 16:21-0400 Body weight 117.03 kg Lexii Fong MD Work Phone: [facility] 02-20-2022 16:21-0400 Diastolic blood pressure 72 mm[Hg] Lexii Fong MD Work Phone: [facility] 02-20-2022 16:21-0400 Systolic blood pressure 120 mm[Hg] Lexii Fong MD Work Phone: [facility] Encounters Encounter Date Encounter Type Care Provider Facility Start: 01-07-2025 End: 01-07-2025 ambulatory KENDALL OAKLEY Facility:[facility] Start: 01-07-2025 End: 01-07-2025 Patient encounter procedure Moisés Moomaw SAFETY CONSULTANT.PAVER LAYER Work Phone: [facility] Comment on above: Bacterial conjunctiv itis (Primary Dx) Start: 10-01-2024 End: 10-01-2024 ambulatory Roseannjewel Paul APRN.CNM Work Phone: OB/Gynecology Comment on above: Bloodwork Start: 08-04-2024 End: 08-04-2024 ambulatory [facility] Facility:[facility] Start: 08-04-2024 End: 08-04-2024 Office outpatient visit 15 minutes Cheyenne Manning APRN.PAVER LAYER Work Phone: [facility] Comment on above: COVID-19 (Primary Dx ) Start: 06-24-2024 End: 06-24-2024 ambulatory THOMAS LUCIO Facility:[facility] Start: 05-25-2024 Telephone encounter Kendall Oakley MD Work Phone: [facility] [place] Comment on above: Insurance Authorizat ion (Orlistat) Start: 05-24-2024 End: 05-24-2024 Patient encounter status Gina Aguilar APRN.GROUP MANAGING DIRECTOR Work Phone: [facility] Start: 05-24-2024 End: 05-24-2024 Periodic preventive med est patient 18-39 yrs Gina Aguilar APRN.GROUP MANAGING DIRECTOR Work Phone: [facility] [place] Comment on above: Chronic insomnia (Pr imary Dx); Class 2 severe obesity due to excess calories with serious comorbidity and body mass index (BMI) of 39.0 to 39.9 in adult (HCC); Wellness examination Start: 05-24-2024 End: 05-24-2024 ambulatory [facility] Facility:[facility] Start: 05-24-2024 Encounter for genera l adult medical examination without abnormal findings GINA AGUILAR [facility] Start: 05-17-2024 Refill Kendall Oakley MD Work Phone: [facility] [place] Comment on above: Refill Request Start: 02-24-2024 End: 02-24-2024 [facility] Start: 02-24-2024 End: 02-24-2024 Office outpatient visit 15 minutes Gina Aguilar APRN.GROUP MANAGING DIRECTOR Work Phone: [facility] [place] Comment on above: Anxiety; Depression, unspecified depression type Start: 02-03-2024 End: 02-03-2024 ambulatory [facility] Facility:[facility] Start: 02-03-2024 End: 02-03-2024 Office outpatient visit 15 minutes Gina Aguilar APRN.GROUP MANAGING DIRECTOR Work Phone: [facility] Comment on above: Anxiety and depressi on (Primary Dx); Anxiety Start: 01-29-2024 End: 01-29-2024 ambulatory [facility] Facility:[facility] Start: 01-29-2024 End: 01-29-2024 Patient encounter procedure Daniela Alicea MD Work Phone: OB/Gynecology Comment on above: Dysuria (Primary Dx) ; Vaginal discharge; Abrasion of vulva, initial encounter; Screen for STD (sexually transmitted disease) Start: 10-08-2023 End: 10-08-2023 Patient encounter procedure Silvia Austin APRN.PAVER LAYER Work Phone: OB/Gynecology Comment on above: Vaginal odor (Primar y Dx); Vulvar itching; Urinary frequency; Screen for STD (sexually transmitted disease) Start: 10-06-2023 ambulatory Roseann Paul APRN.CNM Work Phone: OB/Gynecology Comment on above: Dr Dela Cruz Start: 09-26-2023 End: 09-26-2023 Patient encounter procedure Kendall Oakley MD Work Phone: [facility] Comment on above: Encounter for immuni zation (Primary Dx); Well adolescent visit; Anxiety; Depression, unspecified depression type Start: 09-26-2023 End: 09-26-2023 Patient encounter status Kendall Oakley MD Work Phone: [facility] Work Phone: Start: 09-23-2023 ambulatory Kendall Oakley MD Work Phone: [facility] [place] Comment on above: Physical. Start: 07-19-2023 Refill Kendall Okaley MD Work Phone: [facility] [place] Comment on above: Refill Request Start: 06-18-2023 End: 06-18-2023 Patient encounter procedure Chaim Dial MD [facility] Phone: [facility] Comment on above: Acute midline low ba ck pain without sciatica (Primary Dx) Start: 05-08-2023 ambulatory Kendall Oakley MD Work Phone: [facility] [place] Comment on above: Pharmacy Switch Start: 04-23-2023 Emergency department patient visit [facility] Facility:[facility] Start: 04-23-2023 ambulatory Kendall Oakley MD Work Phone: [facility] [place] Comment on above: Sick Start: 04-22-2023 End: 04-22-2023 Emergency department patient visit [facility] Facility:[facility] Start: 04-22-2023 End: 04-22-2023 Emergency department patient visit [facility] Start: 03-07-2023 ambulatory Kendlal Oakley MD Work Phone: [facility] [place] Comment on above: Heart Start: 02-26-2023 End: 02-26-2023 Emergency department patient visit [facility] Facility:[facility] Start: 02-26-2023 End: 02-26-2023 Emergency department patient visit [facility] Start: 02-13-2023 ambulatory Kendall Oakley MD Work Phone: [facility] [place] Comment on above: Medication change Start: 10-31-2022 End: 10-31-2022 Emergency department patient visit [facility] Facility:[facility] Start: 10-31-2022 End: 10-31-2022 Emergency department patient visit [facility] Start: 10-24-2022 Refill Kendall Oakley MD Work Phone: [facility] [place] Comment on above: Refill Request Start: 10-16-2022 End: 10-16-2022 ambulatory Kendall Oakley MD Work Phone: [facility] [place] Comment on above: NO SHOW (Primary Dx) Start: 10-16-2022 End: 10-16-2022 Telemedicine consultation with patient Kendall Oakley MD Work Phone: [facility] Start: 07-26-2022 End: 07-26-2022 ambulatory Kendall Oakley MD Work Phone: [facility] Comment on above: info COVID-19 (Primary Dx ) Start: 07-26-2022 E-mail encounter fro m caregiver Kendall Oakley MD Work Phone: [facility] Start: 07-26-2022 End: 07-26-2022 Telemedicine consultation with patient Kendall Oakley MD Work Phone: [facility] Start: 07-25-2022 Telephone encounter Kendall Oakley MD Work Phone: [facility] Comment on above: Patient Update Start: 07-25-2022 End: 07-25-2022 Patient encounter procedure Ge Williamson APRN.CNP Work Phone: [facility] Comment on above: Suspected COVID-19 v irus infection (Primary Dx); Tachycardia Start: 06-13-2022 End: 06-13-2022 ambulatory Lexii Fong Facility:[facility] Start: 06-13-2022 End: 06-13-2022 Admission to same day surgery center Dr. Kendall Oakley Work Phone: [facility] Start: 05-28-2022 Telephone encounter Lexii wilson MD Work Phone: OB/Gynecology Comment on above: Schedule Surgery Start: 05-06-2022 End: 05-06-2022 Patient encounter procedure Roseann Paul APRN.CNM Work Phone: OB/Gynecology Comment on above: care and examination (Primary Dx); Gestational diabetes mellitus, class A1; Abnormal menses; Encounter for initial prescription of contraceptive pills Start: 04-08-2022 End: 04-08-2022 Patient encounter procedure Roseann Paul APRN.CNM Work Phone: OB/Gynecology Comment on above: Vaginal delivery (Pr imary Dx); Unprotected sexual intercourse; Encounter for screening for maternal depression Start: 04-01-2022 End: 04-01-2022 Patient encounter procedure Kendall Oakley MD Work Phone: [facility] Comment on above: Post depressi on (Primary Dx) Start: 03-28-2022 End: 03-28-[address] Kendall Oakley Work Phone: [facility] Start: 03-28-2022 Refill Kendall Oakley MD Work Phone: [facility] Comment on above: Refill Request Start: 03-26-2022 ambulatory Daniela Alicea MD Work Phone: OB/Gynecology Comment on above: Ob Delivery Note Start: 03-23-2022 End: 03-25-2022 [facility] Start: 03-18-2022 End: 03-18-2022 Patient encounter procedure Lexii Fong MD Work Phone: OB/Gynecology Comment on above: 38 weeks gestation o f (Primary Dx); Gestational diabetes mellitus, class A1; Supervision of high risk in third trimester; Encntr for obs for susp expsr to oth biolg agents ruled out Gestational diabetes mellitus, class A1 (Primary Dx); Obesity complicating , third trimester; 38 weeks gestation of Start: 03-11-2022 End: 03-11-2022 Patient encounter procedure Roseann Paul APRN.CNM Work Phone: OB/Gynecology Comment on above: 37 weeks gestation o f (Primary Dx); Gestational diabetes mellitus, class A1; Obesity complicating , third trimester Start: 03-04-2022 End: 03-04-2022 Patient encounter procedure Lexii Fong MD Work Phone: OB/Gynecology Comment on above: 36 weeks gestation o f (Primary Dx); Gestational diabetes mellitus, class A1; Obesity complicating , third trimester; Supervision of high risk in third trimester Start: 02-28-2022 End: 02-28-2022 Patient encounter procedure Daniela Alicea MD Work Phone: OB/Gynecology Comment on above: Gestational diabetes mellitus, class A1 (Primary Dx); 35 weeks gestation of Start: 02-25-2022 End: 02-25-2022 Patient encounter procedure Jackie Mcallister APRN.PAVER LAYER Work Phone: OB/Gynecology Comment on above: 35 weeks gestation o f (Primary Dx); Noncompliant patient in third trimester; Gestational diabetes mellitus, class A1 Gestational diabetes mellitus, class A1; Obesity complicating , third trimester Start: 02-20-2022 End: 02-20-2022 Patient encounter procedure Lexii Fong MD Work Phone: OB/Gynecology Comment on above: 34 weeks gestation o f (Primary Dx); Noncompliant patient in third trimester; Gestational diabetes mellitus, class A1 Start: 08-06-2021 Patient requested procedure Lexii Fong MD Work Phone: [facility] Work Phone: Start: 03-28-2018 End: 03-28-2018 Emergency department patient visit Kendall Oakley Facility:[facility] Start: 08-03-2013 End: 05-13-2022 Patient requested procedure Kendall Oakley MD Work Phone: [facility] Procedures Date Procedure Procedure Detail Performing Clinician Start: 01-29-2024 Urnls dip stick/tabl et rgnt auto w/o microscopy Daniela Alicea MD Work Phone: Start: 10-08-2023 Urnls dip stick/tabl et rgnt auto w/o microscopy Silvia Austin APRN.PAVER LAYER Work Phone: Start: 09-26-2023 Antibody jeremy Oakley MD Work Phone: Start: 06-13-[address] Kendall Oakley Work Phone: Start: 05-06-2022 Urine test visual color cmprsn methgary Paul APRN.CNM Work Phone: Start: 03-23-2022 End: 03-23-2022 Viral antigen assay Start: 03-18-2022 Us preg uterus after 1st trimest 11/24 gestation Roseann Paul SAFETY CONSULTANT.CNM Work Phone: Start: 03-18-2022 URINE OB DIP B/O Lexii helm MD Work Phone: Start: 03-11-2022 URINE OB DIP B/O Ara Paul SAFETY CONSULTANT.CNM Work Phone: Start: 03-04-2022 URINE OB DIP B/O Lexii helm MD Work Phone: Start: 02-28-2022 URINE OB DIP B/O Daniela Alicea MD Work Phone: Start: 02-25-2022 URINE OB DIP B/O Lexii helm MD Work Phone: Start: 02-25-2022 Us preg uterus after 1st trimest / gestation Elsie Plotoumar SAFETY CONSULTANT.CNM Work Phone: Start: 06-21-2020 Adult depression scr eening assessment Lexii Fong MD Work Phone: SARS-CoV-2 & FLU Ant igen (Rapid) SARS-CoV-2 & FLU Ant igen (Rapid) SARS-CoV-2 & FLU Ant igen (Rapid) Streptococcus pyogen es antigen assay Viral antigen assay Dr. Gerald Oakley Work Phone: Viral antigen assay Plan of Treatment Date Care Activity Detail Author Start: 09-26-2033 Urine microalbumin profile DTaP,Tdap,Td Vaccine (3 - Td or Tdap) [facility] Start: 01-30-2026 Pap Testing Pap Testing [facility] Start: 01-30-2026 Screening for malign ant neoplasm of cervix Pap Testing [facility] Start: 10-01-2024 End: 10-01-2025 Hepatitis B virus surface Ag [Presence] in Serum [facility] Comment on above: Expected: 10/01/2024 (Approximate), Expires: 10/01/2025 Start: 10-01-2024 End: 12-31-2024 Hepatitis C virus Ab [Presence] in Serum [facility] Comment on above: Expected: 10/01/2024 (Approximate), Expires: 12/31/2024 Start: 10-01-2024 End: 10-01-2025 HIV 1+2 Ab [Presence] in Serum or Plasma by Immunoassay [facility] Comment on above: Expected: 10/01/2024 (Approximate), Expires: 10/01/2025 Start: 10-01-2024 End: 10-01-2025 SYPHILIS TREPONEMAL W/REFLEX [facility] Comment on above: Expected: 10/01/2024 (Approximate), Expires: 10/01/2025 Start: 08-26-2024 End: 08-26-2024 ambulatory [facility] [place] Comment on above: 3 month f/u Start: 07-25-2024 Covid-19 Vaccine () Covid-19 Vaccine () [facility] Start: 07-25-2024 Covid-19 Vaccine () Covid-19 Vaccine () [facility] Start: 07-25-2024 Influenza vaccination [facility] Start: 05-24-2024 End: 08-23-2024 CBC W Auto Differential panel - Blood COMPLETE BLOOD COUNT AND DIFFERENTIAL Lab Routine Wellness examination Expected: 05/24/2024, Expires: 08/23/2024 [facility] Comment on above: Expected: 05/24/2024 , Expires: 08/23/2024 Start: 05-24-2024 End: 08-23-2024 Cobalamin (Vitamin B12) [Mass/volume] in Serum or Plasma VITAMIN B12 Lab Routine Wellness examination Expected: 05/24/2024, Expires: 08/23/2024 [facility] Comment on above: Expected: 05/24/2024 , Expires: 08/23/2024 Start: 05-24-2024 End: 08-23-2024 Comprehensive metabolic 2000 panel - Serum or Plasma COMPREHENSIVE METABOLIC PANEL Lab Routine Wellness examination Expected: 05/24/2024, Expires: 08/23/2024 [facility] Work Phone: Comment on above: Expected: 05/24/2024 , Expires: 08/23/2024 Start: 05-24-2024 End: 08-23-2024 Hemoglobin A1c in Blood HEMOGLOBIN A1C Lab Routine Wellness examination Expected: 05/24/2024, Expires: 08/23/2024 [facility] Comment on above: Expected: 05/24/2024 , Expires: 08/23/2024 Start: 05-24-2024 End: 08-23-2024 LIPID PANEL, NONFASTING LIPID PANEL, NONFASTING Lab Routine Wellness examination Expected: 05/24/2024, Expires: 08/23/2024 [facility] Comment on above: Expected: 05/24/2024 , Expires: 08/23/2024 Start: 05-24-2024 End: 08-23-2024 Magnesium [Mass/volume] in Serum or Plasma MAGNESIUM Lab Routine Wellness examination Expected: 05/24/2024, Expires: 08/23/2024 [facility] Comment on above: Expected: 05/24/2024 , Expires: 08/23/2024 Start: 05-24-2024 End: 08-23-2024 Thyrotropin [Units/volume] in Serum or Plasma THYROID STIMULATING HORMONE Lab Routine Wellness examination Expected: 05/24/2024, Expires: 08/23/2024 [facility] Comment on above: Expected: 05/24/2024 , Expires: 08/23/2024 Start: 05-24-2024 End: 05-24-2024 Patient encounter procedure 05/24/2024 12:40 PM EDT Office Visit Family [facility] [address] [place] [address] Gina Aguilar APRN.GROUP MANAGING DIRECTOR [address] [place], [place] [id number] 1 month follow up [facility] Comment on above: 1 month follow up Start: 01-31-2024 PAP TESTING PAP TESTING [facility] Start: 01-31-2024 Screening for malign ant neoplasm of cervix Cervical Cancer Screening [facility] Start: 2023 HPV Testing HPV Testing [facility] Start: 2023 Screening for malign ant neoplasm of cervix HPV Testing [facility] Start: 07-25-2023 Covid-19 Vaccine () Covid-19 Vaccine () [facility] Start: 07-25-2023 Influenza vaccination [facility] Start: 11-24-2022 DEPRESSION ASSESSMENT DEPRESSION ASS ESSMENT [facility] Start: 07-25-2022 Influenza vaccination C [facility] Start: 06-13-2022 Procedure discontinued [facility] Work Phone: Start: 06-13-2022 End: 06-13-2022 [facility] Work Phone: Start: 06-13-2022 Ambulation without limitation [facility] Work Phone: Start: 06-13-2022 Medical regimen orde rs management [facility] Work Phone: Start: 06-13-2022 Medication education [facility] Work Phone: Start: 06-13-2022 Taking patient vital signs [facility] Work Phone: Start: 06-13-2022 Vital signs measurements [facility] Work Phone: Start: 06-13-2022 End: 06-13-2022 Patient discharge [facility] Work Phone: Start: 05-23-2022 Influenza vaccination INFLUENZA (#1) [facility] Comment on above: Postponed from 07/25 (Declined at this time) Start: 05-06-2022 End: 07-06-2022 GLUC VIANEY, 2-HR NON-GEST, 75 GM, FASTING GLUC VIANEY, 2-HR NON-GEST, 75 GM, FASTING Lab Routine care and examination Gestational diabetes mellitus, class A1 Expected: 05/06/2022, Expires: 07/06/2022 [facility] Work Phone: Comment on above: Expected: 05/06/2022 , Expires: 07/06/2022 Start: 03-25-2022 Patient discharge [facility] Work Phone: Start: 03-23-2022 Administration of medication [facility] Work Phone: Start: 03-23-2022 Application of ice collar, cap or bag [facility] Work Phone: Start: 03-23-2022 Catheterization of vein [facility] Work Phone: Start: 03-23-2022 Introduction of urin apple catheter [facility] Work Phone: Start: 03-23-2022 Measuring intake and output [facility] Work Phone: Start: 03-23-2022 Notification of physician [facility] Work Phone: Start: 03-23-2022 Procedure discontinued [facility] Work Phone: Start: 03-23-2022 Provision of activit y privileges [facility] Work Phone: Start: 03-23-2022 Vital signs measurements [facility] Work Phone: Start: 03-23-2022 [facility] Work Phone: Start: 03-23-2022 Admission procedure [facility] Work Phone: Start: 03-18-2022 End: 03-18-2023 SARS-CoV-2 (COVID-19) RNA [Presence] in Respiratory specimen by DAMIEN with probe detection PRE-PROCEDURE & PRE-OPERATIVE COVID Microbiology Routine 38 weeks gestation of Encntr for obs for susp expsr to oth biolg agents ruled out Expected: 03/18/2022, Expires: 03/18/2023 [facility] Work Phone: Comment on above: Expected: 03/18/2022 , Expires: 03/18/2023 Start: 11-24-2021 DEPRESSION ASSESSMENT DEPRESSION ASS ESSMENT [facility] Start: 06-21-2021 Adult depression screening assessment DEPRESSION SCREENING [facility] Start: 01-01-2021 Urine microalbumin profile [facility] Start: 08-10-2012 HPV VACCINE (2 - 3-d ose series) HPV VACCINE (2 - 3-dose series) [facility] Start: 2012 Hepatitis B Vaccine (1 of 3 - 19+ 3-dose series) Hepatitis B Vaccine (1 of 3 - 19+ 3-dose series) [facility] Start: 2012 ONE PNEUMOVAX PRIOR TO AGE 65 ONE PNEUMOVAX PRIOR TO AGE 65 [facility] Start: 2011 Anxiety Screening Anxiety Screening [facility] Start: 1998 COVID-19 VACCINE (#1) COVID-19 VACCI NE (#1) [facility] Start: 1998 COVID-19 VACCINE (1) COVID-19 VACCIN E (1) [facility] Start: 01-28-1994 COVID-19 VACCINE (#1) COVID-19 VACCI NE (#1) [facility] Start: 1993 HEPATITIS B (1 of 3 - 3-dose series) HEPATITIS B (1 of 3 - 3-dose series) [facility] Start: 1993 Hepatitis B Vaccine (1 of 3 - 3-dose series) Hepatitis B Vaccine (1 of 3 - 3-dose series) [facility] Bacteria identified in Urine by Culture URINE CULTURE Microbiology Routine Dysuria 01/29/2024 9:18 AM [facility] Work Phone: BACTERIAL VAGINOSIS NAAT BACTERI AL VAGINOSIS NAAT Lab Routine Vaginal odor Vulvar itching Screen for STD (sexually transmitted disease) 10/08/2023 1:52 PM [facility] Work Phone: BACTERIAL VAGINOSIS NAAT BACTERI AL VAGINOSIS NAAT Lab Routine Vaginal discharge 01/29/2024 9:18 AM [facility] Work Phone: BOB/TRICHOMONAS NAAT BOB /TRICHOMONAS NAAT Lab Routine Vaginal odor Vulvar itching 10/08/2023 1:52 PM [facility] Work Phone: BOB/TRICHOMONAS NAAT BOB /TRICHOMONAS NAAT Lab Routine Screen for STD (sexually transmitted disease) 01/29/2024 9:18 AM [facility] Work Phone: Chlamydia trachomatis+Neisseria gonorrhoeae DNA [Presence] in Unspecified specimen by DAMIEN with probe detection GONORRHEA/CHLAMYDIA NAAT Lab Routine Vaginal odor Vulvar itching Screen for STD (sexually transmitted disease) 10/08/2023 1:52 PM [facility] Work Phone: Chlamydia trachomatis+Neisseria gonorrhoeae DNA [Presence] in Unspecified specimen by DAMIEN with probe detection GONORRHEA/CHLAMYDIA NAAT Lab Routine Screen for STD (sexually transmitted disease) 01/29/2024 9:18 AM EST [facility] Work Phone: Chlamydia trachomatis+Neisseria gonorrhoeae DNA [Presence] in Unspecified specimen by DAMIEN with probe detection GONORRHEA/CHLAMYDIA NAAT Lab Routine Screening for STD (sexually transmitted disease) Contact with and (suspected) exposure to viral hepatitis Ordered: 10/01/2024 [facility] Work Phone: Comment on above: Ordered: 10/01/2024 COVID & INFLUENZA A/ B & RSV PCR, ROUTINE COVID & INFLUENZA A/B & RSV PCR, ROUTINE Microbiology Routine COVID-19 Ordered: 08/04/2024 [facility] Work Phone: Comment on above: Ordered: 08/04/2024 OBSTETRIC ULTRASOUND WHI OBSTETR IC ULTRASOUND WHI Anc Imaging Routine 37 weeks gestation of Gestational diabetes mellitus, class A1 Obesity complicating , third trimester Ordered: 03/11/2022 [facility] Work Phone: Comment on above: Ordered: 03/11/2022 Patient Education [facility] Work Phone: Patient referral [facility] Work Phone: ROUTINE, GR OUP B STREP PCR ROUTINE, GROUP B STREP PCR Microbiology Routine 35 weeks gestation of Noncompliant patient in third trimester Gestational diabetes mellitus, class A1 02/25/2022 9:26 AM EDT [facility] Work Phone: SARS-CoV-2 (COVID-19 ) RNA [Presence] in Respiratory specimen by DAMIEN with probe detection 2019 CORONAVIRUS Microbiology Routine Suspected COVID-19 virus infection Ordered: 07/25/2022 [facility] Work Phone: Comment on above: Ordered: 07/25/2022 Streptococcus pyogen es antigen assay Group A Streptococcus Rapid Screen [facility] URINE OB DIP B/O URINE OB DIP B/ O Lab Routine 34 weeks gestation of Noncompliant patient in third trimester Gestational diabetes mellitus, class A1 Ordered: 02/20/2022 [facility] Work Phone: Comment on above: Ordered: 02/20/2022 [facility] Immunizations Immunization Date Immunization Notes Care Provider Fa see 09-26-2023 tetanus toxoid, redu asha diphtheria toxoid, and acellular pertussis vaccine, adsorbed Kendall Oakley MD Work Phone: [facility] 09-20-2020 influenza virus vacc ine, unspecified formulation Kendall Oakley MD Work Phone: [facility] 10-01-2018 influenza virus vacc ine, unspecified formulation Kendall Oakley MD Work Phone: [facility] 07-13-2012 human papilloma viru s vaccine, quadrivalent Lexii Fong MD Work Phone: [facility] Payers Date Payer Category Payer Self-pay [id number] 2020 Medicaid [employer] [facility] MEDICAID [id number] 2020-Present [phone] [address] [place] [address] Medicaid [id number] 2020 Medicaid [id number] 2011 Medicaid [id number] 2011 Unknown [id number] 1993 Unknown [id number] Unknown [id number] Unknown [id number] Unknown [id number] Unknown [id number] Unknown [id number] Social History Date Type Detail Facility Start: 12-30-2019 End: 08-04-2024 Tobacco smoking status NHIS Ex-smoker [facility] Start: 12-24-2015 End: 12-24-2019 History of tobacco use Current smoker [facility] Start: 12-30-2019 End: 04-24-2023 Cigarettes smoked current (pack per day) - Reported 0.5 [facility] Start: 12-30-2019 End: 08-04-2024 Tobacco use and exposure Former smokeless tobacco user [facility] End: 08-01-2016 History of tobacco use User of smokeless tobacco [facility] Start: 02-20-2022 End: 01-07-2025 Alcohol intake Ex-drinker (finding) [facility] Start: 11-18-2018 History SDOH Alcohol Comment Occasionally [facility] Start: 08-02-2021 Education 14 [facility] Start: 07-06-2021 [facility] Start: 1995 Sex Assigned At Female C [facility] Start: 02-02-2022 End: 07-25-2022 Exposure to SARS-CoV-2 (event) Not sure [facility] Start: 03-23-2022 End: 04-22-2023 Tobacco smoking status [facility] Unknown if ever smoked [facility] Start: 12-08-2019 Occasional [place] [facility] Start: 12-08-2019 - [place] [facility] Start: 12-08-2019 With Family [place] [facility] Start: 12-09-2019 Cigarettes [facility] Start: 12-24-2015 End: 12-24-2019 History of tobacco use Cigarette Smoker [facility] Work Phone: Start: 07-26-2022 History SDOH Alcohol Frequency 98 [facility] Start: 07-26-2022 End: 02-13-2023 History SDOH Housing Unable to Pay 3 [facility] Start: 02-13-2023 History SDOH Social Connections Get Together 2 [facility] Start: 02-13-2023 History SDOH Social Connections Anabaptism 1 [facility] Start: 02-13-2023 History SDOH Social Connections Living 8 [facility] Start: 02-13-2023 History SDOH Physica l Activity DPW 0 [facility] Start: 02-13-2023 History SDOH Stress 5 [facility] Start: 02-13-2023 End: 04-24-2023 Social connection and isolation panel [facility] Do you belong to any clubs or organizations such as catholic groups, unions, fraternal or athletic groups, or school groups? No [facility] Are you now , , , , never or living with a partner? Living with partner [facility] How often to you hav e a drink containing alcohol? Patient refused [facility] How hard is it for y ou to pay for the very basics like food, housing, medical care, and heating Somewhat hard [facility] Do you feel stress - tense, restless, nervous, or anxious, or unable to sleep at night because your mind is troubled all the time - these days [OSQ] Very much [facility] (I/We) worried wheth er (my/our) food would run out before (I/we) got money to buy more. Never true [facility] The thought of sandra mijares myself has occurred to me Never [facility] Start: 06-20-2020 Gender identity Identifies as female gender (finding) [facility] Start: 10-25-2021 Sexual orientation Heterosexual (fam guthrie) [facility] NEGATED: Highlighted row [facility] Medical Equipment Procedure Code Equipment Code Equipment Original Text Equipment Identifier Dates Start: 01-02-2022 Comment on above: 1 Strip four times d aily. Use as instructed 1 Each four times da blanche. Use as instructed Goals Date Patient Goal Desired Activity /State Functional Status Date Assessment Result Facility 09-02-2014 Are you deaf, or do you have serious difficulty hearing No 09/02/2014 11:29 AM Kathy Bruner MA No [facility] 09-02-2014 Are you blind, or do you have serious difficulty seeing, even when wearing glasses No 09/02/2014 11:29 AM EDT Kathy Medina MA No [facility] 09-02-2014 Do you have serious difficulty walking or climbing stairs No 09/02/2014 11:29 AM EDT Kathy Medina MA No [facility] 09-02-2014 Do you have difficul ty dressing or bathing No 09/02/2014 11:29 AM EDT Kathy Medina MA No [facility] 09-02-2014 Because of a physica l, mental, or emotional condition, do you have difficulty doing errands alone such as visiting a physician's office or shopping No 09/02/2014 11:29 AM EDT Kathy Medina MA [facility] Mental Status Date Assessment Result Facility 04-22-2023 Cognitive function Level Of Cons ciousness Awake;Alert;Appropriate [facility] Work Phone: 02-26-2023 Cognitive function Level Of Cons ciousness Awake;Alert;Appropriate [facility] Work Phone: 10-31-2022 Cognitive function Level Of Cons ciousness Awake;Alert;Appropriate;Fol lows Commands [facility] Work Phone: 06-13-2022 Cognitive function Voice/Name [facility] Work Phone: 09-02-2014 Because of a physica l, mental, or emotional condition, do you have serious difficulty concentrating, remembering, or making decisions No 09/02/2014 11:29 AM EDT Kathy Medina MA [facility] Clinical Notes 12-09-2019 to 01-07-2025 Moisés Bourne APRN.PAVER LAYER - 01/07/2025 7:51 AM ESTTelephone Encounter - Roseann Paul APRN.DOMINIK - 10/01/2024 2:42 PM ESTTelephone Encounter - Roseann Paul APRN.CNM - 10/01/2024 2:42 PM EST Note Date & Type Note Facility 01-07-2025 History of Present illness Narrative This note was created using NoteWriter. Subjective Leesa Mobley is a 29 year old female. HPI Pt wears eye glue on eye lash extensions. Yesterday she noticed some irritation to her eye and she took the eyelashes off. She once again applied them and then she noticed worsening irritation of the eye with redness and drainage. She denies any trauma to the eye. She denies any vision changes other than some mild blurring with the matting. Does not wear contacts. Review of Systems As above Objective BP 112/77 Pulse 85 Temp 36.4 C (97.5 F) Resp 18 Wt 96.6 kg (212 lb 15.4 oz) LMP 01/03/2024 SpO2 100% BMI 33.35 kg/m Physical Exam Vitals and nursing note reviewed. Constitutional: General: She is not in acute distress. Appearance: Normal appearance. She is not ill-appearing. HENT: Head: Normocephalic. Mouth/Throat: Mouth: Mucous membranes are moist. Eyes: Comments: Mild injection of the bilateral conjunctiva. Cardiovascular: Rate and Rhythm: Normal rate and regular rhythm. Pulmonary: Effort: Pulmonary effort is normal. Breath sounds: Normal breath sounds. Musculoskeletal: General: Normal range of motion. Cervical back: Normal range of motion. Skin: General: Skin is warm and dry. Neurological: General: No focal deficit present. Mental Status: She is alert. Psychiatric: Mood and Affect: Mood normal. Behavior: Behavior normal. Assessment and Plan ASSESSMENT/PLAN: 1. Bacterial conjunctivitis - ICD9: 372.39, 041.9, ICD10: H10.9 - see medication orders - course and contagiousness issues discussed, including hand washing. - Instructed to call if high fever, development of periorbital redness or swelling, eye pain, visual changes, concerns or if symptoms persist. 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 - POLYMYXIN B SULFATE 10,000 UNIT-TRIMETHOPRIM 1 MG/ML EYE DROPS Moisés Bourne APRN.CNP documented in this encounter [facility] 01-07-2025 Note HNO ID: [id number] Author: MOISÉS BOURNE APRN.CNP Service: ? Author Type: Nurse Practitioner Type: Progress Notes Filed: 01/07/2025 07:58 Note Text: This note was created using NoteWriter. Subjective Leesa Mobley is a 29 year old female. HPI Pt wears eye glue on eye lash extensions. Yesterday she noticed some irritation to her eye and she took the eyelashes off. She once again applied them and then she noticed worsening irritation of the eye with redness and drainage. She denies any trauma to the eye. She denies any vision changes other than some mild blurring with the matting. Does not wear contacts. Review of Systems As above Objective BP 112/77 Pulse 85 Temp 36.4 ?C (97.5 ?F) Resp 18 Wt 96.6 kg (212 lb 15.4 oz) LMP 01/03/2024 SpO2 100% BMI 33.35 kg/m? Physical Exam Vitals and nursing note reviewed. Constitutional: General: She is not in acute distress. Appearance: Normal appearance. She is not ill-appearing. HENT: Head: Normocephalic. Mouth/Throat: Mouth: Mucous membranes are moist. Eyes: Comments: Mild injection of the bilateral conjunctiva. Cardiovascular: Rate and Rhythm: Normal rate and regular rhythm. Pulmonary: Effort: Pulmonary effort is normal. Breath sounds: Normal breath sounds. Musculoskeletal: General: Normal range of motion. Cervical back: Normal range of motion. Skin: General: Skin is warm and dry. Neurological: General: No focal deficit present. Mental Status: She is alert. Psychiatric: Mood and Affect: Mood normal. Behavior: Behavior normal. Assessment and Plan ASSESSMENT/PLAN: 1. Bacterial conjunctivitis - ICD9: 372.39, 041.9, ICD10: H10.9 - see medication orders - course and contagiousness issues discussed, including hand washing. - Instructed to call if high fever, development of periorbital redness or swelling, eye pain, visual changes, concerns or if symptoms persist. 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 - POLYMYXIN B SULFATE 10,000 UNIT-TRIMETHOPRIM 1 MG/ML EYE DROPS Moisés Bourne APRN.[facility] 10-01-2024 Telephone encounter Note Patient GreenWizardhart message sent today requesting STD testing. Orders signed for blood work and urine testing. I spent 8 minutes in the visit, with more of the visit in counseling / coordination of care. Roseann Paul APRN.CNM [facility] 10-01-2024 Miscellaneous Notes Patient mychart message sent today requesting STD testing. Orders signed for blood work and urine testing. I spent 8 minutes in the visit, with more of the visit in counseling / coordination of care. Roseann Paul APRN.CNM documented in this encounter [facility] 08-04-2024 Note Addended by: CHEYENNE MANNING on: 08/04/2024 08:39 AM Modules accepted: Orders [facility] 08-04-2024 Miscellaneous Notes Addended by: CHEYENNE MANNING on: 08/04/2024 08:39 AM Modules accepted: Orders documented in this encounter [facility] 08-04-2024 Note HNO ID: [id number] Author: CHEYENNE MANNING APRN.CNP Service: ? Author Type: Nurse Practitioner Type: Progress Notes Filed: 08/04/2024 08:04 Note Text: Patient presents with: Nasal Congestion: drainage, sore throat x last night SUBJECTIVE: Leesa Mobley is a 29 year old year old female who presents for the past 1 day with symptoms that are:gradually worsening. ST, congestion, GLOVER x 1-2 days Home covid test + - brought with her Requesting paxlovid, has taken previously and tolerated well Risk factors: none Social History Tobacco Use Smoking status: Former Current packs/day: 0.00 Average packs/day: 0.5 packs/day for 4.0 years (2.0 ttl pk-yrs) Types: Cigarettes Start date: 12/24/2015 Quit date: 12/24/2019 Years since quittin.6 Smokeless tobacco: Former Quit date: 08/01/2016 Vaping Use Vaping status: Some Days Substances: Nicotine, CBD, Flavoring Devices: SMS GupShup Substance Use Topics Alcohol use: Not Currently Comment: Occasionally Drug use: Yes Types: Marijuana, Amphetamines Comment: denies any amphetamine use since 2019. 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 buPROPion XL (WELLBUTRIN XL) 300 mg 24 hr tablet Take 1 tablet by mouth once daily. escitalopram oxalate (LEXAPRO) 20 mg tablet Take 1 tablet by mouth once daily. nirmatrelvir tablet 300 mg (150 mg x 2) and ritonavir tablet 100 mg in a dose pack (PAXLOVID) Administer TWO pink nirmatrelvir 150 mg tablets and ONE white ritonavir 100 mg tablet for a total of three tablets twice daily. clotrimazole-betamethasone (LOTRISONE) cream Apply 1 application to affected area two times a day. (Patient not taking: Reported on 08/04/2024) Review of Systems Constitutional: Positive for malaise/fatigue. Negative for chills, diaphoresis and fever. HENT: Positive for congestion and sore throat. Negative for sinus pain. Eyes: Negative for discharge and redness. Respiratory: Positive for cough. Negative for sputum production, shortness of breath, wheezing and stridor. Gastrointestinal: Negative for diarrhea, nausea and vomiting. Musculoskeletal: Positive for myalgias. Neurological: Positive for headaches. Negative for dizziness. Physical Exam Constitutional: General: She is not in acute distress. HENT: Head: Normocephalic. Right Ear: Tympanic membrane, ear canal and external ear normal. Left Ear: Tympanic membrane, ear canal and external ear normal. Nose: Nose normal. Mouth/Throat: Mouth: Oropharynx is clear and moist. Pharynx: No oropharyngeal exudate. Eyes: General: Right eye: No discharge. Left eye: No discharge. Conjunctiva/sclera: Conjunctivae normal. Cardiovascular: Rate and Rhythm: Normal rate and regular rhythm. Heart sounds: Normal heart sounds. Pulmonary: Effort: Pulmonary effort is normal. No respiratory distress. Breath sounds: Normal breath sounds. No wheezing or rales. Musculoskeletal: Cervical back: Neck supple. Lymphadenopathy: Cervical: No cervical adenopathy. Skin: General: Skin is warm and dry. Findings: No rash. Neurological: Mental Status: She is alert and oriented to person, place, and time. ASSESSMENT/PLAN: 1. COVID-19 - ICD9: 079.89, ICD10: U07.1 Paxlovid as prescribed See AVS for pt education which includes supportive care and follow up instruction. These were provided in print form and reviewed verbally with pt. Cheyenne Manning APRN.[facility] 08-04-2024 History of Present illness Narrative Patient presents with: Nasal Congestion: drainage, sore throat x last night SUBJECTIVE: Leesa Mobley is a 29 year old year old female who presents for the past 1 day with symptoms that are:gradually worsening. ST, congestion, [place]OVER x 1-2 days Home covid test + - brought with her Requesting paxlovid, has taken previously and tolerated well Risk factors: none Social History Tobacco Use Smoking status: Former Current packs/day: 0.00 Average packs/day: 0.5 packs/day for 4.0 years (2.0 ttl pk-yrs) Types: Cigarettes Start date: 12/24/2015 Quit date: 12/24/2019 Years since quittin.6 Smokeless tobacco: Former Quit date: 08/01/2016 Vaping Use Vaping status: Some Days Substances: Nicotine, CBD, Flavoring Devices: Phonetime tank Substance Use Topics Alcohol use: Not Currently Comment: Occasionally Drug use: Yes Types: Marijuana, Amphetamines Comment: denies any amphetamine use since 2019. Still using Marijuana PAST MEDICAL HISTORY No date: Abnormal Pap smear of cervix Comment: AGE 13 No date: Asthma Comment: NO MEDICATIONS SINCE AGE 1 2004: Attention deficit disorder with hyperactivity(314.01) No date: Chlamydia No date: Dysthymic disorder Comment: Depression (non-psychotic) 09/26/2023: Engorgement of breasts associated with childbirth, delivered 02/06/2022: Gestational diabetes mellitus, class A1 No date: Gonorrhea 06/19/2011: HPV in female September 2010: Miscarriage No date: depression 08/04/24 0750 BP: 128/78 Pulse: 100 Resp: 18 Temp: 36.9 C (98.4 F) SpO2: 96% Weight: 108.3 kg (238 lb 12.1 oz) ALLERGIES No Known Allergies Medications: semaglutide (OZEMPIC) 0.25 mg or 0.5 mg(2 mg/1.5 mL) pen INJECT 20 UNITS SUBCUTANEOUSLY ONCE WEEKLY amphetamine-dextroamphetamine XR (ADDERALL XR) 20 mg capsule traZODone (DESYREL) 50 mg tablet Take 1 tablet by mouth at bedtime as needed. buPROPion XL (WELLBUTRIN XL) 300 mg 24 hr tablet Take 1 tablet by mouth once daily. escitalopram oxalate (LEXAPRO) 20 mg tablet Take 1 tablet by mouth once daily. nirmatrelvir tablet 300 mg (150 mg x 2) and ritonavir tablet 100 mg in a dose pack (PAXLOVID) Administer TWO pink nirmatrelvir 150 mg tablets and ONE white ritonavir 100 mg tablet for a total of three tablets twice daily. clotrimazole-betamethasone (LOTRISONE) cream Apply 1 application to affected area two times a day. (Patient not taking: Reported on 08/04/2024) Review of Systems Constitutional: Positive for malaise/fatigue. Negative for chills, diaphoresis and fever. HENT: Positive for congestion and sore throat. Negative for sinus pain. Eyes: Negative for discharge and redness. Respiratory: Positive for cough. Negative for sputum production, shortness of breath, wheezing and stridor. Gastrointestinal: Negative for diarrhea, nausea and vomiting. Musculoskeletal: Positive for myalgias. Neurological: Positive for headaches. Negative for dizziness. Physical Exam Constitutional: General: She is not in acute distress. HENT: Head: Normocephalic. Right Ear: Tympanic membrane, ear canal and external ear normal. Left Ear: Tympanic membrane, ear canal and external ear normal. Nose: Nose normal. Mouth/Throat: Mouth: Oropharynx is clear and moist. Pharynx: No oropharyngeal exudate. Eyes: General: Right eye: No discharge. Left eye: No discharge. Conjunctiva/sclera: Conjunctivae normal. Cardiovascular: Rate and Rhythm: Normal rate and regular rhythm. Heart sounds: Normal heart sounds. Pulmonary: Effort: Pulmonary effort is normal. No respiratory distress. Breath sounds: Normal breath sounds. No wheezing or rales. Musculoskeletal: Cervical back: Neck supple. Lymphadenopathy: Cervical: No cervical adenopathy. Skin: General: Skin is warm and dry. Findings: No rash. Neurological: Mental Status: She is alert and oriented to person, place, and time. ASSESSMENT/PLAN: 1. COVID-19 - ICD9: 079.89, ICD10: U07.1 Paxlovid as prescribed See AVS for pt education which includes supportive care and follow up instruction. These were provided in print form and reviewed verbally with pt. Cheyenne Manning APRN.ERICA documented in this encounter [facility] 08-04-2024 Instructions Cheyenne Manning APRN.CNP - 08/04/2024 8:00 AM EDT CARE ADVICE FOR COUGH: Drink warm fluids. Inhale warm mist. (Reason: both relax the airway and loosen up the phlegm) Suck on cough drops or hard candy to coat the irritated throat. OTC COUGH DROPS: Cough drops can help a lot, especially for mild coughs. They reduce coughing by soothing your irritated throat and removing that tickle sensation in the back of the throat. Cough drops also have the advantage of portability - you can carry them with you. HOME REMEDY - HARD CANDY: Hard candy works just as well as medicine-flavored OTC cough drops. People who have diabetes should use sugar-free candy. HOME REMEDY - HONEY: This old home remedy has been shown to help decrease coughing at night. The adult dosage is 2 teaspoons (10 ml) at bedtime. Honey should not be given to infants under one year of age. HUMIDIFIER: If the air is dry, use a humidifier in the bedroom. (Reason: dry air makes coughs worse) AVOID TOBACCO SMOKE: Smoking or being exposed to smoke makes coughs much worse. SORE THROAT For relief of sore throat: Sip warm chicken broth or apple juice Suck on hard candy or a throat lozenge (OTC) Gargle with warm salt water four times a day To make salt water, put 1/2 teaspoon of salt in 8 oz (240 ml) of warm water. Avoid cigarette smoke CALL BACK IF: Difficulty breathing occurs You develop any new or worsening symptoms You have any questions or concerns documented in this encounter [facility] 05-25-2024 Telephone encounter Note Pt given message from Eddie Aguilar, she didn't realize that was the same medication that was discussed yesterday. She was not interested in superannuation clerk appt. Kia Driver LPN [facility] 05-25-2024 Miscellaneous Notes Pt given message from Eddie Aguilar, she didn't realize that was the same medication that was discussed yesterday. She was not interested in superannuation clerk appt. Kia Driver LPN Left message for patient to return call. Rhea Jerome Ma Addended by: GINA AGUILAR on: 05/25/2024 10:43 AM Modules accepted: Orders As we discussed. Adipex is a stimulant. It invokes anxiety and insomnia. We discussed this yesterday. Dr. Oakley does not feel that it is safe. I cannot prescribe it to you in light of this. I will refer you to our valver. Patient calls to report that she spoke with pharmacist at and the Orlistat out of pocket was going to cost over $700 a month. Pharmacist recommended patient request a prescription for Adipex (phentermine) that would cost between $14-$15. Patient asking if provider would please consider sending a prescription to [facility] for this. Karina Figueroa RN Received [place] request from [facility] [place] Orlistat and did PA stating [facility] number not covered. Weight loss medication is not covered by medicaid plan Tere Chi MA documented [facility] [facility] [place] [facility]24 Telephone encounter Note Left message for patient to return call. Rhea Jerome Ma [facility] [place] 05-25-2024 Note Addended by: GINA AGUILAR on: 05/25/2024 10:43 AM Modules accepted: Orders [facility] [place] 05-25-2024 Telephone encounter Note As we discussed. Adipex is a stimulant. It invokes anxiety and insomnia. We discussed this yesterday. Dr. Oakley does not feel that it is safe. I cannot prescribe it to you in light of this. I will refer you to our valver. [facility] [place] 05-25-2024 Telephone encounter Note Patient calls to report that she spoke with pharmacist at and the Orlistat out of pocket was going to cost over $700 a month. Pharmacist recommended patient request a prescription for Adipex (phentermine) that would cost between $14-$15. Patient asking if provider would please consider sending a prescription to [facility] for this. Karina Figueroa RN [facility] [place] 05-25-2024 Telephone encounter Note Received PA request from [facility] for Orlistat and did PA stating [facility] number not covered. Weight loss medication is not covered by medicaid plan Tere Chi MA [facility] [place] 05-24-2024 Instructions Gina Aguilar APRN.CNS - 05/24/2024 1:07 PM EDT 1) Get labs done 2) Orlistat 120 mg 3 x day for weight loss- follow a diet low in saturated fats 3) Trazodone 25 or 50 mg at bedtime for sleep 4) Follow up in 12 months documented in this encounter [facility] [place] 05-24-2024 Note HNO ID: [id number] Author: GINA AGUILAR APRN.CNS Service: ? Author Type: Clinical Nurse Specialist Type: Progress Notes Filed: 05/24/2024 13:08 Note Text: This is a 28 year old female who presents today with: Patient presents with: Follow Up: Anxiety/Depression follow up, medication change HISTORY OF PRESENT ILLNESS: Leesa Mobley is a 28 year old female. Patient presents with: Follow Up: Anxiety/Depression follow up, medication change Stress level is doing better. Having trouble sleeping. Trouble falling asleep more than staying asleep. Tosses and turns. Usual night 6 hours or less. PAST MEDICAL HISTORY: PAST MEDICAL HISTORY Diagnosis Date Abnormal Pap smear of cervix AGE 13 Asthma NO MEDICATIONS SINCE AGE 1 Attention deficit disorder with hyperactivity(314.01) 2004 Chlamydia Dysthymic disorder Depression (non-psychotic) Engorgement of breasts associated with childbirth, delivered 09/26/2023 Gestational diabetes mellitus, class A1 02/06/2022 Gonorrhea 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 Miscarriage September 2010 depression PAST SURGICAL HISTORY Procedure Laterality Date DILATION AND CURETTAGE DXAND/THER NONOBSTETRIC 09/24/2010 SALPINGECTOMY Bilateral 06/13/2022 ALLERGIES Patient has no known allergies. MEDICATIONS Current Outpatient Medications Medication Sig buPROPion XL (WELLBUTRIN XL) 300 mg 24 hr tablet Take 1 tablet by mouth once daily. escitalopram oxalate (LEXAPRO) 20 mg tablet Take 1 tablet by mouth once daily. clotrimazole-betamethasone (LOTRISONE) cream Apply 1 application to affected area two times a day. No current facility-administered medications for this visit. FAMILY HISTORY Problem Relation Age of Onset Heart Mother Asthma Mother Mom's side of family other (tumors) Mother neurofibromytosis Heart Father Neurofibromatosis Sister Neurofibromatosis Sister Neurofibromatosis Brother Heart Maternal Grandmother No Known Problems Maternal Grandfather No Known Problems Paternal Grandmother No Known Problems Paternal Grandfather No Known Problems Son No Known Problems Daughter Social History Tobacco Use Smoking status: Former Packs/day: 0.50 Years: 4.00 Additional pack years: 0.00 Total pack years: 2.00 Types: Cigarettes Quit date: 12/24/2019 Years since quittin.4 Smokeless tobacco: Former Quit date: 08/01/2016 Vaping Use Vaping Use: Some days Substances: Nicotine, CBD, Flavoring Devices: Refillable tank Substance Use Topics Alcohol use: Not Currently Comment: Occasionally Drug use: Yes Types: Marijuana, Amphetamines Comment: denies any amphetamine use since 2019. Still using Marijuana REVIEW OF SYSTEMS GENERAL: No weight loss- worried about obesity, no malaise, no fevers/chills HEENT: Negative for frequent or significant headaches except with menses, No changes in hearing or vision. NECK: Negative for lumps, goiter, pain and significant neck swelling RESPIRATORY: Negative for cough, hemoptysis, wheezing, dyspnea or shortness of breath CARDIOVASCULAR: Negative for chest pain, leg swelling, orthopnea, or palpitations GI: No nausea, vomiting, or diarrhea/constipation. No hematochezia/melena. No heartburn or reflux symptoms. : No history of dysuria, frequency or incontinence MUSCULOSKELETAL: Negative for joint pain or swelling. SKIN: Negative for lesions, rash, and itching ENDOCRINE: Negative for cold or heat intolerance, polyuria, polydipsia and goiter NEURO: No history of headaches, syncope, paralysis, seizures or tremors MOOD: Negative for depression, anxiety, or suicidal ideation. EXAM: BP 120/76 Pulse 104 Resp 16 Wt 115.2 kg (254 lb) LMP 01/03/2024 SpO2 97% BMI 39.78 kg/m? PHYSICAL EXAM: Physical Exam Vitals reviewed. Constitutional: Appearance: Normal appearance. HENT: Head: Normocephalic. Cardiovascular: Rate and Rhythm: Normal rate and regular rhythm. Heart sounds: Normal heart sounds. Pulmonary: Effort: Pulmonary effort is normal. Breath sounds: Normal breath sounds. Abdominal: Palpations: Abdomen is soft. Musculoskeletal: General: Normal range of motion. Cervical back: Normal range of motion. Skin: General: Skin is warm and dry. Neurological: Mental Status: She is alert. Psychiatric: Mood and Affect: Mood normal. Behavior: Behavior normal. LABS: pending ASSESSMENT/PLAN: 1. Chronic insomnia - ICD9: 780.52, ICD10: F51.04 (primary diagnosis) Ongoing - TRAZODONE 50 MG TABLET qhs prn 2. Class 2 severe obesity due to excess calories with serious comorbidity and body mass index (BMI) of 39.0 to 39.9 in adult (HCC) - ICD9: 278.01, V85.39, ICD10: E66.01, Z68.39 Weight increasing - Add Orlistat 3. Wellness examination - ICD9: V70.0, ICD10: Z00.00 - Counseled on healthy diet and regular exercise - COMPREHENSIVE METABOLIC PANEL - COMPLETE BLOOD COUNT AND DIFFERENTIAL - MAGNESIUM - THYROID STIMULAT (more content not included)... [facility] 05-24-2024 History of Present illness Narrative This is a 28 year old female who presents today with: Patient presents with: Follow Up: Anxiety/Depression follow up, medication change HISTORY OF PRESENT ILLNESS: Leesa Mobley is a 28 year old female. Patient presents with: Follow Up: Anxiety/Depression follow up, medication change Stress level is doing better. Having trouble sleeping. Trouble falling asleep more than staying asleep. Tosses and turns. Usual night 6 hours or less. 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 MEDICATIONS Current Outpatient Medications Medication Sig buPROPion XL (WELLBUTRIN XL) 300 mg 24 hr tablet Take 1 tablet by mouth once daily. escitalopram oxalate (LEXAPRO) 20 mg tablet Take 1 tablet by mouth once daily. clotrimazole-betamethasone (LOTRISONE) cream Apply 1 application to affected area two times a day. No current facility-administered medications for this visit. FAMILY HISTORY Problem Relation Age of Onset Heart Mother Asthma Mother Mom's side of family other (tumors) Mother neurofibromytosis Heart Father Neurofibromatosis Sister Neurofibromatosis Sister Neurofibromatosis Brother Heart Maternal Grandmother No Known Problems Maternal Grandfather No Known Problems Paternal Grandmother No Known Problems Paternal Grandfather No Known Problems Son No Known Problems Daughter Social History Tobacco Use Smoking status: Former Packs/day: 0.50 Years: 4.00 Additional pack years: 0.00 Total pack years: 2.00 Types: Cigarettes Quit date: 12/24/2019 Years since quittin.4 Smokeless tobacco: Former Quit date: 08/01/2016 Vaping Use Vaping Use: Some days Substances: Nicotine, CBD, Flavoring Devices: Refillable tank Substance Use Topics Alcohol use: Not Currently Comment: Occasionally Drug use: Yes Types: Marijuana, Amphetamines Comment: denies any amphetamine use since 2019. Still using Marijuana REVIEW OF SYSTEMS GENERAL: No weight loss- worried about obesity, no malaise, no fevers/chills HEENT: Negative for frequent or significant headaches except with menses, No changes in hearing or vision. NECK: Negative for lumps, goiter, pain and significant neck swelling RESPIRATORY: Negative for cough, hemoptysis, wheezing, dyspnea or shortness of breath CARDIOVASCULAR: Negative for chest pain, leg swelling, orthopnea, or palpitations GI: No nausea, vomiting, or diarrhea/constipation. No hematochezia/melena. No heartburn or reflux symptoms. : No history of dysuria, frequency or incontinence MUSCULOSKELETAL: Negative for joint pain or swelling. SKIN: Negative for lesions, rash, and itching ENDOCRINE: Negative for cold or heat intolerance, polyuria, polydipsia and goiter NEURO: No history of headaches, syncope, paralysis, seizures or tremors MOOD: Negative for depression, anxiety, or suicidal ideation. EXAM: BP 120/76 Pulse 104 Resp 16 Wt 115.2 kg (254 lb) LMP 01/03/2024 SpO2 97% BMI 39.78 kg/m PHYSICAL EXAM: Physical Exam Vitals reviewed. Constitutional: Appearance: Normal appearance. HENT: Head: Normocephalic. Cardiovascular: Rate and Rhythm: Normal rate and regular rhythm. Heart sounds: Normal heart sounds. Pulmonary: Effort: Pulmonary effort is normal. Breath sounds: Normal breath sounds. Abdominal: Palpations: Abdomen is soft. Musculoskeletal: General: Normal range of motion. Cervical back: Normal range of motion. Skin: General: Skin is warm and dry. Neurological: Mental Status: She is alert. Psychiatric: Mood and Affect: Mood normal. Behavior: Behavior normal. LABS: pending ASSESSMENT/PLAN: 1. Chronic insomnia - ICD9: 780.52, ICD10: F51.04 (primary diagnosis) Ongoing - TRAZODONE 50 MG TABLET qhs prn 2. Class 2 severe obesity due to excess calories with serious comorbidity and body mass index (BMI) of 39.0 to 39.9 in adult (HCC) - ICD9: 278.01, V85.39, ICD10: E66.01, Z68.39 Weight increasing - Add Orlistat 3. Wellness examination - ICD9: V70.0, ICD10: Z00.00 - Counseled on healthy diet and regular exercise - COMPREHENSIVE METABOLIC PANEL - COMPLETE BLOOD COUNT AND DIFFERENTIAL - MAGNESIUM - THYROID STIMULATING HORMONE - LIPID PANEL, NONFASTING - VITAMIN B12 - HEMOGLOBIN A1C Discussed treatment plan and patient voices understanding. Patient's questions answered appropriately. Medications and potential side effects were discussed and patient voices understanding. Return to the office as scheduled or as needed for worsening/no improvement. Gina Aguilar APRN.GROUP MANAGING DIRECTOR documented in this encounter [facility] [place] 05-18-2024 Telephone encounter Note Patient calls and notified of below. Patient scheduled appointment with Litzy on 05/24. Lenora Snell RN [facility] [place] 05-18-2024 Miscellaneous Notes Patient calls and notified of below. Patient scheduled appointment with [facility]zy on 05/24. Lenora Snell RN TC no answer. Left VM to return call. GREG Olivera Script sent. Pt due for folllow-up. Saw Litzy in February and recommended 1 month follow-up. Prescription Refill Information The patient has been identified by name and date of : No Caregiver verified no other encounters exist for this prescription request: Yes Caregiver confirmed with patient/requestor that no other refills are due, in the near future, with this provider at this time: Yes The last office visit in the department: 09/26/23 Does the patient have a future office visit with this provider/department: No Requested Prescriptions Pending Prescriptions Disp Refills buPROPion XL (WELLBUTRIN XL) 300 mg 24 hr tablet 30 tablet 2 Sig: Take 1 tablet by mouth once daily. Kathleen Dasilva LPN May 17, 2024 9:54 AM documented in this encounter [facility] [place] 05-18-2024 Telephone encounter Note TC no answer. Left VM to return call. GREG Olivera [facility] [place] 05-17-2024 Telephone encounter Note Script sent. Pt due for folllow-up. Saw Litzy in February and recommended 1 month follow-up. [facility] [place] Work Phone: 05-17-2024 Telephone encounter Note Prescription Refill Information The patient has been identified by name and date of : No Caregiver verified no other encounters exist for this prescription request: Yes Caregiver confirmed with patient/requestor that no other refills are due, in the near future, with this provider at this time: Yes The last office visit in the department: 09/26/23 Does the patient have a future office visit with this provider/department: No Requested Prescriptions Pending Prescriptions Disp Refills buPROPion XL (WELLBUTRIN XL) 300 mg 24 hr tablet 30 tablet 2 Sig: Take 1 tablet by mouth once daily. Kathleen Dasilva LPN May 17, 2024 9:54 AM [facility] [place] 02-24-2024 Note HNO ID: [id number] Author: GINA AGUILAR APRN.GROUP MANAGING DIRECTOR Service: ? Author Type: Clinical Nurse Specialist Type: Progress Notes Filed: 02/24/2024 11:10 Note Text: VIRTUAL VISIT PROGRESS NOTE This is a virtual visit using Scratch [employer] Video Visit. It required patient-provider interaction for the medical decision making as documented below. I have communicated my name and active licensure. The patient's identity and physical location were verified at the time of this visit. Either the patient or their legal career representative has been informed of the risks and benefits of -- and alternatives to -- treatment through a remote evaluation and consents to proceed with the evaluation remotely. Leesa Mobley is a 28 year old female seen for Depression and anxiety. No improvement in mood Not sleeping well. Always a tendency toward not sleeping. A lot of stress. She is crying lot. Sad. Trying to find out what went wrong. Feeling blame and guilt. Significant other is Cheating and drinking heavily. 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 Miscarriage September 2010 depression PAST SURGICAL HISTORY Procedure Laterality Date DILATION AND CURETTAGE DXAND/THER NONOBSTETRIC 09/24/2010 SALPINGECTOMY Bilateral 06/13/2022 FAMILY HISTORY Problem Relation Age of Onset Heart Mother Asthma Mother Mom's side of family other (tumors) Mother neurofibromytosis Heart Father Neurofibromatosis Sister Neurofibromatosis Sister Neurofibromatosis Brother Heart Maternal Grandmother No Known Problems Maternal Grandfather No Known Problems Paternal Grandmother No Known Problems Paternal Grandfather No Known Problems Son No Known Problems Daughter Social History Tobacco Use Smoking status: Former Packs/day: 0.50 Years: 4.00 Additional pack years: 0.00 Total pack years: 2.00 Types: Cigarettes Quit date: 12/24/2019 Years since quittin.1 Smokeless tobacco: Former Quit date: 08/01/2016 Vaping Use Vaping Use: Some days Substances: Nicotine, CBD, Flavoring Devices: Ref[employer] Technologiesble tank Substance Use Topics Alcohol use: Not Currently Comment: Occasionally Drug use: Yes Types: Marijuana, Amphetamines Comment: denies any amphetamine use since 2019. Still using Marijuana Current Outpatient Medications Medication Sig escitalopram oxalate (LEXAPRO) 20 mg tablet Take 1 tablet by mouth once daily. clotrimazole-betamethasone (LOTRISONE) cream Apply 1 application to affected area two times a day. buPROPion XL (WELLBUTRIN XL) 150 mg 24 hr tablet Take 1 tablet by mouth once daily. No current facility-administered medications for this visit. ALLERGIES No Known Allergies REVIEW OF SYSTEMS: GENERAL: Lying down talking on Zoom. 1 year old child with her. PSYCH: sad, despair from relationship, 3 children at home 2- 11. Significant other aggressive with her ad drinking excessively. PHYSICAL EXAMINATION: VIDEO EXAM: (if completed, performed via video enabled technology) GENERAL: alert and appropriate, in no distress, well-hydrated, well nourished, and happy, smiling, interactive At the end of our discussion ASSESSMENT/PLAN: 1. Anxiety - ICD9: 300.00, ICD10: F41.9 Increase medication. Discussed faily activities with her children, focus on fruits and vegetables, exercise - BUPROPION XL 300 MG 24 HR TAB 2. Depression, unspecified depression type - ICD9: 311, ICD10: F32.A Grief with relationship problems. - Offered focus on children and herself - BUPROPION XL 300 MG 24 HR TAB - Will need follow up in 1 month I spent a total of 30 minutes on the date of the service which included preparing to see the patient, [id number] patient care, and completing clinical documentation Gina Aguilar APRN.[facility] 02-24-2024 History of Present illness Narrative VIRTUAL VISIT PROGRESS NOTE This is a virtual visit using Sc[employer] Video Visit. It required patient-provider interaction for the medical decision making as documented below. I have communicated my name and active licensure. The patient's identity and physical location were verified at the time of this visit. Either the patient or their legal career representative has been informed of the risks and benefits of -- and alternatives to -- treatment through a remote evaluation and consents to proceed with the evaluation remotely. Leesa Mobley is a 28 year old female seen for Depression and anxiety. No improvement in mood Not sleeping well. Always a tendency toward not sleeping. A lot of stress. She is crying lot. Sad. Trying to find out what went wrong. Feeling blame and guilt. Significant other is Cheating and drinking heavily. 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 Miscarriage September 2010 depression PAST SURGICAL HISTORY Procedure Laterality Date DILATION & CURETTAGE DX&/THER NONOBSTETRIC 09/24/2010 SALPINGECTOMY Bilateral 06/13/2022 FAMILY HISTORY Problem Relation Age of Onset Heart Mother Asthma Mother Mom's side of family other (tumors) Mother neurofibromytosis Heart Father Neurofibromatosis Sister Neurofibromatosis Sister Neurofibromatosis Brother Heart Maternal Grandmother No Known Problems Maternal Grandfather No Known Problems Paternal Grandmother No Known Problems Paternal Grandfather No Known Problems Son No Known Problems Daughter Social History Tobacco Use Smoking status: Former Packs/day: 0.50 Years: 4.00 Additional pack years: 0.00 Total pack years: 2.00 Types: Cigarettes Quit date: 12/24/2019 Years since quittin.1 Smokeless tobacco: Former Quit date: 08/01/2016 Vaping Use Vaping Use: Some days Substances: Nicotine, CBD, Flavoring Devices: SMS [employer]up Substance Use Topics Alcohol use: Not Currently Comment: Occasionally Drug use: Yes Types: Marijuana, Amphetamines Comment: denies any amphetamine use since 2019. Still using Marijuana Current Outpatient Medications Medication Sig escitalopram oxalate (LEXAPRO) 20 mg tablet Take 1 tablet by mouth once daily. clotrimazole-betamethasone (LOTRISONE) cream Apply 1 application to affected area two times a day. buPROPion XL (WELLBUTRIN XL) 150 mg 24 hr tablet Take 1 tablet by mouth once daily. No current facility-administered medications for this visit. ALLERGIES No Known Allergies REVIEW OF SYSTEMS: GENERAL: Lying down talking on Zoom. 1 year old child with her. PSYCH: sad, despair from relationship, 3 children at home 2- 11. Significant other aggressive with her ad drinking excessively. PHYSICAL EXAMINATION: VIDEO EXAM: (if completed, performed via video enabled technology) GENERAL: alert and appropriate, in no distress, well-hydrated, well nourished, and happy, smiling, interactive At the end of our discussion ASSESSMENT/PLAN: 1. Anxiety - ICD9: 300.00, ICD10: F41.9 Increase medication. Discussed faily activities with her children, focus on fruits and vegetables, exercise - BUPROPION XL 300 MG 24 HR TAB 2. Depression, unspecified depression type - ICD9: 311, ICD10: F32.A Grief with relationship problems. - Offered focus on children and herself - BUPROPION XL 300 MG 24 HR TAB - Will need follow up in 1 month I spent a total of 30 minutes on the date of the service which included preparing to see the patient, [id number] patient care, and completing clinical documentation Gina Aguilar APRN.GROUP MANAGING DIRECTOR documented in this encounter [facility] [place] 02-24-2024 Nurse Note Attempted to document pt was ready for vv. No answer, left message. Rhea Jerome MA documented in this encounter [facility] 02-03-2024 Note HNO ID: [id number] Author: GINA AGUILAR APRN.GROUP MANAGING DIRECTOR Service: ? Author Type: Clinical Nurse Specialist Type: Progress Notes Filed: 02/03/2024 13:44 Note Text: VIRTUAL VISIT PROGRESS NOTE This is a virtual visit using [employer] Zoom Video Visit. It required patient-provider interaction for the medical decision making as documented below. I have communicated my name and active licensure. The patient's identity and physical location were verified at the time of this visit. Either the patient or their legal career representative has been informed of the risks and benefits of -- and alternatives to -- treatment through a remote evaluation and consents to proceed with the evaluation remotely. Leesa Mobley is a 28 year old female seen for anxiety. She is at home, this provider is at the [facility]. Not sleeping well. Boyfriend cheated on her. Laid hands on her the other day. REVIEW OF SYSTEMS GENERAL: +weight loss, + malaise, no fevers/chills HEENT: Negative for frequent or significant headaches NECK: Negative for lumps, goiter, pain and significant neck swelling RESPIRATORY: Negative for cough or wheezing, dyspnea or shortness of breath CARDIOVASCULAR: Negative for chest pain- sharp with anxiety and palpitations MOOD: Both positive for depression and anxiety, denies suicidal ideation. . 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 Miscarriage September 2010 depression PAST SURGICAL HISTORY Procedure Laterality Date DILATION AND CURETTAGE DXAND/THER NONOBSTETRIC 09/24/2010 SALPINGECTOMY Bilateral 06/13/2022 FAMILY HISTORY Problem Relation Age of Onset Heart Mother Asthma Mother Mom's side of family other (tumors) Mother neurofibromytosis Heart Father Neurofibromatosis Sister Neurofibromatosis Sister Neurofibromatosis Brother Heart Maternal Grandmother No Known Problems Maternal Grandfather No Known Problems Paternal Grandmother No Known Problems Paternal Grandfather No Known Problems Son No Known Problems Daughter Social History Tobacco Use Smoking status: Former Packs/day: 0.50 Years: 4.00 Additional pack years: 0.00 Total pack years: 2.00 Types: Cigarettes Quit date: 12/24/2019 Years since quittin.1 Smokeless tobacco: Former Quit date: 08/01/2016 Vaping Use Vaping Use: Some days Substances: Nicotine, CBD, Flavoring Devices: Phonetime tank Substance Use Topics Alcohol use: Not Currently Comment: Occasionally Drug use: Yes Types: Marijuana, Amphetamines Comment: denies any amphetamine use since 2019. Still using Marijuana Current Outpatient Medications Medication Sig clotrimazole-betamethasone (LOTRISONE) cream Apply 1 application to affected area two times a day. buPROPion XL (WELLBUTRIN XL) 150 mg 24 hr tablet Take 1 tablet by mouth once daily. escitalopram oxalate (LEXAPRO) 10 mg tablet Take 1 tablet by mouth once daily. No current facility-administered medications for this visit. ALLERGIES No Known Allergies PHYSICAL EXAMINATION: VIDEO EXAM: (if completed, performed via video enabled technology) GENERAL: alert and appropriate, in no distress, well-hydrated, well nourished, and happy, smiling, interactive MOOD: toddler with her. Interactive. Feeling stressed. ASSESSMENT/PLAN: 1. Anxiety and depression - ICD9: 300.00, 311, ICD10: F41.9, F32.A (primary diagnosis) Increase Lexapro to 20mg daily Continue wellbutrin at current dose 2. Anxiety - ICD9: 300.00, ICD10: F41.9 As above - ESCITALOPRAM 20 MG TABLET increased dose Follow up in 3 weeks There are no Patient Instructions on file for this visit. I spent a total of 39 minutes on the date of the service which included preparing to see the patient, [id number] patient care, and completing clinical documentation Gina Aguilar APRN.[facility] 02-03-2024 History of Present illness Narrative VIRTUAL VISIT PROGRESS NOTE This is a virtual visit using [employer] Video Visit. It required patient-provider interaction for the medical decision making as documented below. I have communicated my name and active licensure. The patient's identity and physical location were verified at the time of this visit. Either the patient or their legal career representative has been informed of the risks and benefits of -- and alternatives to -- treatment through a remote evaluation and consents to proceed with the evaluation remotely. Leesa Mobley is a 28 year old female seen for anxiety. She is at home, this provider is at the [facility]. Not sleeping well. Boyfriend cheated on her. Laid hands on her the other day. REVIEW OF SYSTEMS GENERAL: +weight loss, + malaise, no fevers/chills HEENT: Negative for frequent or significant headaches NECK: Negative for lumps, goiter, pain and significant neck swelling RESPIRATORY: Negative for cough or wheezing, dyspnea or shortness of breath CARDIOVASCULAR: Negative for chest pain- sharp with anxiety and palpitations MOOD: Both positive for depression and anxiety, denies suicidal ideation. . 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 Miscarriage September 2010 depression PAST SURGICAL HISTORY Procedure Laterality Date DILATION & CURETTAGE DX&/THER NONOBSTETRIC 09/24/2010 SALPINGECTOMY Bilateral 06/13/2022 FAMILY HISTORY Problem Relation Age of Onset Heart Mother Asthma Mother Mom's side of family other (tumors) Mother neurofibromytosis Heart Father Neurofibromatosis Sister Neurofibromatosis Sister Neurofibromatosis Brother Heart Maternal Grandmother No Known Problems Maternal Grandfather No Known Problems Paternal Grandmother No Known Problems Paternal Grandfather No Known Problems Son No Known Problems Daughter Social History Tobacco Use Smoking status: Former Packs/day: 0.50 Years: 4.00 Additional pack years: 0.00 Total pack years: 2.00 Types: Cigarettes Quit date: 12/24/2019 Years since quittin.1 Smokeless tobacco: Former Quit date: 08/01/2016 Vaping Use Vaping Use: Some days Substances: Nicotine, CBD, Flavoring Devices: SMS GupShup Substance Use Topics Alcohol use: Not Currently Comment: Occasionally Drug use: Yes Types: Marijuana, Amphetamines Comment: denies any amphetamine use since 2018. Still using Marijuana Current Outpatient Medications Medication Sig clotrimazole-betamethasone (LOTRISONE) cream Apply 1 application to affected area two times a day. buPROPion XL (WELLBUTRIN XL) 150 mg 24 hr tablet Take 1 tablet by mouth once daily. escitalopram oxalate (LEXAPRO) 10 mg tablet Take 1 tablet by mouth once daily. No current facility-administered medications for this visit. ALLERGIES No Known Allergies PHYSICAL EXAMINATION: VIDEO EXAM: (if completed, performed via video enabled technology) GENERAL: alert and appropriate, in no distress, well-hydrated, well nourished, and happy, smiling, interactive MOOD: toddler with her. Interactive. Feeling stressed. ASSESSMENT/PLAN: 1. Anxiety and depression - ICD9: 300.00, 311, ICD10: F41.9, F32.A (primary diagnosis) Increase Lexapro to 20mg daily Continue wellbutrin at current dose 2. Anxiety - ICD9: 300.00, ICD10: F41.9 As above - ESCITALOPRAM 20 MG TABLET increased dose Follow up in 3 weeks There are no Patient Instructions on file for this visit. I spent a total of 39 minutes on the date of the service which included preparing to see the patient, [id number]-[id number] patient care, and completing clinical documentation Gina Aguilar APRN.GROUP MANAGING DIRECTOR documented in this encounter [facility] 01-29-2024 Note HNO ID: [id number] Author: DANIELA ARORA MD Service: ? Author Type: Physician Type: Progress Notes Filed: 01/29/2024 09:30 Note Text: Flight Attendant Ramp offered: Patient declines. Leesa Mobley is a 28 year old female who presents for STD screening and complaints of Dysuria. Pt reports BF cheated. Pt reports no urinary frequency, pt reports no pelvic pressure but has some cramping sensation. Pt reports uses slapingectomy for BC. Pt states no vaginal odor or discharge that is significant. Has h/o chlamydia in past. Has not noticed blood in urine. Is more sensitive in clitoris area. Pt reports was masturbating a lot the last few days and wonders if that is impacting how she is feeling. Pt reports no fevers. No other concerns today. OB History T3 L3 SAB2 IAB0 Ectopic0 Multiple0 Live Births3 Project Inspector History LMP: 09/26/2023, Unknown Age at Menarche: Age at First : Age at Menopause: Project Inspector History Comments: Sexual Activity: Yes; Male Contraception: Implant PAST MEDICAL HISTORY Diagnosis Date Abnormal Pap smear of cervix AGE 13 Asthma NO MEDICATIONS SINCE AGE 1 Attention deficit disorder with hyperactivity(314.01) 2004 Chlamydia Dysthymic disorder Depression (non-psychotic) Engorgement of breasts associated with childbirth, delivered 09/26/2023 Gestational diabetes mellitus, class A1 02/06/2022 Gonorrhea 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 Miscarriage September 2010 depression PAST SURGICAL HISTORY Procedure Laterality Date DILATION AND CURETTAGE DXAND/THER NONOBSTETRIC 09/24/2010 SALPINGECTOMY Bilateral 06/13/2022 FAMILY HISTORY Problem Relation Age of Onset Heart Mother Asthma Mother Mom's side of family other (tumors) Mother neurofibromytosis Heart Father Neurofibromatosis Sister Neurofibromatosis Sister Neurofibromatosis Brother Heart Maternal Grandmother No Known Problems Maternal Grandfather No Known Problems Paternal Grandmother No Known Problems Paternal Grandfather No Known Problems Son No Known Problems Daughter Social History Tobacco Use Smoking status: Former Packs/day: 0.50 Years: 4.00 Additional pack years: 0.00 Total pack years: 2.00 Types: Cigarettes Quit date: 12/24/2019 Years since quittin.1 Smokeless tobacco: Former Quit date: 08/01/2016 Vaping Use Vaping Use: Some days Substances: Nicotine, CBD, Flavoring Devices: Ref[employer]ordent Technologiesble tank Substance Use Topics Alcohol use: Not Currently Comment: Occasionally Drug use: Yes Types: Marijuana, Amphetamines Comment: denies any amphetamine use since 2019. Still using Marijuana Current Outpatient Medications Medication Sig clotrimazole-betamethasone (LOTRISONE) cream Apply 1 application to affected area two times a day. buPROPion XL (WELLBUTRIN XL) 150 mg 24 hr tablet Take 1 tablet by mouth once daily. escitalopram oxalate (LEXAPRO) 10 mg tablet Take 1 tablet by mouth once daily. No current facility-administered medications for this visit. Allergies As of Date: 01/29/2024 (No Known Allergies) Fully Assessed 10/08/2023 REVIEW OF SYSTEMS Abdomen: cramping. Bladder: dysuria but no frequency.. Expanded ROS: GENERAL: Negative for fever Allergies and current medication updated:Yes EXAM: BP 116/68 Wt 236 lb (107.0kg) LMP 01/03/2024 GENERAL: pleasant, female in no apparent distress HEENT: Normocephalic and atraumatic NECK: full range of motion DERMATOLOGY: Normal, without lesions, non-icteric, and non-hirsute PELVIC: external genitalia normal, normal Bartholin's glands, urethra, Aspen's glands, no vulvar lesions, no cervical lesions, good vaginal support, normal appearing perineal body and perianal region, moderate amount of clear discharge - tiny abrasion near clitoral cruz NEURO: alert and oriented x3,exam grossly non-focal EXTREMITIES: normal ASSESSMENT AND PLAN: Encounter Diagnosis ICD-10-CM 1. Dysuria R30.0 URINE CULTURE sulfamethoxazole-trimethoprim (BACTRIM DS) 800-160 mg per tablet 2. Vaginal discharge N89.8 BACTERIAL VAGINOSIS NAAT 3. Abrasion of vulva, initial encounter S30.814A 4. Screen for STD (sexually transmitted disease) Z11.3 BOB/TRICHOMONAS NAAT GONORRHEA/CHLAMYDIA NAAT 5. Bactrim given for possible UTI based on symptoms and blood on urine dip with LE. 6. Reviewed findings of small abrasion near clitoris- likely from masturbation- reviewed topical steroid for healing. Medical Decision Making: Problems: Low: Acute, uncomplicated illness or injury Data: Unique test(s) ordered: 3+ Risk: Moderate: Drug management Medical Decision Making Level: 4 - Moderate Daniela Miranda MD [facility] 01-29-2024 History of Present illness Narrative Flight Attendant Ramp offered: Patient declines. Leesa Mobley is a 28 year old female who presents for STD screening and complaints of Dysuria. Pt reports BF cheated. Pt reports no urinary frequency, pt reports no pelvic pressure but has some cramping sensation. Pt reports uses slapingectomy for BC. Pt states no vaginal odor or discharge that is significant. Has h/o chlamydia in past. Has not noticed blood in urine. Is more sensitive in clitoris area. Pt reports was masturbating a lot the last few days and wonders if that is impacting how she is feeling. Pt reports no fevers. No other concerns today. OB History T3 L3 SAB2 IAB0 Ectopic0 Multiple0 Live Births3 Project Inspector History LMP: 09/26/2023, Unknown Age at Menarche: Age at First : Age at Menopause: Project Inspector History Comments: Sexual Activity: Yes; Male Contraception: Implant PAST MEDICAL HISTORY Diagnosis Date Abnormal Pap smear of cervix AGE 13 Asthma NO MEDICATIONS SINCE AGE 1 Attention deficit disorder with hyperactivity(314.01) 2004 Chlamydia Dysthymic disorder Depression (non-psychotic) Engorgement of breasts associated with childbirth, delivered 09/26/2023 Gestational diabetes mellitus, class A1 02/06/2022 Gonorrhea 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 Miscarriage September 2010 depression PAST SURGICAL HISTORY Procedure Laterality Date DILATION & CURETTAGE DX&/THER NONOBSTETRIC 09/24/2010 SALPINGECTOMY Bilateral 06/13/2022 FAMILY HISTORY Problem Relation Age of Onset Heart Mother Asthma Mother Mom's side of family other (tumors) Mother neurofibromytosis Heart Father Neurofibromatosis Sister Neurofibromatosis Sister Neurofibromatosis Brother Heart Maternal Grandmother No Known Problems Maternal Grandfather No Known Problems Paternal Grandmother No Known Problems Paternal Grandfather No Known Problems Son No Known Problems Daughter Social History Tobacco Use Smoking status: Former Packs/day: 0.50 Years: 4.00 Additional pack years: 0.00 Total pack years: 2.00 Types: Cigarettes Quit date: 12/24/2019 Years since quittin.1 Smokeless tobacco: Former Quit date: 08/01/2016 Vaping Use Vaping Use: Some days Substances: Nicotine, CBD, Flavoring Devices: Phonetime tank Substance Use Topics Alcohol use: Not Currently Comment: Occasionally Drug use: Yes Types: Marijuana, Amphetamines Comment: denies any amphetamine use since 2019. Still using Marijuana Current Outpatient Medications Medication Sig clotrimazole-betamethasone (LOTRISONE) cream Apply 1 application to affected area two times a day. buPROPion XL (WELLBUTRIN XL) 150 mg 24 hr tablet Take 1 tablet by mouth once daily. escitalopram oxalate (LEXAPRO) 10 mg tablet Take 1 tablet by mouth once daily. No current facility-administered medications for this visit. Allergies As of Date: 01/29/2024 (No Known Allergies) Fully Assessed 10/08/2023 REVIEW OF SYSTEMS Abdomen: cramping. Bladder: dysuria but no frequency.. Expanded ROS: GENERAL: Negative for fever Allergies and current medication updated:Yes EXAM: BP 116/68 Wt 236 lb (107.0kg) LMP 01/03/2024 GENERAL: pleasant, female in no apparent distress HEENT: Normocephalic and atraumatic NECK: full range of motion DERMATOLOGY: Normal, without lesions, non-icteric, and non-hirsute PELVIC: external genitalia normal, normal Bartholin's glands, urethra, Aspen's glands, no vulvar lesions, no cervical lesions, good vaginal support, normal appearing perineal body and perianal region, moderate amount of clear discharge - tiny abrasion near clitoral cruz NEURO: alert and oriented x3,exam grossly non-focal EXTREMITIES: normal ASSESSMENT AND PLAN: Encounter Diagnosis ICD-10-CM 1. Dysuria R30.0 URINE CULTURE sulfamethoxazole-trimethoprim (BACTRIM DS) 800-160 mg per tablet 2. Vaginal discharge N89.8 BACTERIAL VAGINOSIS NAAT 3. Abrasion of vulva, initial encounter S30.814A 4. Screen for STD (sexually transmitted disease) Z11.3 BOB/TRICHOMONAS NAAT GONORRHEA/CHLAMYDIA NAAT 5. Bactrim given for possible UTI based on symptoms and blood on urine dip with LE. 6. Reviewed findings of small abrasion near clitoris- likely from masturbation- reviewed topical steroid for healing. Medical Decision Making: Problems: Low: Acute, uncomplicated illness or injury Data: Unique test(s) ordered: 3+ Risk: Moderate: Drug management Medical Decision Making Level: 4 - Moderate Daniela Miranda MD documented in this encounter [facility] 10-08-2023 Instructions Silvia Austin APRN.ERICA - 10/08/2023 1:36 PM EST Minimizing irritation of the vulva (area around the vagina) Wear white cotton underwear. Avoid synthetic fabrics and tight clothing. Sleep wearing shorts or pajama bottoms without underwear. Shower as soon as possible after exercise. Avoid clothing detergents and soaps with perfumes or dyes. Use warm (not hot) water to wash the vulva and if you use soap use a product designed for sensitive skin (like Dove or Cetaphil). Do not douche or use creams/powders in the vulvar area unless instructed by your physician. If you must douche, use only plain warm water. Make sure the vulva is dry before dressing by patting dry with a towel. Avoid vigorous rubbing with the towel. You may want to use the blow dryer (on the cool setting only!) on the vulva. The most important way to let your body heal is by avoiding scratching. Many patients find it difficult to avoid scratching at night when they are most aware of the itchiness. You can try taking Benadryl just before bedtime. Some women find it helpful to wear cotton gloves to bed to avoid scratching at night. documented in this encounter [facility] 10-08-2023 History of Present illness Narrative Leesa Mobley is a 28 year old female who presents for vaginal pelvic pain, somewhat fishy odor, itching for 2 week(s). Vaginal discharge: none. Itching: intermittent Dyspareunia: No - uncomfortable the last couple of weeks Fever/chills: No Abdominal pain: No Bladder: Negative for dysuria or frequency Bowel: No blood in stool, pain with BM, tarry stool, persistent diarrhea or constipation Any new sexual partners or concern for STD exposure: only because of symptoms Any history of STDs: chlamydia and GC,HPV Does your partner have any new complaints: No Are you currently taking any medications to treat vaginitis: No Do you use feminine sprays, douches or deodorants: No Menstrual cycle: cycles every 28-30 days and 6 days of flow Contraception: tubal sterilization Past medical, surgical, social history, medications and allergies reviewed and updated. OBJECTIVE: BP 122/76 Wt 255 lb (115.7kg) LMP 09/26/2023 GENERAL: Well developed, well nourished in no apparent distress ABDOMEN: soft, non-tender, and no masses PELVIC: external genitalia normal, normal Bartholin's glands, urethra, Aspen's glands, no vulvar lesions, no cervical lesions, scant yellowish discharge present, normal appearing perineal body and perianal region BIMANUAL: uterus normal size, shape and consistency, no adnexal masses, and non-tender. ASSESSMENT/PLAN: 1. Vaginal odor - ICD9: 625.8, ICD10: N89.8 (primary diagnosis) - GONORRHEA/CHLAMYDIA NAAT - BOB/TRICHOMONAS NAAT - BACTERIAL VAGINOSIS NAAT 2. Vulvar itching - ICD9: 698.1, ICD10: L29.2 - GONORRHEA/CHLAMYDIA NAAT - BOB/TRICHOMONAS NAAT - BACTERIAL VAGINOSIS NAAT - Vulvar hygiene instructions 3. Urinary frequency - ICD9: 788.41, ICD10: R35.0 UAC POC negative with small blood 4. Screen for STD (sexually transmitted disease) - ICD9: V74.5, ICD10: Z11.3 - GONORRHEA/CHLAMYDIA NAAT - BACTERIAL VAGINOSIS NAAT - Discussed condom use for safe sex. Will notify of results. Follow- up as needed. Silvia Austin APRN.[employer]ER Medical Decision Making: Problems: Low: Acute, uncomplicated illness or injury Data: Unique test(s) ordered: 3+ Medical Decision Making Level: 3 - Low documented in this encounter [facility] 09-26-2023 History of Present illness Narrative Computers are down. See down time scanned in documents. Attention: During the [employer] system downtime some charting was done on paper. See paper medical record or scanned documents tab for patient documentation. documented in this encounter [facility] 07-21-2023 Miscellaneous Notes Patient phones requesting refills as follows: Requested Prescriptions Pending Prescriptions Disp Refills escitalopram oxalate (LEXAPRO) 10 mg tablet 30 tablet 11 Sig: Take 1 tablet by mouth once daily. *Pt changing pharmacy's, requesting Lexapro to go to [facility]. Please review and advise. Fran Rainey LPN documented in this encounter [facility] 06-18-2023 History of Present illness Narrative Patient presents with: Low Back Pain: chronic episode x 1 day HPI: Back pain: Duration: flared since yesterday, intermittent recurrent issue Character: sharp and shooting Location: midline lower back Radiation: No. Aggravating: lifting children Relieving: Pain relievers: Motrin, biofreeze Associated: Pertinent negatives: Denies numbness or weakness, fever, loss of bladder or bowel control. Imaging: prior xrays reported to be OK Physical Therapy: none. MEDICATIONS: escitalopram oxalate (LEXAPRO) 10 mg tablet Take 1 tablet by mouth once daily. ALLERGIES: ALLERGIES No Known Allergies VITALS: BP 122/70 Pulse 86 Temp 36.4 C (97.5 F) Resp 16 Wt 110.7 kg (244 lb) LMP 06/12/2021 SpO2 98% BMI 38.22 kg/m PHYSICAL EXAM: GEN: pleasant, no acute distress, alert HEART: regular rate, regular rhythm, no murmurs LUNGS: clear to auscultation, no wheezes or crackles, no increased WOB EXT: no clubbing, no cyanosis, no edema BACK: Normal curvature of spine. No midline tenderness. No paraspinal tenderness. Straight leg test negative. Deep tendon reflexes 2+/4 at patellas. Normal lower extremity strength. ASSESSMENT/PLAN: 1. Acute midline low back pain without sciatica - ICD9: 724.2, ICD10: M54.50 Continue ibuprofen. - LIDOCAINE 4 % TOPICAL PATCH Rx which has been helpful in the past. Provided back exercise handout. Chaim Dial MD documented in this encounter [facility] 02-13-2023 Miscellaneous Notes Spoke to patient and shceduled Tere Chi Ma documented in this encounter [facility] 10-24-2022 Miscellaneous Notes Patient last visit with PCP 10/16/22 Follow up appointment scheduled none Tere Chi Ma documented in this encounter [facility] 10-16-2022 History of Present illness Narrative Did not check in on line. Called and no answer. Left message to reschedule. documented in this encounter [facility] 07-26-2022 Instructions Kendall Oakley MD - 07/26/2022 2:03 PM EDT FACT SHEET FOR PATIENTS, PARENTS, AND CAREGIVERS EMERGENCY USE AUTHORIZATION (EUA) OF PAXLOVID FOR CORONAVIRUS DISEASE 2019 (COVID-19) You are being given this Fact Sheet because your healthcare provider believes it is necessary to provide you with PAXLOVID for the treatment of wtix-ng-xumkpvjk coronavirus disease (COVID-19) caused by the SARS-CoV-2 virus. This Fact Sheet contains information to help you understand the risks and benefits of taking the PAXLOVID you have received or may receive. The U.S. Food and Drug Administration (FDA) has issued an Emergency Use Authorization (EUA) to make PAXLOVID available during the COVID-19 pandemic (for more details about an EUA please see What is an Emergency Use Authorization? at the end of this document). PAXLOVID is not an FDA-approved medicine in the [place]. Read this Fact Sheet for information about PAXLOVID. Talk to your healthcare provider about your options or if you have any questions. It is your choice to take PAXLOVID. What is COVID-19? COVID-19 is caused by a virus called a coronavirus. You can get COVID-19 through close contact with another person who has the virus. COVID-19 illnesses have ranged from very ympi-bi-ahnqxt, including illness resulting in . While information so far suggests that most COVID-19 illness is mild, serious illness can happen and may cause some of your other medical conditions to become worse. Older people and people of all ages with severe, long lasting (chronic) medical conditions like heart disease, lung disease, and diabetes, for example seem to be at higher risk of being hospitalized for COVID-19. What is PAXLOVID? PAXLOVID is an investigational medicine used to treat wpow-eq-dzptrgbi COVID-19 in adults and children [12 years of age and older weighing at least 88 pounds (40 kg)] with positive results of direct SARS-CoV-2 viral testing, and who are at high risk for progression to severe COVID-19, including hospitalization or . PAXLOVID is investigational because it is still being studied. There is limited information about the safety and effectiveness of using PAXLOVID to treat people with ehmd-mi-oldflkvz COVID-19. The FDA has authorized the emergency use of PAXLOVID for the treatment of kyqr-zz-zzuctbpc COVID-19 in adults and children [12 years of age and older weighing at least 88 pounds (40 kg)] with a positive test for the virus that causes COVID-19, and who are at high risk for progression to severe COVID-19, including hospitalization or , under an EUA. 1 Revised: 08 February 2022 What should I tell my healthcare provider before I take PAXLOVID? Tell your healthcare provider if you: Have any allergies Have liver or kidney disease Are or plan to become Are a child Have any serious illnesses Tell your healthcare provider about all the medicines you take, including prescription and jnsb-gai-xvdkmhv medicines, vitamins, and herbal supplements. Some medicines may interact with PAXLOVID and may cause serious side effects. Keep a list of your medicines to show your healthcare provider and pharmacist when you get a new medicine. You can ask your healthcare provider or pharmacist for a list of medicines that interact with PAXLOVID. Do not start taking a new medicine without telling your healthcare provider. Your healthcare provider can tell you if it is safe to take PAXLOVID with other medicines. Tell your healthcare provider if you are taking combined hormonal contraceptive. PAXLOVID may affect how your control pills work. Females who are able to become should use another effective alternative form of contraception or an additional barrier method of contraception. Talk to your healthcare provider if you have any questions about contraceptive methods that might be right for you. How do I take PAXLOVID? PAXLOVID consists of 2 medicines: nirmatrelvir and ritonavir. Take 2 pink tablets of nirmatrelvir with 1 white tablet of ritonavir by mouth 2 times each day (in the morning and in the evening) for 5 days. For each dose, take all 3 tablets at the same time. If you have kidney disease, talk to your healthcare provider. You may need a different dose. Swallow the tablets whole. Do not chew, break, or crush the tablets. Take PAXLOVID with or without food. Do not stop taking PAXLOVID without talking to your healthcare provider, even if you feel better. If you miss a dose of PAXLOVID within 8 hours of the time it is usually taken, take it as soon as you remember. If you miss a dose by more than 8 hours, skip the missed dose and take the next dose at your regular time. Do not take 2 doses of PAXLOVID at the same time. If you take too much PAXLOVID, call your healthcare provider or go to the nearest hospital emergency room right away. If you are taking a ritonavir-or cobicistat-containing medicine to treat hepatitis C or Human Immunodeficiency Virus (HIV), you should continue to take your medicine as prescribed by your healthcare provider. Talk to your healthcare provider if you do not feel better or if you feel worse after 5 days. Who should generally not take PAXLOVID? Do not take PAXLOVID if: You are allergic to nirmatrelvir, ritonavir, or any of the ingredients in PAXLOVID You are taking any of the following medicines: Alfuzosin Pethidine, propoxyphene Ranolazine Amiodarone, dronedarone, flecainide, propafenone, quinidine Colchicine Lurasidone, pimozide, clozapine Dihydroergotamine, ergotamine, methylergonovine Lovastatin, simvastatin Sildenafil (Revatio ) for pulmonary arterial hypertension (PAH) Triazolam, oral midazolam Apalutamide Carbamazepine, phenobarbital, phenytoin Rifampin Hillrose s Wort (hypericum perforatum) Taking PAXLOVID with these medicines may cause serious or life-threatening side effects or affect how PAXLOVID works. These are not the only medicines that may cause serious side effects if taken with PAXLOVID. PAXLOVID may increase or decrease the levels of multiple other medicines. It is very important to tell your healthcare provider about all of the medicines you are taking because additional laboratory tests or changes in the dose of your other medicines may be necessary while you are taking PAXLOVID. Your healthcare provider may also tell you about specific symptoms to watch out for that may indicate that you need to stop or decrease the dose of some of your other medicines. What are the important possible side effects of PAXLOVID? Possible side effects of PAXLOVID are: Allergic Reactions. Allergic reactions can happen in people taking PAXLOVID, even after only 1 dose. Stop taking PAXLOVID and call your healthcare provider right away if you get any of the following symptoms of an allergic reaction: hives trouble swallowing or breathing swelling of the mouth, lips, or face throat tightness hoarseness skin rash Liver Problems. Tell your healthcare provider right away if you have any of these signs and symptoms of liver problems: loss of appetite, yellowing of your skin and the whites of eyes (jaundice), dark-colored urine, pale colored stools and itchy skin, stomach area (abdominal) pain. Resistance to HIV Medicines. If you have untreated HIV infection, PAXLOVID may lead to some HIV medicines not working as well in the future. Other possible side effects include: altered sense of taste diarrhea high blood pressure muscle aches These are not all the possible side effects of PAXLOVID. Not many people have taken PAXLOVID. Serious and unexpected side effects may happen. PAXLOVID is still being studied, so it is possible that all of the risks are not known at this time. What other treatment choices are there? Veklury (remdesivir) is FDA-approved for the treatment of gpgx-ip-tiuaecsp COVID-19 in certain adults and children. Talk with your doctor to see if Veklury is appropriate for you. Like PAXLOVID, FDA may also allow for the emergency use of other medicines to treat people with COVID-19. Go to https://www.fda.gov/emergency-pre paredness-andresponse/mcm-legal-r zfodorjby-ddx-vxiqpe-framework/em bnlvwml-ivi-trwidpatzrmdm for information on the emergency use of other medicines that are authorized by FDA to treat people with COVID-19. Your healthcare provider may talk with you about clinical trials for which you may be eligible. It is your choice to be treated or not to be treated with PAXLOVID. Should you decide not to receive it or for your child not to receive it, it will not change your standard medical care. What if I am or ? There is ct scan technologist treating women or mothers with PAXLOVID. For a mother and unborn baby, the benefit of taking PAXLOVID may be greater than the risk from the treatment. If you are , discuss your options and specific situation with your healthcare provider. It is recommended that you use effective barrier contraception or do not have sexual activity while taking PAXLOVID. If you are , discuss your options and specific situation with your healthcare provider. How do I report side effects with PAXLOVID? Contact your healthcare provider if you have any side effects that bother you or do not go away. Report side effects to FDA MedWatch at www.fda.gov/medwatch or call 6-244-PQV9396 or you can report side effects to [facility]. at the contact information provided below. Website Fax number Telephone number wwwVidder How should I store PAXLOVID? Store PAXLOVID tablets at room temperature, between 68?F to 77?F (20?C to 25?C). How can I learn more about COVID-19? Ask your healthcare provider. Visit https://www.cdc.gov/COVID19. Contact your local or state public health department. What is an Emergency Use Authorization (EUA)? The [place] FDA has made PAXLOVID available under an emergency access mechanism called an Emergency Use Authorization (EUA). The EUA is supported by a Red Level of Health and Human Service ([facility]) declaration that circumstances exist to justify the emergency use of drugs and biological products during the COVID-19 pandemic. PAXLOVID for the treatment of yurh-kg-kspmvlna COVID-19 in adults and children [12 years of age and older weighing at least 88 pounds (40 kg)] with positive results of direct SARS-CoV-2 viral testing, and who are at high risk for progression to severe COVID-19, including hospitalization or , has not undergone the same type of review as an FDA-approved product. In issuing an EUA under the COVID-19 public health emergency, the FDA has determined, among other things, that based on the total amount of scientific evidence available including data from adequate and well-controlled clinical trials, if available, it is reasonable to believe that the product may be effective for diagnosing, treating, or preventing COVID-19, or a serious or life-threatening disease or condition caused by COVID-19; that the known and potential benefits of the product, when used to diagnose, treat, or prevent such disease or condition, outweigh the known and potential risks of such product; and that there are no adequate, approved, and available alternatives. All of these criteria must be met to allow for the product to be used in the treatment of patients during the COVID-19 pandemic. The EUA for PAXLOVID is in effect for the duration of the COVID-19 declaration justifying emergency use of this product, unless terminated or revoked (after which the products may no longer be used under the EUA). Additional Information For general questions, visit the website or call the telephone number provided below. Website Telephone number [email or web address] (1-877-c19-PACK) You can also go to www.Bill.Forward.[employer] or call for more information. Pfizer Distributed by [employer] [place] [address] [id number] Revised: 08 February 2022 documented in this encounter [facility] 07-26-2022 History of Present illness Narrative Patient presents with: Covid Follow Up HPI:This Team Access Model visit is a virtual encounter. It required patient-provider interaction for the medical decision making as documented below. Patient was offered a virtual/telemedicine appointment in lieu of an office visit due to recommendations to reduce patient exposure to COVID-19. Patient is aware of limitations of performing the visit without a face to face visit in the office setting and agrees. Seen recently at urgent care with temp of 103.8. Had positive covid test at home on 07/25. Started with symptoms on 07/24. Had fever, sore throat, headache. Congestion. Has some cough. Has vomiting with phlegm. Achy and tired. No shortness of breath. Cannot taste or smell. No vaccines. Did have covid in September. She is breast feeding. Is pumping and dumping. Is not taking her paxil or prenates MEDICATIONS: Current Outpatient Medications Medication Sig lidocaine (SALONPAS) 4 % patch Apply 1 Patch as directed once daily. (Patient not taking: Reported on 07/25/2022) drospirenone, contraceptive, (SLYND) 4 mg (28) tabet Take 1 tablet by mouth once daily. (Patient not taking: Reported on 07/25/2022) PARoxetine (PAXIL) 20 mg tablet Take 1 tablet by mouth once daily. Yvfuruvl-Ru-Kqh-Fe-FA tab Take 1 tablet by mouth once daily. With folic acid and dha as covered by insurance No current facility-administered medications for this visit. 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 Miscarriage September 2010 depression PAST SURGICAL HISTORY Procedure Laterality Date DILATION & CURETTAGE DX&/THER NONOBSTETRIC 09/24/2010 SALPINGECTOMY Bilateral 06/13/2022 FAMILY HISTORY Problem Relation Age of Onset Heart Mother Asthma Mother Mom's side of family other (tumors) Mother neurofibromytosis Heart Father Neurofibromatosis Sister Neurofibromatosis Sister Neurofibromatosis Brother Heart Maternal Grandmother No Known Problems Maternal Grandfather No Known Problems Paternal Grandmother No Known Problems Paternal Grandfather No Known Problems Son No Known Problems Daughter Social History Tobacco Use Smoking status: Former Packs/day: 0.50 Years: 4.00 Pack years: 2.00 Types: Cigarettes Quit date: 12/24/2019 Years since quittin.5 Smokeless tobacco: Former Quit date: 08/01/2016 Vaping Use Vaping Use: Some days Substances: Nicotine, CBD, Flavoring Devices: Phonetime tank Substance Use Topics Alcohol use: Not Currently Comment: Occasionally Drug use: Yes Types: Marijuana, Amphetamines Comment: denies any amphetamine use since 2018. Still using Marijuana Reviewed current medications, allergies, past medical history, surgical history, family history and social history today. REVIEW OF SYSTEMS All other reviewed and negative other than HPI. VITALS: LMP 06/12/2021 Last 4 Encounter Wt Readings: Date: Wt: 07/25/2022 0 kg () 06/10/2022 104.1 kg (229 lb 6.4 oz) 05/06/2022 103.4 kg (228 lb) 04/08/2022 105.2 kg (232 lb) PHYSICAL EXAMINATION: Patient is alert and oriented during visit. Answers appropriately. ASSESSMENT/PLAN: 1. COVID-19 - ICD9: 079.89, ICD10: U07.1 - given paxlovid. Discussed risks and benefits of new medication with the patient. Advised them to call if any side effects or questions. Red flags for re-assessment reviewed with patient in detail. Call if symptoms worsen at all or if not better in one to two weeks Reviewed diagnosis and treatment options in detail. Questions were answered. Patient expressed understanding of treatment plan. Kendall Oakley MD Nirmatrelvir/Ritonavir (Paxlovid) Eligibility and Patient Discussion [facility] Formulary Restriction Criteria: Adult outpatients 18 years and older with ALL of the following: [x] Patient has positive SARS-COV-2 viral test (PCR or antigen test) during current illness [x] Patient has symptoms for 5 days or less [x] Not requiring hospitalization at any time for management of COVID-19 [x] Not requiring supplemental oxygen or a change in baseline supplemental oxygen [x] Not utilized for pre-exposure or post-exposure prophylaxis for prevention of COVID-19 [x] Patient does not have severe renal impairment (eGFR < 30 mL/min) or severe hepatic impairment (Child-Sanders Class C) [x] Meeting at least one of the criteria for high risk of progression to severe COVID-19: [] Age over 65 years [] Cancer [] Chronic kidney disease [] Chronic liver disease [] Chronic lung diseases, including cystic fibrosis [] Dementia or other neurological conditions [] Diabetes (type 1 or type 2) [] Disabilities, including Down syndrome and neurodevelopmental disorders [] Heart conditions [] HIV infection [] Immunocompromised state [] Mental health conditions [] Medical related technological dependence (tracheostomy, gastrostomy, or positive pressure ventilation (not related to COVID) [x] Overweight and obesity (BMI greater or equal to 25 for adults) [] Physical inactivity [] [] Sickle cell disease or thalassemia [] Smoking, current or former [] Solid organ or blood stem cell transplant [] Stroke or cerebrovascular disease [] Substance use disorders [] Tuberculosis [] People from racial and ethnic minority groups Criteria above are met: Yes Date of Positive Test:07/25 Date of Symptom Onset:8.31 Patient received COVID vaccine: No Drug-Drug interactions reviewed: Yes. Drug interactions were identified and the following actions were taken -we discussed risks of in detail. She understands risks vs benefits. Per literature review. Suggested she avoid breast feeding while using and for 7 days after last dose. She understands.. . I have discussed the use of the investigational therapeutic, nirmatrelvir/ritonavir, for the treatment of mild to moderate COVID-19 and its use under Emergency Use Authorization with the patient. The patient was informed that nirmatrelvir/ritonavir is not an FDA approved drug and that it is authorized for use under this Emergency Use Authorization. The patient was also informed of the significant known benefits and potential risks of nirmatrelvir/ritonavir, and the extent to which such potential risks and benefits are unknown. The patient was informed that there is mandatory reporting of all medication errors and serious adverse events potentially related to nirmatrelvir/ritonavir treatment within 7 calendar days from the onset of the event and that events up to 28 days after completion of therapy need to be reported. The discussion included alternatives to receiving nirmatrelvir/ritonavir, including clinical trials, and potential the risks and benefits of those alternatives. The patient was provided electronically with the Fact Sheet for Patients, Parents and Caregivers. The patient was also instructed that in addition to the treatment with nirmatrelvir/ritonavir, he/she should continue to self-isolate and use infection control measures (e.g., wear mask, isolate, social distance, avoid sharing personal items, clean and disinfect high touch surfaces, and frequent handwashing) according to CDC guidelines. The patient stated understanding and gave verbal consent to proceeding with nirmatrelvir/ritonavir treatment. Kendall Oakley MD July 26, 2022 2:08 PM documented in this encounter [facility] 07-26-2022 Miscellaneous Notes Patient scheduled for today. Explained that not everyone qualifies so she is aware. Requests to have visit scheduled. Only patients with high risk conditions qualify to be treated with Paxlovid; she does not have a known high risk condition. Needs seen by one of us to see if she even qualifies and to go over all the details and to do paperwork since it is an experimental treatment-that's not giving her the run around. Not everyone qualifies to even get it and we are legally not just allowed to prescribe it since primary care has not personally evaluated them at least virtually. Since last evaluation was that she be evaluated in ER, needs seen and may still be referred to ER since was recommended that twice(once in person and once over the phone.) if she is ill enough to to to ER, that would preclude being legally allowed to give her the drug. It is not that simple. Needs vv with one of us or express care on line today to see if needs to be referred to er or if even qualifies for treatment. Patient calls in to check on request for Paxlovid. Reviewed previous TE and OV note. Patient reports that she is still feeling the same with tachycardia and difficulty keeping fluids down. Notified patient that the recommendation would still be to be evaluated in ED based on symptoms. Patient reports that she is not going to the ED and never said she was. She has three children at home that she is trying to take care of and doesn't have time to wait at the ED. Patient reports that we are just giving her the run around and she just wants the anti-viral medication to get better. Forwarding to PCP and EC as she was evaluated yesterday in EC. Karina Figueroa RN Patient calling said she was in the express care earlier and now wanting to have the paxlovid rx. Read visit notes and said she has tachycardia and having problems keeping fluids down, was recommended to go to ER. Patient said I did not tell the provider I was going to go. Advised patient if vomiting and with heart rate being elevated to go to ER for evaluation and ask if she could have Paxlovid rx. Patient said she would go to ER, her and her baby are both ill. documented in this encounter [facility] 07-25-2022 History of Present illness Narrative Subjective HPI Nontoxic-appearing female presents urgent care chief complaint COVID-19 concerns. Patient states she was feeling poorly yesterday. When she woke up this morning she did take a positive COVID-19 home test. States that she has been vomiting quite a few times this morning. States she is having a hard time keeping food and water down. Additionally she has had a 103.8 temperature today. Did take Motrin this did help with fever management. States feels better since fever has dissipated. Additionally patient does have nasal congestion body aches chills sore throat and cough. States son is also displaying symptoms of COVID-19. She is currently breast-feeding her 4-month-old son. Denies any known sick contacts. She is not vaccinated gets COVID-19. Has not had COVID-19 the last 90 days. Denies any chest pain shortness of breath pleuritic pain hemoptysis. Past medical history prescription medication use allergies reviewed. .Patient presents with: Cough: +home Covid AM, fever, congestion, throat. PAST MEDICAL HISTORY Diagnosis Date Abnormal Pap smear of cervix AGE 13 Asthma NO MEDICATIONS SINCE AGE 1 Attention deficit disorder with hyperactivity(314.01) 2004 Chlamydia Dysthymic disorder Depression (non-psychotic) Gestational diabetes mellitus, class A1 02/06/2022 Gonorrhea 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 Miscarriage September 2010 depression PAST SURGICAL HISTORY Procedure Laterality Date DILATION & CURETTAGE DX&/THER NONOBSTETRIC 09/24/2010 SALPINGECTOMY Bilateral 06/13/2022 ALLERGIES Patient has no known allergies. MEDICATIONS PARoxetine (PAXIL) 20 mg tablet Take 1 tablet by mouth once daily. Seqgbmkz-Np-Hxs-Fe-FA tab Take 1 tablet by mouth once daily. With folic acid and dha as covered by insurance lidocaine (SALONPAS) 4 % patch Apply 1 Patch as directed once daily. (Patient not taking: Reported on 07/25/2022) drospirenone, contraceptive, (SLYND) 4 mg (28) tabet Take 1 tablet by mouth once daily. (Patient not taking: Reported on 07/25/2022) FAMILY HISTORY Problem Relation Age of Onset Heart Mother Asthma Mother Mom's side of family other (tumors) Mother neurofibromytosis Heart Father Neurofibromatosis Sister Neurofibromatosis Sister Neurofibromatosis Brother Heart Maternal Grandmother No Known Problems Maternal Grandfather No Known Problems Paternal Grandmother No Known Problems Paternal Grandfather No Known Problems Son No Known Problems Daughter Social History Tobacco Use Smoking status: Former Packs/day: 0.50 Years: 4.00 Pack years: 2.00 Types: Cigarettes Quit date: 12/24/2019 Years since quittin.5 Smokeless tobacco: Former Quit date: 08/01/2016 Vaping Use Vaping Use: Some days Substances: Nicotine, CBD, Flavoring Devices: Refillable tank Substance Use Topics Alcohol use: Not Currently Comment: Occasionally Drug use: Yes Types: Marijuana, Amphetamines Comment: denies any amphetamine use since 2019. Still using Marijuana BP 128/80 Pulse (!) 151 Temp 36.9 C (98.4 F) Resp 20 LMP 06/12/2021 SpO2 97% Yes Hr 138 Review of Systems Constitutional: Positive for chills, fever and malaise/fatigue. HENT: Positive for congestion and sore throat. Negative for ear discharge, ear pain and sinus pain. Eyes: Negative for blurred vision, pain, discharge and redness. Respiratory: Positive for cough. Negative for hemoptysis, sputum production, shortness of breath, wheezing and stridor. Cardiovascular: Negative for chest pain. Gastrointestinal: Positive for abdominal pain, nausea and vomiting. Negative for diarrhea. Musculoskeletal: Positive for myalgias. Skin: Negative for itching and rash. Neurological: Positive for headaches. Negative for dizziness. Objective Physical Exam Constitutional: General: She is not in acute distress. Appearance: She is not diaphoretic. HENT: Head: Normocephalic. Mouth/Throat: Mouth: Mucous membranes are moist. Pharynx: Oropharynx is clear. No oropharyngeal exudate or posterior oropharyngeal erythema. Eyes: Conjunctiva/sclera: Conjunctivae normal. Pupils: Pupils are equal, round, and reactive to light. Cardiovascular: Rate and Rhythm: Regular rhythm. Tachycardia present. Heart sounds: Normal heart sounds. Pulmonary: Effort: Pulmonary effort is normal. No tachypnea, accessory muscle usage or respiratory distress. Breath sounds: Normal breath sounds. No stridor. No wheezing, rhonchi or rales. Abdominal: Palpations: Abdomen is soft. Tenderness: There is no abdominal tenderness. Musculoskeletal: Cervical back: Normal range of motion and neck supple. No rigidity or tenderness. Lymphadenopathy: Cervical: No cervical adenopathy. Skin: General: Skin is warm and dry. Neurological: Mental Status: She is alert and oriented to person, place, and time. ASSESSMENT/PLAN: 1. Suspected COVID-19 virus infection - ICD9: V01.79, ICD10: Z20.822 (primary diagnosis) - 2019 CORONAVIRUS 2. Tachycardia - ICD9: 785.0, ICD10: R00.0 Patient diagnosed with suspected COVID-19. Additionally patient diagnosed with tachycardia. Reevaluation of heart rate of 138. Patient is having a hard time tolerating p.o. fluids. With tachycardia and inability to tolerate oral fluids I recommended patient be seen in ED for further evaluation care. Patient verbalized understand agrees with plan will be seen at [facility]. Ge Williamson APRN.ERICA documented in this encounter [facility] 05-28-2022 Miscellaneous Notes Patient notified and voiced understanding of appointment times and surgery date. Pre op appointment scheduled. Ness Ivy RN Left message to call office, Surgery is scheduled at [facility] on 06/13. Phone pat 06/06/22 at 8am. Patient needs to schedule a pre-operative appointment w/ Dr. Fong. documented in this encounter [facility] 05-06-2022 Instructions Roseann Paul APRN.CNM - 05/06/2022 1:54 PM EDT [facility] control is a way for men and women to prevent . There are many different methods of control. By learning more about them, you can decide which method is right for you and your partner. If you are sexually active and don't want a baby, don't wait to use control. An unwanted can happen anytime you have unprotected sex. The following list describes a number of control methods. Before you choose a method, you should discuss control with you partner and health care provider. control methods are only effective is used properly. Make sure that you understand how to correctly use the method you choose. MALE CONDOM - The male condom, or rubber, is a thin covering made of latex, plastic or animal membrane that is rolled over an erect penis. The covering prevents semen, the fluid that contains sperm, from entering a woman's vagina. Latex condoms are best for most people. Use plastic (Graciela) condoms if you or your partner is allergic to latex. Condoms made from animal skins may not provide good protection from sexually transmitted diseases. The condom is rolled over the erect penis before sexual activity begins. If the condom does not have a built-in nipple, leave a 1/4 inch of the condom free at the tip of the penis so that semen has a place to collect. A new condom must be used each time you have sex. For the best protection, condoms should be used with a spermicidal foam or jelly. The condom must be in place before the penis gets near the vagina. Condoms can be purchased at most drug stores. Condoms are also sold in vending machines in restrooms. Condoms are about 85% effective. With careful use, they are even more effective. Latex condoms provide protection from sexually transmitted diseases by preventing the infected area from coming into contact with the partner. Use only water-based lubricants, such as K-Y Jelly. Oil-based lubricants (Vaseline) can cause condoms to leak or break. FEMALE CONDOM - The female condom is a lubricated polyurethane (plastic) tube that has a flexible ring at each end. One end of the tube is closed. Before sexual activity begins, the woman inserts the condom into her vagina so that the closed end of the tube covers the cervix and the other end slightly covers the labia (lips on the outside of the vagina.) The condom blocks sperm from entering the womb. Like the male condom, the female condom is available at drugstores without a prescription. The female condom is about 75% effective. Female condoms provide some protection against sexually transmitted diseases, but the male condom provides the best protection. SPERMICIDE - Spermicides are foams, jellies, tablets, or suppositories that a woman places in her vagina and up next to the cervix (the opening leading from the vagina to the womb) before sex. Spermicides block the cervix and paralyze the sperm, making them unable to travel into the womb. To use a spermicide, the woman places the spermicide inside the vagina within an hour before intercourse. More spermicide must be used each time you have sex. Follow the directions on the package carefully. can be purchased at most drugstores. Be careful not to confuse them with feminine hygiene products such as douche or lubricants. are 70-80 percent effective. have a high failure rate because they are often used incorrectly. Used correctly and together, spermicides and condoms are about 97 percent effective. Do not douche for at least eight hours after sex when using a spermicide. You can wear a feminine pad to absorb spermicide that comes out. DIAPHRAGM - The diaphragm is a round piece of flexible rubber with a rigid rim. The woman places the diaphragm in her vagina and against her cervix. The diaphragm prevents semen from entering the womb. Spermicide must be used with the diaphragm. Spermicide is put in and around the rim of the diaphragm no more than two hours before intercourse. The diaphragm is then inserted into the vagina. More spermicide should be inserted into the vagina each time you have sex. You must visit your health care provider to get a diaphragm. You will get a pelvic exam so that you can be fitted for a diaphragm that is right for you. The diaphragm is 82 to 94 percent effective. Remember, do not remove the diaphragm for at least eight hours after intercourse. CERVICAL CAP - The cervical cap is a thimble-shaped cup made out of plastic and fits snugly over the uterus. It is used the same way as the diaphragm. The woman coats the cup with spermicide and inserts the cap into her vagina and up to her cervix before sex. The cap blocks the cervix and paralyzes the sperm. More spermicide must be inserted into the vagina each time you have sex.(Do not remove the cap each time you have sex.) To get a cervical cap you must visit your healthcare provider and get a pelvic exam so that you can be fitted for a cervical cap. The cervical cap is 82 to 94 percent effective. Do not remove the cervical cap for at least eight hours after intercourse. The cap can be kept in place for up to 48 hours, but spermicide must be applied inside the vagina no more than two hours before sex. IUD - An IUD, or intrauterine device, is a small, plastic, flexible, T-shaped device that is placed into the uterus (womb). There are several types of IUDs. One type, ParaGard T380A, can be kept in place for ten years. Another type, Progestasert, contains a hormone that is released into the womb over a one-year period and must be replaced each year. Once the IUD has been inserted, the woman does not need to take any further steps to prevent . To get an IUD, you must get a pelvic exam. The IUD is placed into the uterus through the cervix by a trained healthcare provider. The IUD is 99.9 percent effective. IUDs rarely cause serious side effects when used in a monogamous relationship (having only one sex partner). Side effects include PID (pelvic inflammatory disease), painful and heavy periods, backaches, and headaches. Discuss these side effects with your healthcare provider. CONTROL PILLS - The Pill is a medication that women take to prevent . The Pill comes in the form of a pill pack that contains enough pills for one month of protection. A pill is taken at the same time every day for 21 to 28 days in a row, depending on the type of pill that is ordered for you. Most pill packs begin on the first Friday of your period, whether or not you are still menstruating. Follow your health care provider's instructions for how to take the pill. To get the Pill, your healthcare provider must order/prescribe it for you. The Pill is 99 percent effective. You should use an additional form of control for the first month you are on the pill. The Pill can cause minor and/or serious side effects. You should discuss these side effects with your healthcare provider. The Pill is not recommended for women who are over 35 years of age and smoke, but it can be used until menopause if you don't smoke cigarettes. NORPLANT - Norplant is six match-sized rubber capsules that are surgically implanted underneath the skin of the upper arm of the woman. The sticks contain the hormone progestin, which releases slowly into the body and prevents for up to five years. No additional steps are needed to use Norplant correctly. Twenty-four hours after Norplant is inserted, the woman is protected. Norplant must be ordered and implanted by a healthcare provider. Norplant is over 99 percent effective. Norplant can be used by some women who for medical reasons are unable to take the Pill. Serious side effects can occur, including spotting, headaches, depression, acne, changes in appetite, weight gain and excessive growth of facial and body hair. You should discuss these side effects with your healthcare provider. Women usually stop having periods several months after Norplant is implanted. DEPO-PROVERA - Depo-Provera is a form of the hormone progestin. It is given as an injection into the woman's buttocks or arm. Each injection provides protection against for 12 weeks. Depo-Provera must be ordered and given by a healthcare provider. Depo-Provera is 99 percent effective. Depo-Provera has side effects similar to Norplant and the Pill. Fifty percent of women who use Depo-Provera for more than a year stop getting their periods while on the medication. RHYTHM - A woman practices rhythm, or natural family planning, by learning to recognize the days she is fertile and abstaining from sex before and during those days. Methods include keeping track of changes in body temperature and vaginal discharge (fluid from the vagina). Your healthcare provider can describe how to practice natural family planning. The Rhythm method is 53 percent effective. Natural family planning can also be used to help a woman get by pinpointing her most fertile times. It also has no side effects and is inexpensive. The rhythm method does not work for all couples. Women who have regular menstrual cycles and who are very careful about when they have sex usually find it to be effective. Women who have irregular cycles and who are not so careful often end up becoming . ABSTINENCE - Of course, the best way to avoid getting is to not have sex. Abstinence is not having sex. You may not be ready to have sex. Don't let someone pressure you into having sex if you don't feel ready. This hand-out does not include all methods of control. Other methods include surgical sterilization for men and women. Ask your healthcare provider for more information about specific control methods or contact your local [facility]. This information is not intended to replace the medical advice of your doctor or healthcare provider. Please consult your healthcare provider for advice about a specific medical condition. Oral Contraceptives: The Pill Beginning the Pill Pills come in either a 21 day pack or a 28 day pack. With the 21 day pack you will take one pill for 21 days then no pill for 7 days, during which time you will have what is known as withdrawal bleeding. The 28 day pack allows you to take a pill every day of the cycle with no interruptions. The first 21 pills are the pills with the active ingredients and the last 7 are the nonmedical pills (placebo) or they may contain iron. There will be bleeding during the week you are taking the nonmedical pills. The advantage to the 28 day pack is that you don t have to keep track of when you stopped the pill. Unless otherwise instructed, you should start your pills the Friday following your first day of bleeding with your next period (if your period starts on a Friday, you should start pills the same day) Read your information packet that comes with the pills. Pill Benefits The pill is the most popular method of reversible control being used today. Millions of women rely on oral contraceptives as their control method. It is important to have an examination by your physician to determine if the pill is safe for you. There are several advantages associated with the pill: it is 97-98% effective; may improve acne; periods are more regular and less painful; there is less iron deficiency anemia in pill users. theater set production designer use is associated with a decreased incidence of ovarian and uterine cancer. There is also no evidence that the pill increases the incidence of any cancer. How Oral Contraceptives Work Oral contraceptives come in two varieties. One is the combination pill which contains both estrogen and progesterone. Combination pills are considered 98-99% effective in preventing . This pill comes in either monophasic, which delivers the same amount of estrogen and progesterone throughout the cycle; and triphasic, which try tries to mimic the normal hormone cycle by changing the levels of the hormones in the pills during the month. There is no real advantage to taking the one over the other. The other type of pill only contains progesterone. It is best used for women who can t take estrogen. This type of pill is slightly less effective than the combination pill in preventing . Oral contraceptives prevent ovulation (release of an egg from the ovary) by suppressing the pituitary gland s action. The pill does NOT prevent sexually transmitted disease. Obtaining a Prescription It is important to see your doctor before starting oral contraceptives so that you can have a full medical history taken and a physical examination given. Certain medical conditions may make the pill inappropriate for you, therefore it is very important to be honest and as complete as possible with the information you share with your doctor. The types of predisposing factors which would make the pill a poor choice of control would include: History of blood clots Stroke Serious liver disease or impaired liver function Unexplained vaginal bleeding or Cancer of the reproductive system Active gall bladder disease Hypertension Possible Side Effects It can take up to three months for your body to become adjusted to the pill. The more common side effects experienced at this time are: breakthrough spotting or bleeding, which is bleeding at any other time other than when you should be having a period; nausea or vomiting; breast tenderness; and mild fluid retention. There is no custodial weight gain with the use of the pill. Breakthrough bleeding is the most common complaint of new pill users. There is no way to predict who will have it and there is no way of preventing it. Breakthrough bleeding usually subsides on its own with no further treatment after the first three months of taking the pill. If these symptoms continue to occur after the first three months you should check with your physician to see if there is any physical cause and possibly change to another control pill. Problems: 1. Missed 1 pill: Take 2 pills the next day. 2. Missed 2 pills: Take 2 pills the next day and 2 pills the following day. Also use another form of control (condoms) along with the pill for the rest of the month. 3. Missed 3 or more pills: You have two choices. You can take two pills each day until you are on schedule, plus use an additional form of control along with the pill for the rest of the month. Or you can stop the pill and start a completely new pack of pills the next Friday. You must use another form of control with the pill for at least the first two weeks of the new pack. 4. You re ill and you have been vomiting or have diarrhea: You must use another form of control with the pill since the pill may not be fully absorbed during your illness. Continue to use the added control until the end of the cycle. 5. Desire to become : Stop using the pill for one month before trying to become . 6. Taking other medications: The control pill is less effective when you take the antibiotic Rifampin, epilepsy (seizure) drugs such as phenytoin, carbamazepine, phenobarbital, topiramate and some medications for HIV. Let your doctor know if you start taking any of these medications while on the pill. Symptoms to Notify Your Doctor with Immediately: 1. Pain in your chest or legs 2. Continuous blurred vision 3. Severe headaches 4. Slurred speech 5. Tingling or weakness on one side of your body 6. Shortness of breath 7. Swelling of one leg Refills of Control Pills You need to see a doctor every year for a refill of your prescription. This is necessary in order that your health can be monitored closely while you are taking control pills. If your prescription should before your next scheduled appointment you can usually get a one month extension from your doctors office if you call during regular business hours about one week before you need to start the new package of pills. This allows the physician to refer to your chart for necessary health information. documented in this encounter [facility] 05-06-2022 History of Present illness Narrative VISIT Leesa Mobley is a 26 year old year old here for visit. Delivery Summary: Delivery information: Delivery date 03/23/2022 Delivery type VAVD Delivering clinician : Name River Gender M ROS/ Recovery: Feeding: Breast feeding problems: None Menses since delivery: None Menstrual pattern prior to : Regular periods [employer] since delivery: Resumed Depression: denies symptoms of depression. OB Depression and Anxiety Screening- This Encounter (since 05/05/2022) None Emotional support: Yes Bowel symptoms: No nausea, vomiting, or diarrhea, Negative for abdominal discomfort, blood in stools or black stools and change in bowel habits Abdomen: N/A Bladder symptoms: No dysuria, gross hematuria, urinary frequency, urinary urgency, or incontinence Other issues: None Last Pap: 2020 normal HPV: N/A PAST MEDICAL HISTORY Diagnosis Date Abnormal Pap smear of cervix AGE 13 Asthma NO MEDICATIONS SINCE AGE 1 Attention deficit disorder with hyperactivity(314.01) 2004 Chlamydia Dysthymic disorder Depression (non-psychotic) Gestational diabetes mellitus, class A1 02/06/2022 Gonorrhea 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 Miscarriage September 2010 depression PAST SURGICAL HISTORY Procedure Laterality Date DILATION & CURETTAGE DX&/THER NONOBSTETRIC September 2010 FAMILY HISTORY Problem Relation Age of Onset Heart Mother Asthma Mother Mom's side of family other (tumors) Mother neurofibromytosis Heart Father Neurofibromatosis Sister Neurofibromatosis Sister Neurofibromatosis Brother Heart Maternal Grandmother No Known Problems Maternal Grandfather No Known Problems Paternal Grandmother No Known Problems Paternal Grandfather No Known Problems Son No Known Problems Daughter Social History Tobacco Use Smoking status: Former Smoker Packs/day: 0.50 Years: 4.00 Pack years: 2.00 Quit date: 12/24/2019 Years since quittin.3 Smokeless tobacco: Former User Quit date: 08/01/2016 Vaping Use Vaping Use: Some days Substances: Nicotine, CBD, Flavoring Devices: Refillable tank Substance Use Topics Alcohol use: Not Currently Comment: Occasionally Drug use: Yes Types: Marijuana, Amphetamines Comment: denies any amphetamine use since 2019. Still using Marijuana PHYSICAL EXAMINATION: LMP 06/12/2021 BP 120/72 Wt 228 lb (103.4 kg) LMP 06/12/2021 BMI 35.71 kg/m GENERAL: pleasant, female in no apparent distress HEENT: Normocephalic, atraumatic, mucus membranes moist and no lesions NECK: Supple and full range of motion DERMATOLOGY: Normal and without lesions BREAST: soft, non-tender, symmetric, no dominant mass, normal nipple-areolar complex, no lymphadenopathy and no nipple discharge CHEST: Normal inspiratory effort ABDOMEN: soft, non-tender and no masses. INCISION: N/A PELVIC: external genitalia normal, normal Bartholin's glands, urethra, Aspen's glands, no vulvar lesions, no cervical lesions, good vaginal support, physiologic discharge present, normal appearing perineal body and perianal region BIMANUAL: uterus normal size, shape and consistency, no adnexal masses and non-tender NEURO: alert and oriented x3,exam grossly non-focal EXTREMITIES: normal ASSESSMENT AND PLAN: 26 year old status post Vacuum with normal course. Contraception plan: Oral contraceptives I discussed with the patient the risks, benefits, mechanism of action and alternatives to combined hormonal contraceptive use. No medical contraindications. Reviewed risk of blood clot, stroke and heart attack with hormonal contraception. Reviewed warning signs ACHES. Discussed stopping control 4 weeks prior to scheduled surgery if will be immobile. I reviewed with her the administration options and when to start. Her questions were answered and she desired to start. Follow up: Would like Tubal Ligation, Title 19 signed. Will need to schedule. Reviewed getting 2hr GCT due to with GDM. Roseann Paul APRN.CNM documented in this encounter [facility] 04-08-2022 Instructions Roseann Paul APRN.YAIRM - 04/08/2022 3:51 PM EDT [facility] control is a way for men and women to prevent . There are many different methods of control. By learning more about them, you can decide which method is right for you and your partner. If you are sexually active and don't want a baby, don't wait to use control. An unwanted can happen anytime you have unprotected sex. The following list describes a number of control methods. Before you choose a method, you should discuss control with you partner and health care provider. control methods are only effective is used properly. Make sure that you understand how to correctly use the method you choose. MALE CONDOM - The male condom, or rubber, is a thin covering made of latex, plastic or animal membrane that is rolled over an erect penis. The covering prevents semen, the fluid that contains sperm, from entering a woman's vagina. Latex condoms are best for most people. Use plastic (Graciela) condoms if you or your partner is allergic to latex. Condoms made from animal skins may not provide good protection from sexually transmitted diseases. The condom is rolled over the erect penis before sexual activity begins. If the condom does not have a built-in nipple, leave a 1/4 inch of the condom free at the tip of the penis so that semen has a place to collect. A new condom must be used each time you have sex. For the best protection, condoms should be used with a spermicidal foam or jelly. The condom must be in place before the penis gets near the vagina. Condoms can be purchased at most drug stores. Condoms are also sold in vending machines in restrooms. Condoms are about 85% effective. With careful use, they are even more effective. Latex condoms provide protection from sexually transmitted diseases by preventing the infected area from coming into contact with the partner. Use only water-based lubricants, such as K-Y Jelly. Oil-based lubricants (Vaseline) can cause condoms to leak or break. FEMALE CONDOM - The female condom is a lubricated polyurethane (plastic) tube that has a flexible ring at each end. One end of the tube is closed. Before sexual activity begins, the woman inserts the condom into her vagina so that the closed end of the tube covers the cervix and the other end slightly covers the labia (lips on the outside of the vagina.) The condom blocks sperm from entering the womb. Like the male condom, the female condom is available at drugstores without a prescription. The female condom is about 75% effective. Female condoms provide some protection against sexually transmitted diseases, but the male condom provides the best protection. SPERMICIDE - Spermicides are foams, jellies, tablets, or suppositories that a woman places in her vagina and up next to the cervix (the opening leading from the vagina to the womb) before sex. Spermicides block the cervix and paralyze the sperm, making them unable to travel into the womb. To use a spermicide, the woman places the spermicide inside the vagina within an hour before intercourse. More spermicide must be used each time you have sex. Follow the directions on the package carefully. can be purchased at most drugstores. Be careful not to confuse them with feminine hygiene products such as douche or lubricants. are 70-80 percent effective. have a high failure rate because they are often used incorrectly. Used correctly and together, spermicides and condoms are about 97 percent effective. Do not douche for at least eight hours after sex when using a spermicide. You can wear a feminine pad to absorb spermicide that comes out. DIAPHRAGM - The diaphragm is a round piece of flexible rubber with a rigid rim. The woman places the diaphragm in her vagina and against her cervix. The diaphragm prevents semen from entering the womb. Spermicide must be used with the diaphragm. Spermicide is put in and around the rim of the diaphragm no more than two hours before intercourse. The diaphragm is then inserted into the vagina. More spermicide should be inserted into the vagina each time you have sex. You must visit your health care provider to get a diaphragm. You will get a pelvic exam so that you can be fitted for a diaphragm that is right for you. The diaphragm is 82 to 94 percent effective. Remember, do not remove the diaphragm for at least eight hours after intercourse. CERVICAL CAP - The cervical cap is a thimble-shaped cup made out of plastic and fits snugly over the uterus. It is used the same way as the diaphragm. The woman coats the cup with spermicide and inserts the cap into her vagina and up to her cervix before sex. The cap blocks the cervix and paralyzes the sperm. More spermicide must be inserted into the vagina each time you have sex.(Do not remove the cap each time you have sex.) To get a cervical cap you must visit your healthcare provider and get a pelvic exam so that you can be fitted for a cervical cap. The cervical cap is 82 to 94 percent effective. Do not remove the cervical cap for at least eight hours after intercourse. The cap can be kept in place for up to 48 hours, but spermicide must be applied inside the vagina no more than two hours before sex. IUD - An IUD, or intrauterine device, is a small, plastic, flexible, T-shaped device that is placed into the uterus (womb). There are several types of IUDs. One type, ParaGard T380A, can be kept in place for ten years. Another type, Progestasert, contains a hormone that is released into the womb over a one-year period and must be replaced each year. Once the IUD has been inserted, the woman does not need to take any further steps to prevent . To get an IUD, you must get a pelvic exam. The IUD is placed into the uterus through the cervix by a trained healthcare provider. The IUD is 99.9 percent effective. IUDs rarely cause serious side effects when used in a monogamous relationship (having only one sex partner). Side effects include PID (pelvic inflammatory disease), painful and heavy periods, backaches, and headaches. Discuss these side effects with your healthcare provider. CONTROL PILLS - The Pill is a medication that women take to prevent . The Pill comes in the form of a pill pack that contains enough pills for one month of protection. A pill is taken at the same time every day for 21 to 28 days in a row, depending on the type of pill that is ordered for you. Most pill packs begin on the first Friday of your period, whether or not you are still menstruating. Follow your health care provider's instructions for how to take the pill. To get the Pill, your healthcare provider must order/prescribe it for you. The Pill is 99 percent effective. You should use an additional form of control for the first month you are on the pill. The Pill can cause minor and/or serious side effects. You should discuss these side effects with your healthcare provider. The Pill is not recommended for women who are over 35 years of age and smoke, but it can be used until menopause if you don't smoke cigarettes. NORPLANT - Norplant is six match-sized rubber capsules that are surgically implanted underneath the skin of the upper arm of the woman. The sticks contain the hormone progestin, which releases slowly into the body and prevents for up to five years. No additional steps are needed to use Norplant correctly. Twenty-four hours after Norplant is inserted, the woman is protected. Norplant must be ordered and implanted by a healthcare provider. Norplant is over 99 percent effective. Norplant can be used by some women who for medical reasons are unable to take the Pill. Serious side effects can occur, including spotting, headaches, depression, acne, changes in appetite, weight gain and excessive growth of facial and body hair. You should discuss these side effects with your healthcare provider. Women usually stop having periods several months after Norplant is implanted. DEPO-PROVERA - Depo-Provera is a form of the hormone progestin. It is given as an injection into the woman's buttocks or arm. Each injection provides protection against for 12 weeks. Depo-Provera must be ordered and given by a healthcare provider. Depo-Provera is 99 percent effective. Depo-Provera has side effects similar to Norplant and the Pill. Fifty percent of women who use Depo-Provera for more than a year stop getting their periods while on the medication. RHYTHM - A woman practices rhythm, or natural family planning, by learning to recognize the days she is fertile and abstaining from sex before and during those days. Methods include keeping track of changes in body temperature and vaginal discharge (fluid from the vagina). Your healthcare provider can describe how to practice natural family planning. The Rhythm method is 53 percent effective. Natural family planning can also be used to help a woman get by pinpointing her most fertile times. It also has no side effects and is inexpensive. The rhythm method does not work for all couples. Women who have regular menstrual cycles and who are very careful about when they have sex usually find it to be effective. Women who have irregular cycles and who are not so careful often end up becoming . ABSTINENCE - Of course, the best way to avoid getting is to not have sex. Abstinence is not having sex. You may not be ready to have sex. Don't let someone pressure you into having sex if you don't feel ready. This hand-out does not include all methods of control. Other methods include surgical sterilization for men and women. Ask your healthcare provider for more information about specific control methods or contact your local [facility]. This information is not intended to replace the medical advice of your doctor or healthcare provider. Please consult your healthcare provider for advice about a specific medical condition. documented in this encounter [facility] 04-08-2022 History of Present illness Narrative EARLY VISIT Leesa Mobley is a 26 year old here for 2 week visit. Delivery Summary: Delivery information: Delivery date 03/23/2022 Delivery type VAVD Delivering clinician : Name Jarocho Gomez ROS: General: Denies any fever or chills Hypertension Screening: Headache? No. Visual Changes? No Epigastric Pain? No Increased Swelling? No Taking any BP medications at home? No If applicable, monitoring BP at home? (If Yes, include results) NA Mood: sad Depression: denies symptoms of depression. OB Depression and Anxiety Screening- This Encounter (since 04/07/2022) None Feeding: Breast and bottle feeding problems: None Bladder: No dysuria, gross hematuria, urinary frequency, urinary urgency, or incontinence Bowel symptoms: Negative for abdominal discomfort, blood in stools or black stools and change in bowel habits Abdomen: N/A Bleeding: spotting Bottom and Perineum: No issues Sleep: no sleep concerns, feels rested [employer] since delivery: Resumed Emotional support: Yes Exercise: N/A Other issues: None PHYSICAL EXAMINATION: LMP 06/12/2021 BP 102/70 Wt 232 lb (105.2 kg) LMP 06/12/2021 Yes BMI 36.34 kg/m General: pleasant,female in no apparent distress, A&O x 3. Skin warm and intact. Breast: Deferred Abdomen: Deferred /Incision: N/A Pelvic: Deferred Bimanual: Deferred ASSESSMENT AND PLAN: 1. 26 year old status post with normal course. 2. Contraception plan: IUD - Mirena. Reinforced 6-week pelvic rest. Encouraged condom usage should patient deviate. 3. Education: resources provided - see MA/RN note 4. Switched to paxil and doing well 5. Had intercourse, requested Plan B, unprotected intercourse. Reviewed wearing condom for protection. Follow up: Return to Clinic for 6 week visit and as needed Roseann Paul APRN.CNM documented in this encounter [facility] 04-01-2022 History of Present illness Narrative Patient presents with: Follow Up: wants to get back on medications HPI: Patient presents today for office visit for follow up . Wants back on meds. Previously had been on wellbutrin and celexa. She has been off of wellbutrin since July of last year. lexapro has been off since October. Has been overall ok since delivery. Has had a rougher days. She is concerned about depression. No suicidal ideation. Anxiety is very high. Her mother last year as well. Discussed ssri as the option to choose. Since she has been off would try treating her as a new start. Aware of risks and benefits of meds. Explained zoloft or paxil are the preferred breast feeding ssr's. She did not like zoloft in the past. Has been noticing excessive hair growth. Has been there before the . No issues getting . Just delivered a week ago. We discussed considering labs at some point but would wait until further out from . MEDICATIONS: Current Outpatient Medications Medication Sig Zinc 50 mg tab Take 50 mg by mouth once daily. ergocalciferol, vitamin D2, (VITAMIN D2 ORAL) Take by mouth. ascorbic acid (VITAMIN C ORAL) Take by mouth. Mhwzfbsz-Gj-Tvj-Fe-FA tab Take 1 tablet by mouth once daily. With folic acid and dha as covered by insurance Biotin 1 mg tab Take 1 tablet by mouth. L. gasseri-B. bifidum-B longum (PROBIOTIC COLON SUPPORT) 1.5 billion cell cap Take by mouth. blood sugar diagnostic test strip 1 Strip four times daily. Use as instructed Lancets lancets 1 Each four times daily. Use as instructed aspirin, enteric coated (ASPIRIN LOW DOSE) 81 mg EC tablet Take 81 mg by mouth once daily. ondansetron orally disintegrating (ZOFRAN ODT) 4 mg disintegrating tablet Take 1 tablet by mouth every 8 hours as needed for nausea/vomiting. DISSOLVE ON TONGUE No current facility-administered medications for this visit. 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 Miscarriage September 2010 depression PAST SURGICAL HISTORY Procedure Laterality Date DILATION & CURETTAGE DX&/THER NONOBSTETRIC September 2010 FAMILY HISTORY Problem Relation Age of Onset Heart Mother Asthma Mother Mom's side of family other (tumors) Mother neurofibromytosis Heart Father Neurofibromatosis Sister Neurofibromatosis Sister Neurofibromatosis Brother Heart Maternal Grandmother No Known Problems Maternal Grandfather No Known Problems Paternal Grandmother No Known Problems Paternal Grandfather No Known Problems Son No Known Problems Daughter Social History Tobacco Use Smoking status: Former Smoker Packs/day: 0.50 Years: 4.00 Pack years: 2.00 Quit date: 12/24/2019 Years since quittin.2 Smokeless tobacco: Former User Quit date: 08/01/2016 Vaping Use Vaping Use: Some days Substances: Nicotine, CBD, Flavoring Devices: Ref51fanli tank Substance Use Topics Alcohol use: Not Currently Comment: Occasionally Drug use: Yes Types: Marijuana, Amphetamines Comment: denies any amphetamine use since 2019. Still using Marijuana Reviewed current medications, allergies, past medical history, surgical history, family history and social history today. REVIEW OF SYSTEMS All other reviewed and negative other than HPI. VITALS: BP 110/72 Pulse 96 Wt 108 kg (238 lb) LMP 06/12/2021 Yes BMI 37.28 kg/m Last 4 Encounter Wt Readings: Date: Wt: 04/01/2022 108 kg (238 lb) 03/18/2022 118.4 kg (261 lb) 03/11/2022 118.8 kg (261 lb 12.8 oz) 03/04/2022 117.2 kg (258 lb 6.4 oz) PHYSICAL EXAMINATION: General appearance: Well appearing, alert, in no acute distress, well-hydrated, well nourished. Skin: Skin color, texture, turgor normal, no suspicious rashes or lesions Head: Normocephalic, no masses, lesions, tenderness or abnormalities Lungs: Lungs clear to auscultation. No wheezing, rhonchi, rales Heart: RRR without murmur, gallop, or rubs. No ectopy Abdomen: Normal abdominal exam, Abdomen soft, non-tender. Bowel sounds normal. No masses, organomegaly Extremities: No deformities, edema, skin discoloration, clubbing or cyanosis. Good capillary refill. ASSESSMENT/PLAN: 1. 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 Advised them to call if any side effects or questions. - PAROXETINE 20 MG TABLET Kendall Oakley RTO in one month and prn. documented in this encounter [facility] 03-29-2022 Miscellaneous Notes Patient notified. Scheduled OV Friday04/01/22. If breast feeding. Since has been off meds, recommend she come in to discuss and evaluate Yes patient is breast feeding. Is she breast feeding? Patient has been identified by name and date of : Yes Pending Prescriptions Disp Refills ESCITALOPRAM 10 MG TABLET 30 tablet 5 Sig: Take 1 tablet by mouth once daily. KARYNA: No BUPROPION XL 150 MG TAB 30 tablet 5 Sig: Take 1 tablet by mouth once daily. KARYNA: No RX INSTRUCTIONS: patient just had baby 03/23/22 was not taking during , she is high risk for post and would like to go back on meds. Patient aware RX will be sent to pharmacy. No need to notify patient. Sophia Elizondo documented in this encounter [facility] 03-26-2022 History of Present illness Narrative Patient delivered via VAVD by Dr. Alicea on 03/23/22 at [facility]. See OB history. Janine Lamar RN documented in this encounter [facility] 03-18-2022 Miscellaneous Notes SW- Pt doing well. No GLOVER, vision changes, upper abd pain, regular ctx, vb, lof. Good FM. Desires IOL this Friday. PE: Gen- NAD, well appearing Abd- Soft, gravid, NT Ext- No edema See flowsheet A/p 38 wk gestation - A1GDM: Pt forgot BG log today. She reports majority WNL. Growth US and BPP today. Recommend 39 wk IOL - Delivery plan: Discussed r/b/a to 39 wk IOL. Pt desires to proceed with induction on Friday and consent signed. She is aware induction could be bumped to a later date. julio cesar Rivera induction - Membrane sweep performed today per pt request after discussion of r/b/a - BP normal today and no evidence of pre eclampsia - RTO Lexii Fong DO documented in this encounter [facility] 03-18-2022 Instructions Iraida Hale MA - 03/18/2022 9:04 AM EDT SEQUENTIAL SCREENINGS The [facility] offers sequential screenings for women who are interested in screenings for chromosomal abnormalities and certain defects during a . The sequential screen combines ultrasound and blood tests to determine the risk of chromosomal abnormalities, including Down's Syndrome (Trisomy 21) and Trisomy 18, as well as open neural tube defects including spina bifida. Ultrasound examination is performed between 11 weeks and 13 weeks gestational age. Blood tests are drawn after the ultrasound and again later in the between 15 and 21 weeks gestational age. Please let your physician know if you are interested in this testing. It will require an appointment with our registered dietetic technician. This is not an ultrasound performed by a physician in our office during a routine visit. SIGNS AND SYMPTOMS OF LABOR 1. Contractions every 10 minutes or more often 2. Clear, pink, or brownish fluid (water) leaking from vagina 3. Feeling that baby is pushing down, pressure 4. Low, dull backache 5. Cramps that feel like a period 6. Cramps with or without diarrhea If you notice any of the above symptoms, contact our office at [phone] and ask to speak with a nurse. After hours, you can call doctors registry at [phone] OR call [facility] at [phone] and ask to have the doctor personal lines insurance advisor paged. If you consider this an emergency, dial [phone] or go to your nearest emergency department. NEED HELP? Are you dealing with a violent or abusive relationship? Are you a victim of rape or sexual assult? Call [facility] ([place]) 24 hour Crisis Hotline: 654.658.2137 or 365-194-6015. MANUAL Your Guide to a Healthy manual is now on-line. Visit [email or web address] to download your free copy documented in this encounter [facility] 03-11-2022 Miscellaneous Notes LUS: Leesa Mobley is a 26 year old female who presents at 37w3d with ZAC: 03/29/2022, by Ultrasound for a routine visit. Good FM. Denies headache, visual changes, chest pain, shortness of breath, vaginal bleeding, leakage of fluid, or dysuria. Feeling well, no complaints. O: See flow sheet Gen: No apparent distress Abd: Gravid, nontender BS log for review, 4 of 7 FBS elevated 109, 109, 112, 112. Ate poorly due to Easter. All 2hr PP wnl ASSESSMENT/PLAN: 1. 37 weeks gestation of 2. Gestational diabetes mellitus, class A1 3. Obesity complicating , third trimester P: 1) Labor instructions reviewed and when to call 2) RTO in one week 3) Discussed to send BS log in 3 days to for review. Discussed close to delivery 4) Growth US with BPP in one week 5) IOL at 39 weeks due to obesity, probable CHTN, GDMA1. Will schedule next visit. Requesting IOL on 03/22/22. 6) BP stable, no signs of Preeclampsia. Continues ASA Roseann Paul APRN.CNM documented in this encounter [facility] 03-11-2022 Instructions Iraida Hale MA - 03/11/2022 9:01 AM EDT SEQUENTIAL SCREENINGS The [facility] offers sequential screenings for women who are interested in screenings for chromosomal abnormalities and certain defects during a . The sequential screen combines ultrasound and blood tests to determine the risk of chromosomal abnormalities, including Down's Syndrome (Trisomy 21) and Trisomy 18, as well as open neural tube defects including spina bifida. Ultrasound examination is performed between 11 weeks and 13 weeks gestational age. Blood tests are drawn after the ultrasound and again later in the between 15 and 21 weeks gestational age. Please let your physician know if you are interested in this testing. It will require an appointment with our registered dietetic technician. This is not an ultrasound performed by a physician in our office during a routine visit. SIGNS AND SYMPTOMS OF LABOR 1. Contractions every 10 minutes or more often 2. Clear, pink, or brownish fluid (water) leaking from vagina 3. Feeling that baby is pushing down, pressure 4. Low, dull backache 5. Cramps that feel like a period 6. Cramps with or without diarrhea If you notice any of the above symptoms, contact our office at [phone] and ask to speak with a nurse. After hours, you can call doctors registry at [phone] OR call [facility] at [phone] and ask to have the doctor personal lines insurance advisor paged. If you consider this an emergency, dial [phone] or go to your nearest emergency department. NEED HELP? Are you dealing with a violent or abusive relationship? Are you a victim of rape or sexual assult? Call [facility] ([place]) 24 hour Crisis Hotline: 920.697.8731 or 977-422-2098. MANUAL Your Guide to a Healthy manual is now on-line. Visit [email or web address] to download your free copy documented in this encounter [facility] 03-04-2022 History of Present illness Narrative NST SUMMARY PROVIDER ASSESSMENT AND INTERPRETATION Indications for NST: Gestational Diabetes - Diet Controlled and Obesity Baseline: 150 Variability: Moderate Accelerations: Present 15 X 15 Decelerations: None Interpretation: Reactive SIGNATURE: Lexii Fong DO documented in this encounter [facility] 03-04-2022 Miscellaneous Notes SW- Having off and on GLOVER's. Took Tylenol today and GLOVER resolved. No GLOVER currently. No vision changes or upper abd pain. Having cramping and pressure. No lof, vb, regular ctx. Good FM. Feeling clammy but no fevers, chills. PE: Gen- NAD, well appearing, comfortable Abd- Soft, gravid, NT See flowsheet A/p 36 wk gestation - Likely undiagnosed cHTN: BP normal today and no proteinuria. No signs or symptoms of pre eclampsia today and discussed warning symptoms of pre e/reasons to call - A1GDM: She did not bring BG log today. Discussed sending a my chart message today with log. She says she had one elevated fasting at 111 but otherwise fasting and postprandials are WNL. Had growth US. Recommend weekly NST's given she is not checking BG 4x daily, likely cHTN and obesity. NST reactive today. Recommend daily FKC's - Pt states she will refuse care from certain providers if she comes in in labor. Discussed rotating through providers, and that the personal lines insurance advisor provider is who attends the delivery. Discussed option for seeing another practice if she does not feel comfortable with providers here in this office, as we cannot guarantee she will have a certain provider for delivery. Did discuss 39 wk IOL - Weekly visits and NST Lexii Fong DO documented in this encounter [facility] 03-04-2022 Instructions Iraida Hale MA - 03/04/2022 10:34 AM EDT SEQUENTIAL SCREENINGS The [facility] offers sequential screenings for women who are interested in screenings for chromosomal abnormalities and certain defects during a . The sequential screen combines ultrasound and blood tests to determine the risk of chromosomal abnormalities, including Down's Syndrome (Trisomy 21) and Trisomy 18, as well as open neural tube defects including spina bifida. Ultrasound examination is performed between 11 weeks and 13 weeks gestational age. Blood tests are drawn after the ultrasound and again later in the between 15 and 21 weeks gestational age. Please let your physician know if you are interested in this testing. It will require an appointment with our registered dietetic technician. This is not an ultrasound performed by a physician in our office during a routine visit. SIGNS AND SYMPTOMS OF LABOR 1. Contractions every 10 minutes or more often 2. Clear, pink, or brownish fluid (water) leaking from vagina 3. Feeling that baby is pushing down, pressure 4. Low, dull backache 5. Cramps that feel like a period 6. Cramps with or without diarrhea If you notice any of the above symptoms, contact our office at [phone] and ask to speak with a nurse. After hours, you can call doctors registry at [phone] OR call [facility] at [phone] and ask to have the doctor personal lines insurance advisor paged. If you consider this an emergency, dial [phone] or go to your nearest emergency department. NEED HELP? Are you dealing with a violent or abusive relationship? Are you a victim of rape or sexual assult? Call [facility] ([facility] 24 hour Crisis Hotline: 668.269.2079 or 991-208-5607. MANUAL Your Guide to a Healthy manual is now on-line. Visit [email or web address] to download your free copy documented in this encounter [facility] 02-28-2022 Miscellaneous Notes DM-Pt seen urgently for cramping. Denies vaginal Bleeding, Leaking fluid, or regular painful contractions. Pt reports good movement. Physical Exam: Gen: female in no apparent distress Abd: soft, Gravid. Non tender to palpation. See flow sheet A/P: @ 35.6 weeks 1) labor reviewed- when to call or come in reviewed with patient 2) Kick counts reviewed 3) f/u as scheduled 4) did not bring BS log with her today- will bring to next visit Daniela Miranda MD documented in this encounter [facility] [place] 02-28-2022 Instructions Wendy Terry Ma - 02/28/2022 2:26 PM EDT SEQUENTIAL SCREENINGS The [facility] [place] offers sequential screenings for women who are interested in screenings for chromosomal abnormalities and certain defects during a . The sequential screen combines ultrasound and blood tests to determine the risk of chromosomal abnormalities, including Down's Syndrome (Trisomy 21) and Trisomy 18, as well as open neural tube defects including spina bifida. Ultrasound examination is performed between 11 weeks and 13 weeks gestational age. Blood tests are drawn after the ultrasound and again later in the between 15 and 21 weeks gestational age. Please let your physician know if you are interested in this testing. It will require an appointment with our registered dietetic technician. This is not an ultrasound performed by a physician in our office during a routine visit. SIGNS AND SYMPTOMS OF LABOR 1. Contractions every 10 minutes or more often 2. Clear, pink, or brownish fluid (water) leaking from vagina 3. Feeling that baby is pushing down, pressure 4. Low, dull backache 5. Cramps that feel like a period 6. Cramps with or without diarrhea If you notice any of the above symptoms, contact our office at [phone] and ask to speak with a nurse. After hours, you can call doctors registry at [phone] OR call [facility] at [phone] and ask to have the doctor personal lines insurance advisor paged. If you consider this an emergency, dial [phone]- or go to your nearest emergency department. NEED HELP? Are you dealing with a violent or abusive relationship? Are you a victim of rape or sexual assult? Call [facility] ([place]) 24 hour Crisis Hotline: 783.272.2384 or 874-160-3281. MANUAL Your Guide to a Healthy manual is now on-line. Visit [email or web address] to download your free copy documented in this encounter [facility] [place] 02-28-2022 History of Past i llness Narrative Problem Noted Date Resolved Date Positive GBS test 02/28/2022 05/13/2022 Noncompliant patient in third trimester 02/12/2022 05/13/2022 33 weeks gestation of 02/12/2022 05/13/2022 Gestational diabetes mellitus, class A1 02/07/20 22 05/13/2022 Overview: 02/06/22 Failed 1 hr GTT, did not tolerate 3 hr GTT. BG log x 2 weeks w/ majority of fasting BG elevated. Order placed for diabetic education. SW Abnormal glucose complicating 01/01/20 22 05/13/2022 Overview: 01/01/22: failed 1hr gct, 3hr gtt ordered. Daniela Miranda MD Uterine size-date discrepancy, first trimester 0 08/13/2021 05/13/2022 Overview: 08/13/21-ZAC: 03/29/22 by 7w3d US, inconsistent with LMP. Roseann Paul APRN.CNM Nausea and vomiting in 08/13/2021 05/13/2022 Overview: 08/13/21-Will try Bonjesta for N/V and discussed zofran or reglan for immediate relief. Reviewed r/b/a to both medications. Would like Zofran, handout given. Roseann Paul APRN.YAIRM Subchorionic hemorrhage of placenta in first tri mester 08/13/2021 05/13/2022 Obesity complicating , third trimester 08/06/2021 05/13/2022 Overview: 08/06/21-Prepregnancy BMI 34. Roseann Paul APRN.DOMINIK Supervision of high risk pre gnancy due to social problems, first trimester 08/06/2021 05/13/2022 Spotting in 08/02/2021 05/13/2022 Overview: 08/02/2021atiasmita was seen at [facility] ER on July 31 for brown discharge with cramping. Ultrasound was done that showed intrauterine gestational sac with yolk sac but no pole at 6 weeks 0 days. She has had rising quant's since then. She continues to have spotting every morning. She denies any cramping since her ER visit. She has an appointment on August 06 with Roseann Paul for an ultrasound and new OB. Bleeding precautions given. Patient is to call/come in if bleeding increases, recurrence of pain or PRN problems.TKRN Substance abuse 12/09/2019 02/28/2021 Overview: methamphetamine abuse Supervision of other high-risk (V23.89) 09/01/2013 06/02/2014 Overview: Girl on us September 01, 2013 PNRA NOT done at [facility] due to still w/o insurance. Social issue- pt uncertain of paternity. Anali Duarte MD First trimester bleeding 08/03/2013 013 Overview: 08/03/2013Consuelo has a history of a miscarriage/D&C at age 15 on 10/2010.She noted spotting once on July 28 and went to the [place] ER for evaluation. A quantitative hCG was done and it was 96.9. Patient denies any further bleeding. She denies any cramping or pain. Discussed first trimester bleeding with Dr. Rodriguez. She ordered a repeat quantitative hCG to be done today. Patient is to schedule an ultrasound at the end of the month. TKRN Patient request for diagnostic testing 3 05/13/2022 Overview: 08/06/21-Would like [id number] and carrier screening. Roseann Paul APRN.DOMINIK 08/02/2021 Patient desires nuchal ultrasound and maternity 21 testing. Declines genetic carrier screening testing.TKRN Family history of mental retardation 08/03/2013 01/02/2017 Overview: 08/03/2013 patient's aunt with mental retardation TKRN Supervision of other normal 03/04/2012 06/19/2012 Overview: Boy on [facility] Tobacco smoking complicating 2 06/02/2014 Overview: Cutting back 08/03/2013Pt smokes 1-2 cigarettes a day, down from 5 cigarettes a day. Discussed risks of smoking during . Advised pt to quit. Information on the [place] tobacco quit Given to the patient. TKRN Onychia and paronychia of toe 04/28/2006 documented as of this encounter (statuses as of 05/13/2022) [facility] [place]04-07-2022 History of Past illness Narrative* Problem Noted Date Resolved Date Positive GBS test 02/28/2022 05/13/2022 Noncompliant patient in third trimester 02/12/2022 05/13/2022 33 weeks gestation of 02/12/2022 05/13/2022 Gestational diabetes mellitus, class A1 02/07/20 22 05/13/2022 Overview: 02/06/22 Failed 1 hr GTT, did not tolerate 3 hr GTT. BG log x 2 weeks w/ majority of fasting BG elevated. Order placed for diabetic education. SW Abnormal glucose complicating 01/01/20 22 05/13/2022 Overview: 01/01/22: failed 1hr gct, 3hr gtt ordered. Daniela Miranda MD Uterine size-date discrepancy, first trimester 0 08/13/2021 05/13/2022 Overview: 08/13/21-ZAC: 03/29/22 by 7w3d US, inconsistent with LMP. Roseann Paul APRN.CNM Nausea and vomiting in 08/13/2021 05/13/2022 Overview: 08/13/21-Will try Bonjesta for N/V and discussed zofran or reglan for immediate relief. Reviewed r/b/a to both medications. Would like Zofran, handout given. Roseann Paul APRN.DOMINIK Subchorionic hemorrhage of placenta in first tri mester 08/13/2021 05/13/2022 Obesity complicating , third trimester 08/06/2021 05/13/2022 Overview: 08/06/21-Prepregnancy BMI 34. Roseann Paul APRN.DOMINIK Supervision of high risk pre gnancy due to social problems, first trimester 08/06/2021 05/13/2022 Spotting in 08/02/2021 05/13/2022 Overview: 1Patient was seen at [facility] ER on July 31 for brown discharge with cramping. Ultrasound was done that showed intrauterine gestational sac with yolk sac but no pole at 6 weeks 0 days. She has had rising quant's since then. She continues to have spotting every morning. She denies any cramping since her ER visit. She has an appointment on August 06 with Roseann Paul for an ultrasound and new OB. Bleeding precautions given. Patient is to call/come in if bleeding increases, recurrence of pain or PRN problems.TKRN Substance abuse 12/09/2019 02/28/2021 Overview: methamphetamine abuse Supervision of other high-risk (V23.89) 09/01/2013 06/02/2014 Overview: Girl on us September 01, 2013 PNRA NOT done at [facility] due to still w/o insurance. Social issue- pt uncertain of paternity. Anali Duarte MD First trimester bleeding 08/03/2013 013 Overview: 08/03/2013Denishae has a history of a miscarriage/D&C at age 15 on 10/2010.She noted spotting once on July 28 and went to the [place] ER for evaluation. A quantitative hCG was done and it was 96.9. Patient denies any further bleeding. She denies any cramping or pain. Discussed first trimester bleeding with Dr. Rodriguez. She ordered a repeat quantitative hCG to be done today. Patient is to schedule an ultrasound at the end of the month. TKRN Patient request for diagnostic testing 3 05/13/2022 Overview: 08/06/21-Would like [id number] and carrier screening. Roseann Paul APRN.[facility] 08/02/2021 Patient desires nuchal ultrasound and maternity 21 testing. Declines genetic carrier screening testing.TKRN Family history of mental retardation 08/03/2013 01/02/2017 Overview: 08/03/2013 patient's aunt with mental retardation TKRN Supervision of other normal 03/04/2012 06/19/2012 Overview: Boy on [facility] [place] Tobacco smoking complicating 2 06/02/2014 Overview: Cutting back 08/03/2013Pt smokes 1-2 cigarettes a day, down from 5 cigarettes a day. Discussed risks of smoking during . Advised pt to quit. Information on the [place] tobacco quit Given to the patient. TKRN Onychia and paronychia of toe 04/28/2006 documented as of this encounter (statuses as of 05/28/2022) [facility] [place]04-07-2022 History of Past illness Narrative* Problem Noted Date Resolved Date Positive GBS test 02/28/2022 05/13/2022 Noncompliant patient in third trimester 02/12/2022 05/13/2022 33 weeks gestation of 02/12/2022 05/13/2022 Gestational diabetes mellitus, class A1 02/07/2005/13/2022 Overview: 02/06/22 Failed 1 hr GTT, did not tolerate 3 hr GTT. BG log x 2 weeks w/ majority of fasting BG elevated. Order placed for diabetic education. SW Abnormal glucose complicating 01/01/20 22 05/13/2022 Overview: 01/01/22: failed 1hr gct, 3hr gtt ordered. Daniela Miranda MD Uterine size-date discrepancy, first trimester 0 08/13/2021 05/13/2022 Overview: 08/13/21-ZAC: 03/29/22 by 7w3d US, inconsistent with LMP. Roseann Paul APRN.DOMINIK Nausea and vomiting in 08/13/2021 05/13/2022 Overview: 08/13/21-Will try Bonjesta for N/V and discussed zofran or reglan for immediate relief. Reviewed r/b/a to both medications. Would like Zofran, handout given. Roseann Paul APRN.CNM Subchorionic hemorrhage of placenta in first tri mester 08/13/2021 05/13/2022 Obesity complicating , third trimester 08/06/2021 05/13/2022 Overview: 08/06/21-Prepregnancy BMI 34. Roseann Paul APRN.DOMINIK Supervision of high risk pre gnancy due to social problems, first trimester 08/06/2021 05/13/2022 Spotting in 08/02/2021 05/13/2022 Overview: 08/02/2021atient was seen at [facility] ER on July 31 for brown discharge with cramping. Ultrasound was done that showed intrauterine gestational sac with yolk sac but no pole at 6 weeks 0 days. She has had rising quant's since then. She continues to have spotting every morning. She denies any cramping since her ER visit. She has an appointment on August 06 with Roseann Paul for an ultrasound and new OB. Bleeding precautions given. Patient is to call/come in if bleeding increases, recurrence of pain or PRN problems.TKRN Substance abuse 12/09/2019 02/28/2021 Overview: methamphetamine abuse Supervision of other high-risk (V23.89) 09/01/2013 06/02/2014 Overview: Girl on us September 01, 2013 PNRA NOT done at [facility] due to still w/o insurance. Social issue- pt uncertain of paternity. Anali Duarte MD First trimester bleeding 08/03/2013 013 Overview: 08/03/2013Denishae has a history of a miscarriage/D&C at age 15 on 10/2010.She noted spotting once on July 28 and went to the [place] ER for evaluation. A quantitative hCG was done and it was 96.9. Patient denies any further bleeding. She denies any cramping or pain. Discussed first trimester bleeding with Dr. Rodriguez. She ordered a repeat quantitative hCG to be done today. Patient is to schedule an ultrasound at the end of the month. TKRN Patient request for diagnostic testing 3 05/13/2022 Overview: 08/06/21-Would like [id number] and carrier screening. Roseann Paul APRN.YAIR 08/02/2021 Patient desires nuchal ultrasound and maternity 21 testing. Declines genetic carrier screening testing.TKRN Family history of mental retardation 08/03/2013 01/02/2017 Overview: 08/03/2013 patient's aunt with mental retardation TKRN Supervision of other normal 03/04/2012 06/19/2012 Overview: Boy on - [place] Tobacco smoking complicating 2 06/02/2014 Overview: Cutting back 08/03/2013Pt smokes 1-2 cigarettes a day, down from 5 cigarettes a day. Discussed risks of smoking during . Advised pt to quit. Information on the [place] tobacco quit Given to the patient. TKRN Onychia and paronychia of toe 04/28/2006 documented as of this encounter (statuses as of 07/25/2022) [facility] [place]04-07-20[facility] History of Past illness Narrative* Problem Noted Date Resolved Date Positive GBS test 02/28/2022 05/13/2022 Noncompliant patient in third trimester 02/12/2022 05/13/2022 33 weeks gestation of 02/12/2022 05/13/2022 Gestational diabetes mellitus, class A1 02/07/20 22 05/13/2022 Overview: 02/06/22 Failed 1 hr GTT, did not tolerate 3 hr GTT. BG log x 2 weeks w/ majority of fasting BG elevated. Order placed for diabetic education. SW Abnormal glucose complicating 01/01/20 22 05/13/2022 Overview: 01/01/22: failed 1hr gct, 3hr gtt ordered. Daniela Miranda MD Uterine size-date discrepancy, first trimester 0 08/13/2021 05/13/2022 Overview: 08/13/21-ZAC: 03/29/22 by 7w3d US, inconsistent with LMP. Roseann Paul APRN.CNM Nausea and vomiting in 08/13/2021 05/13/2022 Overview: 08/13/21-Will try Bonjesta for N/V and discussed zofran or reglan for immediate relief. Reviewed r/b/a to both medications. Would like Zofrmarion, handout given. Roseann Paul APRN.CNM Subchorionic hemorrhage of placenta in first tri mester 08/13/2021 05/13/2022 Obesity complicating , third trimester 08/06/2021 05/13/2022 Overview: 08/06/21-Prepregnancy BMI 34. Roseann Paul APRN.CNM Supervision of high risk pre gnancy due to social problems, first trimester 08/06/2021 05/13/2022 Spotting in 08/02/2021 05/13/2022 Overview: 08/02/2021atient was seen at [facility] ER on July 31 for brown discharge with cramping. Ultrasound was done that showed intrauterine gestational sac with yolk sac but no pole at 6 weeks 0 days. She has had rising quant's since then. She continues to have spotting every morning. She denies any cramping since her ER visit. She has an appointment on August 06 with Roseann Paul for an ultrasound and new OB. Bleeding precautions given. Patient is to call/come in if bleeding increases, recurrence of pain or PRN problems.TKRN Substance abuse 12/09/2019 02/28/2021 Overview: methamphetamine abuse Supervision of other high-risk (V23.89) 09/01/2013 06/02/2014 Overview: Girl on us September 01, 2013 PNRA NOT done at [facility] due to still w/o insurance. Social issue- pt uncertain of paternity. Anali Duarte MD First trimester bleeding 08/03/2013 013 Overview: 08/03/2013Consuelo has a history of a miscarriage/D&C at age 15 on 10/2010.She noted spotting once on July 28 and went to the [place] ER for evaluation. A quantitative hCG was done and it was 96.9. Patient denies any further bleeding. She denies any cramping or pain. Discussed first trimester bleeding with Dr. Rodriguez. She ordered a repeat quantitative hCG to be done today. Patient is to schedule an ultrasound at the end of the month. TKRN Patient request for diagnostic testing 3 05/13/2022 Overview: 08/06/21-Would like [id number] and carrier screening. Roseann Paul APRN.YAIRM 08/02/2021 Patient desires nuchal ultrasound and maternity 21 testing. Declines genetic carrier screening testing.TKRN Family history of mental retardation 08/03/2013 01/02/2017 Overview: 08/03/2013 patient's aunt with mental retardation TKRN Supervision of other normal 03/04/2012 06/19/2012 Overview: Boy on [facility] Tobacco smoking complicating 2 06/02/2014 Overview: Cutting back 08/03/2013Pt smokes 1-2 cigarettes a day, down from 5 cigarettes a day. Discussed risks of smoking during . Advised pt to quit. Information on the [place] tobacco quit Given to the patient. TKRN Onychia and paronychia of toe 04/28/2006 documented as of this encounter (statuses as of 07/26/2022) [facility] [place]04-[facility] History of Past illness Narrative* Problem Noted Date Resolved Date Positive GBS test 02/28/2022 05/13/2022 Noncompliant patient in third trimester 02/12/2022 05/13/2022 33 weeks gestation of 02/12/2022 05/13/2022 Gestational diabetes mellitus, class A1 02/07/20 22 05/13/2022 Overview: 02/06/22 Failed 1 hr GTT, did not tolerate 3 hr GTT. BG log x 2 weeks w/ majority of fasting BG elevated. Order placed for diabetic education. SW Abnormal glucose complicating 01/01/20 22 05/13/2022 Overview: 01/01/22: failed 1hr gct, 3hr gtt ordered. Daniela Miranda MD Uterine size-date discrepancy, first trimester 0 08/13/2021 05/13/2022 Overview: 08/13/21-ZAC: 03/29/22 by 7w3d US, inconsistent with LMP. Roseann Paul APRN.CNM Nausea and vomiting in 08/13/2021 05/13/2022 Overview: 08/13/21-Will try Bonjesta for N/V and discussed zofran or reglan for immediate relief. Reviewed r/b/a to both medications. Would like Zofran, handout given. Roseann Paul APRN.CNM Subchorionic hemorrhage of placenta in first tri mester 08/13/2021 05/13/2022 Obesity complicating , third trimester 08/06/2021 05/13/2022 Overview: 08/06/21-Prepregnancy BMI 34. Roseann Paul APRN.CNM Supervision of high risk pre gnancy due to social problems, first trimester 08/06/2021 05/13/2022 Spotting in 08/02/2021 05/13/2022 Overview: 1Patient was seen at [facility] ER on July 31 for brown discharge with cramping. Ultrasound was done that showed intrauterine gestational sac with yolk sac but no pole at 6 weeks 0 days. She has had rising quant's since then. She continues to have spotting every morning. She denies any cramping since her ER visit. She has an appointment on August 06 with Roseann Paul for an ultrasound and new OB. Bleeding precautions given. Patient is to call/come in if bleeding increases, recurrence of pain or PRN problems.TKRN Substance abuse 12/09/2019 02/28/2021 Overview: methamphetamine abuse Supervision of other high-risk (V23.89) 09/01/2013 06/02/2014 Overview: Girl on us September 01, 2013 PNRA NOT done at [facility] due to still w/o insurance. Social issue- pt uncertain of paternity. Anali Duarte MD First trimester bleeding 08/03/2013 013 Overview: 08/03/2013Consuelo has a history of a miscarriage/D&C at age 15 on 10/2010.She noted spotting once on July 28 and went to the [place] ER for evaluation. A quantitative hCG was done and it was 96.9. Patient denies any further bleeding. She denies any cramping or pain. Discussed first trimester bleeding with Dr. Rodriguez. She ordered a repeat quantitative hCG to be done today. Patient is to schedule an ultrasound at the end of the month. TKRN Patient request for diagnostic testing 3 05/13/2022 Overview: 08/06/21-Would like [id number] and carrier screening. Roseann Paul APRN.YAIR 08/02/2021 Patient desires nuchal ultrasound and maternity 21 testing. Declines genetic carrier screening testing.TKRN Family history of mental retardation 08/03/2013 01/02/2017 Overview: 08/03/2013 patient's aunt with mental retardation TKRN Supervision of other normal 03/04/2012 06/19/2012 Overview: Boy on - [facility] Tobacco smoking complicating 2 06/02/2014 Overview: Cutting back 08/03/2013Pt smokes 1-2 cigarettes a day, down from 5 cigarettes a day. Discussed risks of smoking during . Advised pt to quit. Information on the [place] tobacco quit Given to the patient. TKRN Onychia and paronychia of toe 04/28/2006 documented as of this encounter (statuses as of 07/26/2022) [facility] [place] History of Past illness Narrative* Problem Noted Date Resolved Date Positive GBS test 02/28/2022 05/13/2022 Noncompliant patient in third trimester 02/12/2022 05/13/2022 33 weeks gestation of 02/12/2022 05/13/2022 Gestational diabetes mellitus, class A1 02/07/20 22 05/13/2022 Overview: 02/06/22 Failed 1 hr GTT, did not tolerate 3 hr GTT. BG log x 2 weeks w/ majority of fasting BG elevated. Order placed for diabetic education. SW Abnormal glucose complicating 01/01/20 22 05/13/2022 Overview: 01/01/22: failed 1hr gct, 3hr gtt ordered. Daniela Miranda MD Uterine size-date discrepancy, first trimester 0 08/13/2021 05/13/2022 Overview: 08/13/21-ZAC: 03/29/22 by 7w3d US, inconsistent with LMP. Roseann Paul APRN.YAIRM Nausea and vomiting in 08/13/2021 05/13/2022 Overview: 08/13/21-Will try Bonjesta for N/V and discussed zofran or reglan for immediate relief. Reviewed r/b/a to both medications. Would like Zofran, handout given. Roseann Paul APRN.CNM Subchorionic hemorrhage of placenta in first tri mester 08/13/2021 05/13/2022 Obesity complicating , third trimester 08/06/2021 05/13/2022 Overview: 08/06/21-Prepregnancy BMI 34. Roseann Paul APRN.CNM Supervision of high risk pre gnancy due to social problems, first trimester 08/06/2021 05/13/2022 Spotting in 08/02/2021 05/13/2022 Overview: 08/02/2021atient was seen at [facility] ER on July 31 for brown discharge with cramping. Ultrasound was done that showed intrauterine gestational sac with yolk sac but no pole at 6 weeks 0 days. She has had rising quant's since then. She continues to have spotting every morning. She denies any cramping since her ER visit. She has an appointment on August 06 with Roseann Paul for an ultrasound and new OB. Bleeding precautions given. Patient is to call/come in if bleeding increases, recurrence of pain or PRN problems.TKRN Substance abuse 12/09/2019 02/28/2021 Overview: methamphetamine abuse Supervision of other high-risk (V23.89) 09/01/2013 06/02/2014 Overview: Girl on us September 01, 2013 PNRA NOT done at [facility] due to still w/o insurance. Social issue- pt uncertain of paternity. Anali Duarte MD First trimester bleeding 08/03/2013 013 Overview: 08/03/2013Denishae has a history of a miscarriage/D&C at age 15 on 10/2010.She noted spotting once on July 28 and went to the [place] ER for evaluation. A quantitative hCG was done and it was 96.9. Patient denies any further bleeding. She denies any cramping or pain. Discussed first trimester bleeding with Dr. Rodriguez. She ordered a repeat quantitative hCG to be done today. Patient is to schedule an ultrasound at the end of the month. TKRN Patient request for diagnostic testing 3 05/13/2022 Overview: 08/06/21-Would like [id number] and carrier screening. Roseann Paul APRN.YAIR 08/02/2021 Patient desires nuchal ultrasound and maternity 21 testing. Declines genetic carrier screening testing.TKRN Family history of mental retardation 08/03/2013 01/02/2017 Overview: 08/03/2013 patient's aunt with mental retardation TKRN Supervision of other normal 03/04/2012 06/19/2012 Overview: Boy on [facility] [place] Tobacco smoking complicating 2 06/02/2014 Overview: Cutting back 08/03/2013Pt smokes 1-2 cigarettes a day, down from 5 cigarettes a day. Discussed risks of smoking during . Advised pt to quit. Information on the [place] tobacco quit Given to the patient. TKRN Onychia and paronychia of toe 04/28/2006 documented as of this encounter (statuses as of 07/26/2022) [facility] History of Past illness Narrative* Problem Noted Date Resolved Date Positive GBS test 02/28/2022 05/13/2022 Noncompliant patient in third trimester 02/12/2022 05/13/2022 33 weeks gestation of 02/12/2022 05/13/2022 Gestational diabetes mellitus, class A1 02/07/2005/13/2022 Overview: 02/06/22 Failed 1 hr GTT, did not tolerate 3 hr GTT. BG log x 2 weeks w/ majority of fasting BG elevated. Order placed for diabetic education. SW Abnormal glucose complicating 01/01/20 22 05/13/2022 Overview: 01/01/22: failed 1hr gct, 3hr gtt ordered. Daniela Miranda MD Uterine size-date discrepancy, first trimester 0 08/13/2021 05/13/2022 Overview: 08/13/21-ZCA: 03/29/22 by 7w3d US, inconsistent with LMP. Roseann Paul APRN.CNM Nausea and vomiting in 08/13/2021 05/13/2022 Overview: 08/13/21-Will try Bonjesta for N/V and discussed zofran or reglan for immediate relief. Reviewed r/b/a to both medications. Would like Zofran, handout given. Roseann Paul APRN.CNM Subchorionic hemorrhage of placenta in first tri mester 08/13/2021 05/13/2022 Obesity complicating , third trimester 08/06/2021 05/13/2022 Overview: 08/06/21-Prepregnancy BMI 34. Roseann Paul APRN.CNM Supervision of high risk pre gnancy due to social problems, first trimester 08/06/2021 05/13/2022 Spotting in 08/02/2021 05/13/2022 Overview: 08/02/2021atient was seen at [facility] ER on July 31 for brown discharge with cramping. Ultrasound was done that showed intrauterine gestational sac with yolk sac but no pole at 6 weeks 0 days. She has had rising quant's since then. She continues to have spotting every morning. She denies any cramping since her ER visit. She has an appointment on August 06 with Roseann Paul for an ultrasound and new OB. Bleeding precautions given. Patient is to call/come in if bleeding increases, recurrence of pain or PRN problems.TKRN Substance abuse 12/09/2019 02/28/2021 Overview: methamphetamine abuse Supervision of other high-risk (V23.89) 09/01/2013 06/02/2014 Overview: Girl on us September 01, 2013 PNRA NOT done at [facility] due to still w/o insurance. Social issue- pt uncertain of paternity. Anali Duarte MD First trimester bleeding 08/03/2013 013 Overview: 08/03/2013Consuelo has a history of a miscarriage/D&C at age 15 on 10/2010.She noted spotting once on July 28 and went to the [place] ER for evaluation. A quantitative hCG was done and it was 96.9. Patient denies any further bleeding. She denies any cramping or pain. Discussed first trimester bleeding with Dr. Rodriguez. She ordered a repeat quantitative hCG to be done today. Patient is to schedule an ultrasound at the end of the month. TKRN Patient request for diagnostic testing 3 05/13/2022 Overview: 08/06/21-Would like [id number] and carrier screening. Roseann Paul APRN.YAIRM 08/02/2021 Patient desires nuchal ultrasound and maternity 21 testing. Declines genetic carrier screening testing.TKRN Family history of mental retardation 08/03/2013 01/02/2017 Overview: 08/03/2013 patient's aunt with mental retardation TKRN Supervision of other normal 03/04/2012 06/19/2012 Overview: Boy on [facility] Tobacco smoking complicating 2 06/02/2014 Overview: Cutting back 08/03/2013Pt smokes 1-2 cigarettes a day, down from 5 cigarettes a day. Discussed risks of smoking during . Advised pt to quit. Information on the [place] tobacco quit Given to the patient. TKRN Onychia and paronychia of toe 04/28/2006 documented as of this encounter (statuses as of 10/16/2022) [facility]04-07-2022 History of Past illness Narrative* Problem Noted Date Resolved Date Positive GBS test 02/28/2022 05/13/2022 Noncompliant patient in third trimester 02/12/2022 05/13/2022 33 weeks gestation of 02/12/2022 05/13/2022 Gestational diabetes mellitus, class A1 02/07/20 22 05/13/2022 Overview: 02/06/22 Failed 1 hr GTT, did not tolerate 3 hr GTT. BG log x 2 weeks w/ majority of fasting BG elevated. Order placed for diabetic education. SW Abnormal glucose complicating 01/01/20 22 05/13/2022 Overview: 01/01/22: failed 1hr gct, 3hr gtt ordered. Daniela Miranda MD Uterine size-date discrepancy, first trimester 0 08/13/2021 05/13/2022 Overview: 08/13/21-ZAC: 03/29/22 by 7w3d US, inconsistent with LMP. Roseann Paul APRN.CNM Nausea and vomiting in 08/13/2021 05/13/2022 Overview: 08/13/21-Will try Bonjesta for N/V and discussed zofran or reglan for immediate relief. Reviewed r/b/a to both medications. Would like Zofran, handout given. Roseann Paul APRN.CNM Subchorionic hemorrhage of placenta in first tri mester 08/13/2021 05/13/2022 Obesity complicating , third trimester 08/06/2021 05/13/2022 Overview: 08/06/21-Prepregnancy BMI 34. Roseann Paul APRN.CNM Supervision of high risk pre gnancy due to social problems, first trimester 08/06/2021 05/13/2022 Spotting in 08/02/2021 05/13/2022 Overview: 1Patient was seen at [facility] ER on July 31 for brown discharge with cramping. Ultrasound was done that showed intrauterine gestational sac with yolk sac but no pole at 6 weeks 0 days. She has had rising quant's since then. She continues to have spotting every morning. She denies any cramping since her ER visit. She has an appointment on August 06 with Roseann Paul for an ultrasound and new OB. Bleeding precautions given. Patient is to call/come in if bleeding increases, recurrence of pain or PRN problems.TKRN Substance abuse 12/09/2019 02/28/2021 Overview: methamphetamine abuse Supervision of other high-risk (V23.89) 09/01/2013 06/02/2014 Overview: Girl on us September 01, 2013 PNRA NOT done at [facility] due to still w/o insurance. Social issue- pt uncertain of paternity. Anali Duarte MD First trimester bleeding 08/03/2013 013 Overview: 08/03/2013Consuelo has a history of a miscarriage/D&C at age 15 on 10/2010.She noted spotting once on July 28 and went to the [place] ER for evaluation. A quantitative hCG was done and it was 96.9. Patient denies any further bleeding. She denies any cramping or pain. Discussed first trimester bleeding with Dr. Rodriguez. She ordered a repeat quantitative hCG to be done today. Patient is to schedule an ultrasound at the end of the month. TKRN Patient request for diagnostic testing 3 05/13/2022 Overview: 08/06/21-Would like [id number] and carrier screening. Roseann Paul APRN.DOMINIK 08/02/2021 Patient desires nuchal ultrasound and maternity 21 testing. Declines genetic carrier screening testing.TKRN Family history of mental retardation 08/03/2013 01/02/2017 Overview: 08/03/2013 patient's aunt with mental retardation TKRN Supervision of other normal 03/04/2012 06/19/2012 Overview: Boy on [facility] Tobacco smoking complicating 2 06/02/2014 Overview: Cutting back 08/03/2013Pt smokes 1-2 cigarettes a day, down from 5 cigarettes a day. Discussed risks of smoking during . Advised pt to quit. Information on the [place] tobacco quit Given to the patient. TKRN Onychia and paronychia of toe 04/28/2006 documented as of this encounter (statuses as of 10/24/2022) [facility]04-07-2022 History of Past illness Narrative* Problem Noted Date Resolved Date Positive GBS test 02/28/2022 05/13/2022 Noncompliant patient in third trimester 02/12/2022 05/13/2022 33 weeks gestation of 02/12/2022 05/13/2022 Gestational diabetes mellitus, class A1 02/07/20 22 05/13/2022 Overview: 02/06/22 Failed 1 hr GTT, did not tolerate 3 hr GTT. BG log x 2 weeks w/ majority of fasting BG elevated. Order placed for diabetic education. SW Abnormal glucose complicating 01/01/20 22 05/13/2022 Overview: 01/01/22: failed 1hr gct, 3hr gtt ordered. Daniela Miranda MD Uterine size-date discrepancy, first trimester 0 08/13/2021 05/13/2022 Overview: 08/13/21-ZAC: 03/29/22 by 7w3d US, inconsistent with LMP. Roseann Paul APRN.YAIRM Nausea and vomiting in 08/13/2021 05/13/2022 Overview: 08/13/21-Will try Bonjesta for N/V and discussed zofran or reglan for immediate relief. Reviewed r/b/a to both medications. Would like Zofran, handout given. Roseann Paul APRN.DOMINIK Subchorionic hemorrhage of placenta in first tri mester 08/13/2021 05/13/2022 Obesity complicating , third trimester 08/06/2021 05/13/2022 Overview: 08/06/21-Prepregnancy BMI 34. Roseann Paul APRN.CNM Supervision of high risk pre gnancy due to social problems, first trimester 08/06/2021 05/13/2022 Spotting in 08/02/2021 05/13/2022 Overview: 1Patient was seen at [facility] ER on July 31 for brown discharge with cramping. Ultrasound was done that showed intrauterine gestational sac with yolk sac but no pole at 6 weeks 0 days. She has had rising quant's since then. She continues to have spotting every morning. She denies any cramping since her ER visit. She has an appointment on August 06 with Roseann Paul for an ultrasound and new OB. Bleeding precautions given. Patient is to call/come in if bleeding increases, recurrence of pain or PRN problems.TKRN Substance abuse 12/09/2019 02/28/2021 Overview: methamphetamine abuse Supervision of other high-risk (V23.89) 09/01/2013 06/02/2014 Overview: Girl on us September 01, 2013 PNRA NOT done at [facility] due to still w/o insurance. Social issue- pt uncertain of paternity. Anali Duarte MD First trimester bleeding 08/03/2013 013 Overview: 08/03/2013Denishae has a history of a miscarriage/D&C at age 15 on 10/2010.She noted spotting once on July 28 and went to the [place] ER for evaluation. A quantitative hCG was done and it was 96.9. Patient denies any further bleeding. She denies any cramping or pain. Discussed first trimester bleeding with Dr. Rodriguez. She ordered a repeat quantitative hCG to be done today. Patient is to schedule an ultrasound at the end of the month. TKRN Patient request for diagnostic testing 3 05/13/2022 Overview: 08/06/21-Would like [id number] and carrier screening. Roseann Paul APRN.YAIR 08/02/2021 Patient desires nuchal ultrasound and maternity 21 testing. Declines genetic carrier screening testing.TKRN Family history of mental retardation 08/03/2013 01/02/2017 Overview: 08/03/2013 patient's aunt with mental retardation TKRN Supervision of other normal 03/04/2012 06/19/2012 Overview: [facility] on [facility] [place] Tobacco smoking complicating 2 06/02/2014 Overview: Cutting back 08/03/2013Pt smokes 1-2 cigarettes a day, down from 5 cigarettes a day. Discussed risks of smoking during . Advised pt to quit. Information on the [place] tobacco quit Given to the patient. TKRN Onychia and paronychia of toe 04/28/2006 documented as of this encounter (statuses as of 02/13/2023) [facility]04-07-2022 History of Past illness Narrative* Problem Noted Date Resolved Date Positive GBS test 02/28/2022 05/13/2022 Noncompliant patient in third trimester 02/12/2022 05/13/2022 33 weeks gestation of 02/12/2022 05/13/2022 Gestational diabetes mellitus, class A1 02/07/20 22 05/13/2022 Overview: 02/06/22 Failed 1 hr GTT, did not tolerate 3 hr GTT. BG log x 2 weeks w/ majority of fasting BG elevated. Order placed for diabetic education. SW Abnormal glucose complicating 01/01/20 22 05/13/2022 Overview: 01/01/22: failed 1hr gct, 3hr gtt ordered. Daniela Miranda MD Uterine size-date discrepancy, first trimester 0 08/13/2021 05/13/2022 Overview: 08/13/21-ZAC: 03/29/22 by 7w3d US, inconsistent with LMP. Roseann Paul APRN.DOMINIK Nausea and vomiting in 08/13/2021 05/13/2022 Overview: 08/13/21-Will try Bonjesta for N/V and discussed zofran or reglan for immediate relief. Reviewed r/b/a to both medications. Would like Zofran, handout given. Roseann Paul APRN.DOMINIK Subchorionic hemorrhage of placenta in first tri mester 08/13/2021 05/13/2022 Obesity complicating , third trimester 08/06/2021 05/13/2022 Overview: 08/06/21-Prepregnancy BMI 34. Roseann Paul APRN.CNM Supervision of high risk pre gnancy due to social problems, first trimester 08/06/2021 05/13/2022 Spotting in 08/02/2021 05/13/2022 Overview: 08/02/2021atiasmita was seen at [facility] ER on July 31 for brown discharge with cramping. Ultrasound was done that showed intrauterine gestational sac with yolk sac but no pole at 6 weeks 0 days. She has had rising quant's since then. She continues to have spotting every morning. She denies any cramping since her ER visit. She has an appointment on August 06 with Roseann Paul for an ultrasound and new OB. Bleeding precautions given. Patient is to call/come in if bleeding increases, recurrence of pain or PRN problems.TKRN Substance abuse 12/09/2019 02/28/2021 Overview: methamphetamine abuse Supervision of other high-risk (V23.89) 09/01/2013 06/02/2014 Overview: Girl on us September 01, 2013 PNRA NOT done at [facility] due to still w/o insurance. Social issue- pt uncertain of paternity. Anali Duarte MD First trimester bleeding 08/03/2013 013 Overview: 08/03/2013Consuelo has a history of a miscarriage/D&C at age 15 on 10/2010.She noted spotting once on July 28 and went to the [place] ER for evaluation. A quantitative hCG was done and it was 96.9. Patient denies any further bleeding. She denies any cramping or pain. Discussed first trimester bleeding with Dr. Rodriguez. She ordered a repeat quantitative hCG to be done today. Patient is to schedule an ultrasound at the end of the month. TKRN Patient request for diagnostic testing 3 05/13/2022 Overview: 08/06/21-Would like [id number] and carrier screening. Roseann Paul APRN.YAIRM 08/02/2021 Patient desires nuchal ultrasound and maternity 21 testing. Declines genetic carrier screening testing.TKRN Family history of mental retardation 08/03/2013 01/02/2017 Overview: 08/03/2013 patient's aunt with mental retardation TKRN Supervision of other normal 03/04/2012 06/19/2012 Overview: Boy on - [place] Tobacco smoking complicating 2 06/02/2014 Overview: Cutting back 08/03/2013Pt smokes 1-2 cigarettes a day, down from 5 cigarettes a day. Discussed risks of smoking during . Advised pt to quit. Information on the [place] tobacco quit Given to the patient. TKRN Onychia and paronychia of toe 04/28/2006 documented as of this encounter (statuses as of 03/10/2023) [facility]04-[facility]-2022 History of Past illness Narrative* Problem Noted Date Resolved Date Positive GBS test 02/28/2022 05/13/2022 Noncompliant patient in third trimester 02/12/2022 05/13/2022 33 weeks gestation of 02/12/2022 05/13/2022 Gestational diabetes mellitus, class A1 02/07/20 22 05/13/2022 Overview: 02/06/22 Failed 1 hr GTT, did not tolerate 3 hr GTT. BG log x 2 weeks w/ majority of fasting BG elevated. Order placed for diabetic education. SW Abnormal glucose complicating 01/01/20 22 05/13/2022 Overview: 01/01/22: failed 1hr gct, 3hr gtt ordered. Daniela Miranda MD Uterine size-date discrepancy, first trimester 0 08/13/2021 05/13/2022 Overview: 08/13/21-ZAC: 03/29/22 by 7w3d US, inconsistent with LMP. Roseann Paul APRN.CNM Nausea and vomiting in 08/13/2021 05/13/2022 Overview: 08/13/21-Will try Bonjesta for N/V and discussed zofran or reglan for immediate relief. Reviewed r/b/a to both medications. Would like Zofran, handout given. Roseann Paul APRN.CNM Subchorionic hemorrhage of placenta in first tri mester 08/13/2021 05/13/2022 Obesity complicating , third trimester 08/06/2021 05/13/2022 Overview: 08/06/21-Prepregnancy BMI 34. Roseann Paul APRN.CNM Supervision of high risk pre gnancy due to social problems, first trimester 08/06/2021 05/13/2022 Spotting in 08/02/2021 05/13/2022 Overview: 08/02/2021atient was seen at [facility] ER on July 31 for brown discharge with cramping. Ultrasound was done that showed intrauterine gestational sac with yolk sac but no pole at 6 weeks 0 days. She has had rising quant's since then. She continues to have spotting every morning. She denies any cramping since her ER visit. She has an appointment on August 06 with Roseann Paul for an ultrasound and new OB. Bleeding precautions given. Patient is to call/come in if bleeding increases, recurrence of pain or PRN problems.TKRN Substance abuse 12/09/2019 02/28/2021 Overview: methamphetamine abuse Supervision of other high-risk (V23.89) 09/01/2013 06/02/2014 Overview: Girl on us September 01, 2013 PNRA NOT done at [facility] due to still w/o insurance. Social issue- pt uncertain of paternity. Anali Duarte MD First trimester bleeding 08/03/2013 013 Overview: 08/03/2013She has a history of a miscarriage/D&C at age 15 on 10/2010.She noted spotting once on July 28 and went to the [place] ER for evaluation. A quantitative hCG was done and it was 96.9. Patient denies any further bleeding. She denies any cramping or pain. Discussed first trimester bleeding with Dr. Rodriguez. She ordered a repeat quantitative hCG to be done today. Patient is to schedule an ultrasound at the end of the month. TKRN Patient request for diagnostic testing 3 05/13/2022 Overview: 08/06/21-Would like [id number] and carrier screening. Roseann Paul APRN.YAIRM 08/02/2021 Patient desires nuchal ultrasound and maternity 21 testing. Declines genetic carrier screening testing.TKRN Family history of mental retardation 08/03/2013 01/02/2017 Overview: 08/03/2013 patient's aunt with mental retardation TKRN Supervision of other normal 03/04/2012 06/19/2012 Overview: Boy on [facility] Tobacco smoking complicating 2 06/02/2014 Overview: Cutting back 08/03/2013Pt smokes 1-2 cigarettes a day, down from 5 cigarettes a day. Discussed risks of smoking during . Advised pt to quit. Information on the [place] tobacco quit Given to the patient. TKRN Onychia and paronychia of toe 04/28/2006 documented as of this encounter (statuses as of 04/23/2023) [facility] History of Past illness Narrative* Problem Noted Date Resolved Date Positive GBS test 02/28/2022 05/13/2022 Noncompliant patient in third trimester 02/12/2022 05/13/2022 33 weeks gestation of 02/12/2022 05/13/2022 Gestational diabetes mellitus, class A1 02/07/20 22 05/13/2022 Overview: 02/06/22 Failed 1 hr GTT, did not tolerate 3 hr GTT. BG log x 2 weeks w/ majority of fasting BG elevated. Order placed for diabetic education. SW Abnormal glucose complicating 01/01/20 22 05/13/2022 Overview: 01/01/22: failed 1hr gct, 3hr gtt ordered. Daniela Miranda MD Uterine size-date discrepancy, first trimester 0 08/13/2021 05/13/2022 Overview: 08/13/21-ZAC: 03/29/22 by 7w3d US, inconsistent with LMP. Roseann Paul APRN.CNM Nausea and vomiting in 08/13/2021 05/13/2022 Overview: 08/13/21-Will try Bonjesta for N/V and discussed zofran or reglan for immediate relief. Reviewed r/b/a to both medications. Would like Zofran, handout given. Roseann Paul APRN.CNM Subchorionic hemorrhage of placenta in first tri mester 08/13/2021 05/13/2022 Obesity complicating , third trimester 08/06/2021 05/13/2022 Overview: 08/06/21-Prepregnancy BMI 34. Roseann Paul APRN.CNM Supervision of high risk pre gnancy due to social problems, first trimester 08/06/2021 05/13/2022 Spotting in 08/02/2021 05/13/2022 Overview: 1Patient was seen at [facility] ER on July 31 for brown discharge with cramping. Ultrasound was done that showed intrauterine gestational sac with yolk sac but no pole at 6 weeks 0 days. She has had rising quant's since then. She continues to have spotting every morning. She denies any cramping since her ER visit. She has an appointment on August 06 with Roseann Paul for an ultrasound and new OB. Bleeding precautions given. Patient is to call/come in if bleeding increases, recurrence of pain or PRN problems.TKRN Substance abuse 12/09/2019 02/28/2021 Overview: methamphetamine abuse Supervision of other high-risk (V23.89) 09/01/2013 06/02/2014 Overview: Girl on us September 01, 2013 PNRA NOT done at [facility] due to still w/o insurance. Social issue- pt uncertain of paternity. Anali Duarte MD First trimester bleeding 08/03/2013 013 Overview: 08/03/2013Denishae has a history of a miscarriage/D&C at age 15 on 10/2010.She noted spotting once on July 28 and went to the [place] ER for evaluation. A quantitative hCG was done and it was 96.9. Patient denies any further bleeding. She denies any cramping or pain. Discussed first trimester bleeding with Dr. Rodriguez. She ordered a repeat quantitative hCG to be done today. Patient is to schedule an ultrasound at the end of the month. TKRN Patient request for diagnostic testing 3 05/13/2022 Overview: 08/06/21-Would like [id number] and carrier screening. Roseann Paul APRN.DOMINIK 08/02/2021 Patient desires nuchal ultrasound and maternity 21 testing. Declines genetic carrier screening testing.TKRN Family history of mental retardation 08/03/2013 01/02/2017 Overview: 08/03/2013 patient's aunt with mental retardation TKRN Supervision of other normal 03/04/2012 06/19/2012 Overview: Boy on - [place] Tobacco smoking complicating 2 06/02/2014 Overview: Cutting back 08/03/2013Pt smokes 1-2 cigarettes a day, down from 5 cigarettes a day. Discussed risks of smoking during . Advised pt to quit. Information on the [place] tobacco quit Given to the patient. TKRN Onychia and paronychia of toe 04/28/2006 documented as of this encounter (statuses as of 05/09/2023) [facility] History of Past illness Narrative* Problem Noted Date Diagnosed Date Resolved Date Positive GBS test 02/28/2022 05/13/2022 Noncompliant patien t in third trimester 02/12/2022 05/13/2022 33 weeks gestation of 02/12/2022 05/13/2022 Gestational diabetes mellitus, class A1 02/06/2022 05/13/2022 Overview: 02/06/22 Failed 1 hr GTT, did not tolerate 3 hr GTT. BG log x 2 weeks w/ majority of fasting BG elevated. Order placed for diabetic education. SW Abnormal glucose complicating 01/01/2022 05/13/2022 Overview: 01/01/22: failed 1hr gct, 3hr gtt ordered. Daniela Miranda MD Uterine size-date discrepanc y, first trimester 08/13/2021 05/13/2022 Overview: 08/13/21-ZAC: 03/29/22 by 7w3d US, inconsistent with LMP. Roseann Paul APRN.CNM Nausea and vomiting in 08/13/2021 05/13/2022 Overview: 08/13/21-Will try Bonjesta for N/V and discussed zofran or reglan for immediate relief. Reviewed r/b/a to both medications. Would like Zofran, handout given. Roseann Paul APRN.YAIRM Subchorionic hemorrhage of p lacenta in first trimester 08/13/2021 05/13/2022 Obesity complicating pregnan cy, third trimester 08/06/2021 05/13/2022 Overview: 08/06/21-Prepregnancy BMI 34. Roseann Paul APRN.DOMINIK Supervision of high risk pre gnancy due to social problems, first trimester 08/06/2021 022 Spotting in 08/02/20212021 Overview: 1Patient was seen at [facility] ER on July 31 for brown discharge with cramping. Ultrasound was done that showed intrauterine gestational sac with yolk sac but no pole at 6 weeks 0 days. She has had rising quant's since then. She continues to have spotting every morning. She denies any cramping since her ER visit. She has an appointment on August 06 with Roseann Paul for an ultrasound and new OB. Bleeding precautions given. Patient is to call/come in if bleeding increases, recurrence of pain or PRN problems.TKRN Substance abuse 12/09/2019 02/28/2021 Overview: methamphetamine abuse Supervision of other high-ri sk (V23.89) 09/01/2013 06/02/2014 Overview: Girl on us September 01, 2013 PNRA NOT done at [facility] due to still w/o insurance. Social issue- pt uncertain of paternity. Anali Duarte MD First trimester bleeding 08/03/201307/2013 Overview: 08/03/2013She has a history of a miscarriage/D&C at age 15 on 10/2010.She noted spotting once on July 28 and went to the [place] ER for evaluation. A quantitative hCG was done and it was 96.9. Patient denies any further bleeding. She denies any cramping or pain. Discussed first trimester bleeding with Dr. Rodriguez. She ordered a repeat quantitative hCG to be done today. Patient is to schedule an ultrasound at the end of the month. TKRN Patient request for diagnostic testing 08/03/2013 05/13/2022 Overview: 08/06/21-Would like [id number] and carrier screening. Roseann Paul APRN.DOMINIK 08/02/2021 Patient desires nuchal ultrasound and maternity 21 testing. Declines genetic carrier screening testing.TKRN Family history of mental retardation 08/03/2013 01/02/2017 Overview: 08/03/2013 patient's aunt with mental retardation TKRN Supervision of other normal 03/04/2012 06/19/2012 Overview: [facility] on [facility] [place] Tobacco smoking complicating 03/04/2012 06/02/2014 Overview: Cutting back 08/03/2013Pt smokes 1-2 cigarettes a day, down from 5 cigarettes a day. Discussed risks of smoking during . Advised pt to quit. Information on the [place] tobacco quit Given to the patient. TKRN Onychia and paronychia of toe 04/28/2006 03/04/2012 documented as of this encounter (statuses as of 06/18/2023) [facility] History of Past illness Narrative* Problem Noted Date Diagnosed Date Resolved Date Positive GBS test 02/28/2022 05/13/2022 Noncompliant patien t in third trimester 02/12/2022 05/13/2022 33 weeks gestation of 02/12/2022 05/13/2022 Gestational diabetes mellitus, class A1 02/06/2022 05/13/2022 Overview: 02/06/22 Failed 1 hr GTT, did not tolerate 3 hr GTT. BG log x 2 weeks w/ majority of fasting BG elevated. Order placed for diabetic education. SW Abnormal glucose complicating 01/01/2022 05/13/2022 Overview: 01/01/22: failed 1hr gct, 3hr gtt ordered. Daniela Miranda MD Uterine size-date discrepanc y, first trimester 08/13/2021 05/13/2022 Overview: 08/13/21-ZAC: 03/29/22 by 7w3d US, inconsistent with LMP. Roseann Paul APRN.CNM Nausea and vomiting in 08/13/2021 05/13/2022 Overview: 08/13/21-Will try Bonjesta for N/V and discussed zofran or reglan for immediate relief. Reviewed r/b/a to both medications. Would like Zofran, handout given. Roseann Paul APRN.CNM Subchorionic hemorrhage of p lacenta in first trimester 08/13/2021 05/13/2022 Obesity complicating pregnan cy, third trimester 08/06/2021 05/13/2022 Overview: 08/06/21-Prepregnancy BMI 34. Roseann Paul APRN.CNM Supervision of high risk pre gnancy due to social problems, first trimester 08/06/2021 022 Spotting in 08/02/20212021 Overview: 08/02/2021atient was seen at [facility] ER on July 31 for brown discharge with cramping. Ultrasound was done that showed intrauterine gestational sac with yolk sac but no pole at 6 weeks 0 days. She has had rising quant's since then. She continues to have spotting every morning. She denies any cramping since her ER visit. She has an appointment on August 06 with Roseann Paul for an ultrasound and new OB. Bleeding precautions given. Patient is to call/come in if bleeding increases, recurrence of pain or PRN problems.TKRN Substance abuse 12/09/2019 02/28/2021 Overview: methamphetamine abuse Supervision of other high-ri (V23.89) 09/01/2013 06/02/2014 Overview: Girl on us September 01, 2013 PNRA NOT done at [facility] due to still w/o insurance. Social issue- pt uncertain of paternity. Anali Duarte MD First trimester bleeding 08/03/201307/2013 Overview: 08/03/2013Denishae has a history of a miscarriage/D&C at age 15 on 10/2010.She noted spotting once on July 28 and went to the [place] ER for evaluation. A quantitative hCG was done and it was 96.9. Patient denies any further bleeding. She denies any cramping or pain. Discussed first trimester bleeding with Dr. Rodriguez. She ordered a repeat quantitative hCG to be done today. Patient is to schedule an ultrasound at the end of the month. TKRN Patient request for diagnostic testing 08/03/2013 05/13/2022 Overview: 08/06/21-Would like [id number] and carrier screening. Roseann Paul APRN.CNM 08/02/2021 Patient desires nuchal ultrasound and maternity 21 testing. Declines genetic carrier screening testing.TKRN Family history of mental retardation 08/03/2013 01/02/2017 Overview: 08/03/2013 patient's aunt with mental retardation TKRN Supervision of other normal 03/04/2012 06/19/2012 Overview: Boy on - [place] Tobacco smoking complicating 03/04/2012 06/02/2014 Overview: Cutting back 08/03/2013Pt smokes 1-2 cigarettes a day, down from 5 cigarettes a day. Discussed risks of smoking during . Advised pt to quit. Information on the [place] tobacco quit Given to the patient. TKRN Onychia and paronychia of toe 04/28/2006 03/04/2012 documented as of this encounter (statuses as of 07/21/2023) [facility]04-07-2022 History of Past illness Narrative* Problem Noted Date Diagnosed Date Resolved Date Positive GBS test 02/28/2022 05/13/2022 Noncompliant patien t in third trimester 02/12/2022 05/13/2022 33 weeks gestation of 02/12/2022 05/13/2022 Gestational diabetes mellitus, class A1 02/06/2022 05/13/2022 Overview: 02/06/22 Failed 1 hr GTT, did not tolerate 3 hr GTT. BG log x 2 weeks w/ majority of fasting BG elevated. Order placed for diabetic education. SW Abnormal glucose complicating 01/01/2022 05/13/2022 Overview: 01/01/22: failed 1hr gct, 3hr gtt ordered. Daniela Miranda MD Uterine size-date discrepanc y, first trimester 08/13/2021 05/13/2022 Overview: 08/13/21-ZAC: 03/29/22 by 7w3d US, inconsistent with LMP. Roseann Paul APRN.CNM Nausea and vomiting in 08/13/2021 05/13/2022 Overview: 08/13/21-Will try Bonjesta for N/V and discussed zofran or reglan for immediate relief. Reviewed r/b/a to both medications. Would like Zofran, handout given. Roseann Paul APRN.CNM Subchorionic hemorrhage of p lacenta in first trimester 08/13/2021 05/13/2022 Obesity complicating pregnan cy, third trimester 08/06/2021 05/13/2022 Overview: 08/06/21-Prepregnancy BMI 34. Roseann Paul APRN.CNM Supervision of high risk pre gnancy due to social problems, first trimester 08/06/2021 022 Spotting in 08/02/20212021 Overview: 1Patient was seen at [facility] ER on July 31 for brown discharge with cramping. Ultrasound was done that showed intrauterine gestational sac with yolk sac but no pole at 6 weeks 0 days. She has had rising quant's since then. She continues to have spotting every morning. She denies any cramping since her ER visit. She has an appointment on August 06 with Roseann Paul for an ultrasound and new OB. Bleeding precautions given. Patient is to call/come in if bleeding increases, recurrence of pain or PRN problems.TKRN Substance abuse 12/09/2019 02/28/2021 Overview: methamphetamine abuse Supervision of other high-ri sk (V23.89) 09/01/2013 06/02/2014 Overview: Girl on us September 01, 2013 PNRA NOT done at [facility] due to still w/o insurance. Social issue- pt uncertain of paternity. Anali Duarte MD First trimester bleeding 08/03/201307/2013 Overview: 08/03/2013Denishae has a history of a miscarriage/D&C at age 15 on 10/2010.She noted spotting once on July 28 and went to the [place] ER for evaluation. A quantitative hCG was done and it was 96.9. Patient denies any further bleeding. She denies any cramping or pain. Discussed first trimester bleeding with Dr. Rodriguez. She ordered a repeat quantitative hCG to be done today. Patient is to schedule an ultrasound at the end of the month. TKRN Patient request for diagnostic testing 08/03/2013 05/13/2022 Overview: 08/06/21-Would like [id number] and carrier screening. Roseann Paul APRN.CNM 08/02/2021 Patient desires nuchal ultrasound and maternity 21 testing. Declines genetic carrier screening testing.TKRN Family history of mental retardation 08/03/2013 01/02/2017 Overview: 08/03/2013 patient's aunt with mental retardation TKRN Supervision of other normal 03/04/2012 06/19/2012 Overview: Boy on [facility] Tobacco smoking complicating 03/04/2012 06/02/2014 Overview: Cutting back 08/03/2013Pt smokes 1-2 cigarettes a day, down from 5 cigarettes a day. Discussed risks of smoking during . Advised pt to quit. Information on the [place] tobacco quit Given to the patient. TKRN Onychia and paronychia of toe 04/28/2006 03/04/2012 documented as of this encounter (statuses as of 09/24/2023) [facility]04-07-2022 History of Past illness Narrative* Problem Noted Date Diagnosed Date Resolved Date Positive GBS test 02/28/2022 05/13/2022 Noncompliant patien t in third trimester 02/12/2022 05/13/2022 33 weeks gestation of 02/12/2022 05/13/2022 Gestational diabetes mellitus, class A1 02/06/2022 05/13/2022 Overview: 02/06/22 Failed 1 hr GTT, did not tolerate 3 hr GTT. BG log x 2 weeks w/ majority of fasting BG elevated. Order placed for diabetic education. SW Abnormal glucose complicating 01/01/2022 05/13/2022 Overview: 01/01/22: failed 1hr gct, 3hr gtt ordered. Daniela Miranda MD Uterine size-date discrepanc y, first trimester 08/13/2021 05/13/2022 Overview: 08/13/21-ZAC: 03/29/22 by 7w3d US, inconsistent with LMP. Roseann Paul APRN.CNM Nausea and vomiting in 08/13/2021 05/13/2022 Overview: 08/13/21-Will try Bonjesta for N/V and discussed zofran or reglan for immediate relief. Reviewed r/b/a to both medications. Would like Zofran, handout given. Roseann Paul APRN.CNM Subchorionic hemorrhage of p lacenta in first trimester 08/13/2021 05/13/2022 Obesity complicating pregnan cy, third trimester 08/06/2021 05/13/2022 Overview: 08/06/21-Prepregnancy BMI 34. Roseann Paul APRN.CNM Supervision of high risk pre gnancy due to social problems, first trimester 08/06/2021 022 Spotting in 08/02/20212021 Overview: 1Patient was seen at [facility] ER on July 31 for brown discharge with cramping. Ultrasound was done that showed intrauterine gestational sac with yolk sac but no pole at 6 weeks 0 days. She has had rising quant's since then. She continues to have spotting every morning. She denies any cramping since her ER visit. She has an appointment on August 06 with Roseann Paul for an ultrasound and new OB. Bleeding precautions given. Patient is to call/come in if bleeding increases, recurrence of pain or PRN problems.TKRN Substance abuse 12/09/2019 02/28/2021 Overview: methamphetamine abuse Supervision of other high-ri sk (V23.89) 09/01/2013 06/02/2014 Overview: Girl on us September 01, 2013 PNRA NOT done at [facility] due to still w/o insurance. Social issue- pt uncertain of paternity. Anali Duarte MD First trimester bleeding 08/03/201307/2013 Overview: 08/03/2013She has a history of a miscarriage/D&C at age 15 on 10/2010.She noted spotting once on July 28 and went to the [place] ER for evaluation. A quantitative hCG was done and it was 96.9. Patient denies any further bleeding. She denies any cramping or pain. Discussed first trimester bleeding with Dr. Rodriguez. She ordered a repeat quantitative hCG to be done today. Patient is to schedule an ultrasound at the end of the month. TKRN Patient request for diagnostic testing 08/03/2013 05/13/2022 Overview: 08/06/21-Would like [id number] and carrier screening. Roseann Paul APRN.YAIR 08/02/2021 Patient desires nuchal ultrasound and maternity 21 testing. Declines genetic carrier screening testing.TKRN Family history of mental retardation 08/03/2013 01/02/2017 Overview: 08/03/2013 patient's aunt with mental retardation TKRN Supervision of other normal 03/04/2012 06/19/2012 Overview: Boy on [place]- [place] Tobacco smoking complicating 03/04/2012 06/02/2014 Overview: Cutting back 08/03/2013Pt smokes 1-2 cigarettes a day, down from 5 cigarettes a day. Discussed risks of smoking during . Advised pt to quit. Information on the [place] tobacco quit Given to the patient. TKRN Onychia and paronychia of toe 04/28/2006 03/04/2012 documented as of this encounter (statuses as of 10/02/2023) [facility]04-07-2022 History of Past illness Narrative* Problem Noted Date Diagnosed Date Resolved Date Positive GBS test 02/28/2022 05/13/2022 Noncompliant patien t in third trimester 02/12/2022 05/13/2022 33 weeks gestation of 02/12/2022 05/13/2022 Gestational diabetes mellitus, class A1 02/06/2022 05/13/2022 Overview: 02/06/22 Failed 1 hr GTT, did not tolerate 3 hr GTT. BG log x 2 weeks w/ majority of fasting BG elevated. Order placed for diabetic education. SW Abnormal glucose complicating 01/01/2022 05/13/2022 Overview: 01/01/22: failed 1hr gct, 3hr gtt ordered. Daniela Miranda MD Uterine size-date discrepanc y, first trimester 08/13/2021 05/13/2022 Overview: 08/13/21-ZAC: 03/29/22 by 7w3d US, inconsistent with LMP. Roseann Paul APRN.CNM Nausea and vomiting in 08/13/2021 05/13/2022 Overview: 08/13/21-Will try Bonjesta for N/V and discussed zofran or reglan for immediate relief. Reviewed r/b/a to both medications. Would like Zofran, handout given. Roseann Paul APRN.CNM Subchorionic hemorrhage of p lacenta in first trimester 08/13/2021 05/13/2022 Obesity complicating pregnan cy, third trimester 08/06/2021 05/13/2022 Overview: 08/06/21-Prepregnancy BMI 34. Roseann Paul APRN.CNM Supervision of high risk pre gnancy due to social problems, first trimester 08/06/2021 022 Spotting in 08/02/20212021 Overview: 08/02/2021atient was seen at [facility] ER on July 31 for brown discharge with cramping. Ultrasound was done that showed intrauterine gestational sac with yolk sac but no pole at 6 weeks 0 days. She has had rising quant's since then. She continues to have spotting every morning. She denies any cramping since her ER visit. She has an appointment on August 06 with Roseann Paul for an ultrasound and new OB. Bleeding precautions given. Patient is to call/come in if bleeding increases, recurrence of pain or PRN problems.TKRN Substance abuse 12/09/2019 02/28/2021 Overview: methamphetamine abuse Supervision of other high-ri sk (V23.89) 09/01/2013 06/02/2014 Overview: Girl on us September 01, 2013 PNRA NOT done at [facility] due to still w/o insurance. Social issue- pt uncertain of paternity. Anali Duarte MD First trimester bleeding 08/03/201307/2013 Overview: 08/03/2013Consuelo has a history of a miscarriage/D&C at age 15 on 10/2010.She noted spotting once on July 28 and went to the [place] ER for evaluation. A quantitative hCG was done and it was 96.9. Patient denies any further bleeding. She denies any cramping or pain. Discussed first trimester bleeding with Dr. Rodriguez. She ordered a repeat quantitative hCG to be done today. Patient is to schedule an ultrasound at the end of the month. TKRN Patient request for diagnostic testing 08/03/2013 05/13/2022 Overview: 08/06/21-Would like [id number] and carrier screening. Roseann Paul APRN.CNM 08/02/2021 Patient desires nuchal ultrasound and maternity 21 testing. Declines genetic carrier screening testing.TKRN Family history of mental retardation 08/03/2013 01/02/2017 Overview: 08/03/2013 patient's aunt with mental retardation TKRN Supervision of other normal 03/04/2012 06/19/2012 Overview: Boy on - [place] Tobacco smoking complicating 03/04/2012 06/02/2014 Overview: Cutting back 08/03/2013Pt smokes 1-2 cigarettes a day, down from 5 cigarettes a day. Discussed risks of smoking during . Advised pt to quit. Information on the [place] tobacco quit Given to the patient. TKRN Onychia and paronychia of toe 04/28/2006 03/04/2012 documented as of this encounter (statuses as of 10/07/2023) [facility]04-[facility]2022 History of Past illness Narrative* Problem Noted Date Diagnosed Date Resolved Date Positive GBS test 02/28/2022 05/13/2022 Noncompliant patien t in third trimester 02/12/2022 05/13/2022 33 weeks gestation of 02/12/2022 05/13/2022 Gestational diabetes mellitus, class A1 02/06/2022 05/13/2022 Overview: 02/06/22 Failed 1 hr GTT, did not tolerate 3 hr GTT. BG log x 2 weeks w/ majority of fasting BG elevated. Order placed for diabetic education. SW Abnormal glucose complicating 01/01/2022 05/13/2022 Overview: 01/01/22: failed 1hr gct, 3hr gtt ordered. Daniela Miranda MD Uterine size-date discrepanc y, first trimester 08/13/2021 05/13/2022 Overview: 08/13/21-ZAC: 03/29/22 by 7w3d US, inconsistent with LMP. Roseann Paul APRN.CNM Nausea and vomiting in 08/13/2021 05/13/2022 Overview: 08/13/21-Will try Bonjesta for N/V and discussed zofran or reglan for immediate relief. Reviewed r/b/a to both medications. Would like Zofran, handout given. Roseann Paul APRN.CNM Subchorionic hemorrhage of p lacenta in first trimester 08/13/2021 05/13/2022 Obesity complicating pregnan cy, third trimester 08/06/2021 05/13/2022 Overview: 08/06/21-Prepregnancy BMI 34. Roseann Paul APRN.CNM Supervision of high risk pre gnancy due to social problems, first trimester 08/06/2021 022 Spotting in 08/02/20212021 Overview: 1Patient was seen at [facility] ER on July 31 for brown discharge with cramping. Ultrasound was done that showed intrauterine gestational sac with yolk sac but no pole at 6 weeks 0 days. She has had rising quant's since then. She continues to have spotting every morning. She denies any cramping since her ER visit. She has an appointment on August 06 with Roseann Paul for an ultrasound and new OB. Bleeding precautions given. Patient is to call/come in if bleeding increases, recurrence of pain or PRN problems.TKRN Substance abuse 12/09/2019 02/28/2021 Overview: methamphetamine abuse Supervision of other high-ri sk (V23.89) 09/01/2013 06/02/2014 Overview: Girl on us September 01, 2013 PNRA NOT done at [facility] due to still w/o insurance. Social issue- pt uncertain of paternity. Anali Duarte MD First trimester bleeding 08/03/201307/2013 Overview: 08/03/2013She has a history of a miscarriage/D&C at age 15 on 10/2010.She noted spotting once on July 28 and went to the [place] ER for evaluation. A quantitative hCG was done and it was 96.9. Patient denies any further bleeding. She denies any cramping or pain. Discussed first trimester bleeding with Dr. Rodriguez. She ordered a repeat quantitative hCG to be done today. Patient is to schedule an ultrasound at the end of the month. TKRN Patient request for diagnostic testing 08/03/2013 05/13/2022 Overview: 08/06/21-Would like [id number] and carrier screening. Roseann Paul APRN.DOMINIK 08/02/2021 Patient desires nuchal ultrasound and maternity 21 testing. Declines genetic carrier screening testing.TKRN Family history of mental retardation 08/03/2013 01/02/2017 Overview: 08/03/2013 patient's aunt with mental retardation TKRN Supervision of other normal 03/04/2012 06/19/2012 Overview: Boy on [facility] Tobacco smoking complicating 03/04/2012 06/02/2014 Overview: Cutting back 08/03/2013Pt smokes 1-2 cigarettes a day, down from 5 cigarettes a day. Discussed risks of smoking during . Advised pt to quit. Information on the [place] tobacco quit Given to the patient. TKRN Onychia and paronychia of toe 04/28/2006 03/04/2012 documented as of this encounter (statuses as of 10/08/2023) [facility] History of Past illness Narrative* Problem Noted Date Diagnosed Date Resolved Date Positive GBS test 02/28/2022 05/13/2022 Noncompliant patien t in third trimester 02/12/2022 05/13/2022 33 weeks gestation of 02/12/2022 05/13/2022 Gestational diabetes mellitus, class A1 02/06/2022 05/13/2022 Overview: 02/06/22 Failed 1 hr GTT, did not tolerate 3 hr GTT. BG log x 2 weeks w/ majority of fasting BG elevated. Order placed for diabetic education. SW Abnormal glucose complicating 01/01/2022 05/13/2022 Overview: 01/01/22: failed 1hr gct, 3hr gtt ordered. Daniela Miranda MD Uterine size-date discrepanc y, first trimester 08/13/2021 05/13/2022 Overview: 08/13/21-ZAC: 03/29/22 by 7w3d US, inconsistent with LMP. Roseann Paul APRN.CNM Nausea and vomiting in 08/13/2021 05/13/2022 Overview: 08/13/21-Will try Bonjesta for N/V and discussed zofran or reglan for immediate relief. Reviewed r/b/a to both medications. Would like Zofran, handout given. Roseann Paul APRN.DOMINIK Subchorionic hemorrhage of p lacenta in first trimester 08/13/2021 05/13/2022 Obesity complicating pregnan cy, third trimester 08/06/2021 05/13/2022 Overview: 08/06/21-Prepregnancy BMI 34. Roseann Paul APRN.DOMINIK Supervision of high risk pre gnancy due to social problems, first trimester 08/06/2021 022 Spotting in 08/02/20212021 Overview: 1Patient was seen at [facility] ER on July 31 for brown discharge with cramping. Ultrasound was done that showed intrauterine gestational sac with yolk sac but no pole at 6 weeks 0 days. She has had rising quant's since then. She continues to have spotting every morning. She denies any cramping since her ER visit. She has an appointment on August 06 with Roseann Paul for an ultrasound and new OB. Bleeding precautions given. Patient is to call/come in if bleeding increases, recurrence of pain or PRN problems.TKRN Substance abuse 12/09/2019 02/28/2021 Overview: methamphetamine abuse Supervision of other high-ri sk (V23.89) 09/01/2013 06/02/2014 Overview: Girl on us September 01, 2013 PNRA NOT done at [facility] due to still w/o insurance. Social issue- pt uncertain of paternity. Anali Duarte MD First trimester bleeding 08/03/201307/2013 Overview: 08/03/2013Denishae has a history of a miscarriage/D&C at age 15 on 10/2010.She noted spotting once on July 28 and went to the [place] ER for evaluation. A quantitative hCG was done and it was 96.9. Patient denies any further bleeding. She denies any cramping or pain. Discussed first trimester bleeding with Dr. Rodriguez. She ordered a repeat quantitative hCG to be done today. Patient is to schedule an ultrasound at the end of the month. TKRN Patient request for diagnostic testing 08/03/2013 05/13/2022 Overview: 08/06/21-Would like [id number] and carrier screening. Roseann Paul APRN.[facility] 08/02/2021 Patient desires nuchal ultrasound and maternity 21 testing. Declines genetic carrier screening testing.TKRN Family history of mental retardation 08/03/2013 01/02/2017 Overview: 08/03/2013 patient's aunt with mental retardation TKRN Supervision of other normal 03/04/2012 06/19/2012 Overview: Boy on [place] Tobacco smoking complicating 03/04/2012 06/02/2014 Overview: Cutting back 08/03/2013Pt smokes 1-2 cigarettes a day, down from 5 cigarettes a day. Discussed risks of smoking during . Advised pt to quit. Information on the [place] tobacco quit Given to the patient. TKRN Onychia and paronychia of toe 04/28/2006 03/04/2012 documented as of this encounter (statuses as of 01/29/2024) [facility] History of Past illness Narrative* Problem Noted Date Diagnosed Date Resolved Date Positive GBS test 02/28/2022 05/13/2022 Noncompliant patien t in third trimester 02/12/2022 05/13/2022 33 weeks gestation of 02/12/2022 05/13/2022 Gestational diabetes mellitus, class A1 02/06/2022 05/13/2022 Overview: 02/06/22 Failed 1 hr GTT, did not tolerate 3 hr GTT. BG log x 2 weeks w/ majority of fasting BG elevated. Order placed for diabetic education. SW Abnormal glucose complicating 01/01/2022 05/13/2022 Overview: 01/01/22: failed 1hr gct, 3hr gtt ordered. Daniela Miranda MD Uterine size-date discrepanc y, first trimester 08/13/2021 05/13/2022 Overview: 08/13/21-ZAC: 03/29/22 by 7w3d US, inconsistent with LMP. Roseann Pual APRN.DOMINIK Nausea and vomiting in 08/13/2021 05/13/2022 Overview: 08/13/21-Will try Bonjesta for N/V and discussed zofran or reglan for immediate relief. Reviewed r/b/a to both medications. Would like Zofran, handout given. Roseann Paul APRN.CNM Subchorionic hemorrhage of p lacenta in first trimester 08/13/2021 05/13/2022 Obesity complicating pregnan cy, third trimester 08/06/2021 05/13/2022 Overview: 08/06/21-Prepregnancy BMI 34. Roseann Paul APRN.CNM Supervision of high risk pre gnancy due to social problems, first trimester 08/06/2021 022 Spotting in 08/02/20212021 Overview: 08/02/2021atiasmita was seen at [facility] ER on July 31 for brown discharge with cramping. Ultrasound was done that showed intrauterine gestational sac with yolk sac but no pole at 6 weeks 0 days. She has had rising quant's since then. She continues to have spotting every morning. She denies any cramping since her ER visit. She has an appointment on August 06 with Roseann Paul for an ultrasound and new OB. Bleeding precautions given. Patient is to call/come in if bleeding increases, recurrence of pain or PRN problems.TKRN Substance abuse 12/09/2019 02/28/2021 Overview: methamphetamine abuse Supervision of other high-ri sk (V23.89) 09/01/2013 06/02/2014 Overview: Girl on us September 01, 2013 PNRA NOT done at [facility] due to still w/o insurance. Social issue- pt uncertain of paternity. Anali Duarte MD First trimester bleeding 08/03/201307/2013 Overview: 08/03/2013Denishae has a history of a miscarriage/D&C at age 15 on 10/2010.She noted spotting once on July 28 and went to the [place] ER for evaluation. A quantitative hCG was done and it was 96.9. Patient denies any further bleeding. She denies any cramping or pain. Discussed first trimester bleeding with Dr. Rodriguez. She ordered a repeat quantitative hCG to be done today. Patient is to schedule an ultrasound at the end of the month. TKRN Patient request for diagnostic testing 08/03/2013 05/13/2022 Overview: 08/06/21-Would like [id number] and carrier screening. Roseann Paul APRN.YAIR 08/02/2021 Patient desires nuchal ultrasound and maternity 21 testing. Declines genetic carrier screening testing.TKRN Family history of mental retardation 08/03/2013 01/02/2017 Overview: 08/03/2013 patient's aunt with mental retardation TKRN Supervision of other normal 03/04/2012 06/19/2012 Overview: Boy on - [place] Tobacco smoking complicating 03/04/2012 06/02/2014 Overview: Cutting back 08/03/2013Pt smokes 1-2 cigarettes a day, down from 5 cigarettes a day. Discussed risks of smoking during . Advised pt to quit. Information on the [place] tobacco quit Given to the patient. TKRN Onychia and paronychia of toe 04/28/2006 03/04/2012 documented as of this encounter (statuses as of 02/04/2024) [facility]04-07-2022 History of Past illness Narrative* Problem Noted Date Diagnosed Date Resolved Date Positive GBS test 02/28/2022 05/13/2022 Noncompliant patien t in third trimester 02/12/2022 05/13/2022 33 weeks gestation of 02/12/2022 05/13/2022 Gestational diabetes mellitus, class A1 02/06/2022 05/13/2022 Overview: 02/06/22 Failed 1 hr GTT, did not tolerate 3 hr GTT. BG log x 2 weeks w/ majority of fasting BG elevated. Order placed for diabetic education. SW Abnormal glucose complicating 01/01/2022 05/13/2022 Overview: 01/01/22: failed 1hr gct, 3hr gtt ordered. Daniela Miranda MD Uterine size-date discrepanc y, first trimester 08/13/2021 05/13/2022 Overview: 08/13/21-ZAC: 03/29/22 by 7w3d US, inconsistent with LMP. Roseann Paul APRN.CNM Nausea and vomiting in 08/13/2021 05/13/2022 Overview: 08/13/21-Will try Bonjesta for N/V and discussed zofran or reglan for immediate relief. Reviewed r/b/a to both medications. Would like Zofran, handout given. Roseann Paul APRN.DOMINIK Subchorionic hemorrhage of geoff looney in first trimester 08/13/2021 05/13/2022 Obesity complicating pregnan cy, third trimester 08/06/2021 05/13/2022 Overview: 08/06/21-Prepregnancy BMI 34. Roseann Paul APRN.DOMINIK Supervision of high risk pre gnancy due to social problems, first trimester 08/06/2021 022 Spotting in 08/02/20212021 Overview: 08/02/2021atiasmita was seen at [facility] ER on July 31 for brown discharge with cramping. Ultrasound was done that showed intrauterine gestational sac with yolk sac but no pole at 6 weeks 0 days. She has had rising quant's since then. She continues to have spotting every morning. She denies any cramping since her ER visit. She has an appointment on August 06 with Roseann Paul for an ultrasound and new OB. Bleeding precautions given. Patient is to call/come in if bleeding increases, recurrence of pain or PRN problems.TKRN Substance abuse 12/09/2019 02/28/2021 Overview: methamphetamine abuse Supervision of other high-ri (V23.89) 09/01/2013 06/02/2014 Overview: Girl on us September 01, 2013 PNRA NOT done at [facility] due to still w/o insurance. Social issue- pt uncertain of paternity. Anali Duarte MD First trimester bleeding 08/03/201307/2013 Overview: 08/03/2013She has a history of a miscarriage/D&C at age 15 on 10/2010.She noted spotting once on July 28 and went to the [place] ER for evaluation. A quantitative hCG was done and it was 96.9. Patient denies any further bleeding. She denies any cramping or pain. Discussed first trimester bleeding with Dr. Rodriguez. She ordered a repeat quantitative hCG to be done today. Patient is to schedule an ultrasound at the end of the month. TKRN Patient request for diagnostic testing 08/03/2013 05/13/2022 Overview: 08/06/21-Would like [id number] and carrier screening. Roseann Paul APRN.DOMINIK 08/02/2021 Patient desires nuchal ultrasound and maternity 21 testing. Declines genetic carrier screening testing.TKRN Family history of mental retardation 08/03/2013 01/02/2017 Overview: 08/03/2013 patient's aunt with mental retardation TKRN Supervision of other normal 03/04/2012 06/19/2012 Overview: Boy on [facility] Tobacco smoking complicating 03/04/2012 06/02/2014 Overview: Cutting back 08/03/2013Pt smokes 1-2 cigarettes a day, down from 5 cigarettes a day. Discussed risks of smoking during . Advised pt to quit. Information on the [place] tobacco quit Given to the patient. TKRN Onychia and paronychia of toe 04/28/2006 03/04/2012 documented as of this encounter (statuses as of 02/24/2024) [facility]04-06-2022 Note Indication Evaluation of growth. Evaluation of well-being. Obesity, BMI >30. Gestational diabetes Impression The patient presents for evaluation of growth in the setting of morbid obesity. 1. Single, live, intrauterine . 2. Adequate interval growth. 3. Amniotic fluid is normal amount. 4. The placenta is posterior, fundal without evidence of a previa. 5. Normal limited anatomy as detailed below. 6. BPP is 8/8. Recommendations Follow-up as clinically indicated Maternal Assessment Height 170 cm Height (ft) 5 ft Height (in) 7 in Physical Exam Initial weight (lb) 230 lb Initial BMI 36.02 kg/m Method Transabdominal ultrasound examination Noel . Number of fetuses: 1 Dating LMP on: 06/12/2021 GA by LMP 36 w + 6 d ZAC by LMP: 03/19/2022 GA by prior assessment 35 w + 3 d ZAC by prior assessment: 03/29/2022 Ultrasound examination on: 02/25/2022 GA by U/S based upon: AC, BPD, Femur, HC GA by U/S 35 w + 6 d ZAC by U/S: 03/26/2022 Assigned: based on stated ZAC, selected on 01/28/2022 Assigned GA 35 w + 3 d Assigned ZAC: 03/29/2022 General Evaluation Cardiac activity present. FHR 146 bpm. movements: present. Presentation: cephalic Placenta: Placental site: posterior, fundal Umbilical cord: normal insertion, 3 vessel cord Amniotic fluid: Amount of AF: normal amount. MVP 5.7 cm. YULISSA 19.3 cm. Q1 5.7 cm, Q2 4.7 cm, Q3 4.4 cm, Q4 4.6 cm Biophysical Profile 2: breathing movements 2: Gross body movements 2: tone 2: Amniotic fluid volume 07/01 Biophysical profile score Growth Overview Exam date GA BPD (mm) HC (mm) AC (mm) FL (mm) HL (mm) EFW (g) 11/06/2021 19w 4d 44.6 46% 175.1 64% 155.9 82% 29.0 21% 28.8 44% 320 63% 01/28/2022 31w 3d 81.6 80% 303.7 77% 284.7 78% 57.9 11% 1,879 57% 02/25/2022 35w 3d 89.8 79% 324.0 48% 329.6 90% 64.4 4% 2,794 62% Biometry Standard BPD 89.8 mm 36w 3d 79% Hadlock OFD 114.6 mm 35w 6d 59% Nicolaides HC 324.0 mm 36w 5d 48% Hadlock AC 329.6 mm 36w 6d 90% Hadlock Femur 64.4 mm 33w 2d 4% Hadlock EFW 2,794 g 35w 6d 62% Hadlock EFW (lb) 6 lb EFW (oz) 3 oz EFW by: Hadlock ([id number]) [employer] 3.7 mm Extremities / Bony Struc FL / HC 0.20 Other Structures FHR 146 bpm Anatomy Lateral ventricles: normal Cavum septi pellucidi: normal Cerebellum: normal Cisterna magna: normal Lips: normal Profile: normal Nose: normal 4-chamber view: normal RVOT view: normal LVOT view: normal Heart / Thorax Situs: situs solitus (normal) Stomach: normal Kidneys: normal Bladder: normal Cervical spine: normal Thoracic spine: normal Lumbar spine: normal Sacral spine: normal sex: male Wants to know sex: yes Performed By: Cheyenne Flores RDMS Read By: Eugenio Ma M.D.[facility]04-04-2022 Miscellaneous Notes* Quick Notes - Jackie Mcallister APRN.CNP - 02/25/2022 9:13 AM EDT RM-Pt doing well. Denies vaginal Bleeding, Leaking fluid, or regular Contractions. Pt reports good movement Physical Exam: Gen: no apparent distress Abd: soft, Gravid. Non tender to palpation. See flow sheet BPP 07/01 today GBS done today, cervical check soft,75%, FT RTO 1 week Jackie Mcallister APRN.ERICA documented in this encounter[facility] Instructions* Patient Instructions* Iraida Hale MA - 02/25/2022 8:34 AM EDT SEQUENTIAL SCREENINGS The [facility] offers sequential screenings for women who are interested in screenings for chromosomal abnormalities and certain defects during a . The sequential screen combinesultrasound and blood tests to determine the risk of chromosomal abnormalities, including Down's Syndrome (Trisomy 21) and Trisomy 18, as well as open neural tube defects including spina bifida. Ultrasound examination is performed between 11 weeks and 13 weeks gestational age. Blood tests are drawn after the ultrasound and again later in the between 15 and 21 weeks gestational age. Please let your physician know if you are interested in this testing. It will require an appointment withour registered dietetic technician. This is not an ultrasound performed by a physician in our office during a routine visit. SIGNS AND SYMPTOMS OF LABOR 1. Contractions every 10 minutes or more often 2. Clear, pink, or brownish fluid (water) leaking from vagina 3. Feeling that baby is pushing down, pressure 4. Low, dull backache 5. Cramps that feel like a period 6. Cramps with or without diarrhea If you notice any of the above symptoms, contact our office at [phone] and ask to speak with anurse. After hours, you can call doctors registry at [phone] OR call [facility] at [phone] ask to have the doctor personal lines insurance advisor paged. If you consider this an emergency, dial 6-6-8 or go to your nearest emergency department. NEED HELP? Are you dealing with a violent or abusive relationship? Are you a victim of rape or sexual assult? Call [facility] ([place]) 24 hour Crisis Hotline: 943.303.2343 or 646-141-1337. MANUAL Your Guide to a Healthy manual is now on-line. Visit [email or web address] to download your free copy documented in this encounter[facility] Miscellaneous Notes* Quick Notes - Lexii Fong MD - 02/20/2022 4:36 PM EDT SW- Pt doing well. No ctx, vb, lof, GLOVER. Good FM. PE: Gen- NAD, well appearing Abd- Soft, gravid, NT Ext- No edema See flowsheet A/p 34 wk gestation - A1GDM: Fasting BG 78-112 with majority within goal. She is able to check fasting BG's every day. Not able to check PP with every meal due to her job. 2 hour PP 92-113 and all within goal. Discussedrecommendation for checking BG 4x daily and importance of good BG control. Discussed risks of GDM in and with delivery. Offered to provide her with a letter for work stating she needs to check BG 4x daily. She understands the importance of checking BG regularly and the importance of good BG control. Has growth US scheduled. Recommend weekly NST's to start with next visit. She declines scheduling the NST's today as she states she had them scheduled, and they got cancelled - RTO for growth US, OB visit, NST Lexii Fong DO documented in this encounterSelect [facility] Instructions* Patient Instructions* Iraida Hale MA - 02/20/2022 4:16 PM EDT SEQUENTIAL SCREENINGS The [facility] offers sequential screenings for women who are interested in screenings for chromosomal abnormalities and certain defects during a . The sequential screen combinesultrasound and blood tests to determine the risk of chromosomal abnormalities, including Down's Syndrome (Trisomy 21) and Trisomy 18, as well as open neural tube defects including spina bifida. Ultrasound examination is performed between 11 weeks and 13 weeks gestational age. Blood tests are drawn after the ultrasound and again later in the between 15 and 21 weeks gestational age. Please let your physician know if you are interested in this testing. It will require an appointment withour registered dietetic technician. This is not an ultrasound performed by a physician in our office during a routine visit. SIGNS AND SYMPTOMS OF LABOR 1. Contractions every 10 minutes or more often 2. Clear, pink, or brownish fluid (water) leaking from vagina 3. Feeling that baby is pushing down, pressure 4. Low, dull backache 5. Cramps that feel like a period 6. Cramps with or without diarrhea If you notice any of the above symptoms, contact our office at [phone] and ask to speak with anurse. After hours, you can call doctors registry at [phone] OR call [facility] at [phone] ask to have the doctor personal lines insurance advisor paged. If you consider this an emergency, dial 9--1 or go to your nearest emergency department. NEED HELP? Are you dealing with a violent or abusive relationship? Are you a victim of rape or sexual assult? Call [facility] ([place]) 24 hour Crisis Hotline: 500.431.4767 or 052-728-2779. MANUAL Your Guide to a Healthy manual is now on-line. Visit [email or web address] to download your free copy documented in this encounterSelect Medical [facility] History of Past illness Narrative* Problem Noted Date Resolved Date Substance abuse 12/09/2019 02/28/2021 Overview: methamphetamine abuse Supervision of other high-risk (V23.89) 09/01/2013 06/02/2014 Overview: Girl on us September 01, 2013 PNRA NOT done at [facility] due to still w/o insurance. Social issue- pt uncertain of paternity. Anali Duarte MD First trimester bleeding 08/03/2013 013 Overview: 08/03/2013She has a history of a miscarriage/D&C at age 15 on 10/2010.She noted spotting once on July 28 and went to the [place] ER for evaluation. A quantitative hCG was done and it was 96.9. Patient denies any further bleeding. She denies any cramping or pain. Discussed first trimester bleeding with Dr. Rodriguez. She ordered a repeat quantitative hCG to be done today. Patient is to schedule an ultrasound at the end of the month. TKRN Family history of mental retardation 08/03/2013 01/02/2017 Overview: 08/03/2013 patient's aunt with mental retardation TKRN Supervision of other normal 03/04/2012 06/19/2012 Overview: Boy on - [facility] Tobacco smoking complicating 2 06/02/2014 Overview: Cutting back 08/03/2013Pt smokes 1-2 cigarettes a day, down from 5 cigarettes a day. Discussed risks of smoking during . Advised pt to quit. Information on the [place] tobacco quit Given to the patient. TKRN Onychia and paronychia of toe 04/28/2006 documented as of this encounter (statuses as of 02/21/2022) [facility] History of Past illness Narrative* Problem Noted Date Resolved Date Substance abuse 12/09/2019 02/28/2021 Overview: methamphetamine abuse Supervision of other high-risk (V23.89) 09/01/2013 06/02/2014 Overview: Girl on us September 01, 2013 PNRA NOT done at [facility] due to still w/o insurance. Social issue- pt uncertain of paternity. Anali Duarte MD First trimester bleeding 08/03/2013 013 Overview: 08/03/2013Denishae has a history of a miscarriage/D&C at age 15 on 10/2010.She noted spotting once on July 28 and went to the [place] ER for evaluation. A quantitative hCG was done and it was 96.9. Patient denies any further bleeding. She denies any cramping or pain. Discussed first trimester bleeding with Dr. Rodriguez. She ordered a repeat quantitative hCG to be done today. Patient is to schedule an ultrasound at the end of the month. TKRN Family history of mental retardation 08/03/2013 01/02/2017 Overview: 08/03/2013 patient's aunt with mental retardation TKRN Supervision of other normal 03/04/2012 06/19/2012 Overview: Boy on - [facility] Tobacco smoking complicating 2 06/02/2014 Overview: Cutting back 08/03/2013Pt smokes 1-2 cigarettes a day, down from 5 cigarettes a day. Discussed risks of smoking during . Advised pt to quit. Information on the [place] tobacco quit Given to the patient. TKRN Onychia and paronychia of toe 04/28/2006 documented as of this encounter (statuses as of 02/25/2022) [facility] History of Past illness Narrative* Problem Noted Date Resolved Date Substance abuse 12/09/2019 02/28/2021 Overview: methamphetamine abuse Supervision of other high-risk (V23.89) 09/01/2013 06/02/2014 Overview: Girl on us September 01, 2013 PNRA NOT done at [facility] due to still w/o insurance. Social issue- pt uncertain of paternity. Anali Duarte MD First trimester bleeding 08/03/2013 013 Overview: 08/03/2013She has a history of a miscarriage/D&C at age 15 on 10/2010.She noted spotting once on July 28 and went to the [place] ER for evaluation. A quantitative hCG was done and it was 96.9. Patient denies any further bleeding. She denies any cramping or pain. Discussed first trimester bleeding with Dr. Rodriguez. She ordered a repeat quantitative hCG to be done today. Patient is to schedule an ultrasound at the end of the month. TKRN Family history of mental retardation 08/03/2013 01/02/2017 Overview: 08/03/2013 patient's aunt with mental retardation TKRN Supervision of other normal 03/04/2012 06/19/2012 Overview: Boy on - [facility] Tobacco smoking complicating 2 06/02/2014 Overview: Cutting back 08/03/2013Pt smokes 1-2 cigarettes a day, down from 5 cigarettes a day. Discussed risks of smoking during . Advised pt to quit. Information on the [place] tobacco quit Given to the patient. TKRN Onychia and paronychia of toe 04/28/2006 documented as of this encounter (statuses as of 02/27/2022) [facility] History of Past illness Narrative* Problem Noted Date Resolved Date Substance abuse 12/09/2019 02/28/2021 Overview: methamphetamine abuse Supervision of other high-risk (V23.89) 09/01/2013 06/02/2014 Overview: Girl on us September 01, 2013 PNRA NOT done at [facility] due to still w/o insurance. Social issue- pt uncertain of paternity. Anali Duarte MD First trimester bleeding 08/03/2013 013 Overview: 08/03/2013Denishae has a history of a miscarriage/D&C at age 15 on 10/2010.She noted spotting once on July 28 and went to the [place] ER for evaluation. A quantitative hCG was done and it was 96.9. Patient denies any further bleeding. She denies any cramping or pain. Discussed first trimester bleeding with Dr. Rodriguez. She ordered a repeat quantitative hCG to be done today. Patient is to schedule an ultrasound at the end of the month. TKRN Family history of mental retardation 08/03/2013 01/02/2017 Overview: 08/03/2013 patient's aunt with mental retardation TKRN Supervision of other normal 03/04/2012 06/19/2012 Overview: Boy on [facility]- [facility] Tobacco smoking complicating 2 06/02/2014 Overview: Cutting back 08/03/2013Pt smokes 1-2 cigarettes a day, down from 5 cigarettes a day. Discussed risks of smoking during . Advised pt to quit. Information on the [place] tobacco quit Given to the patient. TKRN Onychia and paronychia of toe 04/28/2006 documented as of this encounter (statuses as of 02/28/2022) [facility] History of Past illness Narrative* Problem Noted Date Resolved Date Substance abuse 12/09/2019 02/28/2021 Overview: methamphetamine abuse Supervision of other high-risk (V23.89) 09/01/2013 06/02/2014 Overview: Girl on September 01, 2013 PNRA NOT done at [facility] due to still w/o insurance. Social issue- pt uncertain of paternity. Anali Duarte MD First trimester bleeding 08/03/2013 013 Overview: 08/03/2013Denishae has a history of a miscarriage/D&C at age 15 on 10/2010.She noted spotting once on July 28 and went to the [place] ER for evaluation. A quantitative hCG was done and it was 96.9. Patient denies any further bleeding. She denies any cramping or pain. Discussed first trimester bleeding with Dr. Rodriguez. She ordered a repeat quantitative hCG to be done today. Patient is to schedule an ultrasound at the end of the month. TKRN Family history of mental retardation 08/03/2013 01/02/2017 Overview: 08/03/2013 patient's aunt with mental retardation TKRN Supervision of other normal 03/04/2012 06/19/2012 Overview: Boy on - [facility] Tobacco smoking complicating 2 06/02/2014 Overview: Cutting back 08/03/2013Pt smokes 1-2 cigarettes a day, down from 5 cigarettes a day. Discussed risks of smoking during . Advised pt to quit. Information on the [place] tobacco quit Given to the patient. TKRN Onychia and paronychia of toe 04/28/2006 documented as of this encounter (statuses as of 03/04/2022) [facility] History of Past illness Narrative* Problem Noted Date Resolved Date Substance abuse 12/09/2019 02/28/2021 Overview: methamphetamine abuse Supervision of other high-risk (V23.89) 09/01/2013 06/02/2014 Overview: Girl on September 01, 2013 PNRA NOT done at [facility] due to still w/o insurance. Social issue- pt uncertain of paternity. Anali Duarte MD First trimester bleeding 08/03/2013 013 Overview: 08/03/2013Denishae has a history of a miscarriage/D&C at age 15 on 10/2010.She noted spotting once on July 28 and went to the [place] ER for evaluation. A quantitative hCG was done and it was 96.9. Patient denies any further bleeding. She denies any cramping or pain. Discussed first trimester bleeding with Dr. Rodriguez. She ordered a repeat quantitative hCG to be done today. Patient is to schedule an ultrasound at the end of the month. TKRN Family history of mental retardation 08/03/2013 01/02/2017 Overview: 08/03/2013 patient's aunt with mental retardation TKRN Supervision of other normal 03/04/2012 06/19/2012 Overview: Boy on US- [facility] Tobacco smoking complicating 2 06/02/2014 Overview: Cutting back 08/03/2013Pt smokes 1-2 cigarettes a day, down from 5 cigarettes a day. Discussed risks of smoking during . Advised pt to quit. Information on the [place] tobacco quit Given to the patient. TKRN Onychia and paronychia of toe 04/28/2006 documented as of this encounter (statuses as of 03/11/2022) [facility] History of Past illness Narrative* Problem Noted Date Resolved Date Substance abuse 12/09/2019 02/28/2021 Overview: methamphetamine abuse Supervision of other high-risk (V23.89) 09/01/2013 06/02/2014 Overview: Girl on us September 01, 2013 PNRA NOT done at [facility] due to still w/o insurance. Social issue- pt uncertain of paternity. Anali Duarte MD First trimester bleeding 08/03/2013 013 Overview: 08/03/2013Consuelo has a history of a miscarriage/D&C at age 15 on 10/2010.She noted spotting once on July 28 and went to the [place] ER for evaluation. A quantitative hCG was done and it was 96.9. Patient denies any further bleeding. She denies any cramping or pain. Discussed first trimester bleeding with Dr. Rodriguez. She ordered a repeat quantitative hCG to be done today. Patient is to schedule an ultrasound at the end of the month. TKRN Family history of mental retardation 08/03/2013 01/02/2017 Overview: 08/03/2013 patient's aunt with mental retardation TKRN Supervision of other normal 03/04/2012 06/19/2012 Overview: Boy on - [facility] Tobacco smoking complicating 2 06/02/2014 Overview: Cutting back 08/03/2013Pt smokes 1-2 cigarettes a day, down from 5 cigarettes a day. Discussed risks of smoking during . Advised pt to quit. Information on the [place] tobacco quit Given to the patient. TKRN Onychia and paronychia of toe 04/28/2006 documented as of this encounter (statuses as of 03/18/2022) [facility] History of Past illness Narrative* Problem Noted Date Resolved Date Substance abuse 12/09/2019 02/28/2021 Overview: methamphetamine abuse Supervision of other high-risk (V23.89) 09/01/2013 06/02/2014 Overview: Girl on us September 01, 2013 PNRA NOT done at [facility] due to still w/o insurance. Social issue- pt uncertain of paternity. Anali Duarte MD First trimester bleeding 08/03/2013 013 Overview: 08/03/2013She has a history of a miscarriage/D&C at age 15 on 10/2010.She noted spotting once on July 28 and went to the [place] ER for evaluation. A quantitative hCG was done and it was 96.9. Patient denies any further bleeding. She denies any cramping or pain. Discussed first trimester bleeding with Dr. Rodriguez. She ordered a repeat quantitative hCG to be done today. Patient is to schedule an ultrasound at the end of the month. TKRN Family history of mental retardation 08/03/2013 01/02/2017 Overview: 08/03/2013 patient's aunt with mental retardation TKRN Supervision of other normal 03/04/2012 06/19/2012 Overview: Boy on - [facility] Tobacco smoking complicating 2 06/02/2014 Overview: Cutting back 08/03/2013Pt smokes 1-2 cigarettes a day, down from 5 cigarettes a day. Discussed risks of smoking during . Advised pt to quit. Information on the [place] tobacco quit Given to the patient. TKRN Onychia and paronychia of toe 04/28/2006 documented as of this encounter (statuses as of 03/26/2022) [facility]2020 History of Past illness Narrative* Problem Noted Date Resolved Date Substance abuse 12/09/2019 02/28/2021 Overview: methamphetamine abuse Supervision of other high-risk (V23.89) 09/01/2013 06/02/2014 Overview: Girl on September 01, 2013 PNRA NOT done at [facility] due to still w/o insurance. Social issue- pt uncertain of paternity. Anali Duarte MD First trimester bleeding 08/03/2013 013 Overview: 08/03/2013Denishae has a history of a miscarriage/D&C at age 15 on 10/2010.She noted spotting once on July 28 and went to the [place] [facility] for evaluation. A quantitative hCG was done and it was 96.9. Patient denies any further bleeding. She denies any cramping or pain. Discussed first trimester bleeding with Dr. Rodriguez. She ordered a repeat quantitative hCG to be done today. Patient is to schedule an ultrasound at the end of the month. TKRN Family history of mental retardation 08/03/2013 01/02/2017 Overview: 08/03/2013 patient's aunt with mental retardation TKRN Supervision of other normal 03/04/2012 06/19/2012 Overview: Boy on - [facility] Tobacco smoking complicating 2 06/02/2014 Overview: Cutting back 08/03/2013Pt smokes 1-2 cigarettes a day, down from 5 cigarettes a day. Discussed risks of smoking during . Advised pt to quit. Information on the [place] tobacco quit Given to the patient. TKRN Onychia and paronychia of toe 04/28/2006 documented as of this encounter (statuses as of 03/29/2022) [facility] History of Past illness Narrative* Problem Noted Date Resolved Date Substance abuse 12/09/2019 02/28/2021 Overview: methamphetamine abuse Supervision of other high-risk (V23.89) 09/01/2013 06/02/2014 Overview: Girl on us September 01, 2013 PNRA NOT done at [facility] due to still w/o insurance. Social issue- pt uncertain of paternity. Anali Duarte MD First trimester bleeding 08/03/2013 013 Overview: 08/03/2013Denishae has a history of a miscarriage/D&C at age 15 on 10/2010.She noted spotting once on July 28 and went to the [place] ER for evaluation. A quantitative hCG was done and it was 96.9. Patient denies any further bleeding. She denies any cramping or pain. Discussed first trimester bleeding with Dr. Rodriguez. She ordered a repeat quantitative hCG to be done today. Patient is to schedule an ultrasound at the end of the month. TKRN Family history of mental retardation 08/03/2013 01/02/2017 Overview: 08/03/2013 patient's aunt with mental retardation TKRN Supervision of other normal 03/04/2012 06/19/2012 Overview: Boy on - [place] Tobacco smoking complicating 2 06/02/2014 Overview: Cutting back 08/03/2013Pt smokes 1-2 cigarettes a day, down from 5 cigarettes a day. Discussed risks of smoking during . Advised pt to quit. Information on the [place] tobacco quit Given to the patient. TKRN Onychia and paronychia of toe 04/28/2006 documented as of this encounter (statuses as of 04/01/2022) [facility] History of Past illness Narrative* Problem Noted Date Resolved Date Substance abuse 12/09/2019 02/28/2021 Overview: methamphetamine abuse Supervision of other high-risk (V23.89) 09/01/2013 06/02/2014 Overview: Girl on us September 01, 2013 PNRA NOT done at [facility] due to still w/o insurance. Social issue- pt uncertain of paternity. Anali Duarte MD First trimester bleeding 08/03/2013 013 Overview: 08/03/2013She has a history of a miscarriage/D&C at age 15 on 10/2010.She noted spotting once on July 28 and went to the [place] ER for evaluation. A quantitative hCG was done and it was 96.9. Patient denies any further bleeding. She denies any cramping or pain. Discussed first trimester bleeding with Dr. Rodriguez. She ordered a repeat quantitative hCG to be done today. Patient is to schedule an ultrasound at the end of the month. TKRN Family history of mental retardation 08/03/2013 01/02/2017 Overview: 08/03/2013 patient's aunt with mental retardation TKRN Supervision of other normal 03/04/2012 06/19/2012 Overview: Boy on - [place] Tobacco smoking complicating 2 06/02/2014 Overview: Cutting back 08/03/2013Pt smokes 1-2 cigarettes a day, down from 5 cigarettes a day. Discussed risks of smoking during . Advised pt to quit. Information on the [place] tobacco quit Given to the patient. TKRN Onychia and paronychia of toe 04/28/2006 documented as of this encounter (statuses as of 04/08/2022) [facility] Golds[facility] February 26, 2023 9:36am Note Date/Time February 26, 2023 8:50 am [facility] Medical Records Department [address] [place] [address] Emergency Department Summary 02/26/23 MR#: [id number] Acct: [id number] Name: LEESA MOBLEY Rep #:[id number] 1 : 1995 27 From: José Luis Goldsmith MD PCP: Dr. Kendall Oakley MD Status:REG E R Location: ED HPI HPI - URI History of Present Illness Chief Complaint: Sore Throat Informant: patient Narrative Narrative: Patient started with URI symptoms last evening. She states she has felt warm but never had a fever. She has mostly a sore throat. She has a occasional cough but is not short of breath and or having sputum production. No earache. No nausea or vomiting. No muscle aches. She has not been eating and drinking much just because her throat is sore but she is able to swallow without difficulty. Her 1-year-old has essentially the same symptoms and started about the same time. She has no chronic medical conditions other than depression Meds include paroxetine No known drug allergies No recent surgeries ROS ROS ED Constitutional Constitutional ED: Reports subjective Eyes Eyes: Denies change in vision ENT ENT ED: Reports sore throat; Denies ear pain or rhinorrhea Cardiovascular Cardiovascular: Denies chest pain, palpitations or paroxysmal nocturnal dyspnea Respiratory/Chest Respiratory/Chest: Reports cough; Denies dyspnea, paroxysmal nocturnal dyspnea or sputum Gastrointestinal Gastrointestinal: Denies nausea or vomiting Genitourinary Genitourinary ED: Denies dysuria Musculoskeletal Musculoskeletal: Denies myalgias Integumentary Denies rash Neurologic Neurologic: Denies headache(s) Psychiatric Psychiatric: Reports depression Endocrine Endocrinology: Denies polydipsia or polyuria Hematologic/Lymphatic Hematologic/Lymphatic: Denies lymphadenopathy PFSH PFSH Medical History Acute amphetamine withdrawal Alcohol use Anxiety Chlamydia infection affecting Depression Gastric reflux Gestational diabetes Gonorrhea affecting Hx of vaginal delivery depression Restless legs Smoker Substance abuse Wears glasses Home Medications paroxetine HCl 20 mg tablet 20 mg PO DAILY 06/06/22 [History Last Taken Unknown] penicillin V potassium 250 mg tablet 500 mg PO 4X/DAY #40 tabs 02/26/23 [Rx Last Taken Unknown] Allergy/AdvReac Type Severity Reaction Status Date / Time No Known Allergies Allergy Verified 02/26/23 08:28 Surgical History History of dilatation and curettage Social History Smoking Status: Current every day smoker tobacco type: e-cigarettes substance use type: does not use EXAM Physical Exam Narrative Exam Narrative: Patient is awake alert and no acute distress. Nontoxic in appearance. HEENT shows no external swelling. Mildly dry mucous membranes. She does have erythematous throat. There is almost a hint of exudate more on the left but no asymmetry of size. Tonsils are not notably swollen. Eyes show no icterus Neck does show some shotty lymphadenopathy on both sides. No stridor. Lungs are clear bilaterally. Heart is regular. She has a rate of about 100 at this time. May be from some mild dehydration. Abdomen is soft completely nontender. shows no CVA tenderness Extremities show no rash or tenderness or swelling. Const Vital Signs: 02/26/23 08:26 02/26/23 08:25 02/26/23 09:00 Temperature 96 F L Temperature Source Temporal Pulse Rate 130 H Respiratory Rate 18 16 Respiratory Pattern Normal Blood Pressure 119/84 H Blood Pressure Mean 95 Pulse Ox 95 Oxygen Delivery Method Room Air MDM MDM MDM Narrative Medical decision making narrative: Patient does have fever history, erythematous tonsils, slight exudate, 6 lymph nodes and positive strep. We will treat her for this. COVID and flu are negative. We discussed reasons to return. Discharge Plan Triage Chief Complaint: Sore Throat ED Provider: José Luis Goldsmith Dx/Rx/DC Orders Clinical Impression: Strep pharyngitis Instructions: ED Pharyngitis, Strep (Confirmed) Prescriptions: New penicillin V potassium 250 mg tablet 500 mg PO 4X/DAY Qty: 40 0RF No Action paroxetine HCl 20 mg tablet 20 mg PO DAILY Label Comments: take 1 tablet by mouth once daily Stand Alone Forms: ED Work / School Excuse Primary Care Provider: Kendall Oakley Referrals: Kendall Oakley MD [Primary Care Provider] - 3-5 Days if not improving Disposition Disposition: Home, Self Care What to do if you have Problems For any increased pain, shortness of breath, bleeding, nausea or vomiting, chestpain, or any unexpected problems, contact your Primary Care Provider. Call [facility] ([phone]) or report to the closest Emergency Room. Call 911 if necessary. 02/26/23935 <Electronically signed by José Luis Goldsmith MD> Cosigner Signature (if applicable): CC: Dr. Kendall Oakley MD ~ Signed [facility] Work Phone: Evaluation note* Diagnosis 34 weeks gestation of - Primary state, incidental Noncompliant patient in third trimester Gestational diabetes mellitus, class A1 Abnormal maternal glucose tolerance, complicating , childbirth, or the puerperium, unspecified as to episode of care documented in this encounter [facility] Diagnosis 35 weeks gestation of - Primary state, incidental Noncompliant patient in third trimester Gestational diabetes mellitus, class A1 Abnormal maternal glucose tolerance, complicating , childbirth, or the puerperium, unspecified as to episode of care documented in this encounter [facility]* Diagnosis Gestational diabetes mellitus, class A1 Abnormal maternal glucose tolerance, complicating , childbirth, or the puerperium, unspecified as to episode of care Obesity complicating , third trimester [facility]* Diagnosis Gestational diabetes mellitus, class A1- Primary Abnormal maternal glucose tolerance, complicating , childbirth, or the puerperium, unspecified as to episode of care 35 weeks gestation of state, incidental documented [facility] this encounter [facility]* Diagnosis 36 weeks gestation of - Primary state, incidental Gestational diabetes mellitus, class A1 Abnormal maternal glucose tolerance, complicating , childbirth, or the puerperium, unspecified as to episode of care Obesity complicating , third trimester Supervision of high risk in third trimester Unspecified high-risk [facility] Diagnosis 37 weeks gestation of - Primary state, incidental Gestational diabetes mellitus, class A1 Abnormal maternal glucose tolerance, complicating , childbirth, or the puerperium, unspecified as to episode of care Obesity complicating , third trimester documented [facility] this encounter [facility]* Diagnosis 38 weeks gestation of - Primary state, incidental Gestational diabetes mellitus, class A1 Abnormal maternal glucose tolerance, complicating , childbirth, or the puerperium, unspecified as to episode of care Supervision of high risk in third trimester Unspecified high-risk Encntr for obs for susp expsr to oth biolg agents ruled out [facility]* Diagnosis Gestational diabetes mellitus, class A1- Primary Abnormal maternal glucose tolerance, complicating , childbirth, or the puerperium, unspecified as to episode of care Obesity complicating , third trimester 38 weeks gestation of state, incidental [facility]* Diagnosis Onset Date Resolution Status Gestational diabetes acute Non-reassuring heart r ate, delivered, current hospitalization acute Obesity affecting acute Vaginal delivery [facility] Work Phone: Evaluation note* Diagnosis Anxiety Anxiety state, unspecified Depression, unspecified depression type [facility]* Diagnosis Post depression- Primary Mental disorders of mother, documented in this encounter [facility]* Diagnosis Vaginal delivery- Primary Personal history of other genital system and obstetric disorders Unprotected sexual intercourse Problems related to high-risk sexual behavior Encounter for screening for maternal depression [facility]* Diagnosis care and examination- Primary Routine follow-up Gestational diabetes mellitus, class A1 Abnormal maternal glucose tolerance, complicating , childbirth, or the puerperium, unspecified as to episode of care Abnormal menses Unspecified disorder of menstruation and other abnormal bleeding from female genital tract Encounter for initial prescription of contraceptive pills General counseling for prescription of oral contraceptives documented [facility] this encounter [facility]* Diagnosis Onset Date Resolution Status Vaginal delivery acute Gestational diabetes resolve d Non-reassuring heart r ate, delivered, current hospitalization resolved Obesity affecting resolved Care and examination of lactating mother noneactive Engorgement of breast associ ated with childbirth, noneactive Sterilization acute [facility] Work Phone: Evaluation note* Diagnosis Suspected COVID-19 virus infection- Primary Tachycardia Tachycardia, unspecified documented in this encounter [facility]* Diagnosis COVID-19- Primary documented in this encounter [facility]* Diagnosis NO SHOW- Primary documented in this encounter [facility]* Diagnosis Post depression Mental disorders of mother, documented in this encounter [facility] noteNo assessment information availableWMercy [facility] Work Phone: Evaluation note* Diagnosis Anxiety Anxiety state, unspecified documented in this encounter [facility]* Diagnosis Acute midline low back pain without sciatica- Primary documented in this encounter [facility]* Diagnosis Anxiety Anxiety state, unspecified documented in this encounter [facility]* Diagnosis Encounter for immunization- Primary Need for other specified prophylactic vaccination against single bacterial disease Well adolescent visit Routine or child health check Anxiety Anxiety state, unspecified Depression, unspecified depression type documented in this encounter [facility]* Diagnosis Vaginal odor- Primary Unspecified symptom associated with female genital organs Vulvar itching Pruritus of genital organs Urinary frequency Screen for STD (sexually transmitted disease) Screening examination for venereal disease documented [facility] this encounter [facility]* Diagnosis Dysuria- Primary Vaginal discharge Leukorrhea, not specified as infective Abrasion of vulva, initial encounter Screen for STD (sexually transmitted disease) Screening examination for venereal disease documented in this encounter [facility]* Diagnosis Anxiety and depression- Primary Dysthymic disorder Anxiety Anxiety state, unspecified documented in this encounter [facility]* Diagnosis Anxiety Anxiety state, unspecified Depression, unspecified depression type documented in this encounter [facility]* Diagnosis Anxiety Anxiety state, unspecified Depression, unspecified depression type [facility] Diagnosis Chronic insomnia- Primary Insomnia, unspecified Class 2 severe obesity due to excess calories with serious comorbidity and body mass index (BMI) of 39.0 to 39.9 in adult ([facility]) Wellness examination [facility]* Diagnosis Class 2 severe obesity due to excess calories with serious comorbidity and body mass index (BMI) of 39.0 to 39.9 in adult (HCC)- Primary [facility]* Diagnosis COVID-19- Primary documented in this encounter [facility] note* Diagnosis Screening for STD (sexually transmitted disease)- Primary Screening examination for venereal disease Contact with and (suspected) exposure to viral hepatitis documented in this encounter [facility] note* Diagnosis Bacterial conjunctivitis- Primary Other conjunctivitis documented in this encounter [facility] for referral (narrative)* Diagnostic Procedure Only (Routine) - Authorized Specialty Diagnoses / Procedures Referred By Yasmine hall Referred To Contact [facility] Diagnoses 37 weeks gestation of Gestational diabetes mellitus, class A1 Obesity complicating , third trimester Procedures OBSTETRIC ULTRASOUND WHI US PREG UTERUS AFTER 1ST TRIMEST GESTATION Roseann Paul APRN.CNM [address] [place] [address] [address] Referral ID Status Reason Start Date Expiration Date Visits Requested Visits Authorized [id number] Authorized Auto-Generat ed Referral 03/11/2022 03/11/2023 1 1 [facility] Summary Purpose Family History No Family History Records Found Relationship Condition Age at Onset Recorded Date/T janeth Unknown Family History?No pe rtinent history Unknown December 08, 2019 11:14am Family History?No pe rtinent history Unknown December 08, 2019 11:14am Relationship Condition Age at Onset Recorded Date/T janeth Unknown Family History?No pe rtinent history Unknown December 08, 2019 10:14am Family History?No pe rtinent history Unknown December 08, 2019 10:14am Advance Directives No Advanced Directives Records FoundDocuments on File Type Date Recorded 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 Advance Directive(s) 03/28/2018 12:55 AM Documents on File Type Date Recorded 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 Advance Directive(s) 03/28/2018 12:55 AM Advance Directive Response Recorded Date/ Time Living Will No March 23, 2022 11:24am Power of Plant Changer No March 23 11:24am Advance Directive Response Recorded Date/ Time Living Will No June 06, 2022 2:51pm Power of Plant Changer No June 06 2:51pm Advance Directive Response Recorded Date/ Time Living Will No October 31 11:01am Power of Plant Changer No October 31, 2022 11:01am Advance Directive Response Recorded Date/ Time Living Will No February 26, 2023 8:59am Power of Plant Changer No February 26 8:59am Advance Directive Response Recorded Date/ Time Living Will No April 22, 2023 5 :24pm Power of Plant Changer No April 22, 2023 5:24pm Chief Complaint and Reason for Visit Chief Complaint VAG Reason for Visit Gestational diabetes Non-reassuring heart rate, delivered, current hospitalization Obesity affecting Vaginal delivery Chief 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 Reason for Visit Vaginal delivery Gestational diabetes Non-reassuring heart rate, delivered, current hospitalization Obesity affecting Care and examination of lactating mother Engorgement of breast associated with childbirth, Sterilization Chief Complaint GENERAL ILLNESS Chief Complaint GENERAL ILLNESS sore throat Chief Complaint sore throat FATIGUE Health Concerns Infection Onset Date Last Indicated Resolved Time COVID-19 Confirmed 07/25/2022 07/25/2022 Reason for Referral Specialty Diagnoses / Procedures Referred By Yasmine hall Referred To Contact Nutrition Diagnoses Class 2 severe obesity due to excess calories with serious comorbidity and body mass index (BMI) of 39.0 to 39.9 in adult (HCC) Procedures CONSULT TO NUTRITION THERAPY MEDICAL NUTRITION ASSMT&IVNTJ INDIV EACH 15 OR Gina Aguilar, SAFETY CONSULTANT.GROUP MANAGING DIRECTOR [address] [place] [address] Referral ID Status Reason Start Date Expiration Date Visits Requested Visits Authorized [id number] Authorized PCP Requested Referral 06/01/2024 05/25/2025 1 4 Additional Source Comments INFORMATION SOURCE (unrecogn ized section and content) DATE CREATED AUTHOR 05/14/2018 [facility] DATE CREATED AUTHOR AUTHOR'S ORGANIZ ATION 05/04/2023 [facility] DATE CREATED AUTHOR AUTHOR'S ORGANIZ ATION 05/12/2023 [facility] DATE CREATED AUTHOR AUTHOR'S ORGANIZ ATION 06/26/2024 [facility] ([place]) DATE CREATED AUTHOR AUTHOR'S ORGANIZ ATION 01/09/2025 [facility] Source Comments (unrecognize d section and content) In the event this informatio n is protected by the Federal Confidentiality of Alcohol and Drug Abuse Patient Records regulations: The Federal rules restrict any use of the information to criminally investigate or prosecute any alcohol or drug abuse patient.[facility] the event this information is protected by the Federal Confidentiality of Alcohol and Drug Abuse Patient Records regulations: The Federal rules restrict any use of the information to criminally investigate or prosecute any alcohol or drug abuse patient.[facility] Dublin[facility] the event this information is protected by the Federal Confidentiality of Alcohol and Drug Abuse Patient Records regulations: The Federal rules restrict any use of the information to criminally investigate or prosecute any alcohol or drug abuse patient.[facility] Dublin[facility] the event this information is protected by the Federal Confidentiality of Alcohol and Drug Abuse Patient Records regulations: The Federal rules restrict any use of the information to criminally investigate or prosecute any alcohol or drug abuse patient.[facility] the event this information is protected by the Federal Confidentiality of Alcohol and Drug Abuse Patient Records regulations: The Federal rules restrict any use of the information to criminally investigate or prosecute any alcohol or drug abuse patient.[facility] DublinIn the event this information is protected by the Federal Confidentiality of Alcohol and Drug Abuse Patient Records regulations: The Federal rules restrict any use of the information to criminally investigate or prosecute any alcohol or drug abuse patient.[facility] DublinIn the event this information is protected by the Federal Confidentiality of Alcohol and Drug Abuse Patient Records regulations: The Federal rules restrict any use of the information to criminally investigate or prosecute any alcohol or drug abuse patient.[facility] DublinIn the event this information is protected by the Federal Confidentiality of Alcohol and Drug Abuse Patient Records regulations: The Federal rules restrict any use of the information to criminally investigate or prosecute any alcohol or drug abuse patient.[facility] DublinIn the event this information is protected by the Federal Confidentiality of Alcohol and Drug Abuse Patient Records regulations: The Federal rules restrict any use of the information to criminally investigate or prosecute any alcohol or drug abuse patient.[facility] DublinIn the event this information is protected by the Federal Confidentiality of Alcohol and Drug Abuse Patient Records regulations: The Federal rules restrict any use of the information to criminally investigate or prosecute any alcohol or drug abuse patient.[facility] DublinIn the event this information is protected by the Federal Confidentiality of Alcohol and Drug Abuse Patient Records regulations: The Federal rules restrict any use of the information to criminally investigate or prosecute any alcohol or drug abuse patient.[facility] DublinIn the event this information is protected by the Federal Confidentiality of Alcohol and Drug Abuse Patient Records regulations: The Federal rules restrict any use of the information to criminally investigate or prosecute any alcohol or drug abuse patient.[facility] DublinIn the event this information is protected by the Federal Confidentiality of Alcohol and Drug Abuse Patient Records regulations: The Federal rules restrict any use of the information to criminally investigate or prosecute any alcohol or drug abuse patient.[facility] DublinIn the event this information is protected by the Federal Confidentiality of Alcohol and Drug Abuse Patient Records regulations: The Federal rules restrict any use of the information to criminally investigate or prosecute any alcohol or drug abuse patient.[facility] DublinIn the event this information is protected by the Federal Confidentiality of Alcohol and Drug Abuse Patient Records regulations: The Federal rules restrict any use of the information to criminally investigate or prosecute any alcohol or drug abuse patient.[facility] DublinIn the event this information is protected by the Federal Confidentiality of Alcohol and Drug Abuse Patient Records regulations: The Federal rules restrict any use of the information to criminally investigate or prosecute any alcohol or drug abuse patient.[facility] DublinIn the event this information is protected by the Federal Confidentiality of Alcohol and Drug Abuse Patient Records regulations: The Federal rules restrict any use of the information to criminally investigate or prosecute any alcohol or drug abuse patient.[facility] DublinIn the event this information is protected by the Federal Confidentiality of Alcohol and Drug Abuse Patient Records regulations: The Federal rules restrict any use of the information to criminally investigate or prosecute any alcohol or drug abuse patient.[facility] DublinIn the event this information is protected by the Federal Confidentiality of Alcohol and Drug Abuse Patient Records regulations: The Federal rules restrict any use of the information to criminally investigate or prosecute any alcohol or drug abuse patient.[facility] DublinIn the event this information is protected by the Federal Confidentiality of Alcohol and Drug Abuse Patient Records regulations: The Federal rules restrict any use of the information to criminally investigate or prosecute any alcohol or drug abuse patient.[facility] DublinIn the event this information is protected by the Federal Confidentiality of Alcohol and Drug Abuse Patient Records regulations: The Federal rules restrict any use of the information to criminally investigate or prosecute any alcohol or drug abuse patient.[facility] DublinIn the event this information is protected by the Federal Confidentiality of Alcohol and Drug Abuse Patient Records regulations: The Federal rules restrict any use of the information to criminally investigate or prosecute any alcohol or drug abuse patient.[facility] DublinIn the event this information is protected by the Federal Confidentiality of Alcohol and Drug Abuse Patient Records regulations: The Federal rules restrict any use of the information to criminally investigate or prosecute any alcohol or drug abuse patient.[facility] DublinIn the event this information is protected by the Federal Confidentiality of Alcohol and Drug Abuse Patient Records regulations: The Federal rules restrict any use of the information to criminally investigate or prosecute any alcohol or drug abuse patient.[facility] DublinIn the event this information is protected by the Federal Confidentiality of Alcohol and Drug Abuse Patient Records regulations: The Federal rules restrict any use of the information to criminally investigate or prosecute any alcohol or drug abuse patient.[facility] DublinIn the event this information is protected by the Federal Confidentiality of Alcohol and Drug Abuse Patient Records regulations: The Federal rules restrict any use of the information to criminally investigate or prosecute any alcohol or drug abuse patient.[facility] DublinIn the event this information is protected by the Federal Confidentiality of Alcohol and Drug Abuse Patient Records regulations: The Federal rules restrict any use of the information to criminally investigate or prosecute any alcohol or drug abuse patient.[facility] DublinIn the event this information is protected by the Federal Confidentiality of Alcohol and Drug Abuse Patient Records regulations: The Federal rules restrict any use of the information to criminally investigate or prosecute any alcohol or drug abuse patient.[facility] DublinIn the event this information is protected by the Federal Confidentiality of Alcohol and Drug Abuse Patient Records regulations: The Federal rules restrict any use of the information to criminally investigate or prosecute any alcohol or drug abuse patient.[facility] DublinIn the event this information is protected by the Federal Confidentiality of Alcohol and Drug Abuse Patient Records regulations: The Federal rules restrict any use of the information to criminally investigate or prosecute any alcohol or drug abuse patient.[facility] DublinIn the event this information is protected by the Federal Confidentiality of Alcohol and Drug Abuse Patient Records regulations: The Federal rules restrict any use of the information to criminally investigate or prosecute any alcohol or drug abuse patient.[facility] DublinIn the event this information is protected by the Federal Confidentiality of Alcohol and Drug Abuse Patient Records regulations: The Federal rules restrict any use of the information to criminally investigate or prosecute any alcohol or drug abuse patient.[facility] DublinIn the event this information is protected by the Federal Confidentiality of Alcohol and Drug Abuse Patient Records regulations: The Federal rules restrict any use of the information to criminally investigate or prosecute any alcohol or drug abuse patient.[facility] DublinIn the event this information is protected by the Federal Confidentiality of Alcohol and Drug Abuse Patient Records regulations: The Federal rules restrict any use of the information to criminally investigate or prosecute any alcohol or drug abuse patient.[facility] DublinIn the event this information is protected by the Federal Confidentiality of Alcohol and Drug Abuse Patient Records regulations: The Federal rules restrict any use of the information to criminally investigate or prosecute any alcohol or drug abuse patient.[facility] DublinIn the event this information is protected by the Federal Confidentiality of Alcohol and Drug Abuse Patient Records regulations: The Federal rules restrict any use of the information to criminally investigate or prosecute any alcohol or drug abuse patient.[facility] DublinIn the event this information is protected by the Federal Confidentiality of Alcohol and Drug Abuse Patient Records regulations: The Federal rules restrict any use of the information to criminally investigate or prosecute any alcohol or drug abuse patient.[facility] DublinIn the event this information is protected by the Federal Confidentiality of Alcohol and Drug Abuse Patient Records regulations: The Federal rules restrict any use of the information to criminally investigate or prosecute any alcohol or drug abuse patient.[facility] DublinIn the event this information is protected by the Federal Confidentiality of Alcohol and Drug Abuse Patient Records regulations: The Federal rules restrict any use of the information to criminally investigate or prosecute any alcohol or drug abuse patient.[facility] Reason for Visit (unrecogniz ed section and content) Reason Onset Date Comments Care 02/20/2022 Reason Onset Date Comments Care 02/25/2022 Reason Comments US Specialty Diagnoses / Procedures Referred By Contac t Referred To Contact [facility] Diagnoses 33 weeks gestation of Gestational diabetes mellitus, class A1 Procedures OBSTETRIC ULTRASOUND WHI US PREG UTERUS AFTER 1ST TRIMEST GESTATION Elsie Gonzalez APRN.CNM [address] [place] [address] [facility] [address] [place] [id number] Referral ID Status Reason Start Date Expiration Date V isits Requested Visits Authorized [id number] Closed Auto-Generate d Referral 02/12/2022 02/12/2023 1 1 Reason Onset Date Comments Care 02/28/2022 Reason Onset Date Comments Care 03/04/2022 Reason Onset Date Comments Care 03/11/2022 Reason Onset Date Comments Care 03/18/2022 Specialty Diagnoses / Procedures Referred By Yasmine t Referred To Contact [facility] Diagnoses 37 weeks gestation of Gestational diabetes mellitus, class A1 Obesity complicating , third trimester Procedures OBSTETRIC ULTRASOUND WHI US PREG UTERUS AFTER 1ST TRIMEST GESTATION Roseann Paul APRN.CNM [address] [place] [address] [facility] [address] [place] [address] Referral ID Status Reason Start Date Expiration Date V isits Requested Visits Authorized [id number] Closed Auto-Generate d Referral 03/11/2022 03/11/2023 1 1 Reason Comments Ob Delivery Note Reason Onset Date Comments Refill Request 03/28/2022 Reason Comments Follow Up wants to get back on medications Reason Comments Care Reason Comments Schedule Surgery Reason Comments Cough +home Covid AM, feve r, congestion, throat. Reason Comments Patient Update Reason Comments Covid Follow Up Reason Comments Follow Up Reason Onset Date Comments Refill Request 10/24/2022 Reason Comments Low Back Pain chronic episode x 1 day Reason Onset Date Comments Refill Request 07/19/2023 Reason Comments Employment Physical Reason Comments Vaginal Discharge Reason Comments STD Reason Comments Anxiety Situational. Relatio nship trouble. Reason Comments Anxiety Depression Relationship problem s Reason Onset Date Comments Refill Request 05/17/2024 Reason Comments Follow Up Anxiety/Depression f ollow up, medication change Reason Comments Insurance Authorization Orlistat Reason Comments Nasal Congestion drainage, sore throa t x last night Reason Comments Conjunctivitis Bilateral x1 day Care Teams (unrecognized sec tion and content) Medicaid Eligibility Specialist Relationship Specialty Start Date End Date Kendall Oakley MD [address] [place] [address] PCP - General Family Practice 01/02/17 Medicaid Eligibility Specialist Relationship Specialty Start Date End Date Kendall Oakley MD [address] [place], [place] [id number] PCP - General Family Practice 01/02/17 Medicaid Eligibility Specialist Relationship Specialty Start Date End Date Kendall Oakley MD [address] [place], [place] [id number] PCP - General Family Practice 01/02/17 Medicaid Eligibility Specialist Relationship Specialty Start Date End Date Kendall Oakley MD [address] [place], [place] [id number] PCP - General Family Practice 01/02/17 Medicaid Eligibility Specialist Relationship Specialty Start Date End Date Kendall Oakley MD [address] [facility] [place] [address] PCP - General Family Practice 01/02/17 Medicaid Eligibility Specialist Relationship Specialty Start Date End Date Kendall Oakley MD [address] [place] [place] [address] PCP - General Family Practice 01/02/17 Medicaid Eligibility Specialist Relationship Specialty Start Date End Date Kendall Oakley MD [address] [place] [place] [address] PCP - General Family Practice 01/02/17 Medicaid Eligibility Specialist Relationship Specialty Start Date End Date Kendall Oakley MD [address] [place] [place] [address] PCP - General Family Practice 01/02/17 Medicaid Eligibility Specialist Relationship Specialty Start Date End Date Kendall Oakley MD [address] [place] [address] PCP - General Family Practice 01/02/17 Medicaid Eligibility Specialist Relationship Specialty Start Date End Date Kendall Oakley MD [address] [place] [place] [address] PCP - General Family Practice 01/02/17 Medicaid Eligibility Specialist Relationship Specialty Start Date End Date Kendall Oakley MD [address] [place] [address] PCP - General Family Practice 01/02/17 Medicaid Eligibility Specialist Relationship Specialty Start Date End Date Kendall Oakley MD [address] [place] [address] PCP - General Family Practice 01/02/17 Medicaid Eligibility Specialist Relationship Specialty Start Date End Date Kendall Oakley MD [address] [place] [address] PCP - General Family Practice 01/02/17 Medicaid Eligibility Specialist Relationship Specialty Start Date End Date Kendall Oakley MD [address] [facility] [place], [place] [address] PCP - General Family Medicine 01/02/17 Medicaid Eligibility Specialist Relationship Specialty Start Date End Date Kendall Oakley MD [address] [place] [address] PCP - General Family Medicine 01/02/17 Medicaid Eligibility Specialist Relationship Specialty Start Date End Date Kendall Oakley MD [address] [place] [address] PCP - General Family Medicine 01/02/17 Team Status: Active Member Role Status Dates Dr. Kendall Oakley MD Family Provider Active Dr. Kendall Oakley MD Primary Care Provider Active Team Status: Inactive Member Role Status Dates Dr. Kendall Oakley MD Primary Care Provider Active Dr. Nicolas German DO Attending Provider, Emergency Provider Active Team Status: Inactive Member Role Status Dates Dr. Kendall Oakley MD Primary Care Provider Active Dr. José Luis Goldsmith MD Emergency Provider Active Medicaid Eligibility Specialist Relationship Specialty Start Date End Date Kendall Oakley MD [address] [place] [address] PCP - General Family Medicine 01/02/17 Team Status: Inactive Member Role Status Dates Dr. Kendall Oakley MD Primary Care Provider Active Dr. José Luis Goldsmith MD Attending Provider, Emergency Provider Active Team Status: Inactive Member Role Status Dates Dr. Kendall Oakley MD Primary Care Provider Active Dr. Nicolas German DO Emergency Provider Active Medicaid Eligibility Specialist Relationship Specialty Start Date End Date Kendall Oakley MD [address] [facility] [place] [address] PCP - General Family Medicine 01/02/17 Medicaid Eligibility Specialist Relationship Specialty Start Date End Date Kendall Oakley MD [address] [place] [address] PCP - General Family Medicine 01/02/17 Medicaid Eligibility Specialist Relationship Specialty Start Date End Date Kendall Oakley MD [address] [place] [address] PCP - General Family Medicine 01/02/17 Medicaid Eligibility Specialist Relationship Specialty Start Date End Date Kendall Oakley MD [address] [place] [address] PCP - General Family Medicine 01/02/17 Medicaid Eligibility Specialist Relationship Specialty Start Date End Date Kendall Oakley MD [address] [place] [address] PCP - General Family Medicine 01/02/17 Medicaid Eligibility Specialist Relationship Specialty Start Date End Date Kendall Oakley MD [address] [place] [address] PCP - General Family Medicine 01/02/17 Medicaid Eligibility Specialist Relationship Specialty Start Date End Date Kendall Oakley MD [address] [place] [address] PCP - General Family Medicine 01/02/17 Medicaid Eligibility Specialist Relationship Specialty Start Date End Date Kendall Oakley MD [address] [place] [address] PCP - General Family Medicine 01/02/17 Medicaid Eligibility Specialist Relationship Specialty Start Date End Date Kendall Oakley MD [address] [place] [address] PCP - General Family Medicine 01/02/17 Medicaid Eligibility Specialist Relationship Specialty Start Date End Date Kendall Oakley MD [address] [place] [address] PCP - General Family Medicine 01/02/17 Medicaid Eligibility Specialist Relationship Specialty Start Date End Date Kendall Oakley MD [address] [place], [place] [address] PCP - General Family Medicine 01/02/17 Medicaid Eligibility Specialist Relationship Specialty Start Date End Date Kendall Oakley MD [address] [place], [place] [address] PCP - General Family Medicine 01/02/17 Medicaid Eligibility Specialist Relationship Specialty Start Date End Date Kendall Oakley MD [address] [place], [place] [address] PCP - General Family Medicine 01/02/17 Medicaid Eligibility Specialist Relationship Specialty Start Date End Date Kendall Oakley MD [address] [place], [place] [address] PCP - General Family Medicine 01/02/17 Medicaid Eligibility Specialist Relationship Specialty Start Date End Date Kendall Oakley MD [address] [place], [place] [address] PCP - General Family Medicine 01/02/17 Ana Laura Garcia APRN.[employer] [address] [place], [place] [address] [employer] Family Medicine 11/01/24 Gina Aguilar APRN.[employer] [address] [place], [place] [address] [facility] Medicine 11/01/24 Goals (unrecognized section and content) Goals may be documented in a n alternate sectionGoals may be documented in an alternate sectionGoals may be documented in an alternate sectionGoals may be documented in an alternate section FOR RECORDS PERTAINING TO PATIENTS WHO ARE OR HAVE BEEN ENROLLED IN A CHEMICAL DEPENDENCY/SUBSTANCEABUSE PROGRAM, SOME INFORMATION MAY BE OMITTED. This clinical summary was aggregated from multiple sources. Caution should be exercised in using it in the provision of clinical care. This summary normalizes information from multiple sources, and as a consequence, information in this document may materially change the coding, format and clinical context of patient data. In addition, data may be omitted in some cases. CLINICAL DECISIONS SHOULD BE BASED ON THE PRIMARY CLINICAL RECORDS. [facility] [employer], [facility]. provides no warranty or guarantee of the accuracy or completeness of information in this document.
[2025-07-31 07:57] VITALS: BP 136/87; PULSE 89; RESP 18; TEMP 37; O2SAT 98
[2025-07-31] MEDS: guaiFENesin/D-Methorphan TAB.SR.12H 1 TABLET PO (08:07)
== END 2025-07-31 08:09 | disposition home or self-care (01) ==
PROVIDERS: Emergency Provider Emergency Medicine; PCP Nurse Practitioner Family; Visit Provider Emergency Medicine
DX: J06.9 Acute upper respiratory infection, unspecified (principal); F32.A Depression, unspecified; F41.9 Anxiety disorder, unspecified; F17.290 Nicotine dependence, other tobacco product, uncomplicated; Z79.899 Other long term (current) drug therapy
CPT/HCPCS: 99282